=== PATIENT | female | born 1940 | race Caucasian/White ===

== ENCOUNTER 2016-11-24 01:51 | Inpatient (IN) | payer MEDICARE, OTHER ==
[2016-11-24] VITALS (18 sets, daily range): BP systolic 112–152; BP diastolic 56–68; PULSE 81–108; RESP 16–19; TEMP 97.5–98.6; O2SAT 97–99
[2016-11-24] MEDS ORDERED: RESP: ALBUTEROL 2.5 MG/IPRATROPIUM 0.5 MG NEB (PRN) NEB (03:00)
[2016-11-24 03:06] LABS: BLOOD GAS BASE EXCESS -2.1 mmol/L (-2-2); BLOOD GAS HCO3 22 mmol/L (22-26); BLOOD GAS O2 HGB SATURATION 91 % (90-100); BLOOD GAS PCO2 39 mmHg (38-42); BLOOD GAS PO2 75 mmHg (61-120); BLOOD GAS TOTAL HGB 10.9 G/DL (12.0-16.0); CRITICAL VALUE NO; TEMP CORR TO 98.6
[2016-11-24 03:07] LABS: DRAW SITE RT RADIAL; FIO2 60 %; NUMBER OF ARTERIAL PUNCTURES 1; STAT YES; ULNAR PULSE Y; VENT SETTINGS PRVC
--- NOTE | 2016-11-24 03:11 | HHI.HP ---
HPI Service Critical Care Medicine Primary Care Physician Unknown Admission Diagnosis Diagnosis: (1) Acute respiratory failure Diagnosis: Principal (2) SAH (subarachnoid hemorrhage) Diagnosis: Principal (3) IVH (intraventricular hemorrhage) Diagnosis: Principal (4) Uncontrolled hypertension Diagnosis: Principal (5) Acute encephalopathy Diagnosis: Principal (6) LLL pneumonia Diagnosis: Principal (7) Leukocytosis Diagnosis: Principal (8) Severe sepsis Diagnosis: Principal (9) Peritoneal dialysis catheter in place Diagnosis: Secondary Chief Complaint: Extensive subarachnoid hemorrhage Acute respiratory respiratory failure Travel History International Travel<30 Days: No Contact w/Intl Traveler <30 Da: No Traveled to Known Affected Are: No Sepsis Criteria SIRS Criteria (2 or more): Heart rate over 90, WBC > 13164, < 4000 or > 10% bands Sepsis Criteria (SIRS+source): Infect source susp/known Severe Sepsis (+one): Lactate >2 Criteria Outcome: Meets severe sepsis criteria History of Present Illness Patient is a 76-year-old female who was transferred from [facility] with extensive subarachnoid hemorrhage. Unfortunately I do not have any history and physical or discharge summary available neither CT reports. All history I have is from discussion with Dr. Tian. Apparently patient was found unconscious yesterday in a pool of bloody vomitus. She was intubated and admitted to the [facility] ICU. She underwent EGD, again report is not available to me, and was placed on Protonix infusion. After EGD patient underwent a CT of the head which showed extensive subarachnoid hemorrhage, and IVH. Dr. Tian was contacted who recommended a CT angiogram. CT angiogram did not show an aneurysm but showed probable mild obstructive hydrocephalus. Dr. Tian accepted transfer to [facility] for further care, and patient was admitted to critical care medicine. Only medical history available to me is that patient is on peritoneal dialysis, and has history of hypertension I evaluated the patient in the ICU. Patient is sedated with propofol is on Cardene infusion for blood pressure control. Also on Protonix gtt for GIB On sedation hold patient withdraws all 4 extremities. Pupils are slightly reactive. There was audible cuff leak. Tube exchange attempted by respiratory therapist was unsuccessful. So I extubated and endotracheally intubated the patient with new ET tube. Dr. Tian had been made aware of the patient's arrival and he plans to do an EVD Review of Systems ROS Limitations: Intubated, Unresponsive Past Family Social History Allergies: Coded Allergies: UNOBTAINABLE (Unverified , 11/24/16) Intubated Past Medical History New subarachnoid hemorrhage End-stage renal disease on peritoneal dialysis Hypertension Past Surgical History Unable to obtain at this time Reported Medications Unable to obtain at this time Active Ordered Medications Currently on propofol Protonix and Cardene infusions Family History Unable to obtain Social History Unable to obtain Physical Exam Vital Signs Vital Signs Date Time Temp Pulse Resp B/P Pulse Ox O2 Delivery O2 Flow Rate FiO2 11/24/16 02:53 98 60 Physical Exam GENERAL: Elderly female who is intubated sedated critically ill SKIN: Warm and dry. HEAD: Normocephalic. EYES: No scleral icterus. No injection or drainage. Pupils are 3 mm reactive slightly ENT: ETT with audible cuff leak NECK: Supple, trachea midline. No JVD or lymphadenopathy. CARDIOVASCULAR: Regular rate and rhythm without murmurs, gallops, or rubs. RESPIRATORY: Breath sounds equal bilaterally, but diminished with mild expiratory wheezing GASTROINTESTINAL: Abdomen soft, non-tender, nondistended. PD catheter in place MUSCULOSKELETAL: No cyanosis, or edema. Neuro: Intubated sedated with propofol. Withdraws upper and lower extremity to pain. NEENA 3mm Laboratory Laboratory Tests Test 11/24/16 03:01 Blood Gas Puncture Site RT RADIAL Blood Gas Patient Temperature 98.6 Blood Gas HCO3 22 Blood Gas Base Excess -2.1 Blood Gas Oxygen Saturation 91 Arterial Blood pH 7.38 Arterial Blood Partial 39 Pressure CO2 Arterial Blood Partial 75 Pressure O2 Arterial Blood Oxygen Content 14.0 Arterial Blood 0.0 Carboxyhemoglobin Arterial Blood Methemoglobin 1.0 Blood Gas Hemoglobin 10.9 Blood Gas Ventilator Setting PRVC Blood Gas Inspired Oxygen [address] head at OSH shows extensive subarachnoid hemorrhage, intraventricular hemorrhage and probable early hydrocephalus Septic Shock Reassessment Heart: Other (tachycardic) Lungs: Course Skin: Warm Peripheral Pulses: Bounding Right Radial Bounding Left Radial Assessment and Plan Assessment and Plan NEURO: Subarachnoid hemorrhage Intraventricular hemorrhage Probable mild hydrocephalus Acute encephalopathy -Keep sedated with propofol and as needed fentanyl, target RASS-3 -No sedation vacation -Plan for EVD by Dr. Tian, with f/u CT head -Cardene infusion to target systolic blood pressure 120 to 1:30 -Keep sodium more than 145 keep magnesium more than 2 -Monitor for vasospasm, start Nimotop 60 mg every 4hr -Plan for repeat CTA of the brain in 3-4 days RESP: Acute respiratory failure Left lower lobe pneumonia ET tube cuff damage -Extubated and re intubated with new ETT -ACV RR 16 TV 550 PEEP 8 titrate FiO2 to keep saturation more than 90% -DuoNeb every 6 hours and when necessary -Send sputum culture, empiric Zosyn started, single dose of vancomycin CV: Uncontrolled hypertension -Continue Cardene infusion to target systolic blood pressure less than 130 -Started on Nimotop 60 mg every 4 hours -Normal saline IV fluids at 50 ml per hour GI: -NPO, IV Protonix -Colace, senna for bowel regimen -Start tube feeds in 24 hours : End-stage renal disease on peritoneal dialysis -Monitor renal function closely. Rosales catheter. -Nephrology consulted for peritoneal dialysis management ID: Left lower lobe pneumonia Severe sepsis Leukocytosis -IV vancomycin x1, and Zosyn 3.375 GM IV q6. -Send blood culture urine culture and sputum culture HEME: -Monitor CBC, CMP, coags ENDO: -Electrolyte replacement as needed PROPH: Bilateral lower extremity SCDs. Chemical DVT prophylaxis is contraindicated. Continue Protonix infusion for GI bleed LINES: -Patient has left subclavian central line placed at the outside hospital. CC time 80 min excluding procedure time Code Status Full Discussed Condition With Dr. Tian Problem Qualifiers (1) Acute respiratory failure: Qualified Code: J96.01 - Acute respiratory failure with hypoxia (2) LLL pneumonia: Qualified Code: J18.1 - Pneumonia of left lower lobe due to infectious organism Antonia Toledo MD Nov 24, 2016 03:11
--- NOTE | 2016-11-24 03:19 | PD.PROCEDR ---
Procedure Note Procedure After the risks and benefits were discussed the following procedure was performed: INTUBATION: The patient was put in optimal position for the procedure. Rapid sequence intubation was initiated by me using continuous propofol and 50 milligrams of Rocuronium IV. DL with Mac 4 blade Grade 1 view. The patient was intubated with a 7.5 cuffed endotracheal tube. Tube placement was confirmed by visualization of the tube and balloon passing through the cords, capnometry and subsequent chest x-ray. Breath sounds were equal and well aerated bilaterally postintubation. No breath sounds over stomach. Patient tolerated procedure well. Antonia Toledo MD Nov 24, 2016 03:19
[2016-11-24 03:36] LABS: HEMATOCRIT 31.2 % (35.0-46.0); MEAN CELL VOLUME 93.1 FL (80.0-100.0); MEAN CORPUSCULAR HGB CONC 34.4 % (32.0-36.0); PLATELET COUNT 420 TH/MM3 (150-450); RED BLOOD COUNT 3.35 MIL/MM3 (4.00-5.30); RED CELL DISTRIBUTION WIDTH 14.1 % (11.6-17.2); REVIEW FLAG FINAL; WHITE BLOOD COUNT 22.6 TH/MM3 (4.0-11.0)
[2016-11-24] MEDS: SODIUM CHLOR 0.9% 1000 ML INJ 1,000 ML IV SCH ×2 (03:40→23:40)
[2016-11-24] MEDS ORDERED: MISCELLANEOUS NURSING INFORMATION XX SCH (03:45)
[2016-11-24] MEDS ORDERED: CHLORHEXIDINE GLUCONATE 2 % 1 PACK (2 CLOTHS) TOP PRN (03:45)
[2016-11-24] MEDS ORDERED: LORazepam 2 MG/ML VIAL IV PRN (03:45)
[2016-11-24] MEDS ORDERED: ACETAMINOPHEN 325 MG TAB PO PRN (03:45)
[2016-11-24] MEDS ORDERED: SODIUM CHLORIDE 0.9% FLUSH 5 ML FLUSH IV FLUSH PRN (03:45)
[2016-11-24] MEDS ORDERED: SODIUM CHLOR 0.9% 1000 ML INJ 1,000 ML IV ONE (04:00)
[2016-11-24] MEDS: CHLORHEXIDINE GLUCONATE 2 % 1 PACK (2 CLOTHS) TOP SCH (04:00)
[2016-11-24] MEDS ORDERED: VANCOMYCIN INJ 1,000 MG in SODIUM CHLOR 0.9% 250 ML INJ 250 ML IV ONE (04:00)
[2016-11-24 04:01] LABS: ALT (GPT) 16 U/L (10-53); ANION GAP 15 MEQ/L (5-15); AST (GOT) 17 U/L (15-37); BICARBONATE 25.6 MEQ/L (21.0-32.0); BLOOD UREA NITROGEN 58 MG/DL (7-18); CHLORIDE 99 MEQ/L (98-107); GLOMERULAR FILTRATION RATE 5 ML/MIN (>89); MAGNESIUM 2.2 MG/DL (1.5-2.5); SODIUM (NA) 140 MEQ/L (136-145)
[2016-11-24 04:03] LABS: ALKALINE PHOSPHATASE 74 U/L (45-117); TOTAL BILIRUBIN ADULT 0.5 MG/DL (0.2-1.0)
[2016-11-24] MEDS: niCARdipine INJ 25 MG in SODIUM CHLOR 0.9% 250 ML INJ 250 ML IV SCH (04:16)
[2016-11-24] MEDS: PIPERACIL-TAZO 3.375 GM PREMIX 50 ML IV SCH ×2 (04:17→09:55)
[2016-11-24] MEDS: niMODipine 30 MG CAP PO SCH ×4 (04:18→20:00)
[2016-11-24] MEDS: PANTOPRAZOLE INJ 80 MG in SODIUM CHLORIDE 0.9% INJ 100 ML IV SCH ×2 (04:18→16:15)
[2016-11-24 04:53] LABS: INTERNATIONAL NORMALIZED RATIO 1.1 RATIO; PROTHROMBIN TIME - PATIENT 11.9 SEC (9.8-11.6)
--- NOTE | 2016-11-24 04:54 | RADRPT ---
EXAM DATE/TIME: 11/24/2016 03:27 [place] COMPARISON: No previous studies available for comparison. INDICATIONS : E-T tube placement. MEDICAL HISTORY : None. SURGICAL HISTORY : None. ENCOUNTER: Initial ACUITY: 1 day PAIN SCORE: Non-responsive. LOCATION: Bilateral chest FINDINGS: Endotracheal tube tip is at the edin. Slight retraction would be recommended. A nasogastric tube de scends to the stomach. A left subclavian central line is present with tip overlying SVC. There is haz y infiltrate in the left lower lobe obscuring the left diaphragm. Mild interstitial prominence elsewh ere in the lungs. Cardiac size and mediastinal contours are grossly satisfactory for projection. CONCLUSION: Endotracheal tube tip is at the edin. Slight retraction recommended. Tre Harrington MD on November 24, 2016 at 4:51 Board Certified Radiologist. This report was verified electronically.
[2016-11-24] MEDS: PROPOFOL 1000 MG/100 ML INJ 100 ML IV SCH ×3 (05:13→16:07)
[2016-11-24] MEDS ORDERED: ROCURONIUM INJ 50 MG/5 ML VIAL PRN (06:45)
--- NOTE | 2016-11-24 08:11 | PD.CONS ---
History of Present Illness Service Neurosurgery Consult Requested By Benzol Still Operator-Dr. Toledo Reason for Consult Subarachnoid hemorrhage Primary Care Physician Unknown Diagnoses: History of Present Illness 76-year-old female transferred from [facility]. Patient reportedly found at home unresponsive with emesis. Patient intubated prior to arrival in the emergency room. Systolic blood pressure 190 initially in the emergency room. Taken to [facility] emergency room and taken urgently for EGD with clipping for GI bleed. Subsequently CT scan of the head revealed significant subarachnoid hemorrhage and the patient admitted to the intensive care unit. No seizure activity reported. Review of Systems Unable to obtain review of systems due to altered mental status. According to the patient's sister, the patient has had problems with increasing headaches and progressive fatigue over the past 3 or 4 weeks. Otherwise she is not aware of any specific complaints including no chest pain, shortness of breath, fevers, chills. Past Family Social History Allergies: Coded Allergies: UNOBTAINABLE (Unverified , 11/24/16) Intubated Past Medical History End-stage renal disease on peritoneal dialysis Hypertension Past Surgical History Renal biopsy EGD Reported Medications Omeprazole Family History Negative cardiac disease cancer, diabetes Social History According to sister no smoking. No alcohol use. Patient lives alone Physical Exam Vital Signs Vital Signs Date Time Temp Pulse Resp B/P Pulse Ox O2 Delivery O2 Flow Rate FiO2 11/24/16 06:00 89 11/24/16 04:00 108 11/24/16 04:00 97.9 108 17 151/67 98 11/24/16 03:00 Mechanical Ventilator 60 11/24/16 03:00 60 11/24/16 03:00 92 11/24/16 02:53 98 60 11/24/16 02:30 98 60 Physical Exam GENERAL: Moderately obese female, intubated, sedated SKIN: No rashes, ecchymoses or lesions. Cool and dry. HEAD: Atraumatic. Normocephalic. EYES: Sclerae are clear and nonicteric ENT: Oropharynx I will CT to endotracheal tube. No obvious oropharyngeal lesions. No facial edema or ecchymosis. NECK: Trachea midline. No lymphadenopathy. no meningeal signs. CARDIOVASCULAR: Regular rate and rhythm without murmurs, gallops, or rubs. RESPIRATORY: Coarse upper airway sounds. No wheezing. No definite rhonchi GASTROINTESTINAL: Abdomen soft, nondistended. No hepato-splenomegaly, or palpable masses. No guarding. MUSCULOSKELETAL: Extremities without clubbing, cyanosis, or edema. No joint tenderness, effusion, or edema noted. Posterior tibial pulse 2+ bilateral NEUROLOGICAL: With sedation decreased, the patient has no eye opening to voice, spontaneous, or deep pain Does not follow commands Pupils 3 mm minimally reactive Mild conjugate oculocephalic movements Moderate corneal responses No facial grimacing to pain Minimal shaking spontaneous upper extremities. No response to deep pain over the chest or upper extremities. Minimal retrolisthesis painful extremities Gadiel's response bilaterally No ankle clonus Laboratory Laboratory Tests Test 11/24/16 11/24/16 11/24/16 11/24/16 02:50 03:01 03:22 03:55 Nasal Screen MRSA (PCR) NEGATIVE Blood Gas Puncture Site RT RADIAL Blood Gas Patient Temperature 98.6 Blood Gas HCO3 22 Blood Gas Base Excess -2.1 Blood Gas Oxygen Saturation 91 Arterial Blood pH 7.38 Arterial Blood Partial 39 Pressure CO2 Arterial Blood Partial 75 Pressure O2 Arterial Blood Oxygen Content 14.0 Arterial Blood 0.0 Carboxyhemoglobin Arterial Blood Methemoglobin 1.0 Blood Gas Hemoglobin 10.9 Blood Gas Ventilator Setting PRVC Blood Gas Inspired Oxygen 60 White Blood Count 22.6 Red Blood Count 3.35 Hemoglobin 10.7 Hematocrit 31.2 Mean Corpuscular Volume 93.1 Mean Corpuscular Hemoglobin 32.0 Mean Corpuscular Hemoglobin 34.4 Concent Red Cell Distribution Width 14.1 Platelet Count 420 Mean Platelet Volume 6.5 Sodium Level 140 Potassium Level 4.0 Chloride Level 99 Carbon Dioxide Level 25.6 Anion Gap 15 Blood Urea Nitrogen 58 Creatinine 7.65 Estimat Glomerular Filtration 5 Rate Random Glucose 153 Lactic Acid Level 3.1 Calcium Level 8.2 Phosphorus Level 6.4 Magnesium Level 2.2 Total Bilirubin 0.5 Aspartate Amino Transf 17 (AST/SGOT) Alanine Aminotransferase 16 (ALT/SGPT) Alkaline Phosphatase 74 Total Protein 6.6 Albumin 2.7 Prothrombin Time 11.9 Prothromb Time International 1.1 Ratio Date/Time Procedure Status Source Growth 11/24/16 03:45 Aerobic Blood Culture Received Blood Peripheral Pending 11/24/16 03:45 Anaerobic Blood Culture Received Blood Peripheral Pending Result Diagram: 11/24/16 0322 11/24/16 0322 Imaging 11/24/[address] scan head [address] CT angiogram brain [facility] images are reviewed. The studies reveal significant diffuse subarachnoid hemorrhage, particularly of the cisterns. Mild hydrocephalus. Positive intraventricular hemorrhage. No midline shift. No definite aneurysm seen on CT angiogram Assessment and Plan Assessment and Plan Impression: 1 subarachnoid hemorrhage 2 hypertension 3. End-stage renal disease on peritoneal dialysis 4. Respiratory failure requiring intubation Recommendations: 1. Maintain systolic blood pressure 110-140 range 2. Ventriculostomy 3. Ulcer prophylaxis 4. Non chemical DVT prophylaxis 5. Cerebral angiogram 6. vasospasm prophylaxis - nimodipine 7. seizure prophylaxis - Keppra Discussed with patient's sister at length on the telephone. Findings, prognosis, treatment plan fully discussed and all questions answered. Advised placement of ventriculostomy catheter. Procedure, risks, possible complications, indications are fully discussed. She presented to stand and agrees to proceed with a ventriculostomy. Telephone consents obtained and witnessed Donato Tian MD Nov 24, 2016 08:11
--- NOTE | 2016-11-24 08:21 | PD.CONS ---
HPI History of Present Illness This is a 76 year old female who was transferred from [facility] with extensive subarachnoid hemorrhage. According to the records, she was found down with black emesis around her mouth. She was intubated and brought to the ER, where she started having red drainage from her OGT and was evaluated with EGD. Unfortunately, we do not have the actual endoscopy report available, although according to a OR report, she underwent EGD with control of bleeding, resolution clip application on 11/23/16. Afterwards, a CT scan report revealed significant subarachnoid hemorrhage and the patient transferred to the intensive care unit at this facility. She is currently sedated on the ventilator and unable to provide any history and therefore the history has been obtained from the EMR. Dr. Tian is at the bedside and preparing to place a ventriculostomy. SHe has an OGT which is currently clamped. I did flush this and aspirated dark green bilious material, but no coffee ground or red blood. She is on a Protonix Gtt. Her HH is 10.7/31.2. (Silvia Nino) PFSH Past Medical History New subarachnoid hemorrhage End-stage renal disease on peritoneal dialysis Hypertension GI Bleeding, requiring control of bleeding with clips Past Surgical History Unable to obtain (Silvia iNno) Coded Allergies: UNOBTAINABLE (Unverified , 11/24/16) Intubated Medications Allergies Coded Allergies Type Severity Reaction Last Updated Verified UNOBTAINABLE 11/24/16 No Family History Unable to obtain Social History Unable to obtain (Silvia Nino) Review of Systems ROS Unable to obtain (Silvia Nino) GI Exam Vitals I&O Vital Signs Date Time Temp Pulse Resp B/P Pulse Ox O2 Delivery O2 Flow Rate FiO2 11/24/16 06:00 89 11/24/16 04:00 108 11/24/16 04:00 97.9 108 17 151/67 98 11/24/16 03:00 Mechanical Ventilator 60 11/24/16 03:00 60 11/24/16 03:00 92 11/24/16 02:53 98 60 11/24/16 02:30 98 60 I/O 11/23/16 11/23/16 11/23/16 11/24/16 11/24/16 11/24/16 07:00 15:00 23:00 07:00 15:00 23:00 Intake Total 678 ml Output Total 400 ml Balance 278 ml Intake IV Total 587 ml Lipid 91 ml Output Urine Total 400 ml Stool Total 0 ml Imaging Last Impressions Chest X-Ray 11/24/16 0000 Signed Impressions: Service Date/Time: Thursday, November 24, 2016 03:27 - CONCLUSION: Endotracheal tube tip is at the edin. Slight retraction recommended. Tre Harrington MD Laboratory Test 11/24/16 11/24/16 11/24/16 11/24/16 02:50 03:01 03:22 03:55 Nasal Screen MRSA (PCR) NEGATIVE Blood Gas Puncture Site RT RADIAL Blood Gas Patient Temperature 98.6 Blood Gas HCO3 22 mmol/L Blood Gas Base Excess -2.1 mmol/L Blood Gas Oxygen Saturation 91 % Arterial Blood pH 7.38 Arterial Blood Partial 39 mmHg Pressure CO2 Arterial Blood Partial 75 mmHg Pressure O2 Arterial Blood Oxygen Content 14.0 Vol % Arterial Blood 0.0 % Carboxyhemoglobin Arterial Blood Methemoglobin 1.0 % Blood Gas Hemoglobin 10.9 G/DL Blood Gas Ventilator Setting PRVC Blood Gas Inspired Oxygen 60 % White Blood Count 22.6 TH/MM3 Red Blood Count 3.35 MIL/MM3 Hemoglobin 10.7 GM/DL Hematocrit 31.2 % Mean Corpuscular Volume 93.1 FL Mean Corpuscular Hemoglobin 32.0 PG Mean Corpuscular Hemoglobin 34.4 % Concent Red Cell Distribution Width 14.1 % Platelet Count 420 TH/MM3 Mean Platelet Volume 6.5 FL Sodium Level 140 MEQ/L Potassium Level 4.0 MEQ/L Chloride Level 99 MEQ/L Carbon Dioxide Level 25.6 MEQ/L Anion Gap 15 MEQ/L Blood Urea Nitrogen 58 MG/DL Creatinine 7.65 MG/DL Estimat Glomerular Filtration 5 ML/MIN Rate Random Glucose 153 MG/DL Lactic Acid Level 3.1 mmol/L Calcium Level 8.2 MG/DL Phosphorus Level 6.4 MG/DL Magnesium Level 2.2 MG/DL Total Bilirubin 0.5 MG/DL Aspartate Amino Transf 17 U/L (AST/SGOT) Alanine Aminotransferase 16 U/L (ALT/SGPT) Alkaline Phosphatase 74 U/L Total Protein 6.6 GM/DL Albumin 2.7 GM/DL Prothrombin Time 11.9 SEC Prothromb Time International 1.1 RATIO Ratio Date/Time Procedure Status Source Growth 11/24/16 03:45 Aerobic Blood Culture Received Blood Peripheral Pending 11/24/16 03:45 Anaerobic Blood Culture Received Blood Peripheral Pending Physical Examination HEENT: Normocephalic; atraumatic; no jaundice. CHEST: Resp even/unlabored, coarse breath sounds. OETT to vent CARDIAC: RRR ABDOMEN: Soft, nondistended, nontender; no hepatosplenomegaly; bowel sounds are present in all four quadrants. Aspirated dark green bilious material from OGT EXTREMITIES: Generalized edema. Varicose veins to BLE SKIN: Normal; no rash; no jaundice. AIRWORTHINESS SAFETY INSPECTOR: Sedated on vent. (Silvia Nino) Assessment and Plan Plan ASSESSMENT: - Upper GIB. Pt was found down with black emesis around mouth, intubated and brought to [facility], where she started having red blood from OGT. Unfortunately, we do not have the actual endoscopy report available, although according to a OR report, she underwent EGD with control of bleeding, resolution clip application on 11/23/16. She is NPO on Protonix Gtt. I aspirated dark green bilious material from OGT. - Anemia, acute blood loss. 10.7/31.2. - Extensive SAH. After EGD, patient was found to have extensive SAH on CT and subsequently transferred to this facility for further evaluation and treatment. Dr. Tian is following and preparing to place ventriculostomy at the bedside. - Leukocytosis, Lactic acid 3.1. WBC 22.6. - ARF. Creat 7.65. Per CCM PLAN: - NPO for now. - Cont. Protonix Gtt - Will get serial H/H's to see how her hgb is trending - If this remains stable, then okay to start Nepro at 30cc/hr - Obtain EGD procedure report from [facility] - Notify GI of active bleeding - CCM, NSx following - Supportive care - Further recommendations to follow based on results of above - Pt seen and examined by Dr. Cerda and myself and this note is written on his behalf (Silvia Nino) Physician Comments Patient Seen and examined Agree with above Continue with current supportive care Monitor labs Obtain endoscopy reports from the other hospital (Cecilio Cerda MD) Silvia Nino Nov 24, 2016 08:21 Cecilio Cerda MD Nov 24, 2016 17:24
[2016-11-24] MEDS: DOCUSATE SODIUM 100 MG/10 ML UDC PO SCH ×2 (09:00→21:00)
--- NOTE | 2016-11-24 09:51 | PD.OP ---
Operative Report Date of Surgery: Nov 24, 2016 Preoperative Diagnosis: (1) SAH (subarachnoid hemorrhage) Subarachnoid hemorrhage with intraventricular extension. Postoperative Diagnosis: (1) SAH (subarachnoid hemorrhage) .. Subarachnoid hemorrhage with intraventricular extension Procedure: Right frontal twist drill for ventriculostomy placement Surgeon: Donato Tian Public Finance Specialist(s): None Operation and Findings: The procedure was performed in the surgical intensive care unit. The procedure, risks, and possible complications were fully explained to the patient's sister prior to the procedure and consent obtained and witnessed. Appropriate timeout procedure was performed with all personnel present and in agreement The patient was placed in supine position with the head and neck in neutral position and the head of the bed elevated approximately 20. The right frontal region was shaved with clippers and sterilely prepped and draped. One percent Xylocaine without epinephrine was used for local infiltration over the small incision site which was made approximately 9-10 cm above the right supraorbital rim, approximately 3-1/2 to 4 cm lateral to the midline, in the mid pupillary line just anterior to the coronal suture. The hand drill was used to make a single twist drill opening in the cranium and the dura was perforated with the trocar. The Codman Bactiseal ventriculostomy catheter was advanced to a depth of 6-7 cm intracranial in a single pass with good return of spinal fluid. Opening pressure was 12 centimeter water The catheter was tunneled to the posterior frontal region with a trocar and secured to the skin with 3-0 nylon suture which was also used to close the small incision. A sterile bactericidal dressing was applied The catheter was connected to the drainage reservoir, and there was good drainage of fluid. The patient's neurologic exam remained stable following the procedure No specimen was sent There was no significant bleeding Donato Tian MD Nov 24, 2016 09:51
[2016-11-24] MEDS: SENNOSIDES SYRUP 8.8 MG/5 ML CUP PO SCH (09:55)
[2016-11-24] MEDS: SODIUM CHLORIDE 0.9% FLUSH 5 ML FLUSH IV FLUSH SCH ×2 (09:56→21:00)
[2016-11-24] MEDS: CHLORHEXIDINE 0.12% (ORAL KIT) 15 ML CUP MT SCH ×2 (09:56→20:00)
[2016-11-24] MEDS: RESP: ALBUTEROL 2.5 MG/IPRATROPIUM 0.5 MG NEB (SCH) NEB ×3 (10:11→20:34)
[2016-11-24] MEDS ORDERED: PIPERACIL-TAZO 2.25 GM PREMIX 50 ML IV SCH (11:00)
[2016-11-24] MEDS ORDERED: VERAPAMIL INJ 10 MG/4 ML VIAL ONE (12:04)
[2016-11-24] MEDS ORDERED: HEPARIN SODIUM - IV 10,000 UNITS/10 ML VIAL ONE (12:43)
--- NOTE | 2016-11-24 12:55 | PD.RAD ---
Post Procedure Progress Note Pre Procedure Diagnosis: (1) SAH (subarachnoid hemorrhage) Post Procedure Diagnosis: (1) SAH (subarachnoid hemorrhage) Procedure Date: Nov 24, 2016 Supervising Radiologist: Jonnie Schaeffer Proceduralist/Assist: Alie Cleary, RT(R)(), Juanjose Tomas RT(R) Anesthesia: Local Plan of Activity Patient to Unit: Critical Care Patient Condition: Poor See PACS Report for procedural detail/treatment Vascular-Arterial Procedure Procedure 1 Procedure Site: Cerebral (negative for aneurysm or spasm) Procedure(s): Angiogram Access Access Site(s): Right Femoral Artery Closure Site(s): Right manual pressure Jonnie Schaeffer MD Nov 24, 2016 12:55
[2016-11-24] MEDS ORDERED: IODIXANOL 320 MG/ML 50 ML VIAL (for RAD SPEC) I-ARTERIAL ONE (13:12)
[2016-11-24 14:15] LABS: HEMATOCRIT 27.7 % (35.0-46.0); REVIEW FLAG FINAL
--- NOTE | 2016-11-24 15:54 | PD.CONS ---
HPI Service Nephrology Consult Requested By Dr. Toledo Reason for Consult ESRD on peritoneal dialysis Primary Care Physician Unknown History of Present Illness Patient is a 76-year-old the female who [place], she was found in a pool of blood and the had GI bleeding underwent endoscopy and there was clipping of a bleeding vessel, she also underwent CT of the head and found to have significant with intraventricular bleed and was transferred to [facility], a ventriculostomy tube has been placed by Dr. Tian. She has a Tenckhoff catheter and place do not have details available. Review of Systems ROS Limitations: Clinical Condition Past Family Social History Allergies: Coded Allergies: UNOBTAINABLE (Unverified , 11/24/16) Intubated Past Medical History New subarachnoid hemorrhage End-stage renal disease on peritoneal dialysis Hypertension GI Bleeding, requiring control of bleeding with clips Past Surgical History Tenckhoff catheter Recent endoscopy Active Ordered Medications Current Medications Medications (Trade) Dose Ordered Sig/Wan Route Start Time Stop Time Status Last Admin Chlorhexidine Gluconate 15 ml 15 ml BID@08,20 MT 11/24/16 08:00 11/24/16 09:56 Propofol 100 ml @ 0 mls/hr TITRATE IV 11/24/16 03:00 11/24/16 09:55 Nicardipine HCl 25 mg/Sodium Chloride 260 ml @ 0 mls/hr TITRATE IV 11/24/16 03:00 11/24/16 04:16 (Protonix Inj/NS Inj) 100 ml @ 10 mls/hr Q10H IV 11/24/16 04:30 11/24/16 04:18 (Nimotop) 60 mg Q4HR PO 11/24/16 04:00 11/24/16 09:55 (Colace Liq) 100 mg Q12HR PO 11/24/16 09:00 Sennosides 8.8 mg 8.8 mg DAILY PO 11/24/16 09:00 11/24/16 09:55 (NS 1000 ml Inj) 1,000 ml @ 50 mls/hr Q20H IV 11/24/16 03:40 11/24/16 03:40 (NS Flush) 2 ml UNSCH PRN IV FLUSH 11/24/16 03:45 (NS Flush) 2 ml BID IV FLUSH 11/24/16 09:00 11/24/16 09:56 (Tylenol) 650 mg Q6H PRN PO 11/24/16 03:45 (fentaNYL INJ) 50 mcg Q1H PRN IV PUSH 11/24/16 03:45 11/24/16 09:55 (Ativan Inj) 2 mg Q4H PRN IV 11/24/16 03:45 Miscellaneous Information 1 Q361D XX 11/24/16 03:45 11/24/16 03:45 (Chlorhexidine 2% Cloth) 3 pack Taper DAILY@04 TOP 11/24/16 04:00 11/20/17 03:59 11/24/16 04:00 (Chlorhexidine 2% Cloth) 3 pack UNSCH PRN TOP 11/24/16 03:45 Artificial Tears 1 applic 1 applic Q12HR EACH EYE 11/24/16 21:00 Levetriacetam 500 mg/Sodium Chloride 105 ml @ 420 mls/hr Q12HR IV 11/24/16 21:00 12/01/16 20:59 (Zosyn 2.25 Gm Premix) 50 ml @ 100 mls/hr Q12H IV 11/24/16 22:00 Family History Not available Social History Incomplete data Physical Exam Vital Signs Vital Signs Date Time Temp Pulse Resp B/P Pulse Ox O2 Delivery O2 Flow Rate FiO2 11/24/16 15:33 98 55 11/24/16 13:48 97 55 11/24/16 12:00 60 11/24/16 10:13 98 55 11/24/16 10:00 90 11/24/16 08:00 97.5 81 17 112/56 97 11/24/16 08:00 81 11/24/16 08:00 60 11/24/16 07:00 Mechanical Ventilator 60 11/24/16 06:00 89 11/24/16 04:00 108 11/24/16 04:00 97.9 108 17 151/67 98 11/24/16 03:00 Mechanical Ventilator 60 11/24/16 03:00 60 11/24/16 03:00 92 11/24/16 02:53 98 60 11/24/16 02:30 98 60 Physical Exam GENERAL: Well-nourished, well-developed patient. SKIN: Warm and dry. HEAD: Normocephalic. EYES: No scleral icterus. No injection or drainage. NECK: Supple, trachea midline. No JVD or lymphadenopathy. CARDIOVASCULAR: Tachycardic RESPIRATORY: Breath sounds equal bilaterally. No accessory muscle use. GASTROINTESTINAL: Abdomen soft, non-tender, nondistended. Tenckhoff catheter in place EXTREMITIES: No cyanosis, or edema. NEUROLOGICAL: Intubated Laboratory Laboratory Tests Test 11/24/16 11/24/16 11/24/16 11/24/16 02:50 03:01 03:22 03:55 Nasal Screen MRSA (PCR) NEGATIVE Blood Gas Puncture Site RT RADIAL Blood Gas Patient Temperature 98.6 Blood Gas HCO3 22 Blood Gas Base Excess -2.1 Blood Gas Oxygen Saturation 91 Arterial Blood pH 7.38 Arterial Blood Partial 39 Pressure CO2 Arterial Blood Partial 75 Pressure O2 Arterial Blood Oxygen Content 14.0 Arterial Blood 0.0 Carboxyhemoglobin Arterial Blood Methemoglobin 1.0 Blood Gas Hemoglobin 10.9 Blood Gas Ventilator Setting PRVC Blood Gas Inspired Oxygen 60 White Blood Count 22.6 Red Blood Count 3.35 Hemoglobin 10.7 Hematocrit 31.2 Mean Corpuscular Volume 93.1 Mean Corpuscular Hemoglobin 32.0 Mean Corpuscular Hemoglobin 34.4 Concent Red Cell Distribution Width 14.1 Platelet Count 420 Mean Platelet Volume 6.5 Sodium Level 140 Potassium Level 4.0 Chloride Level 99 Carbon Dioxide Level 25.6 Anion Gap 15 Blood Urea Nitrogen 58 Creatinine 7.65 Estimat Glomerular Filtration 5 Rate Random Glucose 153 Lactic Acid Level 3.1 Calcium Level 8.2 Phosphorus Level 6.4 Magnesium Level 2.2 Total Bilirubin 0.5 Aspartate Amino Transf 17 (AST/SGOT) Alanine Aminotransferase 16 (ALT/SGPT) Alkaline Phosphatase 74 Total Protein 6.6 Albumin 2.7 Prothrombin Time 11.9 Prothromb Time International 1.1 Ratio Test 11/24/16 13:50 Hemoglobin 9.3 Hematocrit 27.7 Date/Time Procedure Status Source Growth 11/24/16 03:45 Aerobic Blood Culture Received Blood Peripheral Pending 11/24/16 03:45 Anaerobic Blood Culture Received Blood Peripheral Pending Result Diagram: 11/24/16 1350 11/24/16 0322 Imaging Last Impressions Chest X-Ray 11/24/16 0000 Signed Impressions: Service Date/Time: Thursday, November 24, 2016 03:27 - CONCLUSION: Endotracheal tube tip is at the edin. Slight retraction recommended. Tre Harrington MD Assessment and Plan Problem List: (1) ESRD (end stage renal disease) Plan: Patient will resume peritoneal dialysis tonight with the catheter in place Continue to monitor labs while she is here obtaining further information Check peritoneal dialysis fluid cell count as well and cultures (2) Peritoneal dialysis catheter in place Plan: Orders placed to restart peritoneal dialysis (3) SAH (subarachnoid hemorrhage) Plan: Surgical intervention as above (4) Acute respiratory failure Plan: On ventilator (5) Uncontrolled hypertension Plan: Cardene drip (6) GI bleeding Plan: Gastroenterology is following (7) Severe sepsis Plan: On Zosyn Problem Qualifiers (1) Acute respiratory failure: Qualified Code: J96.01 - Acute respiratory failure with hypoxia Effie Parrish MD Nov 24, 2016 15:54
[2016-11-24 18:15] LABS: BLOOD GAS BASE EXCESS -4.4 mmol/L (-2-2); BLOOD GAS CARBOXYHEMOGLOBIN 0.9 % (0-4); BLOOD GAS HCO3 20 mmol/L (22-26); BLOOD GAS METHEMOGLOBIN 1.7 % (0-2); BLOOD GAS O2 HGB SATURATION 89 % (90-100); BLOOD GAS OXYGEN CONTENT 15.2 Vol % (12.0-20.0); BLOOD GAS PCO2 38 mmHg (38-42); BLOOD GAS PO2 67 mmHg (61-120); BLOOD GAS TOTAL HGB 12.1 G/DL (12.0-16.0); CRITICAL VALUE YES; OXYGEN DEVICE VENTILATOR; TEMP CORR TO 98.6
[2016-11-24 18:16] LABS: DRAW SITE RT RADIAL; FIO2 45 %; NUMBER OF ARTERIAL PUNCTURES 1; STAT NO; ULNAR PULSE PRESENT
[2016-11-24 18:23] LABS: HEMATOCRIT 27.2 % (35.0-46.0); MEAN CELL VOLUME 93.9 FL (80.0-100.0); MEAN CORPUSCULAR HEMOGLOBIN 31.3 PG (27.0-34.0); MEAN CORPUSCULAR HGB CONC 33.3 % (32.0-36.0); PLATELET COUNT 364 TH/MM3 (150-450); RED BLOOD COUNT 2.89 MIL/MM3 (4.00-5.30); RED CELL DISTRIBUTION WIDTH 14.4 % (11.6-17.2); REVIEW FLAG FINAL; WHITE BLOOD COUNT 18.9 TH/MM3 (4.0-11.0)
[2016-11-24 18:42] LABS: PERITONEAL WBC 62 /MM3 (0-10)
[2016-11-24 19:15] LABS: PERITONEAL LYMPHS 42 %; PERITONEAL MESOTHELIAL 13 %; PERITONEAL MONOS 40 %; PERITONEAL POLYS(SEGS) 5 %
[2016-11-24] MEDS: levETIRAcetam INJ 500 MG in SODIUM CHLORIDE 0.9% INJ 100 ML IV SCH (21:00)
[2016-11-24] MEDS: ARTIFICIAL TEARS OPTH OINT 3.5 APPLIC/3.5 GM TUBO EACH EYE SCH (21:00)
[2016-11-24] MEDS: PIPERACIL-TAZO 2.25 GM PREMIX 50 ML IV SCH (22:00)
[2016-11-25] VITALS (19 sets, daily range): BP systolic 128–145; BP diastolic 58–66; PULSE 79–98; RESP 18–19; TEMP 97.5–98.5; O2SAT 97–100
[2016-11-25] MEDS: PANTOPRAZOLE INJ 80 MG in SODIUM CHLORIDE 0.9% INJ 100 ML IV SCH ×3 (00:30→19:46)
[2016-11-25 02:49] LABS: HEMATOCRIT 26.7 % (35.0-46.0); MEAN CELL VOLUME 93.2 FL (80.0-100.0); MEAN CORPUSCULAR HEMOGLOBIN 31.1 PG (27.0-34.0); MEAN CORPUSCULAR HGB CONC 33.3 % (32.0-36.0); PLATELET COUNT 354 TH/MM3 (150-450); RED BLOOD COUNT 2.87 MIL/MM3 (4.00-5.30); RED CELL DISTRIBUTION WIDTH 14.6 % (11.6-17.2); REVIEW FLAG FINAL; WHITE BLOOD COUNT 15.9 TH/MM3 (4.0-11.0)
[2016-11-25] MEDS: RESP: ALBUTEROL 2.5 MG/IPRATROPIUM 0.5 MG NEB (SCH) NEB ×4 (03:36→21:41)
[2016-11-25] MEDS: CHLORHEXIDINE GLUCONATE 2 % 1 PACK (2 CLOTHS) TOP SCH (04:00)
[2016-11-25] MEDS: niMODipine 30 MG CAP PO SCH ×7 (04:00→23:50)
--- NOTE | 2016-11-25 04:10 | RADRPT ---
EXAM DATE/TIME: 11/25/2016 03:49 [facility] COMPARISON: CHEST SINGLE AP, November 24, 2016, 3:27. INDICATIONS : Shortness of breath. MEDICAL HISTORY : None. SURGICAL HISTORY : None. ENCOUNTER: Subsequent ACUITY: 2 days PAIN SCORE: Non-responsive. LOCATION: Bilateral chest FINDINGS: A single view of the chest demonstrates persistent consolidation in the left base with developing air space disease in the right lower lung field. Heart size is normal. Left subclavian central venous cat heter is stable in position. A radiopaque monitor projects over the right mainstem bronchus. Inspecti on difficult to determine the exact position of the endotracheal tube but I do believe its above the edin. Nasogastric tube enters the stomach and extends off the inferior aspect of the film. CONCLUSION: 1. Persistent left basilar consolidation with developing right basilar airspace disease. 2. Radiopaque monitor over the right mainstem bronchus partially obscures the airway but I believe th e endotracheal tube is appropriately positioned above the edin. Life support tubes are otherwise st able. Alan Campos MD on November 25, 2016 at 4:01 Board Certified Radiologist. This report was verified electronically.
[2016-11-25 05:35] LABS: AUTOMATED NEUTROPHIL # 12.1 TH/MM3 (1.8-7.7); BASOPHIL # 0.1 TH/MM3 (0-0.2); BASOPHIL % 0.7 % (0.0-2.0); EOSINOPHIL # 0.2 TH/MM3 (0-0.4); EOSINOPHIL % 1.5 % (0.0-4.0); HEMATOCRIT 23.9 % (35.0-46.0); HEMO FLAGS DIFF FINAL; LYMPH % 4.7 % (9.0-44.0); LYMPHOCYTE # 0.6 TH/MM3 (1.0-4.8); MEAN CELL VOLUME 92.4 FL (80.0-100.0); MEAN CORPUSCULAR HEMOGLOBIN 31.6 PG (27.0-34.0); MEAN CORPUSCULAR HGB CONC 34.2 % (32.0-36.0); MONO % 4.9 % (0.0-8.0); NEUT % 88.2 % (16.0-70.0); PLATELET COUNT 308 TH/MM3 (150-450); RED BLOOD COUNT 2.59 MIL/MM3 (4.00-5.30); RED CELL DISTRIBUTION WIDTH 14.3 % (11.6-17.2); WHITE BLOOD COUNT 13.7 TH/MM3 (4.0-11.0)
[2016-11-25 05:48] LABS: APTT (PATIENT) 27.1 SEC (24.3-30.1)
[2016-11-25] MEDS: PROPOFOL 1000 MG/100 ML INJ 100 ML IV SCH ×5 (06:14→19:35)
[2016-11-25 06:15] LABS: ALKALINE PHOSPHATASE 51 U/L (45-117); ALT (GPT) 11 U/L (10-53); ANION GAP 15 MEQ/L (5-15); AST (GOT) 6 U/L (15-37); BICARBONATE 23.3 MEQ/L (21.0-32.0); BLOOD UREA NITROGEN 57 MG/DL (7-18); CHLORIDE 100 MEQ/L (98-107); GLOMERULAR FILTRATION RATE 5 ML/MIN (>89); MAGNESIUM 2.2 MG/DL (1.5-2.5); POTASSIUM 3.7 MEQ/L (3.5-5.1); SODIUM (NA) 138 MEQ/L (136-145); TOTAL BILIRUBIN ADULT 0.4 MG/DL (0.2-1.0)
[2016-11-25] MEDS: CHLORHEXIDINE 0.12% (ORAL KIT) 15 ML CUP MT SCH ×2 (08:00→19:46)
[2016-11-25] MEDS: DOCUSATE SODIUM 100 MG/10 ML UDC PO SCH ×2 (08:45→19:45)
[2016-11-25] MEDS: SENNOSIDES SYRUP 8.8 MG/5 ML CUP PO SCH (08:45)
[2016-11-25] MEDS: niCARdipine INJ 25 MG in SODIUM CHLOR 0.9% 250 ML INJ 250 ML IV SCH (08:45)
[2016-11-25] MEDS: ARTIFICIAL TEARS OPTH OINT 3.5 APPLIC/3.5 GM TUBO EACH EYE SCH ×2 (08:46→19:46)
[2016-11-25] MEDS: PIPERACIL-TAZO 2.25 GM PREMIX 50 ML IV SCH ×2 (08:46→21:28)
[2016-11-25] MEDS: SODIUM CHLORIDE 0.9% FLUSH 5 ML FLUSH IV FLUSH SCH ×2 (08:46→19:47)
[2016-11-25] MEDS: levETIRAcetam INJ 500 MG in SODIUM CHLORIDE 0.9% INJ 100 ML IV SCH ×2 (08:46→19:46)
[2016-11-25] MEDS ORDERED: SODIUM CHLORIDE 0.9% FLUSH 5 ML FLUSH IVF PRN (09:30)
[2016-11-25] MEDS ORDERED: HEPARIN SODIUM - IV 10,000 UNITS/10 ML VIAL XX PRN (09:30)
--- NOTE | 2016-11-25 09:36 | HHI.GIFU ---
Subjective Remarks Resting in bed. OGT to LIWS- small amount of dark brown/black liquid drainage. No omayra red bleeding. Objective Vitals I&O Vital Signs Date Time Temp Pulse Resp B/P Pulse Ox O2 Delivery O2 Flow Rate FiO2 11/25/16 08:49 98 40 11/25/16 08:49 100 45 11/25/16 06:00 80 11/25/16 04:20 100 45 11/25/16 04:00 45 11/25/16 04:00 92 11/25/16 04:00 97.5 98 18 140/66 98 11/25/16 03:36 100 45 11/25/16 02:00 80 11/25/16 01:19 98 45 11/25/16 00:00 97.5 98 18 140/66 98 11/25/16 00:00 98 11/25/16 00:00 45 11/24/16 22:00 86 11/24/16 20:34 97 45 11/24/16 20:00 98.6 94 19 152/68 98 11/24/16 20:00 45 11/24/16 20:00 94 11/24/16 19:00 Mechanical Ventilator 60 11/24/16 18:00 88 11/24/16 16:00 90 11/24/16 16:00 55 11/24/16 16:00 98.0 90 16 145/65 97 11/24/16 15:33 98 55 11/24/16 15:31 98 60 11/24/16 14:00 82 11/24/16 13:48 97 55 11/24/16 12:00 84 11/24/16 12:00 99 60 11/24/16 12:00 60 11/24/16 12:00 97.7 84 16 134/63 97 11/24/16 10:13 98 55 11/24/16 10:00 90 I/O 11/24/16 11/24/16 11/24/16 11/25/16 11/25/16 11/25/16 07:00 15:00 23:00 07:00 15:00 23:00 Intake Total 678 ml 775 ml 782 ml 635 ml Output Total 400 ml 215 ml 180 ml 168 ml 701 ml Balance 278 ml 560 ml 602 ml 467 ml -701 ml Intake IV Total 587 ml 775 ml 602 ml 430 ml Lipid 91 ml 180 ml 205 ml Output Urine Total 400 ml 75 ml 100 ml 100 ml Stool Total 0 ml 0 ml 0 ml Gastric Drainage Total 100 ml 0 ml 0 ml Drainage Total 40 ml 80 ml 68 ml Peritoneal Fluid 701 ml Laboratory Laboratory Tests Test 11/24/16 11/24/16 11/24/16 11/25/16 13:50 17:45 18:00 02:30 Hemoglobin 9.3 9.1 8.9 Hematocrit 27.7 27.2 26.7 Peritoneal Fluid WBC 62 Peritoneal Fluid RBC 30 Peritoneal Fluid Neutrophils 5 Peritoneal Fluid Lymphocytes 42 Peritoneal Fluid Monocytes 40 Peritoneal Fluid Mesothelial 13 Cells White Blood Count 18.9 15.9 Red Blood Count 2.89 2.87 Mean Corpuscular Volume 93.9 93.2 Mean Corpuscular Hemoglobin 31.3 31.1 Mean Corpuscular Hemoglobin 33.3 33.3 Concent Red Cell Distribution Width 14.4 14.6 Platelet Count 364 354 Mean Platelet Volume 6.6 6.4 Blood Gas Puncture Site RT RADIAL Blood Gas Patient Temperature 98.6 Blood Gas HCO3 20 Blood Gas Base Excess -4.4 Blood Gas Oxygen Saturation 89 Arterial Blood pH 7.35 Arterial Blood Partial 38 Pressure CO2 Arterial Blood Partial 67 Pressure O2 Arterial Blood Oxygen Content 15.2 Arterial Blood 0.9 Carboxyhemoglobin Arterial Blood Methemoglobin 1.7 Blood Gas Hemoglobin 12.1 Oxygen Delivery Device VENTILATOR Blood Gas Ventilator Setting Blood Gas Inspired Oxygen 45 Test 11/25/16 05:20 White Blood Count 13.7 Red Blood Count 2.59 Hemoglobin 8.2 Hematocrit 23.9 Mean Corpuscular Volume 92.4 Mean Corpuscular Hemoglobin 31.6 Mean Corpuscular Hemoglobin 34.2 Concent Red Cell Distribution Width 14.3 Platelet Count 308 Mean Platelet Volume 6.6 Neutrophils (%) (Auto) 88.2 Lymphocytes (%) (Auto) 4.7 Monocytes (%) (Auto) 4.9 Eosinophils (%) (Auto) 1.5 Basophils (%) (Auto) 0.7 Neutrophils # (Auto) 12.1 Lymphocytes # (Auto) 0.6 Monocytes # (Auto) 0.7 Eosinophils # (Auto) 0.2 Basophils # (Auto) 0.1 CBC Comment DIFF FINAL Differential Comment Activated Partial 27.1 Thromboplast Time Fibrinogen 532 Sodium Level 138 Potassium Level 3.7 Chloride Level 100 Carbon Dioxide Level 23.3 Anion Gap 15 Blood Urea Nitrogen 57 Creatinine 7.33 Estimat Glomerular Filtration 5 Rate Random Glucose 117 Lactic Acid Level 0.8 Calcium Level 7.8 Phosphorus Level 7.9 Magnesium Level 2.2 Total Bilirubin 0.4 Aspartate Amino Transf 6 (AST/SGOT) Alanine Aminotransferase 11 (ALT/SGPT) Alkaline Phosphatase 51 Troponin I 0.03 Total Protein 5.6 Albumin 2.1 Thyroid Stimulating Hormone 0.477 3rd Gen Date/Time Procedure Status Source Growth 11/24/16 17:45 Gram Stain - Final Resulted Fluid Peritoneal Fluid 11/24/16 17:45 Body Fluid Culture Resulted Fluid Peritoneal Fluid Pending 11/24/16 03:45 Aerobic Blood Culture Received Blood Peripheral Pending 11/24/16 03:45 Anaerobic Blood Culture Received Blood Peripheral Pending Imaging Last Impressions Chest X-Ray 11/25/16 0600 Signed Impressions: Service Date/Time: Friday, November 25, 2016 03:49 - CONCLUSION: 1. Persistent left basilar consolidation with developing right basilar airspace disease. 2. Radiopaque monitor over the right mainstem bronchus partially obscures the airway but I believe the endotracheal tube is appropriately positioned above the edin. Life support tubes are otherwise stable. Alan Campos MD Physical Exam HEENT: Normocephalic; atraumatic; no jaundice. CHEST: Resp even/unlabored, coarse breath sounds. OETT to vent CARDIAC: RRR ABDOMEN: Soft, nondistended, nontender; no hepatosplenomegaly; bowel sounds are present in all four quadrants. OGT with small amount of dark brown, black liquid drainage. SKIN: Normal; no rash; no jaundice. GREY WASHER: Sedated on vent. Assessment and Plan Plan ASSESSMENT: - Upper GIB. Pt was found down with black emesis around mouth, intubated and brought to [facility], where she started having red blood from OGT. Unfortunately, we do not have the actual endoscopy report available, although according to a OR report, she underwent EGD with control of bleeding, resolution clip application on 11/23/16. Afterwards, she was found to have a SAH and was tx to this facility. NPO. OGT with small amount of dark brown/black gastric drainge. HH slowly trending down. Protonix gtt. HH 8.2/23.9. - Anemia, acute blood loss. HH 8.2/23.9. - Extensive SAH. After EGD, patient was found to have extensive SAH on CT and subsequently transferred to this facility for further evaluation and treatment. Dr. Tian is following and preparing to place ventriculostomy at the bedside. - Leukocytosis, Lactic acid 0.8. WBC 13.7. Zosyn - ESRD, PD. Creat 7.33. Per renal PLAN: - NPO for now. - Cont. Protonix Gtt - HH q6h x 3 - Transfuse as necessary - Please obtain EGD procedure report from [facility] today- it is not in the records that was sent with transfer - Notify GI of active bleeding - CCM, NSx following - Supportive care - Further recommendations to follow based on results of above - Pt seen and examined by Dr. Ray and myself and this note is written on his behalf Silvia Nino Nov 25, 2016 09:36
--- NOTE | 2016-11-25 10:04 | RADRPT ---
EXAM DATE/TIME: 11/24/2016 11:39 [facility] COMPARISON: No previous studies available for comparison. INDICATIONS : Patient presents with subarachnoid hemorrhage in need of cerebral angiogram with possible interventio ns. MEDICAL HISTORY : Subarachnoid hemorrhage Repsiratory failure HTN Renal failure SURGICAL HISTORY : Unobtainable ENCOUNTER: Initial ACUITY: 1 day PAIN SCORE: Nonresponsive. LOCATION: N/A FLUORO TIME: 10.2 minutes IMAGE SERIES: 10 ACCESS SITE: Right Femoral artery CONTRAST: 67 cc Visipaque (iodixanol) TECH NOTE: Medically urgent.CELIA BALDERAS MR#:[id number] Exam Dt/Desc: November 24, 2016ANGIOGRAM , CEREBRAL WO ARCH PROCEDURE : 1. Ultrasound-guided puncture of the access site. 2. Conscious sedation with continuous EKG and Oximetry monitoring. 3. Angiography of the left common carotid artery 4. Angiography of the left internal carotid artery 5. Angiography of the right common carotid artery The risks, benefits and alternatives to the procedure were explained and verbal and written consent w as obtained. The site was prepped in sterile fashion. Full sterile technique was used, including ca p, mask, sterile gloves and gown and a large sterile sheet. Hand hygiene and 2% chlorhexidine and/or betadine/alcohol prep was utilized per protocol for cutaneous antisepsis. The skin and subcutaneous tissues were infiltrated with local anesthetic solution. With ultrasound and fluoroscopic guidance the selected artery was punctured and a vascular sheath was placed 6. Angiography of the right internal carotid artery 7. Angiography of the left vertebral artery 8. Angiography of the right vertebral artery The right vertebral artery was catheterized with a JB2 catheter an AP lateral and oblique runs were o btained. The catheter was next placed into the left vertebral artery were again AP lateral oblique ru ns were obtained. The catheter was advanced into the right common carotid artery and oblique run was obtained over the bifurcation demonstrating no carotid stenosis. AP and lateral runs of the head as w ell as rotated and digital subtraction angiography was performed. Finally the catheter was placed in the left common carotid artery were oblique view was obtained demonstrating no carotid stenosis. Agai n lateral and rotating digital subtraction angiography was performed. The examination demonstrates no evidence of aneurysm or vascular malformation. Cerebral circulation t ama is normal. The puncture site was closed with manual pressure and hemostasis was obtained. The patient tolerated the procedure well and there were no complications. Conscious sedation was performed with the prescribed dosages and duration as above in the presence of an independent trained radiology nurse to assist in the monitoring of the patient. EKG and oximetry remained stable throughout the procedure. CONCLUSION: 1. No evidence of aneurysm Jonnie Schaeffer MD on November 25, 2016 at 9:55 Board Certified Radiologist. This report was verified electronically.
[2016-11-25] MEDS ORDERED: EPOETIN ALFA 20,000 UNITS/ML VIAL SQ ONE (11:00)
--- NOTE | 2016-11-25 12:07 | HHI.NPPN ---
Subjective Renal Failure: Chronic, Acute, End Stage Renal Disease Interval History She is intubated. Opens eyes to stimuli. ICP is acceptable. (Noemí Lassiter) Review of Systems General General Remarks unable to evaluate (Noemí Lassiter) Objective Data Data 11/24/16 11/25/16 19:00 07:00 Intake Total 775 ml 1417 ml Output Total 215 ml 348 ml Balance 560 ml 1069 ml Intake IV Total 775 ml 1032 ml Lipid 385 ml Output Urine Total 75 ml 200 ml Stool Total 0 ml Gastric Drainage Total 100 ml 0 ml Drainage Total 40 ml 148 ml Vital Signs Date Time Temp Pulse Resp B/P Pulse Ox O2 Delivery O2 Flow Rate FiO2 11/25/16 11:33 97 40 11/25/16 08:49 98 40 11/25/16 08:49 100 45 11/25/16 06:00 80 11/25/16 04:20 100 45 11/25/16 04:00 45 11/25/16 04:00 92 11/25/16 04:00 97.5 98 18 140/66 98 11/25/16 03:36 100 45 11/25/16 02:00 80 11/25/16 01:19 98 45 11/25/16 00:00 97.5 98 18 140/66 98 11/25/16 00:00 98 11/25/16 00:00 45 11/24/16 22:00 86 11/24/16 20:34 97 45 11/24/16 20:00 98.6 94 19 152/68 98 11/24/16 20:00 45 11/24/16 20:00 94 11/24/16 19:00 Mechanical Ventilator 60 11/24/16 18:00 88 11/24/16 16:00 90 11/24/16 16:00 55 11/24/16 16:00 98.0 90 16 145/65 97 11/24/16 15:33 98 55 11/24/16 15:31 98 60 11/24/16 14:00 82 11/24/16 13:48 97 55 (Noemí Lassiter) -: 11/25/16 0520 11/25/16 0520 Microbiology 11/24/16 Gram Stain - Final, Resulted 11/24/16 Body Fluid Culture, Resulted Pending 11/25/16 Gram Stain, Received Pending 11/25/16 Sputum Culture, Received Pending Imaging Last 72 hours Impressions Chest X-Ray 11/25/16 0600 Signed Impressions: Service Date/Time: Friday, November 25, 2016 03:49 - CONCLUSION: 1. Persistent left basilar consolidation with developing right basilar airspace disease. 2. Radiopaque monitor over the right mainstem bronchus partially obscures the airway but I believe the endotracheal tube is appropriately positioned above the edin. Life support tubes are otherwise stable. Alan Campos MD Chest X-Ray 11/24/16 0000 Signed Impressions: Service Date/Time: Thursday, November 24, 2016 03:27 - CONCLUSION: Endotracheal tube tip is at the edin. Slight retraction recommended. Tre Harrington MD Cerebral Arteriogram 11/24/16 0000 Signed Impressions: Service Date/Time: Thursday, November 24, 2016 11:39 - CONCLUSION: 1. No evidence of aneurysm Jonnie Schaeffer MD Tubes & Lines: Tenckhoff Catheter Tubes & Lines Comment ventriculostomy (Noemí LassiterP) Physical Exam General Appearance: Well Developed, Well Nourished (Noemí Lassiter PIANO PROFESSOR) Throat Throat Exam: Oral Mucosa [place] & Moist (Noemí Lassiter BSocrates PIANO PROFESSOR) Pulmonary Resp Exam: Clear Bilaterally, Breath Sounds Equal (Noemí Lassiter BSocrates PIANO PROFESSOR) Cardiology CV Exam: Regular, Normal Sinus Rhythm (Noemí Lassiter BSocrates PIANO PROFESSOR) Gastrointestinal/Abdomen GI Exam: Soft, Non-Tender (Noemí Lassiter BSocrates PIANO PROFESSOR) Musculoskeletal MS Exam: Joints Intact, Normal Tone (Noemí Lassiter BSocrates PIANO PROFESSOR) Integumentary Skin Exam: Warm, Dry (Noemí Lassiter BSocrates PIANO PROFESSOR) Extremeties Extremities Exam: Pedal Pulses Palpable (Noemí Lassiter BSocrates PIANO PROFESSOR) Neurologic Neuro Exam: Unresponsive, Sedated (Noemí Lassiter) Assessment/Plan Assessment Summary: End Stage Renal Disease Problem List: (1) ESRD (end stage renal disease) Plan: NIghtly PD ongoing monitor electrolytes continue NS as she is NPO, reduce rate to 10 cc/hr to avoid fluid overload daily renal panel PD catheter functions well. (2) Peritoneal dialysis catheter in place Plan: PD nightly no current renal concerns (3) SAH (subarachnoid hemorrhage) Plan: s/p placement of ventriculostomy neuro surgery following tight BP control monitor ICP she is on Keppra (4) Acute respiratory failure Plan: On ventilator (5) Uncontrolled hypertension Plan: BP improved continues on Cardene drip (6) GI bleeding Plan: Gastroenterology is following Hb is stable protonix gtt continues (7) Severe sepsis Plan: On Zosyn (Noemí Lassiter) Plan patient was seen and examined. She is well known to me from [facility]. She was diagnosed with microscopic polyangiitis after renal biopsy in October of 2013. P-ANCA was positive. At presentation, her creatinine was more than 7, renal biopsy revealed severe tubular atrophy and interstitial fibrosis with no reversibility. She was started on PD at that time. Patient had been doing fairly well until this episode. Her BP control was adequate. She was very compliant. Patient had not been admitted to any hospital for 3 years. 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 Agree with obtaining ANCA titers. (Georges Shankar MD) Problem Qualifiers (1) Acute respiratory failure: Qualified Code: J96.01 - Acute respiratory failure with hypoxia Noemí Lassiter Nov 25, 2016 12:07 Georges Shankar MD Nov 25, 2016 16:07
[2016-11-25 12:26] LABS: HEMATOCRIT 24.4 % (35.0-46.0); REVIEW FLAG FINAL
[2016-11-25] MEDS: SODIUM CHLOR 0.9% 1000 ML INJ 1,000 ML IV SCH (14:31)
--- NOTE | 2016-11-25 19:43 | HHI.CCPN ---
Subjective Remarks/Hospital Course 11/24: Patient is a 76-year-old female who was transferred from [facility] with extensive subarachnoid hemorrhage. Unfortunately I do not have any history and physical or discharge summary available neither CT reports. All history I have is from discussion with Dr. Tian. Apparently patient was found unconscious yesterday in a pool of bloody vomitus. She was intubated and admitted to the [facility] ICU. She underwent EGD, again report is not available to me, and was placed on Protonix infusion. After EGD patient underwent a CT of the head which showed extensive subarachnoid hemorrhage, and IVH. Dr. Tian was contacted who recommended a CT angiogram. CT angiogram did not show an aneurysm but showed probable mild obstructive hydrocephalus. Dr. Tian accepted transfer to [facility] for further care, and patient was admitted to critical care medicine. Only medical history available to me is that patient is on peritoneal dialysis, and has history of hypertension Dr. Toledo evaluated the patient in the ICU. Patient is sedated with propofol is on Cardene infusion for blood pressure control. Also on Protonix gtt for GIB On sedation hold patient withdraws all 4 extremities. Pupils are slightly reactive. There was audible cuff leak. Tube exchange attempted by respiratory therapist was unsuccessful. So Dr. Toledo extubated and endotracheally intubated the patient with new ET tube. Dr. Tian from neurosurgery evaluated patient and performed a ventriculostomy. 11/25: Remains sedated, arousable, orally intubated on mechanical ventilation. Objective Vital Signs Date Time Temp Pulse Resp B/P Pulse Ox O2 Delivery O2 Flow Rate FiO2 11/25/16 18:00 82 11/25/16 16:54 99 40 11/25/16 16:00 98.4 18 129/60 11/25/16 08:00 Mechanical Ventilator Intake and Output 11/24/16 11/24/16 11/25/16 08:00 16:00 00:00 Intake Total 678 ml 775 ml 782 ml Output Total 400 ml 215 ml 180 ml Balance 278 ml 560 ml 602 ml Result Diagram: 11/25/16 1200 11/25/[address] head at OSH shows extensive subarachnoid hemorrhage, intraventricular hemorrhage and probable early hydrocephalus Objective Remarks GENERAL: Elderly female who is intubated sedated critically ill SKIN: Warm and dry. HEAD: Normocephalic. EYES: No scleral icterus. No injection or drainage. Pupils are 3 mm reactive slightly ENT: ETT with audible cuff leak NECK: Supple, trachea midline. No JVD or lymphadenopathy. CARDIOVASCULAR: Regular rate and rhythm without murmurs, gallops, or rubs. RESPIRATORY: Breath sounds equal bilaterally, but diminished with mild expiratory wheezing GASTROINTESTINAL: Abdomen soft, non-tender, nondistended. PD catheter in place MUSCULOSKELETAL: No cyanosis, or edema. Neuro: Intubated sedated with propofol. Withdraws upper and lower extremity to pain. NEENA 3mm A/P Assessment and Plan NEURO: Subarachnoid hemorrhage Intraventricular hemorrhage Probable mild hydrocephalus Acute encephalopathy -Keep sedated with propofol and as needed fentanyl, target RASS-3 -No sedation vacation -Status post ventriculostomy, neurosurgery following -Cardene infusion to target systolic blood pressure 120 to 130 -Keep sodium more than 145 keep magnesium more than 2 -Monitor for vasospasm, Nimotop 60 mg every 4hr -Plan for repeat CTA of the brain in 3-4 days RESP: Acute respiratory failure Left lower lobe pneumonia ET tube cuff damage -Extubated and re intubated with new ETT -ACV RR 16 TV 550 PEEP 8 titrate FiO2 to keep saturation more than 90% -DuoNeb every 6 hours and when necessary -Send sputum culture, empiric Zosyn, single dose of vancomycin CV: Uncontrolled hypertension -Continue Cardene infusion to target systolic blood pressure less than 130 -Started on Nimotop 60 mg every 4 hours -Normal saline IV fluids at 50 ml per hour GI: Upper GI bleed -Start tube feeds when okay with GI, IV Protonix -Colace, senna for bowel regimen : End-stage renal disease on peritoneal dialysis -Monitor renal function closely. Rosales catheter. -Nephrology consulted for peritoneal dialysis management ID: Left lower lobe pneumonia Severe sepsis Leukocytosis -IV vancomycin x1, and Zosyn 3.375 GM IV q6. -Send blood culture urine culture and sputum culture HEME: -Monitor CBC, CMP, coags Patient has a history of microscopic polyangiitis per Dr. Shankar which resulted in her renal failure requiring dialysis. Will check ANCA titers and vasculitis may possibly have contributed to subarachnoid hemorrhage. ENDO: -Electrolyte replacement as needed PROPH: Bilateral lower extremity SCDs. Chemical DVT prophylaxis is contraindicated. Continue Protonix infusion for GI bleed LINES: -Patient has left subclavian central line placed at the outside hospital. CC time 30 min excluding procedure time Flaco Vance MD Nov 25, 2016 19:43
[2016-11-25 22:59] LABS: HEMATOCRIT 25.2 % (35.0-46.0); REVIEW FLAG FINAL
--- NOTE | 2016-11-25 23:00 | HHI.NSPN ---
History Interval History 76-year-old female transferred from [facility] 11/24/16 after being found at home unresponsive with positive bloody emesis. CT scan prior to transfer revealed subarachnoid hemorrhage. Patient intubated prior to transfer. CTA prior to transfer negative for aneurysm 11/24/16 cerebral angiogram negative for aneurysm. 11/24/16 ventriculostomy placed 11/26/16: Remains intubated and sedated. Mild eye opening. Localizes intermittent upper extremities Exam Results Vital Signs Date Time Temp Pulse Resp B/P Pulse Ox O2 Delivery O2 Flow Rate FiO2 11/25/16 22:00 82 11/25/16 21:41 98 40 11/25/16 20:00 98.5 18 145/64 11/25/16 19:00 Mechanical Ventilator Intake and Output 11/24/16 11/24/16 11/25/16 08:00 16:00 00:00 Intake Total 678 ml 775 ml 782 ml Output Total 400 ml 215 ml 180 ml Balance 278 ml 560 ml 602 ml Physical Examination Intubated IV sedation Respirations: Coarse upper airway sounds Cardiac: Difficult to assess due to upper airway sounds. Regular rate Abdomen: Soft, diminished bowel sounds. Extremities: Mild distal lower extremity edema. Dorsalis pedis 2+ bilateral pupils 3mm min reactive disconjugate gaze Moderately disconjugate oculocephalic responses Moderate bilateral corneal response mild flex UE to deep pain Lab, Micro, Other Results Laboratory Tests Test 11/25/16 11/25/16 11/25/16 02:30 05:20 12:00 White Blood Count 15.9 TH/MM3 13.7 TH/MM3 Red Blood Count 2.87 MIL/MM3 2.59 MIL/MM3 Hemoglobin 8.9 GM/DL 8.2 GM/DL 8.2 GM/DL Hematocrit 26.7 % 23.9 % 24.4 % Mean Corpuscular Volume 93.2 FL 92.4 FL Mean Corpuscular Hemoglobin 31.1 PG 31.6 PG Mean Corpuscular Hemoglobin 33.3 % 34.2 % Concent Red Cell Distribution Width 14.6 % 14.3 % Platelet Count 354 TH/MM3 308 TH/MM3 Mean Platelet Volume 6.4 FL 6.6 FL Neutrophils (%) (Auto) 88.2 % Lymphocytes (%) (Auto) 4.7 % Monocytes (%) (Auto) 4.9 % Eosinophils (%) (Auto) 1.5 % Basophils (%) (Auto) 0.7 % Neutrophils # (Auto) 12.1 TH/MM3 Lymphocytes # (Auto) 0.6 TH/MM3 Monocytes # (Auto) 0.7 TH/MM3 Eosinophils # (Auto) 0.2 TH/MM3 Basophils # (Auto) 0.1 TH/MM3 CBC Comment DIFF FINAL Differential Comment Activated Partial 27.1 SEC Thromboplast Time Fibrinogen 532 mg/dL Sodium Level 138 MEQ/L Potassium Level 3.7 MEQ/L Chloride Level 100 MEQ/L Carbon Dioxide Level 23.3 MEQ/L Anion Gap 15 MEQ/L Blood Urea Nitrogen 57 MG/DL Creatinine 7.33 MG/DL Estimat Glomerular Filtration 5 ML/MIN Rate Random Glucose 117 MG/DL Lactic Acid Level 0.8 mmol/L Calcium Level 7.8 MG/DL Phosphorus Level 7.9 MG/DL Magnesium Level 2.2 MG/DL Ferritin 47 NG/ML Total Bilirubin 0.4 MG/DL Aspartate Amino Transf 6 U/L (AST/SGOT) Alanine Aminotransferase 11 U/L (ALT/SGPT) Alkaline Phosphatase 51 U/L Troponin I 0.03 NG/ML Total Protein 5.6 GM/DL Albumin 2.1 GM/DL Thyroid Stimulating Hormone 0.477 uIU/ML 3rd Gen Medical Decision Making Impression and Plan Impression: SAH Question vasculitis Chronic renal failure on peritoneal dialysis Hypertension Respiratory failure intubated under ventilatory support Plan Continue EVD May wean ventilator and 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 Continue as needed antihypertensive medications Nimodipine for vasospasm prophylaxis Ulcer prophylaxis Non- chemical DVT prophylaxis Procedure prophylaxis-Donato Wilson MD Nov 25, 2016 23:00
[2016-11-26] VITALS (17 sets, daily range): BP systolic 123–150; BP diastolic 59–69; PULSE 78–100; RESP 18–24; TEMP 98.1–99.1; O2SAT 95–99
[2016-11-26] MEDS: PROPOFOL 1000 MG/100 ML INJ 100 ML IV SCH ×6 (00:03→22:18)
[2016-11-26] MEDS: PANTOPRAZOLE INJ 80 MG in SODIUM CHLORIDE 0.9% INJ 100 ML IV SCH ×2 (03:04→15:51)
[2016-11-26] MEDS: SODIUM CHLOR 0.9% 1000 ML INJ 1,000 ML IV SCH ×2 (03:05→03:36)
[2016-11-26] MEDS: CHLORHEXIDINE GLUCONATE 2 % 1 PACK (2 CLOTHS) TOP SCH (03:37)
[2016-11-26] MEDS: niMODipine 30 MG CAP PO SCH ×6 (03:47→23:00)
[2016-11-26 05:25] LABS: AUTOMATED NEUTROPHIL # 9.6 TH/MM3 (1.8-7.7); BASOPHIL # 0.1 TH/MM3 (0-0.2); BASOPHIL % 0.5 % (0.0-2.0); EOSINOPHIL # 0.4 TH/MM3 (0-0.4); EOSINOPHIL % 3.1 % (0.0-4.0); HEMATOCRIT 24.9 % (35.0-46.0); HEMO FLAGS DIFF FINAL; LYMPH % 5.9 % (9.0-44.0); LYMPHOCYTE # 0.7 TH/MM3 (1.0-4.8); MEAN CELL VOLUME 92.9 FL (80.0-100.0); MEAN CORPUSCULAR HEMOGLOBIN 31.5 PG (27.0-34.0); MEAN CORPUSCULAR HGB CONC 33.9 % (32.0-36.0); MONO % 5.2 % (0.0-8.0); NEUT % 85.3 % (16.0-70.0); PLATELET COUNT 329 TH/MM3 (150-450); RED BLOOD COUNT 2.68 MIL/MM3 (4.00-5.30); RED CELL DISTRIBUTION WIDTH 14.3 % (11.6-17.2); WHITE BLOOD COUNT 11.2 TH/MM3 (4.0-11.0)
[2016-11-26 05:42] LABS: TRANSFERRIN IRON PROFILE 148 MG/DL (200-360)
[2016-11-26] MEDS ORDERED: PROPOFOL 200 MG/20 ML AMP IV ONE ×2 (07:38→17:27)
[2016-11-26] MEDS: CHLORHEXIDINE 0.12% (ORAL KIT) 15 ML CUP MT SCH ×2 (08:00→19:46)
[2016-11-26] MEDS: ARTIFICIAL TEARS OPTH OINT 3.5 APPLIC/3.5 GM TUBO EACH EYE SCH ×2 (08:27→19:47)
[2016-11-26 08:39] LABS: BLOOD GAS BASE EXCESS -4.5 mmol/L (-2-2); BLOOD GAS CARBOXYHEMOGLOBIN 0.7 % (0-4); BLOOD GAS HCO3 20 mmol/L (22-26); BLOOD GAS METHEMOGLOBIN 1.7 % (0-2); BLOOD GAS O2 HGB SATURATION 95 % (90-100); BLOOD GAS OXYGEN CONTENT 20.7 Vol % (12.0-20.0); BLOOD GAS PO2 115 mmHg (61-120); BLOOD GAS TOTAL HGB 15.4 G/DL (12.0-16.0); TEMP CORR TO 98.6
[2016-11-26 08:40] LABS: CRITICAL VALUE NO; OXYGEN DEVICE VENTILATOR
[2016-11-26 08:41] LABS: BLOOD GAS PCO2 33 mmHg (38-42); DRAW SITE RT RADIAL; FIO2 40 %; NUMBER OF ARTERIAL PUNCTURES 1; STAT NO; ULNAR PULSE PRESENT; VENT SETTINGS SEE COMMENTS
[2016-11-26] MEDS: SODIUM CHLORIDE 0.9% FLUSH 5 ML FLUSH IV FLUSH SCH ×2 (09:00→19:47)
[2016-11-26] MEDS: SENNOSIDES SYRUP 8.8 MG/5 ML CUP PO SCH (09:05)
[2016-11-26] MEDS: levETIRAcetam INJ 500 MG in SODIUM CHLORIDE 0.9% INJ 100 ML IV SCH ×2 (09:05→19:47)
[2016-11-26] MEDS: DOCUSATE SODIUM 100 MG/10 ML UDC PO SCH ×2 (09:05→19:47)
[2016-11-26] MEDS: niCARdipine INJ 25 MG in SODIUM CHLOR 0.9% 250 ML INJ 250 ML IV SCH ×3 (09:29→23:00)
[2016-11-26] MEDS: RESP: ALBUTEROL 2.5 MG/IPRATROPIUM 0.5 MG NEB (SCH) NEB ×3 (10:00→20:08)
[2016-11-26] MEDS: PIPERACIL-TAZO 2.25 GM PREMIX 50 ML IV SCH ×2 (10:12→21:30)
--- NOTE | 2016-11-26 11:18 | HHI.CCPN ---
Subjective Remarks/Hospital Course 11/24: Patient is a 76-year-old female who was transferred from [facility] with extensive subarachnoid hemorrhage. Unfortunately I do not have any history and physical or discharge summary available neither CT reports. All history I have is from discussion with Dr. Tian. Apparently patient was found unconscious yesterday in a pool of bloody vomitus. She was intubated and admitted to the [facility] ICU. She underwent EGD, again report is not available to me, and was placed on Protonix infusion. After EGD patient underwent a CT of the head which showed extensive subarachnoid hemorrhage, and IVH. Dr. Tian was contacted who recommended a CT angiogram. CT angiogram did not show an aneurysm but showed probable mild obstructive hydrocephalus. Dr. Tian accepted transfer to [facility] for further care, and patient was admitted to critical care medicine. Only medical history available to me is that patient is on peritoneal dialysis, and has history of hypertension Dr. Toledo evaluated the patient in the ICU. Patient is sedated with propofol is on Cardene infusion for blood pressure control. Also on Protonix gtt for GIB On sedation hold patient withdraws all 4 extremities. Pupils are slightly reactive. There was audible cuff leak. Tube exchange attempted by respiratory therapist was unsuccessful. So Dr. Toledo extubated and endotracheally intubated the patient with new ET tube. Dr. Tian from neurosurgery evaluated patient and performed a ventriculostomy. 11/25: Remains sedated, arousable, orally intubated on mechanical ventilation. 11/26: Remains sedated, orally intubated on mechanical ventilation. Withdraws all 4 extremities with painful stimuli. Ventriculostomy in place. Objective Vital Signs Date Time Temp Pulse Resp B/P Pulse Ox O2 Delivery O2 Flow Rate FiO2 11/26/16 10:02 98 40 11/26/16 08:00 98.1 92 23 150/69 11/25/16 19:00 Mechanical Ventilator Intake and Output 11/25/16 11/25/16 11/26/16 08:00 16:00 00:00 Intake Total 635 ml 749 ml 450 ml Output Total 869 ml 126 ml 140 ml Balance -234 ml 623 ml 310 ml Result Diagram: 11/26/16 0500 11/25/16 0520 Other Results Laboratory Tests Test 11/26/16 08:30 Blood Gas Puncture Site RT RADIAL Blood Gas Patient Temperature 98.6 Blood Gas HCO3 20 mmol/L (22-26) Blood Gas Base Excess -4.5 mmol/L (-2-2) Blood Gas Oxygen Saturation 95 % (90-100) Arterial Blood pH 7.39 (7.380-7.420) Arterial Blood Partial 33 mmHg (38-42) Pressure CO2 Arterial Blood Partial 115 mmHg Pressure O2 (61-120) Arterial Blood Oxygen Content 20.7 Vol % (12.0-20.0) Arterial Blood 0.7 % (0-4) Carboxyhemoglobin Arterial Blood Methemoglobin 1.7 % (0-2) Blood Gas Hemoglobin 15.4 G/DL (12.0-16.0) Oxygen Delivery Device VENTILATOR Blood Gas Ventilator Setting SEE COMMENTS Blood Gas Inspired Oxygen 40 % Imaging CT head at OSH shows extensive subarachnoid hemorrhage, intraventricular hemorrhage and probable early hydrocephalus Objective Remarks GENERAL: Elderly female who is intubated sedated critically ill SKIN: Warm and dry. HEAD: Normocephalic. EYES: No scleral icterus. No injection or drainage. Pupils are 3 mm reactive slightly ENT: ETT with audible cuff leak NECK: Supple, trachea midline. No JVD or lymphadenopathy. CARDIOVASCULAR: Regular rate and rhythm without murmurs, gallops, or rubs. RESPIRATORY: Breath sounds equal bilaterally, but diminished with mild expiratory wheezing GASTROINTESTINAL: Abdomen soft, non-tender, nondistended. PD catheter in place MUSCULOSKELETAL: No cyanosis, or edema. Neuro: Intubated sedated with propofol. Withdraws upper and lower extremity to pain. NEENA 3mm A/P Assessment and Plan NEURO: Subarachnoid hemorrhage Intraventricular hemorrhage Probable mild hydrocephalus Acute encephalopathy -Keep sedated with propofol and as needed fentanyl, target RASS-3 -No sedation vacation -Status post ventriculostomy, neurosurgery following -Cardene infusion to target systolic blood pressure 120 to 130 -Keep sodium more than 145 keep magnesium more than 2 -Monitor for vasospasm, Nimotop 60 mg every 4hr -Plan for repeat CTA of the brain in 3-4 days RESP: Acute respiratory failure Left lower lobe pneumonia ET tube cuff damage -Extubated and re intubated with new ETT -ACV RR 16 TV 550 PEEP 8 titrate FiO2 to keep saturation more than 90% -DuoNeb every 6 hours and when necessary -Send sputum culture, empiric Zosyn, single dose of vancomycin CV: Uncontrolled hypertension -Continue Cardene infusion to target systolic blood pressure less than 130 -Started on Nimotop 60 mg every 4 hours -Normal saline IV fluids at 50 ml per hour GI: Upper GI bleed -Start tube feeds when okay with GI, IV Protonix -Colace, senna for bowel regimen : End-stage renal disease on peritoneal dialysis -Monitor renal function closely. Rosales catheter. -Nephrology consulted for peritoneal dialysis management ID: Left lower lobe pneumonia Severe sepsis Leukocytosis -IV vancomycin x1, and Zosyn 3.375 GM IV q6. -Send blood culture urine culture and sputum culture HEME: -Monitor CBC, CMP, coags Patient has a history of microscopic polyangiitis per Dr. Shankar which resulted in her renal failure requiring dialysis. Will check ANCA titers as vasculitis may possibly have contributed to subarachnoid hemorrhage. ENDO: -Electrolyte replacement as needed PROPH: Bilateral lower extremity SCDs. Chemical DVT prophylaxis is contraindicated. Continue Protonix infusion for GI bleed LINES: -Patient has left subclavian central line placed at the outside hospital. CC time 30 min excluding procedure time Flaco Vance MD Nov 26, 2016 11:18
[2016-11-26] MEDS: IRON SUCROSE INJ 100 MG in SODIUM CHLORIDE 0.9% INJ 100 ML IV SCH (11:32)
--- NOTE | 2016-11-26 11:39 | HHI.NSPN ---
History Interval History 76-year-old female transferred from [facility] 11/24/16 after being found at home unresponsive with positive bloody emesis. CT scan prior to transfer revealed subarachnoid hemorrhage. Patient intubated prior to transfer. CTA prior to transfer negative for aneurysm 11/24/16 cerebral angiogram negative for aneurysm. 11/24/16 ventriculostomy placed 11/26/16: Remains intubated and sedated. Mild eye opening. Localizes intermittent upper extremities Exam Results Vital Signs Date Time Temp Pulse Resp B/P Pulse Ox O2 Delivery O2 Flow Rate FiO2 11/26/16 10:02 98 40 11/26/16 08:00 98.1 92 23 150/69 11/25/16 19:00 Mechanical Ventilator Intake and Output 11/25/16 11/25/16 11/26/16 08:00 16:00 00:00 Intake Total 635 ml 749 ml 450 ml Output Total 869 ml 126 ml 140 ml Balance -234 ml 623 ml 310 ml Physical Examination Intubated IV sedation Respirations: Coarse upper airway sounds Cardiac: Difficult to assess due to upper airway sounds. Regular rate Abdomen: Soft, diminished bowel sounds. Mild to moderate eye opening to voice and sternal rub. Not definitely following commands pupils 3mm min reactive disconjugate gaze Moderately disconjugate oculocephalic responses Moderate bilateral corneal response mild flex UE to deep pain Medical Decision Making Impression and Plan Impression: SAH Question vasculitis Chronic renal failure on peritoneal dialysis. History of microscopic polyangiitis per renal biopsy 2013. 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 Continue as needed antihypertensive medications Nimodipine for vasospasm prophylaxis Ulcer prophylaxis Non- chemical DVT prophylaxis Procedure prophylaxis-Donato Wilson MD Nov 26, 2016 11:39
--- NOTE | 2016-11-26 12:09 | HHI.NPPN ---
Subjective Renal Failure: Chronic, Acute, End Stage Renal Disease Interval History She is responding off sedation. PD going well. ICP is not high. (Noemí Lassiter) Review of Systems General General Remarks unable to evaluate (Noemí Lassiter) Objective Data Data 11/25/16 11/26/16 18:59 06:59 Intake Total 749 ml 855 ml Output Total 827 ml 265 ml Balance -78 ml 590 ml Intake IV Total 749 ml 855 ml Output Urine Total 50 ml Stool Total 0 ml Gastric Drainage Total 0 ml 100 ml Drainage Total 76 ml 165 ml Peritoneal Fluid 701 ml # Bowel Movements 2 Vital Signs Date Time Temp Pulse Resp B/P Pulse Ox O2 Delivery O2 Flow Rate FiO2 11/26/16 10:02 98 40 11/26/16 08:30 98 40 11/26/16 08:00 98.1 92 23 150/69 99 11/26/16 08:00 40 11/26/16 08:00 92 11/26/16 07:41 98 40 11/26/16 06:00 78 11/26/16 04:10 99 40 11/26/16 04:00 79 11/26/16 04:00 98.3 79 21 132/61 99 11/26/16 04:00 40 11/26/16 02:00 85 11/26/16 00:50 99 40 11/26/16 00:50 99 40 11/26/16 00:00 99 11/26/16 00:00 98.1 99 24 141/63 96 11/26/16 00:00 40 11/25/16 22:00 82 11/25/16 21:41 98 40 11/25/16 20:00 40 11/25/16 20:00 98.5 96 18 145/64 97 11/25/16 20:00 80 11/25/16 19:00 99 Mechanical Ventilator 11/25/16 18:00 82 11/25/16 16:54 99 40 11/25/16 16:00 98.4 83 18 129/60 98 11/25/16 16:00 40 11/25/16 16:00 84 11/25/16 14:00 81 (Noemí Lassiter) -: 11/26/16 0500 11/25/16 0520 Imaging Last 72 hours Impressions Chest X-Ray 11/25/16 0600 Signed Impressions: Service Date/Time: Friday, November 25, 2016 03:49 - CONCLUSION: 1. Persistent left basilar consolidation with developing right basilar airspace disease. 2. Radiopaque monitor over the right mainstem bronchus partially obscures the airway but I believe the endotracheal tube is appropriately positioned above the edin. Life support tubes are otherwise stable. Alan Campos MD Chest X-Ray 11/24/16 0000 Signed Impressions: Service Date/Time: Thursday, November 24, 2016 03:27 - CONCLUSION: Endotracheal tube tip is at the edin. Slight retraction recommended. Tre Harrington MD Cerebral Arteriogram 11/24/16 0000 Signed Impressions: Service Date/Time: Thursday, November 24, 2016 11:39 - CONCLUSION: 1. No evidence of aneurysm Jonnie Schaeffer MD Tubes & Lines: Tenckhoff Catheter Tubes & Lines Comment ventriculostomy (Noemí Lassiter) Physical Exam General Appearance: Well Developed, Well Nourished Appearance Remarks intubated/sedated (Noemí Lassiter) Throat Throat Exam: Oral Mucosa [place] & Moist (Noemí Lassiter) Pulmonary Resp Exam: Clear Bilaterally, Breath Sounds Equal (Noemí Lassiter) Cardiology CV Exam: Regular, Normal Sinus Rhythm (Noemí Lassiter) Gastrointestinal/Abdomen GI Exam: Soft, Non-Tender (Noemí Lassiter) Musculoskeletal MS Exam: Joints Intact, Normal Tone (Noemí Lassiter) Integumentary Skin Exam: Warm, Dry (Noemí Lassiter) Extremeties Extremities Exam: Pedal Pulses Palpable (Noemí Lassiter BSocrates MON) Neurologic Neuro Exam: Unresponsive, Sedated (Noemí Lassiter) Assessment/Plan Assessment Summary: End Stage Renal Disease Problem List: (1) ESRD (end stage renal disease) Plan: a biopsy proved microscopic polyangiitis, P-ANCA positive in 2013 now ESRD on PD continue present orders PD fluid not infected phos elevated but NPO, start binders when able avoid IVF ANCA titers in process (2) SAH (subarachnoid hemorrhage) Plan: Surgical intervention as below (3) Acute respiratory failure Plan: On ventilator (4) Uncontrolled hypertension Plan: BP stable on Cardene drip (5) GI bleeding Plan: Gastroenterology is following no further bleeding she is NPO (6) Severe sepsis Plan: On Zosyn (7) Anemia Plan: given epogen started venofer for iron deficiency (Noemí Lassiter) Plan patient was seen and examined. Agree with above assessment and plan. (Georges Shankar MD) Problem Qualifiers (1) Acute respiratory failure: Qualified Code: J96.01 - Acute respiratory failure with hypoxia Noemí Lassiter Nov 26, 2016 12:09 Georges Shankar MD Nov 26, 2016 16:39
[2016-11-26 12:40] LABS: BICARBONATE 20.9 MEQ/L (21.0-32.0); POTASSIUM 3.4 MEQ/L (3.5-5.1)
[2016-11-26] MEDS ORDERED: CALCIUM ACETATE 667 MG CAP NG SCH (13:00)
--- NOTE | 2016-11-26 17:05 | HHI.GIFU ---
Subjective Remarks still intubated, seems to be comfortable, no BM so not sure if there is active bleed. Objective Vitals I&O Vital Signs Date Time Temp Pulse Resp B/P Pulse Ox O2 Delivery O2 Flow Rate FiO2 11/26/16 16:00 91 11/26/16 16:00 98.9 91 18 123/59 95 11/26/16 15:54 95 40 11/26/16 15:19 99 40 11/26/16 12:00 80 11/26/16 12:00 98.3 80 18 129/60 98 11/26/16 10:02 98 40 11/26/16 08:30 98 40 11/26/16 08:00 98.1 92 23 150/69 99 11/26/16 08:00 40 11/26/16 08:00 92 11/26/16 07:41 98 40 11/26/16 06:00 78 11/26/16 04:10 99 40 11/26/16 04:00 79 11/26/16 04:00 98.3 79 21 132/61 99 11/26/16 04:00 40 11/26/16 02:00 85 11/26/16 00:50 99 40 11/26/16 00:50 99 40 11/26/16 00:00 99 11/26/16 00:00 98.1 99 24 141/63 96 11/26/16 00:00 40 11/25/16 22:00 82 11/25/16 21:41 98 40 11/25/16 20:00 40 11/25/16 20:00 98.5 96 18 145/64 97 11/25/16 20:00 80 11/25/16 19:00 99 Mechanical Ventilator 11/25/16 18:00 82 I/O 11/25/16 11/25/16 11/25/16 11/26/16 11/26/16 11/26/16 07:00 15:00 23:00 07:00 15:00 23:00 Intake Total 635 ml 749 ml 450 ml 405 ml 734 ml Output Total 168 ml 827 ml 140 ml 125 ml 569 ml Balance 467 ml -78 ml 310 ml 280 ml 165 ml Intake IV Total 430 ml 749 ml 450 ml 405 ml 734 ml Lipid 205 ml Output Urine Total 100 ml 50 ml Stool Total 0 ml 0 ml Gastric Drainage Total 0 ml 0 ml 50 ml 50 ml 0 ml Drainage Total 68 ml 76 ml 90 ml 75 ml 55 ml Peritoneal Fluid 701 ml 514 ml # Bowel Movements 1 1 0 Laboratory Laboratory Tests Test 11/25/16 11/26/16 11/26/16 22:47 05:00 08:30 Hemoglobin 8.6 8.4 Hematocrit 25.2 24.9 White Blood Count 11.2 Red Blood Count 2.68 Mean Corpuscular Volume 92.9 Mean Corpuscular Hemoglobin 31.5 Mean Corpuscular Hemoglobin 33.9 Concent Red Cell Distribution Width 14.3 Platelet Count 329 Mean Platelet Volume 6.9 Neutrophils (%) (Auto) 85.3 Lymphocytes (%) (Auto) 5.9 Monocytes (%) (Auto) 5.2 Eosinophils (%) (Auto) 3.1 Basophils (%) (Auto) 0.5 Neutrophils # (Auto) 9.6 Lymphocytes # (Auto) 0.7 Monocytes # (Auto) 0.6 Eosinophils # (Auto) 0.4 Basophils # (Auto) 0.1 CBC Comment DIFF FINAL Differential Comment Sodium Level 137 Potassium Level 3.4 Chloride Level 99 Carbon Dioxide Level 20.9 Anion Gap 17 Blood Urea Nitrogen 54 Creatinine 7.30 Estimat Glomerular Filtration 5 Rate Random Glucose 113 Calcium Level 7.5 Phosphorus Level 8.5 Iron Level 21 Total Iron Binding Capacity 207 Percent Iron Saturation 10.1 Albumin 2.1 Blood Gas Puncture Site RT RADIAL Blood Gas Patient Temperature 98.6 Blood Gas HCO3 20 Blood Gas Base Excess -4.5 Blood Gas Oxygen Saturation 95 Arterial Blood pH 7.39 Arterial Blood Partial 33 Pressure CO2 Arterial Blood Partial 115 Pressure O2 Arterial Blood Oxygen Content 20.7 Arterial Blood 0.7 Carboxyhemoglobin Arterial Blood Methemoglobin 1.7 Blood Gas Hemoglobin 15.4 Oxygen Delivery Device VENTILATOR Blood Gas Ventilator Setting SEE COMMENTS Blood Gas Inspired Oxygen 40 Date/Time Procedure Status Source Growth 11/25/16 09:00 Gram Stain - Final Resulted Sputum Endotracheal 11/25/16 09:00 Sputum Culture - Preliminary Resulted Gram Negative Obed 11/24/16 03:45 Aerobic Blood Culture - Preliminary Resulted Blood Peripheral NO GROWTH IN 2 DAYS 11/24/16 03:45 Anaerobic Blood Culture - Preliminary Resulted Blood Peripheral NO GROWTH IN 2 DAYS Physical Exam HEENT: Normocephalic; atraumatic; no jaundice. CHEST: Resp even/unlabored, coarse breath sounds. OETT to vent CARDIAC: RRR ABDOMEN: Soft, nondistended, nontender; no hepatosplenomegaly; bowel sounds are present in all four quadrants. SKIN: Normal; no rash; no jaundice. 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 Assessment and Plan Plan ASSESSMENT: - Upper GIB. Pt was found down with black emesis around mouth, intubated and brought to [facility], where she started having red blood from OGT. Unfortunately, we do not have the actual endoscopy report available, although according to a OR report, she underwent EGD with control of bleeding, resolution clip application on 11/23/16. Afterwards, she was found to have a SAH and was tx to this facility. NPO. OGT with small amount of dark brown/black gastric drainge. HH slowly trending down. Protonix gtt. HH 8.2/23.9. - Anemia, acute blood loss. HH 8.2/23.9. - Extensive SAH. After EGD, patient was found to have extensive SAH on CT and subsequently transferred to this facility for further evaluation and treatment. Dr. Tian is following and preparing to place ventriculostomy at the bedside. - Leukocytosis, Lactic acid 0.8. WBC 13.7. Zosyn - ESRD, PD. Creat 7.33. Per renal -04-07 about same hgb is slightly lower but stable, plan EGD today to evaluate if there is source of bleed, still no old records from [facility]. PLAN: - NPO for now. - Cont. Protonix Gtt - HH q6h x 3 - Transfuse as necessary - Please obtain EGD consent from family r - Notify GI of active bleeding - CCM, NSx following - Supportive care - Further recommendations to follow based on results of above Rosa Elena Ray MD Nov 26, 2016 17:05
[2016-11-27] VITALS (17 sets, daily range): BP systolic 106–139; BP diastolic 54–64; PULSE 84–104; RESP 21–25; TEMP 98.9–99.5; O2SAT 93–100
[2016-11-27] MEDS: PANTOPRAZOLE INJ 80 MG in SODIUM CHLORIDE 0.9% INJ 100 ML IV SCH ×2 (00:15→05:43)
[2016-11-27] MEDS: RESP: ALBUTEROL 2.5 MG/IPRATROPIUM 0.5 MG NEB (SCH) NEB ×4 (01:31→19:53)
[2016-11-27] MEDS: PROPOFOL 1000 MG/100 ML INJ 100 ML IV SCH ×4 (01:42→23:27)
[2016-11-27] MEDS: CHLORHEXIDINE GLUCONATE 2 % 1 PACK (2 CLOTHS) TOP SCH (03:07)
[2016-11-27] MEDS: SODIUM CHLOR 0.9% 1000 ML INJ 1,000 ML IV SCH (03:21)
[2016-11-27] MEDS: niMODipine 30 MG CAP PO SCH ×6 (03:22→23:46)
[2016-11-27] MEDS: CHLORHEXIDINE 0.12% (ORAL KIT) 15 ML CUP MT SCH ×3 (08:00→21:39)
[2016-11-27] MEDS: SODIUM CHLORIDE 0.9% FLUSH 5 ML FLUSH IV FLUSH SCH ×2 (08:14→21:33)
[2016-11-27] MEDS: SENNOSIDES SYRUP 8.8 MG/5 ML CUP PO SCH (08:14)
[2016-11-27] MEDS: levETIRAcetam INJ 500 MG in SODIUM CHLORIDE 0.9% INJ 100 ML IV SCH ×2 (08:14→21:32)
[2016-11-27] MEDS: DOCUSATE SODIUM 100 MG/10 ML UDC PO SCH ×2 (08:14→21:00)
--- NOTE | 2016-11-27 08:39 | HHI.NSPN ---
History Chief Complaint: intubated and sedated Interval History 76-year-old female transferred from [facility] 11/24/16 after being found at home unresponsive with positive bloody emesis. CT scan prior to transfer revealed subarachnoid hemorrhage. Patient intubated prior to transfer. CTA prior to transfer negative for aneurysm 11/24/16 cerebral angiogram negative for aneurysm. 11/24/16 ventriculostomy placed 11/26/16: Remains intubated and sedated. Mild eye opening. Localizes intermittent upper extremities 11/27/16: Weaning sedation and ventilator. Moderate eye opening to voice. She intermittently follows commands Exam Results Vital Signs Date Time Temp Pulse Resp B/P Pulse Ox O2 Delivery O2 Flow Rate FiO2 11/27/16 06:00 95 11/27/16 04:21 94 40 11/27/16 04:00 99.3 25 127/61 11/25/16 19:00 Mechanical Ventilator Intake and Output 11/26/16 11/26/16 11/27/16 08:00 16:00 00:00 Intake Total 405 ml 734 ml 526 ml Output Total 125 ml 569 ml 50 ml Balance 280 ml 165 ml 476 ml Physical Examination Intubated IV propofol off for exam Respirations: Coarse upper airway sounds Cardiac: Difficult to assess due to upper airway sounds. Regular rate Abdomen: Soft, diminished bowel sounds. moderate eye opening to voice and sternal rub. Not definitely following commands at present, however nursing staff indicates that patient will intermittently grasp her hand to command pupils 3mm min reactive disconjugate gaze Moderately disconjugate oculocephalic responses Moderate bilateral corneal response mild flex upper and lower extremity to deep pain Medical Decision Making Impression and Plan Impression: SAH Question cerebral vasculitis Chronic renal failure on peritoneal dialysis. History of microscopic polyangiitis per renal biopsy 2013. Follow ANCA titers pending Hypertension Respiratory failure intubated under ventilatory support Plan Continue EVD. 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 Continue as needed antihypertensive medications Nimodipine for vasospasm prophylaxis Ulcer prophylaxis Non- chemical DVT prophylaxis Procedure prophylaxis-Donato Wilson MD Nov 27, 2016 08:39
[2016-11-27] MEDS: ARTIFICIAL TEARS OPTH OINT 3.5 APPLIC/3.5 GM TUBO EACH EYE SCH ×2 (09:00→21:39)
[2016-11-27] MEDS: niCARdipine INJ 25 MG in SODIUM CHLOR 0.9% 250 ML INJ 250 ML IV SCH ×5 (09:10→15:34)
[2016-11-27] MEDS: IRON SUCROSE INJ 100 MG in SODIUM CHLORIDE 0.9% INJ 100 ML IV SCH (09:13)
[2016-11-27] MEDS: PIPERACIL-TAZO 2.25 GM PREMIX 50 ML IV SCH ×2 (09:13→23:27)
--- NOTE | 2016-11-27 10:11 | MR ---
cc: GURVINDER RAY M.D. DATE: 11/26/2016 DATE OF : [address] Toledo TYPE OF PROCEDURE Upper gastrointestinal endoscopy. ENDOSCOPIST Dr. Ray MEDICATION Propofol administered by Anesthesia. INSTRUMENT Pentax upper scope. INDICATION A 76-year-old lady who has anemia, questionable coffee-ground emesis and black stool. The patient had an upper endoscopy done at [facility]. We tried to get the result of it but we could not obtain it so we are doing endoscopy to rule out GI bleed. PROCEDURE After informing the patient about the procedure and complications, the consent was signed by her sister. The patient was placed on her back. Adequate sedation was achieved by propofol. The scope was placed in the mouth and advanced under video guidance to the second portion of the duodenum. The scope was drawn back to the stomach. Retroflexion was performed. Then the scope drawn back without immediate complication. FINDINGS 1. Esophagus: Normal. Mild esophagitis in the distal esophagus. 2. Stomach: Gastritis with erythema most likely NG tube trauma mostly in the body of the stomach where the NG tube holes correlate. 3. Duodenum: Normal. 4. No biopsy was taken. RECOMMENDATIONS 1. Continue PPI. 2. May use NG tube for feeding. 3. Avoid NG tube suction. 4. Follow-up H&H. 5. If continues to have anemia she will need colonoscopy and possible outpatient capsule endoscopy. MD SHANE Zhou/TOBY /5:23 PM /9:58 AM
[2016-11-27 11:18] LABS: BICARBONATE 18.4 MEQ/L (21.0-32.0); POTASSIUM 3.4 MEQ/L (3.5-5.1)
--- NOTE | 2016-11-27 11:20 | HHI.GIFU ---
Subjective Remarks Resting in bed sedated on the vent, no distress. No active gi bleeding. OGT clamped. Objective Vitals I&O Vital Signs Date Time Temp Pulse Resp B/P Pulse Ox O2 Delivery O2 Flow Rate FiO2 11/27/16 09:38 95 40 11/27/16 09:20 98 40 11/27/16 08:00 93 11/27/16 08:00 99.0 93 21 139/63 97 11/27/16 08:00 40 11/27/16 06:00 95 11/27/16 04:21 94 40 11/27/16 04:00 40 11/27/16 04:00 99 11/27/16 04:00 99.3 99 25 127/61 94 11/27/16 02:00 98 11/27/16 01:31 94 40 11/27/16 00:00 99.0 101 21 136/63 94 11/27/16 00:00 101 11/27/16 00:00 40 11/26/16 22:00 98 11/26/16 20:08 97 40 11/26/16 20:00 100 11/26/16 20:00 40 11/26/16 20:00 99.1 100 21 133/60 95 11/26/16 16:00 91 11/26/16 16:00 98.9 91 18 123/59 95 11/26/16 15:54 95 40 11/26/16 15:19 99 40 11/26/16 12:00 80 11/26/16 12:00 98.3 80 18 129/60 98 I/O 11/26/16 11/26/16 11/26/16 11/27/16 11/27/16 11/27/16 07:00 15:00 23:00 07:00 15:00 23:00 Intake Total 405 ml 734 ml 526 ml 1220 ml Output Total 125 ml 569 ml 50 ml 65 ml 527 ml Balance 280 ml 165 ml 476 ml 1155 ml -527 ml Intake IV Total 405 ml 734 ml 526 ml 1220 ml Gastric Drainage Total 50 ml 0 ml 0 ml 0 ml Drainage Total 75 ml 55 ml 50 ml 65 ml Peritoneal Fluid 514 ml 527 ml # Bowel Movements 1 0 2 1 Laboratory Date/Time Procedure Status Source Growth 11/25/16 09:00 Gram Stain - Final Complete Sputum Endotracheal 11/25/16 09:00 Sputum Culture - Final Complete Klebsiella Pneumoniae 11/24/16 03:45 Aerobic Blood Culture - Preliminary Resulted Blood Peripheral NO GROWTH IN 3 DAYS 11/24/16 03:45 Anaerobic Blood Culture - Preliminary Resulted Blood Peripheral NO GROWTH IN 3 DAYS Imaging Last Impressions Chest X-Ray 11/25/16 0600 Signed Impressions: Service Date/Time: Friday, November 25, 2016 03:49 - CONCLUSION: 1. Persistent left basilar consolidation with developing right basilar airspace disease. 2. Radiopaque monitor over the right mainstem bronchus partially obscures the airway but I believe the endotracheal tube is appropriately positioned above the edin. Life support tubes are otherwise stable. Alan Campos MD Cerebral Arteriogram 11/24/16 0000 Signed Impressions: Service Date/Time: Thursday, November 24, 2016 11:39 - CONCLUSION: 1. No evidence of aneurysm Jonnie Schaeffer MD Physical Exam HEENT: Normocephalic; atraumatic; no jaundice. CHEST: Resp even/unlabored, coarse breath sounds. OETT to vent CARDIAC: RRR ABDOMEN: Soft, nondistended, nontender; no hepatosplenomegaly; bowel sounds are present in all four quadrants. OGT clamped SKIN: Normal; no rash; no jaundice. 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 Assessment and Plan Plan ASSESSMENT: - Upper GIB. Pt was found down with black emesis around mouth, intubated and brought to [facility], where she started having red blood from OGT. Unfortunately, we do not have the actual endoscopy report available, although according to a OR report, she underwent EGD with control of bleeding, resolution clip application on 11/23/16. Afterwards, she was found to have a SAH and was tx to this facility. We still have not received official EGD report from [facility]. S/P EGD (11/26/16) for bleeding/anemia----> normal esophagus, mild esophagitis in the distal esophagus, gastritis with erythema most likely NGT trauma mostly in the body of the stomach where the NGT tube holes correlate, normal duodenum, no biopsy was taken. NPO. OGTclamped. Protonix gtt. HH 8.7/25.5. - Anemia, acute blood loss. HH 8.7/25.5. - Extensive SAH. After EGD, patient was found to have extensive SAH on CT and subsequently transferred to this facility for further evaluation and treatment. Dr. Tian is following and preparing to place ventriculostomy at the bedside. - Acute respiratory failure. Vent per CCM - Leukocytosis, per ccm - ESRD, PD. Creat 7.25. PD per renal PLAN: - Nepro at 30cc/hr - D/C Protonix Gtt - Protonix 40mg IV BID - Iron supplements - Monitor HH - Transfuse as necessary - Notify GI of active bleeding - CCM, NSx following - Supportive care - Further recommendations to follow based on results of above - Pt seen and examined by Dr. Ray and myself and this note is written on his behalf Silvia Nino Nov 27, 2016 11:20
[2016-11-27] MEDS: PANTOPRAZOLE SODIUM 40 MG VIAL IV PUSH SCH ×2 (11:45→23:27)
--- NOTE | 2016-11-27 11:56 | HHI.NPPN ---
Subjective Renal Failure: Chronic, Acute, End Stage Renal Disease Interval History Off sedation but not responding. Tube feeding to be started. (Noemí Lassiter) Review of Systems General General Remarks unable to evaluate (Noemí Lassiter) Objective Data Data 11/26/16 11/27/16 19:00 07:00 Intake Total 734 ml 1746 ml Output Total 569 ml 115 ml Balance 165 ml 1631 ml Intake IV Total 734 ml 1746 ml Gastric Drainage Total 0 ml 0 ml Drainage Total 55 ml 115 ml Peritoneal Fluid 514 ml # Bowel Movements 0 3 Vital Signs Date Time Temp Pulse Resp B/P Pulse Ox O2 Delivery O2 Flow Rate FiO2 11/27/16 09:38 95 40 11/27/16 09:20 98 40 11/27/16 08:00 93 11/27/16 08:00 99.0 93 21 139/63 97 11/27/16 08:00 40 11/27/16 06:00 95 11/27/16 04:21 94 40 11/27/16 04:00 40 11/27/16 04:00 99 11/27/16 04:00 99.3 99 25 127/61 94 11/27/16 02:00 98 11/27/16 01:31 94 40 11/27/16 00:00 99.0 101 21 136/63 94 11/27/16 00:00 101 11/27/16 00:00 40 11/26/16 22:00 98 11/26/16 20:08 97 40 11/26/16 20:00 100 11/26/16 20:00 40 11/26/16 20:00 99.1 100 21 133/60 95 11/26/16 16:00 91 11/26/16 16:00 98.9 91 18 123/59 95 11/26/16 15:54 95 40 11/26/16 15:19 99 40 11/26/16 12:00 80 11/26/16 12:00 98.3 80 18 129/60 98 (Noemí Lassiter) -: 11/26/16 0500 11/27/16 1019 Tubes & Lines: Tenckhoff Catheter Tubes & Lines Comment ventriculostomy Drip Comment protonix, propofol, cardene (Noemí Lassiter) Physical Exam General Appearance: Well Developed, Well Nourished Appearance Remarks intubated/sedated (Noemí LassiterP) Throat Throat Exam: Oral Mucosa [place] & Moist (Noemí LassiterP) Pulmonary Resp Exam: Clear Bilaterally, Breath Sounds Equal (Noemí Lassiter RECEIVING LEAD) Cardiology CV Exam: Regular, Normal Sinus Rhythm (Noemí LassiterP) Gastrointestinal/Abdomen GI Exam: Soft, Non-Tender (Noemí LassiterP) Musculoskeletal MS Exam: Joints Intact, Normal Tone (Noemí Lassiter RECEIVING LEAD) Integumentary Skin Exam: Warm, Dry (Noemí Lassiter) Extremeties Extremities Exam: Pedal Pulses Palpable (Noemí LassiterP) Neurologic Neuro Exam: Unresponsive, Sedated (Noemí Lassiter RECEIVING LEAD) Assessment/Plan Assessment Summary: End Stage Renal Disease Problem List: (1) ESRD (end stage renal disease) Plan: a biopsy proved microscopic polyangiitis, P-ANCA positive in 2013 now ESRD on PD continue present orders replace potassium PD fluid not infected phos elevated, begin Phoslo, monitor effect avoid IVF ANCA titers in process (2) SAH (subarachnoid hemorrhage) Plan: Surgical intervention as below (3) Acute respiratory failure Plan: vent settings: A/C 16/450/500/5 (4) Uncontrolled hypertension Plan: BP stable on Cardene drip (5) GI bleeding Plan: Gastroenterology is following no further bleeding on protonix, tube feeding started EGD: gastritis (6) Severe sepsis Plan: On Zosyn (7) Anemia Plan: given epogen started venofer for iron deficiency (Noemí Lassiter) Plan patient was seen and examined. Less responsive today. Continue PD. On the ventilator. (Georges Shankar MD) Problem Qualifiers (1) Acute respiratory failure: Qualified Code: J96.01 - Acute respiratory failure with hypoxia Noemí LassiterP Nov 27, 2016 11:56 Georges Shankar MD Nov 28, 2016 10:09
[2016-11-27] MEDS ORDERED: POTASSIUM CHLORIDE 25 MEQ EFFERVESCENT TAB PO ONE (12:00)
[2016-11-27] MEDS: CALCIUM ACETATE 667 MG CAP PO SCH ×2 (12:22→17:22)
[2016-11-27] MEDS ORDERED: NITROGLYCERIN 2% OINT 1 GM PACKET TOPICAL PRN (17:00)
[2016-11-27] MEDS ORDERED: LABETALOL HCL 100 MG/20 ML VIAL IV PUSH PRN (17:00)
[2016-11-27] MEDS ORDERED: MIDAZOLAM 100 MG/ML INJ 100 ML IV SCH (17:00)
--- NOTE | 2016-11-27 17:10 | HHI.CCPN ---
Subjective Remarks/Hospital Course 11/24: Patient is a 76-year-old female who was transferred from [facility] with extensive subarachnoid hemorrhage. Unfortunately I do not have any history and physical or discharge summary available neither CT reports. All history I have is from discussion with Dr. Tian. Apparently patient was found unconscious yesterday in a pool of bloody vomitus. She was intubated and admitted to the [facility] ICU. She underwent EGD, again report is not available to me, and was placed on Protonix infusion. After EGD patient underwent a CT of the head which showed extensive subarachnoid hemorrhage, and IVH. Dr. Tian was contacted who recommended a CT angiogram. CT angiogram did not show an aneurysm but showed probable mild obstructive hydrocephalus. Dr. Tian accepted transfer to [facility] for further care, and patient was admitted to critical care medicine. Only medical history available to me is that patient is on peritoneal dialysis, and has history of hypertension Dr. Toledo evaluated the patient in the ICU. Patient is sedated with propofol is on Cardene infusion for blood pressure control. Also on Protonix gtt for GIB On sedation hold patient withdraws all 4 extremities. Pupils are slightly reactive. There was audible cuff leak. Tube exchange attempted by respiratory therapist was unsuccessful. So Dr. Toledo extubated and endotracheally intubated the patient with new ET tube. Dr. Tian from neurosurgery evaluated patient and performed a ventriculostomy. 11/25: Remains sedated, arousable, orally intubated on mechanical ventilation. 11/26: Remains sedated, orally intubated on mechanical ventilation. Withdraws all 4 extremities with painful stimuli. Ventriculostomy in place. Subjective 11/27: Tmax 99.5. Tube feeds started take currently 10. Today, tachypneic on the ventilator will try sedation. Was arousable and open eyes but does not follow commands. Currently moving upper extremities spontaneously. Objective Vital Signs Date Time Temp Pulse Resp B/P Pulse Ox O2 Delivery O2 Flow Rate FiO2 11/27/16 15:59 100 40 11/27/16 12:00 104 11/27/16 12:00 99.5 24 138/64 11/25/16 19:00 Mechanical Ventilator Intake and Output 11/26/16 11/26/16 11/27/16 08:00 16:00 00:00 Intake Total 405 ml 734 ml 526 ml Output Total 125 ml 569 ml 50 ml Balance 280 ml 165 ml 476 ml Result Diagram: 11/26/16 0500 11/27/16 1019 Other Results Microbiology Date/Time Procedure Status Source Growth 11/25/16 09:00 Gram Stain - Final Complete Sputum Endotracheal 11/25/16 09:00 Sputum Culture - Final Complete Klebsiella Pneumoniae 11/24/16 03:45 Aerobic Blood Culture - Preliminary Resulted Blood Peripheral NO GROWTH IN 3 DAYS 11/24/16 03:45 Anaerobic Blood Culture - Preliminary Resulted Blood Peripheral NO GROWTH IN 3 DAYS Imaging Last Impressions Chest X-Ray 11/25/16 0600 Signed Impressions: Service Date/Time: Friday, November 25, 2016 03:49 - CONCLUSION: 1. Persistent left basilar consolidation with developing right basilar airspace disease. 2. Radiopaque monitor over the right mainstem bronchus partially obscures the airway but I believe the endotracheal tube is appropriately positioned above the edin. Life support tubes are otherwise stable. Alan Campos MD Cerebral Arteriogram 11/24/16 0000 Signed Impressions: Service Date/Time: Thursday, November 24, 2016 11:39 - CONCLUSION: 1. No evidence of aneurysm Jonnie Schaeffer MD Objective Remarks GENERAL: 76-year-old Elderly female who is intubated sedated critically ill SKIN: Warm and dry. HEAD: Status post EVD EYES: No scleral icterus. No injection or drainage. Pupils are 3 mm reactive slightly ENT: ETT with audible cuff leak NECK: Supple, trachea midline. No JVD or lymphadenopathy. CARDIOVASCULAR: Regular rate and rhythm without murmurs, gallops, or rubs. RESPIRATORY: Breath sounds equal bilaterally, but diminished with mild expiratory wheezing GASTROINTESTINAL: Abdomen soft, non-tender, nondistended. PD catheter in place MUSCULOSKELETAL: No cyanosis significant peripheral Neuro: Intubated sedated with propofol. Withdraws upper and lower extremity to pain. NEENA 3mm A/P Assessment and Plan NEURO: Subarachnoid hemorrhage Intraventricular hemorrhage Probable mild hydrocephalus Acute encephalopathy -Keep sedated with propofol at 50 mcg/kg/m and as needed fentanyl, target RASS-2 Sedation vacation okayed with neurosurgery -Status post ventriculostomy, neurosurgery following -Cardene infusion to target systolic blood pressure 120 to 130 -Keep sodium more than 145 -Monitor for vasospasm, Nimotop 60 mg every 4hr 21 days -Plan for repeat CTA of the brain in 3-4 days RESP: Acute respiratory failure Left lower lobe pneumonia ET tube cuff damage -Extubated and re intubated with new ETT -ACV RR 16 TV 550 PEEP 5 titrate FiO2 to keep saturation more than 92% -DuoNeb every 6 hours and when necessary -Send sputum culture 11/25 with Klebsiella pneumonia/pansensitive, empiric Zosyn, CV: Uncontrolled hypertension -Continue Cardene infusion to target systolic blood pressure less than 130 -Started on Nimotop 60 mg every 4 hours -Normal saline IV fluids at 50 ml per hour GI: Upper GI bleed -Start tube feeds with Nepro goal 30 cc an hour IV Protonix -Colace, senna for bowel regimen EGD -11/26 revealed some gastritis from NG tube suction otherwise negative : End-stage renal disease on peritoneal dialysis -Monitor renal function closely. [place] catheter. -Nephrology consulted for peritoneal dialysis management ID: Left lower lobe pneumonia Severe sepsis Leukocytosis Zosyn 3.375 GM IV q6. Pertinent cultures Blood cultures 2 - 11/24 - no growth Peritoneal fluid - 11/24 - no growth Sputum - 11/25 - Klebsiella HEME: Normocytic anemia Leukocytosis -Monitor CBC, CMP, coags Patient has a history of microscopic polyangiitis per Dr. Shankar which resulted in her renal failure requiring dialysis. Will check ANCA titers as vasculitis may possibly have contributed to subarachnoid hemorrhage. ENDO: Hypokalemia -Electrolyte replacement as needed Received 25 mEq potassium 1 today PROPH: Bilateral lower extremity SCDs. Chemical DVT prophylaxis is contraindicated. Continue Protonix infusion for GI bleed LINES: -Patient has left subclavian central line placed at the outside hospital. Critical Care: The total critical care time was 35 minutes. Time to perform other separately billable procedures was not included in the critical care time. Raymundo Restrepo MD Nov 27, 2016 17:10
[2016-11-27] MEDS: fentaNYL DRIP 250 ML IV SCH (17:22)
[2016-11-27 17:50] LABS: MYELOPEROXIDASE 274.6 AI (<1.0); PROTEINASE-3 LESS THAN 1.0 AI (<1.0)
[2016-11-27] MEDS: CARVEDILOL 12.5 MG TAB PO SCH (21:34)
[2016-11-28] VITALS (17 sets, daily range): BP systolic 104–153; BP diastolic 53–69; PULSE 66–88; RESP 14–20; TEMP 98.5–99.2; O2SAT 94–100
[2016-11-28] MEDS: RESP: ALBUTEROL 2.5 MG/IPRATROPIUM 0.5 MG NEB (SCH) NEB ×4 (00:53→20:29)
[2016-11-28] MEDS: SODIUM CHLOR 0.9% 1000 ML INJ 1,000 ML IV SCH (03:40)
[2016-11-28] MEDS: CHLORHEXIDINE GLUCONATE 2 % 1 PACK (2 CLOTHS) TOP SCH (04:00)
[2016-11-28] MEDS: niMODipine 30 MG CAP PO SCH ×5 (04:53→20:43)
[2016-11-28] MEDS: PROPOFOL 1000 MG/100 ML INJ 100 ML IV SCH (04:53)
[2016-11-28 05:34] LABS: AUTOMATED NEUTROPHIL # 9.5 TH/MM3 (1.8-7.7); BASOPHIL % 0.4 % (0.0-2.0); EOSINOPHIL # 0.2 TH/MM3 (0-0.4); EOSINOPHIL % 1.8 % (0.0-4.0); HEMATOCRIT 22.6 % (35.0-46.0); HEMO FLAGS DIFF FINAL; LYMPH % 7.2 % (9.0-44.0); LYMPHOCYTE # 0.8 TH/MM3 (1.0-4.8); MEAN CELL VOLUME 93.6 FL (80.0-100.0); MEAN CORPUSCULAR HEMOGLOBIN 31.6 PG (27.0-34.0); MEAN CORPUSCULAR HGB CONC 33.7 % (32.0-36.0); MONO % 6.5 % (0.0-8.0); NEUT % 84.1 % (16.0-70.0); PLATELET COUNT 317 TH/MM3 (150-450); RED BLOOD COUNT 2.41 MIL/MM3 (4.00-5.30); RED CELL DISTRIBUTION WIDTH 14.7 % (11.6-17.2); WHITE BLOOD COUNT 11.3 TH/MM3 (4.0-11.0)
[2016-11-28 05:53] LABS: ANION GAP 20 MEQ/L (5-15); BICARBONATE 18.8 MEQ/L (21.0-32.0); BLOOD UREA NITROGEN 49 MG/DL (7-18); CHLORIDE 100 MEQ/L (98-107); POTASSIUM 3.4 MEQ/L (3.5-5.1); SODIUM (NA) 139 MEQ/L (136-145)
[2016-11-28] MEDS: CHLORHEXIDINE 0.12% (ORAL KIT) 15 ML CUP MT SCH ×3 (08:00→20:46)
[2016-11-28] MEDS: levETIRAcetam INJ 500 MG in SODIUM CHLORIDE 0.9% INJ 100 ML IV SCH ×2 (08:04→20:41)
[2016-11-28] MEDS: DOCUSATE SODIUM 100 MG/10 ML UDC PO SCH ×2 (08:04→20:44)
[2016-11-28] MEDS: CALCIUM ACETATE 667 MG CAP PO SCH ×3 (08:04→18:13)
[2016-11-28] MEDS: SENNOSIDES SYRUP 8.8 MG/5 ML CUP PO SCH (08:04)
[2016-11-28] MEDS: ARTIFICIAL TEARS OPTH OINT 3.5 APPLIC/3.5 GM TUBO EACH EYE SCH ×2 (08:04→20:46)
[2016-11-28] MEDS: IRON SUCROSE INJ 100 MG in SODIUM CHLORIDE 0.9% INJ 100 ML IV SCH ×2 (09:00→09:19)
[2016-11-28] MEDS: CARVEDILOL 12.5 MG TAB PO SCH ×2 (09:00→20:43)
[2016-11-28] MEDS: PIPERACIL-TAZO 2.25 GM PREMIX 50 ML IV SCH ×2 (09:19→23:19)
[2016-11-28] MEDS ORDERED: EPOETIN ALFA 20,000 UNITS/ML VIAL SQ ONE (10:30)
--- NOTE | 2016-11-28 11:05 | HHI.CCPN ---
Subjective Remarks/Hospital Course 11/24: Patient is a 76-year-old female who was transferred from [facility] with extensive subarachnoid hemorrhage. Unfortunately I do not have any history and physical or discharge summary available neither CT reports. All history I have is from discussion with Dr. Tian. Apparently patient was found unconscious yesterday in a pool of bloody vomitus. She was intubated and admitted to the [facility] ICU. She underwent EGD, again report is not available to me, and was placed on Protonix infusion. After EGD patient underwent a CT of the head which showed extensive subarachnoid hemorrhage, and IVH. Dr. Tian was contacted who recommended a CT angiogram. CT angiogram did not show an aneurysm but showed probable mild obstructive hydrocephalus. Dr. Tian accepted transfer to [facility] for further care, and patient was admitted to critical care medicine. Only medical history available to me is that patient is on peritoneal dialysis, and has history of hypertension Dr. Toledo evaluated the patient in the ICU. Patient is sedated with propofol is on Cardene infusion for blood pressure control. Also on Protonix gtt for GIB On sedation hold patient withdraws all 4 extremities. Pupils are slightly reactive. There was audible cuff leak. Tube exchange attempted by respiratory therapist was unsuccessful. So Dr. Toledo extubated and endotracheally intubated the patient with new ET tube. Dr. Tian from neurosurgery evaluated patient and performed a ventriculostomy. 11/25: Remains sedated, arousable, orally intubated on mechanical ventilation. 11/26: Remains sedated, orally intubated on mechanical ventilation. Withdraws all 4 extremities with painful stimuli. Ventriculostomy in place. 11/27: Tmax 99.5. Tube feeds started take currently 10. Today, tachypneic on the ventilator will try sedation. Was arousable and open eyes but does not follow commands. Currently moving upper extremities spontaneously. Subjective 11/28: Currently on sedation vacation. Arousable and did wiggle bilateral feet to command. Tube feeds currently low dose. Objective Vital Signs Date Time Temp Pulse Resp B/P Pulse Ox O2 Delivery O2 Flow Rate FiO2 11/28/16 09:41 96 40 11/28/16 08:00 98.5 77 14 120/57 11/25/16 19:00 Mechanical Ventilator Intake and Output 11/27/16 11/27/16 11/28/16 08:00 16:00 00:00 Intake Total 1220 ml 1376 ml 943 ml Output Total 592 ml 52 ml Balance 628 ml 1324 ml 943 ml Result Diagram: 11/28/16 0513 11/28/16 0513 Other Results Microbiology Date/Time Procedure Status Source Growth 11/25/16 09:00 Gram Stain - Final Complete Sputum Endotracheal 11/25/16 09:00 Sputum Culture - Final Complete Klebsiella Pneumoniae 11/24/16 03:45 Aerobic Blood Culture - Preliminary Resulted Blood Peripheral NO GROWTH IN 4 DAYS 11/24/16 03:45 Anaerobic Blood Culture - Preliminary Resulted Blood Peripheral NO GROWTH IN 4 DAYS Imaging Last Impressions Chest X-Ray 11/25/16 0600 Signed Impressions: Service Date/Time: Friday, November 25, 2016 03:49 - CONCLUSION: 1. Persistent left basilar consolidation with developing right basilar airspace disease. 2. Radiopaque monitor over the right mainstem bronchus partially obscures the airway but I believe the endotracheal tube is appropriately positioned above the edin. Life support tubes are otherwise stable. Alan Campos MD Cerebral Arteriogram 11/24/16 0000 Signed Impressions: Service Date/Time: Thursday, November 24, 2016 11:39 - CONCLUSION: 1. No evidence of aneurysm Jonnie Schaeffer MD Objective Remarks GENERAL: 76-year-old Elderly female who is intubated sedated critically ill SKIN: Warm and dry. HEAD: Status post EVD EYES: No scleral icterus. No injection or drainage. Pupils are 3 mm reactive slightly ENT: ETT with audible cuff leak NECK: Supple, trachea midline. No JVD or lymphadenopathy. CARDIOVASCULAR: Regular rate and rhythm without murmurs, gallops, or rubs. RESPIRATORY: Breath sounds equal bilaterally, but diminished with mild expiratory wheezing GASTROINTESTINAL: Abdomen soft, non-tender, nondistended. PD catheter in place MUSCULOSKELETAL: No cyanosis significant peripheral Neuro: Intubated sedated with propofol. Withdraws upper and lower extremity to pain. NEENA 3mm A/P Assessment and Plan NEURO: Subarachnoid hemorrhage Intraventricular hemorrhage Probable mild hydrocephalus Acute encephalopathy -Keep sedated with propofol at 35 mcg/kg/m and as needed fentanyl, target RASS-2 Sedation vacation okayed with neurosurgery -Status post ventriculostomy, neurosurgery following -Cardene infusion to target systolic blood pressure 120 to 130 -Keep sodium more than 145 -Monitor for vasospasm, Nimotop 60 mg every 4hr 21 days -Plan for repeat CTA of the brain in 2-3 days MRI brain/EEG today RESP: Acute respiratory failure Left lower lobe pneumonia ET tube cuff damage -Extubated and re intubated with new ETT -ACV RR 16 TV 550 PEEP 5 titrate FiO2 to keep saturation more than 92% -DuoNeb every 6 hours and when necessary -Send sputum culture 11/25 with Klebsiella pneumonia/pansensitive, empiric Zosyn, CV: Uncontrolled hypertension -Continue Cardene infusion to target systolic blood pressure less than 130 -Started on Nimotop 60 mg every 4 hours -Normal saline IV fluids at 50 ml per hour GI: Upper GI bleed -Start tube feeds with Nepro goal 30 cc an hour IV Protonix -Colace, senna for bowel regimen EGD -11/26 revealed some gastritis from NG tube suction otherwise negative : End-stage renal disease on peritoneal dialysis -Monitor renal function closely. Rosales catheter. -Nephrology consulted for peritoneal dialysis management ID: Left lower lobe pneumonia Severe sepsis Leukocytosis Zosyn 3.375 GM IV q6. Pertinent cultures Blood cultures 2 - 11/24 - no growth Peritoneal fluid - 11/24 - no growth Sputum - 11/25 - Klebsiella HEME: Normocytic anemia Leukocytosis -Monitor CBC, CMP, coags Patient has a history of microscopic polyangiitis per Dr. Shankar which resulted in her renal failure requiring dialysis. Will check ANCA titers as vasculitis may possibly have contributed to subarachnoid hemorrhage. ENDO: Hypokalemia -Electrolyte replacement as needed Received 25 mEq potassium 1 today PROPH: Bilateral lower extremity SCDs. Chemical DVT prophylaxis is contraindicated. Continue Protonix infusion for GI bleed LINES: -Patient has left subclavian central line placed at the outside hospital. Critical Care: The total critical care time was 35 minutes. Time to perform other separately billable procedures was not included in the critical care time. Raymundo Restrepo MD Nov 28, 2016 11:05
--- NOTE | 2016-11-28 11:47 | HHI.NPPN ---
Subjective Renal Failure: Chronic, Acute, End Stage Renal Disease Interval History Awakens and follows commands. Some edema has developed. More anemic today. ( Noemí Lassiter) Review of Systems General General Remarks unable to evaluate (Noemí Lassiter) Objective Data Data 11/27/16 11/28/16 19:00 07:00 Intake Total 1376 ml 1511 ml Output Total 579 ml 950 ml Balance 797 ml 561 ml Intake IV Total 1376 ml 1157 ml Tube Feeding 234 ml Other 120 ml Output Urine Total 0 ml Gastric Drainage Total 0 ml Drainage Total 52 ml 54 ml Peritoneal Fluid 527 ml 896 ml # Bowel Movements 1 2 Vital Signs Date Time Temp Pulse Resp B/P Pulse Ox O2 Delivery O2 Flow Rate FiO2 11/28/16 09:41 96 40 11/28/16 08:46 95 40 11/28/16 08:00 40 11/28/16 08:00 98.5 77 14 120/57 94 11/28/16 08:00 77 11/28/16 06:00 88 11/28/16 04:11 96 40 11/28/16 04:00 98.9 77 15 105/53 99 11/28/16 04:00 79 11/28/16 04:00 40 11/28/16 02:00 79 11/28/16 00:53 97 40 11/28/16 00:00 98.7 66 17 104/55 97 11/28/16 00:00 66 11/28/16 00:00 40 11/27/16 22:00 84 11/27/16 20:00 98.9 84 24 108/54 97 11/27/16 20:00 84 11/27/16 20:00 40 11/27/16 19:53 96 40 11/27/16 16:00 103 11/27/16 16:00 99.0 103 24 106/56 93 11/27/16 15:59 100 40 11/27/16 15:42 93 40 11/27/16 12:48 95 40 11/27/16 12:00 104 11/27/16 12:00 99.5 104 24 138/64 93 (Noemí Lassiter) -: 11/28/16 0513 11/28/16 0513 Tubes & Lines: Tenckhoff Catheter Tubes & Lines Comment ventriculostomy Drip Comment fentanyl (Noemí Lassiter) Physical Exam General Appearance: Well Developed, Well Nourished Appearance Remarks intubated/sedated (Noemí Lassiter) Throat Throat Exam: Oral Mucosa [place] & Moist (Noemí Lassiter) Pulmonary Resp Exam: Clear Bilaterally, Breath Sounds Equal (Noemí Lassiter) Cardiology CV Exam: Regular, Normal Sinus Rhythm (Noemí Lassiter) Gastrointestinal/Abdomen GI Exam: Soft, Non-Tender (Noemí Lassiter) Musculoskeletal MS Exam: Joints Intact, Normal Tone (Noemí Lassiter) Integumentary Skin Exam: Warm, Dry (Noemí Lassiter) Extremeties Extremities Exam: Pedal Pulses Palpable (Noemí Lassiter) Neurologic Neuro Exam: Moving All Extremities, Unresponsive, Sedated (Noemí Lassiter) Assessment/Plan Assessment Summary: Anemia of CKD, End Stage Renal Disease Problem List: (1) ESRD (end stage renal disease) Plan: a biopsy proved microscopic polyangiitis, P-ANCA positive in 2013 now ESRD on PD she does appear fluid overloaded, use 2.5% dextrose PD solution tonight K is normal phos elevated, increased Phoslo, monitor effect avoid IVF ANCA titers positive, see below (2) SAH (subarachnoid hemorrhage) Plan: Surgical intervention s/p crani with ICP monitoring BP stable unknown etiology but she is ANCA positive so may have vasculitis playing a role aneurysm has been ruled out Hematology/onc Dr. Felice Parrish to be consulted, started solumedrol BID, likely will be placed on Rituxan (3) Acute respiratory failure Plan: vent settings: A/C 16/450/500/5 (4) Uncontrolled hypertension Plan: BP stable off Cardene drip (5) GI bleeding Plan: Gastroenterology is following no further bleeding on protonix, tube feeding started EGD: gastritis (6) Severe sepsis Plan: On Zosyn sputum with Klebsiella monitor clinically PD fluid not infected (7) Anemia Plan: repeat epogen also on venofer for iron deficiency follow hemoglobin (Noemí Lassiter PEDIATRICIAN) Plan patient was seen and examined. Discussed with Dr. Restrepo. Anti MPO is positive, but it is still unclear if she has active vasculitis. Start steroid empirically. Discussed with speech and hearing director about Rituxan. (Georges Shankar MD) Problem Qualifiers (1) Acute respiratory failure: Qualified Code: J96.01 - Acute respiratory failure with hypoxia Noemí Lassiter Nov 28, 2016 11:47 Georges Shankar MD Nov 29, 2016 15:14
[2016-11-28] MEDS ORDERED: POTASSIUM CHLORIDE 25 MEQ EFFERVESCENT TAB PO ONE (12:00)
[2016-11-28] MEDS ORDERED: DOCU100C PO (12:12)
[2016-11-28] MEDS ORDERED: ACET1CAP18 PO (12:12)
[2016-11-28] MEDS ORDERED: PROB1CHW7 PO (12:12)
[2016-11-28] MEDS ORDERED: FOSR1000 CHEW (12:12)
[2016-11-28] MEDS ORDERED: LEVO100T5 PO (12:12)
[2016-11-28] MEDS ORDERED: ONDA1TAB16 (12:12)
[2016-11-28] MEDS: PANTOPRAZOLE SODIUM 40 MG VIAL IV PUSH SCH ×2 (13:46→23:20)
[2016-11-28] MEDS: SODIUM CHLORIDE 0.9% FLUSH 5 ML FLUSH IV FLUSH SCH ×2 (13:47→20:43)
--- NOTE | 2016-11-28 13:48 | RADRPT ---
EXAM DATE/TIME: 11/28/2016 12:53 [place] COMPARISON: No previous studies available for comparison. INDICATIONS : Patient is not waking up. Patient was found down at home. MEDICAL HISTORY : Renal failure, chronic. SURGICAL HISTORY : Hysterectomy. ventriculostomy drain ENCOUNTER: Subsequent ACUITY: 4-6 days PAIN SCORE: Nonresponsive. LOCATION: cranial TECHNIQUE: Multiplanar, multisequence MRI of the brain was performed without contrast. FINDINGS: CEREBRUM: There is mild cerebral atrophy. Ventricles are normal in size. There is a right frontal shunt in plac e with tip likely in the right lateral ventricle. Blood products are present along the shunt tract. T here is abnormal signal intensity layering within the occipital horns bilaterally and along the sulci primarily on the right in the parietal and temporal regions. Suspected mild signal changes also pres ent along the left temporal region sulci. No evidence of midline shift, mass lesion, or acute infarc tion. No extraaxial fluid collections are seen. The pituitary gland and suprasellar cistern are nor mal in configuration. WHITE MATTER: There is mild periventricular white matter signal change. POSTERIOR FOSSA: The cerebellum and brainstem demonstrate no acute finding. The 4th ventricle is midline. The cerebel lopontine angle is unremarkable. The cerebellar tonsils are normal in position. DIFFUSION IMAGING: No focal areas of restricted diffusion are seen. No evidence of acute infarction. EXTRACRANIAL: There is an air-fluid level in the right maxillary sinus and mucoperiosteal thickening in the left ma xillary sinus. CONCLUSION: 1. There are blood products layering within the occipital horns bilaterally and along the sulci in th e right temporoparietal region. Possible mild subarachnoid blood products also layer along the left t emporal region sulci. 2. Ventricles are prominent but not enlarged. Right frontal ventricular shunt is present. 3. There are no findings to indicate recent ischemia. Tre De Luna MD on November 28, 2016 at 13:40 Board Certified Radiologist. This report was verified electronically.
[2016-11-28] MEDS: methylPREDNISolone SOD SUCC 125 MG/2 ML VIAL IV PUSH SCH ×2 (13:53→20:43)
--- NOTE | 2016-11-28 18:49 | HHI.NSPN ---
History Chief Complaint: intubated and sedated Interval History 76-year-old female transferred from [facility] 11/24/16 after being found at home unresponsive with positive bloody emesis. CT scan prior to transfer revealed subarachnoid hemorrhage. Patient intubated prior to transfer. CTA prior to transfer negative for aneurysm 11/24/16 cerebral angiogram negative for aneurysm. 11/24/16 ventriculostomy placed 11/26/16: Remains intubated and sedated. Mild eye opening. Localizes intermittent upper extremities 11/27/16: Weaning sedation and ventilator. Moderate eye opening to voice. She intermittently follows commands 11/28/16: Intubated. IV Sedation decreased. Opens eyes to voice, moves extremities to command Exam Results Vital Signs Date Time Temp Pulse Resp B/P Pulse Ox O2 Delivery O2 Flow Rate FiO2 11/28/16 16:23 96 40 11/28/16 16:00 78 11/28/16 16:00 98.6 20 129/61 11/25/16 19:00 Mechanical Ventilator Intake and Output 11/27/16 11/27/16 11/28/16 08:00 16:00 00:00 Intake Total 1220 ml 1376 ml 943 ml Output Total 592 ml 52 ml Balance 628 ml 1324 ml 943 ml Physical Examination Intubated IV propofol off for exam Respirations: Nonlabored respirations Cardiac: Difficult to assess due to upper airway sounds. Regular rate Abdomen: Soft, diminished bowel sounds. Neurologic: moderate eye opening to voice Minimal grasp to sternal rub. Moves feet moderate to command pupils 3mm min reactive disconjugate gaze Moderately disconjugate oculocephalic responses Moderate bilateral corneal response External ventricular drain with moderate output blood-tinged CSF Lab, Micro, Other Results 11/28/16 MRI brain images reviewed by the undersigned. Agree with findings as noted below: Brain MRI 11/28/16 0000 Signed Impressions: Service Date/Time: November 12:53 - CONCLUSION: 1. There are blood products layering within the occipital horns bilaterally and along the sulci in the right temporoparietal region. Possible mild subarachnoid blood products also layer along the left temporal region sulci. 2. Ventricles are prominent but not enlarged. Right frontal ventricular shunt is present. 3. There are no findings to indicate recent ischemia. Tre De Luna MD Laboratory Tests Test 11/28/16 05:13 White Blood Count 11.3 TH/MM3 Red Blood Count 2.41 MIL/MM3 Hemoglobin 7.6 GM/DL Hematocrit 22.6 % Mean Corpuscular Volume 93.6 FL Mean Corpuscular Hemoglobin 31.6 PG Mean Corpuscular Hemoglobin 33.7 % Concent Red Cell Distribution Width 14.7 % Platelet Count 317 TH/MM3 Mean Platelet Volume 6.4 FL Neutrophils (%) (Auto) 84.1 % Lymphocytes (%) (Auto) 7.2 % Monocytes (%) (Auto) 6.5 % Eosinophils (%) (Auto) 1.8 % Basophils (%) (Auto) 0.4 % Neutrophils # (Auto) 9.5 TH/MM3 Lymphocytes # (Auto) 0.8 TH/MM3 Monocytes # (Auto) 0.7 TH/MM3 Eosinophils # (Auto) 0.2 TH/MM3 Basophils # (Auto) 0.0 TH/MM3 CBC Comment DIFF FINAL Differential Comment Sodium Level 139 MEQ/L Potassium Level 3.4 MEQ/L Chloride Level 100 MEQ/L Carbon Dioxide Level 18.8 MEQ/L Anion Gap 20 MEQ/L Blood Urea Nitrogen 49 MG/DL Creatinine 7.12 MG/DL Random Glucose 96 MG/DL Calcium Level 7.7 MG/DL Phosphorus Level 8.9 MG/DL C-Reactive Protein 7.45 MG/DL Albumin 1.9 GM/DL p - ANCA 274.6 Medical Decision Making Impression and Plan Impression: SAH 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 History of microscopic polyangiitis per renal biopsy 2013. Hypertension Respiratory failure intubated under ventilatory support Plan Continue to challenge EVD. 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 Continue as needed antihypertensive medications Nimodipine for vasospasm prophylaxis Ulcer prophylaxis Non- chemical DVT prophylaxis Procedure prophylaxis-Donato Wilson MD Nov 28, 2016 18:49
--- NOTE | 2016-11-28 22:05 | MG ---
cc: MERLIN GUSMAN MD Lab No: Date: 11/28/16 Age: 85 Sex: F Race: REFERRING PHYSICIAN Dr. Restrepo. An EEG was obtained on this 85-year-old patient with history of subarachnoid hemorrhage, decreased responsiveness,. The patient is intubated and withdrew to tactile stimulation. MEDICATIONS 1. Keppra 2. Nicardipine 3. Propofol. The EEG shows prominent theta with delta rhythms bilaterally. There is intermixed artifact. There is a lack of alpha activity. There is some probable beta rhythms intermixed with the artifactual muscle activity. Photic stimulation was unremarkable. Tactile stimulation shows some increase in the artifact and questionable background reaction. INTERPRETATION Abnormal EEG because of severe bi-hemisphere slowing suggestive of the moderate to severe diffuse disturbance of cerebral function. No epileptiform features present. MD ISABEL Reed/ /5:24 PM /9:56 PM
[2016-11-29] VITALS (19 sets, daily range): BP systolic 148–154; BP diastolic 66–68; PULSE 67–90; RESP 12–20; TEMP 97.4–98.9; O2SAT 94–98
[2016-11-29] MEDS: niMODipine 30 MG CAP PO SCH ×6 (00:05→20:53)
[2016-11-29] MEDS: RESP: ALBUTEROL 2.5 MG/IPRATROPIUM 0.5 MG NEB (SCH) NEB ×4 (03:35→21:40)
[2016-11-29] MEDS: SODIUM CHLOR 0.9% 1000 ML INJ 1,000 ML IV SCH (03:40)
[2016-11-29] MEDS: CHLORHEXIDINE GLUCONATE 2 % 1 PACK (2 CLOTHS) TOP SCH (04:00)
[2016-11-29 04:52] LABS: AUTOMATED NEUTROPHIL # 11.7 TH/MM3 (1.8-7.7); BASOPHIL % 0.1 % (0.0-2.0); HEMATOCRIT 26.6 % (35.0-46.0); LYMPH % 4.5 % (9.0-44.0); LYMPHOCYTE # 0.6 TH/MM3 (1.0-4.8); MEAN CELL VOLUME 93.6 FL (80.0-100.0); MEAN CORPUSCULAR HEMOGLOBIN 31.3 PG (27.0-34.0); MEAN CORPUSCULAR HGB CONC 33.4 % (32.0-36.0); MONO % 1.1 % (0.0-8.0); NEUT % 94.3 % (16.0-70.0); PLATELET COUNT 386 TH/MM3 (150-450); RED BLOOD COUNT 2.84 MIL/MM3 (4.00-5.30); RED CELL DISTRIBUTION WIDTH 14.7 % (11.6-17.2); WHITE BLOOD COUNT 12.4 TH/MM3 (4.0-11.0)
[2016-11-29 04:57] LABS: HEMO FLAGS AUTO DIFF
[2016-11-29 05:36] LABS: BICARBONATE 19.9 MEQ/L (21.0-32.0); POTASSIUM 3.8 MEQ/L (3.5-5.1)
--- NOTE | 2016-11-29 07:41 | MB ---
cc: ADRIÁN SHANKAR ZAFAR MD DATE OF CONSULTATION: 11/28/2016 DATE OF : 1940 HEMATOLOGY/ONCOLOGY CONSULTATION NOTE CONSULTING PHYSICIAN Dr. 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 The hematology service has been consulted to render an opinion regarding the utility of using immunosuppression with rituximab with corticosteroids for management of the vasculitis-related intracranial bleed. CHIEF COMPLAINT The patient is nonverbal. She is intubated and sedated. The entirety of the history was obtained from the patient's physicians, electronic medical record and the patient's nursing staff. HISTORY OF PRESENT ILLNESS Ms. Kelly is a 76-year-old female who has been on renal replacement therapy for the past 4 years. She was initially on hemodialysis and then was transitioned to peritoneal dialysis. 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 The patient per her shop mechanic had displayed no signs of active vasculitis. He had been seeing her on a monthly basis. Ms. Kelly was brought to the hospital by family who found her to be unconscious, I believe on 11/24/2016. Imaging studies revealed a large subarachnoid hemorrhage. She was also noted to have hematemesis. She was initially evaluated at [facility] where she underwent EGD and banding of GI bleeding from what I believe were ulcers. She subsequently underwent imaging studies of the head and was noted to have a layered subarachnoid hemorrhage. She gradually lost consciousness and was intubated. Upon transfer to [facility] a ventriculostomy tube was placed and the patient has been on ventilation ever since. While in the hospital she did undergo testing for antimyeloperoxidase which is a marker for vasculitis. This was noted to be elevated at 247 AI; reference range less than 1. The patient has been initiated on pulse dose corticosteroids with methylprednisolone 250 mg IV q.12h. The oncology/hematology service has been consulted to evaluate the patient for Rituxan infusion. 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 2. Chronic renal replacement therapy. 3. Hypertension. 4. GI bleeding. PAST SURGICAL HISTORY 1. Ventriculostomy. 2. EGD with banding and cauterization of ulcers. FAMILY HISTORY Could not obtain. ALLERGIES None known. MEDICATIONS Current inpatient medications: 1. Calcium acetate, PhosLo, 1334 p.o. t.i.d. 2. Methylprednisolone 250 mg IV q.12h. 3. Coreg 12.5 mg p.o. q.12h. 4. Midazolam infusion. 5. Fentanyl infusion. 6. Labetalol 10 mg IV q.4h. as needed for hypertension. 7. Nitroglycerin, two-inch patches as needed for hypertension. 8. Hydralazine 10 mg IV, every hour as needed for hypertension. 9. Pantoprazole 40 mg IV q.12h. 10.Zosyn 2.25 grams IV every 12 hours. 11.Keppra 500 mg IV q.12h. 12.Colace 100 mg p.o. q.12h. 13.Senna 8.8 mg IV p.o. daily. 14.Nimodipine 60 mg p.o. q.4h. 15.Fentanyl 50 mcg IV as needed for pain. 16.Propofol per protocol. 17.Nicardipine infusion titration for hypertension per protocol. REVIEW OF SYSTEMS Unobtainable. She is on a ventilator. PHYSICAL EXAMINATION VITAL SIGNS: Temperature 98.6 degrees Fahrenheit, heart rate 78 beats per minute, respiratory rate 20, blood pressure 129/61, O2 sats 96% on FIO2 of 40%. GENERAL APPEARANCE: Ms. Kelly is an elderly female intubated and sedated. She does have a ventriculostomy tube inserted on her head. She does seem to open her eyes to verbal stimulus. She has very minor spontaneous movements of her upper extremities. HEENT: There is a ventriculostomy tube. Pupils equally round and reactive to light and accommodation. ET tube and OG tube in place. NECK: No palpable cervical lymphadenopathy. RESPIRATORY: Decreased bibasilar breath sounds. She is breathing above the ventilator set rate. CARDIOVASCULAR: Regular rate and rhythm, S1, S2. No obvious murmurs, rubs or gallops. ABDOMEN: Protuberant, soft, no obvious tenderness. Positive bowel sounds. No inguinal lymphadenopathy. EXTREMITIES: Bilateral pretibial edema. No calf tenderness. WRAPPING CHECKER: Difficult to obtain. She has no spontaneous movements of her own. LABORATORY FINDINGS Blood work dated 11/28/2016: WBC count 11.3, hemoglobin 7.6 gm/dl, hematocrit 22.6%, platelet count 317, absolute neutrophil count 9.5. Chemistries: Sodium 139, potassium 3.4, chloride 100, bicarbonate 18.8, BUN 49, creatinine 7.12, calcium 7.7, phosphorus 8.9. CRP elevated at 745. Immunology: Antimyeloperoxidase 274.6 AI. IMAGING STUDIES MRI of the brain dated 11/28/2016: There are blood products layering within the occipital horns bilaterally and along the sulci in the right temporoparietal region. Possible mild subarachnoid blood products are also layering in the left temporal region sulci. Ventricles are prominent but not enlarged. Right frontal ventricular shunt is present. There are no findings to indicate recent ischemia. Cerebral arteriogram dated 11/25/2016: No evidence of an aneurysm. No active bleeding noted. ASSESSMENT Ms. Kelly is a 76-year-old female who has been on renal replacement therapy with hemodialysis and now peritoneal dialysis for the past four years. She has a history of p-ANCA associated vasculitis which is thought to be the cause of the renal insufficiency in the first place. She was taken to [facility] after she was found unconscious. She was found to have both a GI bleed and a subarachnoid hemorrhage. The subarachnoid hemorrhage appears to be not associated with an intracerebral aneurysm. Therefore, she has been assessed to have a non-aneurysmal subarachnoid hemorrhage (NASAH). The hematology service has been consulted because an important cause of non-aneurysmal subarachnoid hemorrhages is vasculitis-associated intracranial bleeding. Additionally, an another important differential diagnosis is cerebral amyloid angiopathy (CAA). Both these conditions are treated appropriately with immunosuppression. In this acute setting the patient is initiated on pulse dose corticosteroids. The hematology service has been consulted to coordinate the use of cytotoxic systemic therapy / immunosuppressive chemotherapy for management of the vasculitis. DISCUSSION There are various treatment options available for management of ANCA associated vasculitis. These include corticosteroids along with cyclophosphamide versus corticosteroids with rituximab. I would like to add that typically the management of vasculitis is coordinated by a nissan sales consultant and not by a side laster tack. However, because my scope of practice includes extensive usage of both cyclophosphamide and rituximab for malignant hematologic disorders primarily as well as some solid tumor disorders and malignancy such as breast cancer, I have been asked to see this patient. Additionally, there are no rheumatologists available for inpatient service at this hospital. After much consideration and evaluation of this patient and review of her previous history, I think it would be reasonable to treat her with high-dose corticosteroids. Additionally, she would be candidate for immunosuppressive agents with either cyclophosphamide or rituximab. A clinical trial which was published in the [place] Journal of Medicine authored by Dr. Tre Cagle and colleagues from 2010 indicates superiority of rituximab over cyclophosphamide for ANCA associated vasculitis management. Recommendations: ANCA associated vasculitis related subarachnoid hemorrhage versus cerebral amyloid angiopathy: Continue corticosteroids. I will attempt to treat this patient with Rituxan. Whether this is needed acutely in the hospital setting while she is on the ventilator is debatable. For the time being I would recommend continuation of high-dose corticosteroids. I will monitor her closely. Should she continue to clinically improve as she is right now we may be able to delay systemic therapy with Rituxan until after she has clinically improved to the extent where she may be discharged home. MD ROCIO Leyva/TOBY /6:08 PM /7:02 AM YAYA
[2016-11-29 07:42] LABS: SCAN/DIFF AUTO DIFF CONFIRMED
[2016-11-29] MEDS: CALCIUM ACETATE 667 MG CAP PO SCH ×3 (07:57→16:23)
[2016-11-29] MEDS: levETIRAcetam INJ 500 MG in SODIUM CHLORIDE 0.9% INJ 100 ML IV SCH ×2 (07:58→20:58)
[2016-11-29] MEDS: CHLORHEXIDINE 0.12% (ORAL KIT) 15 ML CUP MT SCH ×2 (07:58→20:00)
[2016-11-29] MEDS: CARVEDILOL 12.5 MG TAB PO SCH ×2 (07:58→20:53)
[2016-11-29] MEDS: ARTIFICIAL TEARS OPTH OINT 3.5 APPLIC/3.5 GM TUBO EACH EYE SCH ×2 (07:58→20:59)
[2016-11-29] MEDS: methylPREDNISolone SOD SUCC 125 MG/2 ML VIAL IV PUSH SCH ×2 (07:58→20:53)
[2016-11-29] MEDS: SENNOSIDES SYRUP 8.8 MG/5 ML CUP PO SCH (07:59)
[2016-11-29] MEDS: SODIUM CHLORIDE 0.9% FLUSH 5 ML FLUSH IV FLUSH SCH ×2 (07:59→20:53)
[2016-11-29] MEDS: fentaNYL DRIP 250 ML IV SCH (07:59)
[2016-11-29] MEDS: DOCUSATE SODIUM 100 MG/10 ML UDC PO SCH ×2 (07:59→21:00)
--- NOTE | 2016-11-29 08:40 | HHI.NSPN ---
History Chief Complaint: intubated and sedated Interval History 76-year-old female transferred from [facility] 11/24/16 after being found at home unresponsive with positive bloody emesis. CT scan prior to transfer revealed subarachnoid hemorrhage. Patient intubated prior to transfer. CTA prior to transfer negative for aneurysm 11/24/16 cerebral angiogram negative for aneurysm. 11/24/16 ventriculostomy placed 11/26/16: Remains intubated and sedated. Mild eye opening. Localizes intermittent upper extremities 11/27/16: Weaning sedation and ventilator. Moderate eye opening to voice. She intermittently follows commands 11/28/16: Intubated. IV Sedation decreased. Opens eyes to voice, moves extremities to command Exam Results Vital Signs Date Time Temp Pulse Resp B/P Pulse Ox O2 Delivery O2 Flow Rate FiO2 11/29/16 06:00 90 11/29/16 05:07 97 40 11/29/16 04:00 98.5 17 148/66 11/25/16 19:00 Mechanical Ventilator Intake and Output 11/28/16 11/28/16 11/29/16 08:00 16:00 00:00 Intake Total 568 ml 497 ml Output Total 950.0 ml 120.0 ml 25 ml Balance -382.0 ml -120.0 ml 472 ml Physical Examination Intubated Respirations: Nonlabored respirations Cardiac regular rate Abdomen: Soft, diminished bowel sounds. Neurologic: moderate eye opening to voice Grasps right greater than left hand week to command Moves feet moderate to command pupils 3mm min reactive Mildly disconjugate gaze disconjugate oculocephalic responses Moderate bilateral corneal response External ventricular drain with moderate output blood-tinged CSF Lab, Micro, Other Results Laboratory Tests Test 11/29/16 04:30 White Blood Count 12.4 TH/MM3 Red Blood Count 2.84 MIL/MM3 Hemoglobin 8.9 GM/DL Hematocrit 26.6 % Mean Corpuscular Volume 93.6 FL Mean Corpuscular Hemoglobin 31.3 PG Mean Corpuscular Hemoglobin 33.4 % Concent Red Cell Distribution Width 14.7 % Platelet Count 386 TH/MM3 Mean Platelet Volume 6.4 FL Neutrophils (%) (Auto) 94.3 % Lymphocytes (%) (Auto) 4.5 % Monocytes (%) (Auto) 1.1 % Eosinophils (%) (Auto) 0.0 % Basophils (%) (Auto) 0.1 % Neutrophils # (Auto) 11.7 TH/MM3 Lymphocytes # (Auto) 0.6 TH/MM3 Monocytes # (Auto) 0.1 TH/MM3 Eosinophils # (Auto) 0.0 TH/MM3 Basophils # (Auto) 0.0 TH/MM3 CBC Comment AUTO DIFF Differential Comment AUTO DIFF CONFIRMED Sodium Level 138 MEQ/L Potassium Level 3.8 MEQ/L Chloride Level 99 MEQ/L Carbon Dioxide Level 19.9 MEQ/L Anion Gap 19 MEQ/L Blood Urea Nitrogen 56 MG/DL Creatinine 7.47 MG/DL Estimat Glomerular Filtration 5 ML/MIN Rate Random Glucose 158 MG/DL Calcium Level 8.7 MG/DL Phosphorus Level 9.7 MG/DL Albumin 1.9 GM/DL Medical Decision Making Impression and Plan Impression: SAH 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 History of microscopic polyangiitis per renal biopsy 2013. Hypertension Respiratory failure intubated under ventilatory support Plan Continue to challenge EVD. Plan to close ventriculostomy to reservoir at midnight, with follow-up CT scan of the head 11/30/16 May continue wean ventilator and sedation as tolerated from quantitative research analyst standpoint. Continue as needed antihypertensive medications Nimodipine for vasospasm prophylaxis Ulcer prophylaxis Non- chemical DVT prophylaxis Seizure prophylaxis-Donato Wilson MD Nov 29, 2016 08:40
[2016-11-29] MEDS: PIPERACIL-TAZO 2.25 GM PREMIX 50 ML IV SCH ×2 (10:02→22:10)
[2016-11-29] MEDS: PANTOPRAZOLE SODIUM 40 MG VIAL IV PUSH SCH (11:10)
[2016-11-29] MEDS ORDERED: CALCIUM ACETATE 667 MG CAP PO SCH (13:00)
[2016-11-29] MEDS ORDERED: CALCIUM ACETATE 667 MG CAP PO ONE (13:30)
--- NOTE | 2016-11-29 14:15 | HHI.NPPN ---
Subjective Renal Failure: Chronic, Acute, End Stage Renal Disease Interval History Awakens and intermittently moves extremities. She is on CPAP trial. (Noemí Lassiter) Review of Systems General General Remarks unable to evaluate (Noemí Lassiter) Objective Data Data 11/28/16 11/29/16 19:00 07:00 Intake Total 989 ml Output Total 120.0 ml 25 ml Balance -120.0 ml 964 ml Intake IV Total 387 ml Tube Feeding 482 ml Other 120 ml Output Urine Total 0 ml Tube Feeding Residual Discard 120.0 ml Drainage Total 25 ml # Bowel Movements 1 Vital Signs Date Time Temp Pulse Resp B/P Pulse Ox O2 Delivery O2 Flow Rate FiO2 11/29/16 13:13 97 40 11/29/16 12:00 75 11/29/16 12:00 40 11/29/16 12:00 98.9 75 12 154/68 96 11/29/16 10:00 81 11/29/16 08:59 40 11/29/16 08:55 94 40 11/29/16 08:55 96 40 11/29/16 08:00 40 11/29/16 08:00 82 11/29/16 08:00 98.6 82 20 148/67 96 11/29/16 06:00 90 11/29/16 05:07 97 40 11/29/16 04:08 40 11/29/16 04:00 88 11/29/16 04:00 98.5 88 17 148/66 96 11/29/16 02:00 81 11/29/16 01:26 97 40 11/29/16 01:22 97 40 11/29/16 00:00 40 11/29/16 00:00 82 11/29/16 00:00 97.4 82 17 148/66 96 11/28/16 22:00 76 11/28/16 20:29 97 40 11/28/16 20:00 98.8 78 18 153/69 97 11/28/16 20:00 40 11/28/16 20:00 78 11/28/16 16:23 96 40 11/28/16 16:00 78 11/28/16 16:00 98.6 78 20 129/61 95 (Noemí Lassiter) -: 11/29/16 0430 11/29/16 0430 Tubes & Lines: Tenckhoff Catheter Tubes & Lines Comment ventriculostomy Drip Comment fentanyl (Noemí Lassiter) Physical Exam General Appearance: Well Developed, Well Nourished Appearance Remarks intubated/sedated (Noemí Lassiter) Throat Throat Exam: Oral Mucosa [place] & Moist (Noemí Lassiter) Pulmonary Resp Exam: Clear Bilaterally, Breath Sounds Equal (Noemí Lassiter) Cardiology CV Exam: Regular, Normal Sinus Rhythm (Noemí Lassiter) Gastrointestinal/Abdomen GI Exam: Soft, Non-Tender (Noemí Lassiter) Musculoskeletal MS Exam: Joints Intact, Normal Tone (Noemí Lassiter) Integumentary Skin Exam: Warm, Dry (Noemí Lassiter) Extremeties Extremities Exam: Pedal Pulses Palpable (Noemí Lassiter) Neurologic Neuro Exam: Moving All Extremities, Unresponsive, Sedated Neuro Remarks scalp leilani (Noemí Lassiter) Assessment/Plan Assessment Summary: Anemia of CKD, End Stage Renal Disease Problem List: (1) ESRD (end stage renal disease) Plan: a biopsy proved microscopic polyangiitis, P-ANCA positive in 2013 now ESRD on PD she does appear fluid overloaded, use 2.5% dextrose PD solution tonight K is normal phos elevated, increased Phoslo, monitor effect avoid IVF ANCA titers positive, see below (2) SAH (subarachnoid hemorrhage) Plan: aneurysm has been ruled out Surgical intervention s/p crani with ICP monitoring Dr. Felice Parrish with heme/onc following to rule out etiology related to vasculitis, she is ANCA positive on solumedrol, but may benefit from Rituxan once stable BP stable to have ventriculostomy closed tonight , neurosurgery following (3) Acute respiratory failure Plan: on CPAP trial (4) Uncontrolled hypertension Plan: BP stable off Cardene drip (5) GI bleeding Plan: Gastroenterology is following no further bleeding on protonix, tube feeding started EGD: gastritis (6) Severe sepsis Plan: On Zosyn sputum with Klebsiella monitor clinically PD fluid not infected (7) Anemia Plan: Hb improved slightly given 2 doses of epogen also on venofer for iron deficiency follow hemoglobin (Noemí Lassiter) Plan patient was seen and examined. Discussed at length with Dr. Parrish. Empiric steroids started. It is unclear to me if she has active vasculitis. Presence of ANCA may not indicate active vasculitis. Etiology of subarachnoid hemorrhage is not known. (Georges Shankar MD) Problem Qualifiers (1) Acute respiratory failure: Qualified Code: J96.01 - Acute respiratory failure with hypoxia Noemí Lassiter Nov 29, 2016 14:15 Georges Shankar MD Nov 29, 2016 15:31
[2016-11-29] MEDS ORDERED: ONDANSETRON HCL 4 MG/2 ML VIAL IV PUSH PRN (17:00)
--- NOTE | 2016-11-29 18:39 | PD.ONC.PN ---
Subjective Subjective Remarks No significant change in clinical status overnight the past 24 hrs. She is on the solumedrol pulse dose. Per the nursing staff, she is arousable when the sedation is decreased. At present she is non responsive. Objective Data Date Time Temp Pulse Resp B/P Pulse Ox O2 Delivery O2 Flow Rate FiO2 11/29/16 18:00 67 11/29/16 16:45 96 40 11/29/16 16:00 98.1 88 16 148/67 97 11/29/16 16:00 88 11/29/16 16:00 40 11/29/16 14:00 68 11/29/16 13:13 97 40 11/29/16 12:00 75 11/29/16 12:00 40 11/29/16 12:00 98.9 75 12 154/68 96 11/29/16 10:00 81 11/29/16 08:59 40 11/29/16 08:55 94 40 11/29/16 08:55 96 40 11/29/16 08:00 40 11/29/16 08:00 82 11/29/16 08:00 98.6 82 20 148/67 96 11/29/16 06:00 90 11/29/16 05:07 97 40 11/29/16 04:08 40 11/29/16 04:00 88 11/29/16 04:00 98.5 88 17 148/66 96 11/29/16 02:00 81 11/29/16 01:26 97 40 11/29/16 01:22 97 40 11/29/16 00:00 40 11/29/16 00:00 82 11/29/16 00:00 97.4 82 17 148/66 96 11/28/16 22:00 76 11/28/16 20:29 97 40 11/28/16 20:00 98.8 78 18 153/69 97 11/28/16 20:00 40 11/28/16 20:00 78 11/29/16 11/29/16 11/29/16 07:00 15:00 23:00 Intake Total 492 ml 472 ml Output Total 0 ml 1205 ml Balance 492 ml -733 ml Result Diagram: 11/29/16 0430 11/29/16 0430 Laboratory Results Laboratory Tests Test 11/29/16 04:30 White Blood Count 12.4 TH/MM3 Red Blood Count 2.84 MIL/MM3 Hemoglobin 8.9 GM/DL Hematocrit 26.6 % Mean Corpuscular Volume 93.6 FL Mean Corpuscular Hemoglobin 31.3 PG Mean Corpuscular Hemoglobin 33.4 % Concent Red Cell Distribution Width 14.7 % Platelet Count 386 TH/MM3 Mean Platelet Volume 6.4 FL Neutrophils (%) (Auto) 94.3 % Lymphocytes (%) (Auto) 4.5 % Monocytes (%) (Auto) 1.1 % Eosinophils (%) (Auto) 0.0 % Basophils (%) (Auto) 0.1 % Neutrophils # (Auto) 11.7 TH/MM3 Lymphocytes # (Auto) 0.6 TH/MM3 Monocytes # (Auto) 0.1 TH/MM3 Eosinophils # (Auto) 0.0 TH/MM3 Basophils # (Auto) 0.0 TH/MM3 CBC Comment AUTO DIFF Differential Comment AUTO DIFF CONFIRMED Sodium Level 138 MEQ/L Potassium Level 3.8 MEQ/L Chloride Level 99 MEQ/L Carbon Dioxide Level 19.9 MEQ/L Anion Gap 19 MEQ/L Blood Urea Nitrogen 56 MG/DL Creatinine 7.47 MG/DL Estimat Glomerular Filtration 5 ML/MIN Rate Random Glucose 158 MG/DL Calcium Level 8.7 MG/DL Phosphorus Level 9.7 MG/DL Albumin 1.9 GM/DL Administered Medications Medications (Trade) Dose Ordered Sig/Wan Route PRN Reason Start Time Stop Time Status Last Admin Dose Admin Propofol 100 ml @ 0 mls/hr TITRATE IV 11/24/16 03:00 11/28/16 04:53 Nicardipine HCl/ Sodium Chloride (Cardene Inj/NS 250 ml Inj) 260 ml @ 0 mls/hr TITRATE IV 11/24/16 03:00 11/27/16 15:34 Nimodipine (Nimotop) 60 mg Q4HR PO 11/24/16 04:00 11/29/16 16:22 Docusate Sodium (Colace Liq) 100 mg Q12HR PO 11/24/16 09:00 11/26/16 19:47 Sennosides 8.8 mg 8.8 mg DAILY PO 11/24/16 09:00 11/26/16 09:05 Sodium Chloride (NS 1000 ml Inj) 1,000 ml @ 10 mls/hr Q24H IV 11/24/16 03:40 11/27/16 03:21 IV Flush (NS Flush) 2 ml BID IV FLUSH 11/24/16 09:00 11/29/16 07:59 Fentanyl Citrate (fentaNYL INJ) 50 mcg Q1H PRN IV PUSH Pain scale 6-10 &/or sedation 11/24/16 03:45 11/24/16 09:55 Miscellaneous Information 1 Q361D XX 11/24/16 03:45 11/24/16 03:45 Chlorhexidine Gluconate (Chlorhexidine 2% Cloth) Taper DAILY@04 TOP 11/24/16 04:00 11/20/17 03:59 11/28/16 04:00 Artificial Tears 1 applic 1 applic Q12HR EACH EYE 11/24/16 21:00 11/29/16 07:58 Levetriacetam 500 mg/Sodium Chloride 105 ml @ 420 mls/hr Q12HR IV 11/24/16 21:00 12/01/16 20:59 11/29/16 07:58 Piperacillin Sod/ Tazobactam Sod (Zosyn 2.25 Gm Premix) 50 ml @ 100 mls/hr Q12H IV 11/24/16 22:00 11/29/16 10:02 Pantoprazole Sodium (Protonix Inj) 40 mg Q12H IV PUSH 11/27/16 12:00 11/29/16 11:10 Chlorhexidine Gluconate 15 ml 15 ml BID@08,20 MT 11/27/16 20:00 11/29/16 07:58 Fentanyl Citrate (fentaNYL DRIP) 250 ml @ 0 mls/hr TITRATE IV 11/27/16 17:00 11/29/16 07:59 Carvedilol (Coreg) 12.5 mg Q12HR PO 11/27/16 21:00 11/29/16 07:58 Methylprednisolone Sodium Succinate (SoluMEDROL INJ) 250 mg Q12HR IV PUSH 11/28/16 12:00 12/01/16 01:00 11/29/16 07:58 Calcium Acetate (Phoslo) 2,001 mg TID PO 11/29/16 18:00 11/29/16 16:23 Objective Remarks GENERAL APPEARANCE: Ms. Kelly is an elderly female intubated and sedated. She does have a ventriculostomy tube inserted on her head. She does seem to open her eyes to verbal stimulus. She has very minor spontaneous movements of her upper extremities. HEENT: There is a ventriculostomy tube. Pupils equally round and reactive to light and accommodation. ET tube and OG tube in place. NECK: No palpable cervical lymphadenopathy. RESPIRATORY: Decreased bibasilar breath sounds. She is breathing above the ventilator set rate. CARDIOVASCULAR: Regular rate and rhythm, S1, S2. No obvious murmurs, rubs or gallops. ABDOMEN: Protuberant, soft, no obvious tenderness. Positive bowel sounds. No inguinal lymphadenopathy. EXTREMITIES: Bilateral pretibial edema. No calf tenderness. AUTOMOTIVE TIRE TESTING SUPERVISOR: Difficult to obtain. She has no spontaneous movements of her own. Assessment/Plan Assessment Ms. Kelly is a 76-year-old female who has been on renal replacement therapy with hemodialysis and now peritoneal dialysis for the past four years. She has a history of p-ANCA associated vasculitis which is thought to be the cause of the renal insufficiency in the first place. She was taken to [facility] after she was found unconscious. She was found to have both a GI bleed and a subarachnoid hemorrhage. The subarachnoid hemorrhage appears to be not associated with an intracerebral aneurysm. Therefore, she has been assessed to have a non-aneurysmal subarachnoid hemorrhage (NASAH). The hematology service has been consulted because an important cause of non-aneurysmal subarachnoid hemorrhages is vasculitis-associated intracranial bleeding. Additionally, an another important differential diagnosis is cerebral amyloid angiopathy (CAA). Both these conditions are treated appropriately with immunosuppression. In this acute setting the patient is initiated on pulse dose corticosteroids. The hematology service has been consulted to coordinate the use of cytotoxic systemic therapy / immunosuppressive for management of the vasculitis. Plan 1. Clinically she has no evidence of a neurologic change. MRI dated 11/28 indicates stable findings. Await indication of neurologic recovery. Hold off on Rituxan / cytoxan for now. Continue Solumedrol pulse dosing. Alex Parrish MD Nov 29, 2016 18:39
--- NOTE | 2016-11-29 20:45 | HHI.CCPN ---
Subjective Remarks/Hospital Course 11/24: Patient is a 76-year-old female who was transferred from [facility] with extensive subarachnoid hemorrhage. Unfortunately I do not have any history and physical or discharge summary available neither CT reports. All history I have is from discussion with Dr. Tian. Apparently patient was found unconscious yesterday in a pool of bloody vomitus. She was intubated and admitted to the [facility] ICU. She underwent EGD, again report is not available to me, and was placed on Protonix infusion. After EGD patient underwent a CT of the head which showed extensive subarachnoid hemorrhage, and IVH. Dr. Tian was contacted who recommended a CT angiogram. CT angiogram did not show an aneurysm but showed probable mild obstructive hydrocephalus. Dr. Tian accepted transfer to [facility] for further care, and patient was admitted to critical care medicine. Only medical history available to me is that patient is on peritoneal dialysis, and has history of hypertension Dr. Toledo evaluated the patient in the ICU. Patient is sedated with propofol is on Cardene infusion for blood pressure control. Also on Protonix gtt for GIB On sedation hold patient withdraws all 4 extremities. Pupils are slightly reactive. There was audible cuff leak. Tube exchange attempted by respiratory therapist was unsuccessful. So Dr. Toledo extubated and endotracheally intubated the patient with new ET tube. Dr. Tian from neurosurgery evaluated patient and performed a ventriculostomy. 11/25: Remains sedated, arousable, orally intubated on mechanical ventilation. 11/26: Remains sedated, orally intubated on mechanical ventilation. Withdraws all 4 extremities with painful stimuli. Ventriculostomy in place. 11/27: Tmax 99.5. Tube feeds started take currently 10. Today, tachypneic on the ventilator will try sedation. Was arousable and open eyes but does not follow commands. Currently moving upper extremities spontaneously. 11/28: Currently on sedation vacation. Arousable and did wiggle bilateral feet to command. Tube feeds currently low dose. Subjective 11/29: Afebrile. Off Cardene drip. Arousable and does wiggle feet and toes command. Tolerating tube feeding. Positive BM. Objective Vital Signs Date Time Temp Pulse Resp B/P Pulse Ox O2 Delivery O2 Flow Rate FiO2 11/29/16 18:00 67 11/29/16 16:45 96 40 11/29/16 16:00 98.1 16 148/67 11/25/16 19:00 Mechanical Ventilator Intake and Output 11/28/16 11/28/16 11/29/16 08:00 16:00 00:00 Intake Total 568 ml 497 ml Output Total 950.0 ml 120.0 ml 25 ml Balance -382.0 ml -120.0 ml 472 ml Result Diagram: 11/29/16 0430 11/29/16 0430 Other Results Microbiology Date/Time Procedure Status Source Growth 11/25/16 09:00 Gram Stain - Final Complete Sputum Endotracheal 11/25/16 09:00 Sputum Culture - Final Complete Klebsiella Pneumoniae Imaging Last Impressions Brain MRI 11/28/16 0000 Signed Impressions: Service Date/Time: November 12:53 - CONCLUSION: 1. There are blood products layering within the occipital horns bilaterally and along the sulci in the right temporoparietal region. Possible mild subarachnoid blood products also layer along the left temporal region sulci. 2. Ventricles are prominent but not enlarged. Right frontal ventricular shunt is present. 3. There are no findings to indicate recent ischemia. Tre De Luna MD Chest X-Ray 11/25/16 0600 Signed Impressions: Service Date/Time: Friday, November 25, 2016 03:49 - CONCLUSION: 1. Persistent left basilar consolidation with developing right basilar airspace disease. 2. Radiopaque monitor over the right mainstem bronchus partially obscures the airway but I believe the endotracheal tube is appropriately positioned above the edin. Life support tubes are otherwise stable. Alan Campos MD Cerebral Arteriogram 11/24/16 0000 Signed Impressions: Service Date/Time: Thursday, November 24, 2016 11:39 - CONCLUSION: 1. No evidence of aneurysm Jonnie Schaeffer MD Objective Remarks GENERAL: 76-year-old Elderly female who is intubated sedated critically ill SKIN: Warm and dry. HEAD: Status post EVD EYES: No scleral icterus. No injection or drainage. Pupils are 3 mm reactive slightly ENT: ETT with audible cuff leak NECK: Supple, trachea midline. No JVD or lymphadenopathy. CARDIOVASCULAR: Regular rate and rhythm without murmurs, gallops, or rubs. RESPIRATORY: Breath sounds equal bilaterally, but diminished with mild expiratory wheezing GASTROINTESTINAL: Abdomen soft, non-tender, nondistended. PD catheter in place MUSCULOSKELETAL: No cyanosis significant peripheral Neuro: Intubated sedated with propofol. Withdraws upper and lower extremity to pain. NEENA 3mm A/P Assessment and Plan NEURO: Subarachnoid hemorrhage Intraventricular hemorrhage Probable mild hydrocephalus Acute encephalopathy -Currently off all sedation. Sedation vacation okayed with neurosurgery -Status post ventriculostomy, neurosurgery following -Cardene infusion to target systolic blood pressure 120 to 130 -Keep sodium more than 145 -Monitor for vasospasm, Nimotop 60 mg every 4hr 21 days - Keppra 5 mg twice a day for seizure prophylaxis MRI brain stable Clamp EVD today with CT head in a.m. 11/30 RESP: Acute respiratory failure Left lower lobe pneumonia ET tube cuff damage -Extubated and re intubated with new ETT -ACV RR 16 TV 550 PEEP 5 titrate FiO2 to keep saturation more than 92% -DuoNeb every 6 hours and when necessary -Send sputum culture 11/25 with Klebsiella pneumonia/pansensitive, empiric Zosyn, CV: Uncontrolled hypertension -Currently in Coreg 12.5 twice a day. Cardene drip discontinued -Started on Nimotop 60 mg every 4 hours -Normal saline IV fluids at 50 ml per hour GI: Upper GI bleed -Start tube feeds with Nepro goal 30 cc an hour IV Protonix -Colace, senna for bowel regimen EGD -11/26 revealed some gastritis from NG tube suction otherwise negative : End-stage renal disease on peritoneal dialysis -Monitor renal function closely. Rosales catheter. -Nephrology consulted for peritoneal dialysis management ID: Left lower lobe pneumonia Severe sepsis Leukocytosis Zosyn 2.25 every 12 Pertinent cultures Blood cultures 2 - 11/24 - no growth Peritoneal fluid - 11/24 - no growth Sputum - 11/25 - Klebsiella HEME: Normocytic anemia Leukocytosis -Monitor CBC, CMP, coags Patient has a history of microscopic polyangiitis per Dr. Shankar which resulted in her renal failure requiring dialysis. Will check ANCA titers as vasculitis may possibly have contributed to subarachnoid hemorrhage. ENDO: Hypokalemia -Electrolyte replacement as needed Received 25 mEq potassium 1 today RHEUM P-ANCA + Pulse prednisone therapy [address] Parrish. PROPH: Bilateral lower extremity SCDs. Chemical DVT prophylaxis is contraindicated. Continue Protonix infusion for GI bleed LINES: -Patient has left subclavian central line placed at the outside hospital. Critical Care: The total critical care time was 35 minutes. Time to perform other separately billable procedures was not included in the critical care time. Raymundo Restrepo MD Nov 29, 2016 20:45
[2016-11-30] VITALS (19 sets, daily range): BP systolic 116–146; BP diastolic 58–65; PULSE 68–87; RESP 14–18; TEMP 98–99.1; O2SAT 94–100
[2016-11-30] MEDS: PANTOPRAZOLE SODIUM 40 MG VIAL IV PUSH SCH ×3 (00:56→23:32)
[2016-11-30] MEDS: SODIUM CHLOR 0.9% 1000 ML INJ 1,000 ML IV SCH ×2 (00:57→23:32)
[2016-11-30] MEDS: niMODipine 30 MG CAP PO SCH ×7 (00:57→23:32)
[2016-11-30] MEDS: CHLORHEXIDINE GLUCONATE 2 % 1 PACK (2 CLOTHS) TOP SCH (04:00)
[2016-11-30] MEDS: RESP: ALBUTEROL 2.5 MG/IPRATROPIUM 0.5 MG NEB (SCH) NEB ×4 (04:04→20:48)
[2016-11-30 04:38] LABS: AUTOMATED NEUTROPHIL # 14.8 TH/MM3 (1.8-7.7); BASOPHIL % 0.3 % (0.0-2.0); HEMATOCRIT 30.2 % (35.0-46.0); LYMPH % 4.2 % (9.0-44.0); LYMPHOCYTE # 0.7 TH/MM3 (1.0-4.8); MEAN CELL VOLUME 93.1 FL (80.0-100.0); MEAN CORPUSCULAR HGB CONC 33.3 % (32.0-36.0); MONO % 2.1 % (0.0-8.0); NEUT % 93.4 % (16.0-70.0); PLATELET COUNT 560 TH/MM3 (150-450); RED BLOOD COUNT 3.25 MIL/MM3 (4.00-5.30); RED CELL DISTRIBUTION WIDTH 14.6 % (11.6-17.2); WHITE BLOOD COUNT 15.9 TH/MM3 (4.0-11.0)
[2016-11-30 04:41] LABS: HEMO FLAGS AUTO DIFF
--- NOTE | 2016-11-30 05:02 | RADRPT ---
EXAM DATE/TIME: 11/30/2016 04:34 [facility] COMPARISON: MRI BRAIN W/O CONTRAST, November 28, 2016, 12:53. INDICATIONS : Follow up subarachnoid hemorrhage. RADIATION DOSE: 66.44 CTDIvol (mGy) MEDICAL HISTORY : Non-responsive. SURGICAL HISTORY : Non-responsive. ENCOUNTER: Initial ACUITY: 1 day PAIN SCALE: Non-responsive LOCATION: cranial TECHNIQUE: Multiple contiguous axial images were obtained of the head. Using automated exposure control and adj ustment of the mA and/or kV according to patient size, radiation dose was kept as low as reasonably a chievable to obtain optimal diagnostic quality images. FINDINGS: CEREBRUM: Right ventriculostomy catheter extends from the right frontal region posterior with the tip present m edial to the trigone of the right lateral ventricle. The ventricles are symmetrically dilated and th e 4th and 3rd ventricle are also dilated. Prominent subarachnoid hemorrhage is present in the delfin n region on the right side and there is also some subarachnoid hemorrhage extending to the high conve xity frontal and parietal region and down into the temporal lobe in the middle cranial fossa. Mild i ncreased opacity seen in the left sylvian region suggests contralateral left-sided subarachnoid hemor rhage. There is prominent layering blood in the lateral ventricle occipital horns. No blood seen in the 3rd or 4th ventricle. No evidence of midline shift. The POSTERIOR FOSSA: The cerebellum and brainstem are intact. The 4th ventricle is midline. The cerebellopontine angle i s unremarkable. EXTRACRANIAL: The visualized portion of the orbits is intact. SKULL: The calvaria is intact. No evidence of skull fracture. CONCLUSION: 1. Bilateral subarachnoid hemorrhage, greater on the right than on the left and intraventricular bloo d, similar to recent MRI. No evidence of midline shift or intra-axial blood. 2. The right frontal ventriculostomy catheter tip is located medial to the trigone of the right later al ventricle. Lennox Garcia MD on November 30, 2016 at 4:55 Board Certified Radiologist. This report was verified electronically.
[2016-11-30 05:19] LABS: ALT (GPT) 32 U/L (10-53); ANION GAP 20 MEQ/L (5-15); AST (GOT) 33 U/L (15-37); BICARBONATE 20.4 MEQ/L (21.0-32.0); BLOOD UREA NITROGEN 65 MG/DL (7-18); CHLORIDE 99 MEQ/L (98-107); GLOMERULAR FILTRATION RATE 5 ML/MIN (>89); MAGNESIUM 2.5 MG/DL (1.5-2.5); POTASSIUM 3.6 MEQ/L (3.5-5.1); SODIUM (NA) 139 MEQ/L (136-145)
[2016-11-30 05:21] LABS: ALKALINE PHOSPHATASE 64 U/L (45-117); TOTAL BILIRUBIN ADULT 0.4 MG/DL (0.2-1.0)
--- NOTE | 2016-11-30 06:00 | RADRPT ---
EXAM DATE/TIME: 11/30/2016 04:55 [facility] COMPARISON: CHEST SINGLE AP, November 25, 2016, 3:49. INDICATIONS : Shortness of breath. MEDICAL HISTORY : Hypertension. Renal failure, chronic. SURGICAL HISTORY : None. ENCOUNTER: Initial ACUITY: 1 week PAIN SCORE: Non-responsive. LOCATION: Bilateral chest FINDINGS: ET tube tip 2 cm above the edin. Gastric tube traverses the [id number]. Left subclavian cathet er tip projects over the proximal superior vena cava. Slight improvement in the left lower lobe cons olidation and partial resolution of the opacities in the right lower lung. The heart is normal size. CONCLUSION: Improving bilateral lower lung infiltrates with some residual consolidation at the left base. Lennox Garcia MD on November 30, 2016 at 5:58 Board Certified Radiologist. This report was verified electronically.
[2016-11-30] MEDS: levETIRAcetam INJ 500 MG in SODIUM CHLORIDE 0.9% INJ 100 ML IV SCH ×2 (07:23→20:16)
[2016-11-30] MEDS: methylPREDNISolone SOD SUCC 125 MG/2 ML VIAL IV PUSH SCH ×2 (07:23→20:16)
[2016-11-30] MEDS: DOCUSATE SODIUM 100 MG/10 ML UDC PO SCH ×2 (07:24→20:17)
[2016-11-30] MEDS: CARVEDILOL 12.5 MG TAB PO SCH ×2 (07:24→20:16)
[2016-11-30] MEDS: CALCIUM ACETATE 667 MG CAP PO SCH ×3 (07:24→16:37)
[2016-11-30] MEDS: CHLORHEXIDINE 0.12% (ORAL KIT) 15 ML CUP MT SCH ×2 (07:25→20:15)
[2016-11-30 09:00] LABS: BANDS 4 % (0-6); CORRECTED NUCLEATED RBC 2 /100 WBC (0-0); METAMYELOCYTES 1 % (0-1); NEUTROPHIL # MANUAL DIFF 14.8 TH/MM3 (1.8-7.7); POLYS (SEG NEUTROPHILS) 88 % (16-70); WBC DIFF SAMPLE 100
[2016-11-30] MEDS: SENNOSIDES SYRUP 8.8 MG/5 ML CUP PO SCH (09:00)
[2016-11-30] MEDS: ARTIFICIAL TEARS OPTH OINT 3.5 APPLIC/3.5 GM TUBO EACH EYE SCH ×2 (09:00→20:17)
[2016-11-30] MEDS: SODIUM CHLORIDE 0.9% FLUSH 5 ML FLUSH IV FLUSH SCH ×2 (09:00→20:16)
[2016-11-30 09:01] LABS: PLATELET ESTIMATE SMEAR HIGH (NORMAL); PLATELET MORPHOLOGY NORMAL (NORMAL); SCAN/DIFF FINAL DIFF MANUAL
--- NOTE | 2016-11-30 10:21 | HHI.NPPN ---
Subjective Renal Failure: Chronic, Acute, End Stage Renal Disease Additional Remarks Patient intubated, no signs of distress Review of Systems General General Remarks unable to evaluate Objective Data Data 11/29/16 11/30/16 19:00 07:00 Intake Total 472 ml 899 ml Output Total 1205 ml 238.0 ml Balance -733 ml 661.0 ml Intake IV Total 255 ml 726 ml Tube Feeding 157 ml 173 ml Other 60 ml Output Urine Total 0 ml 0 ml Tube Feeding Residual Discard 180.0 ml Drainage Total 35 ml 58 ml Peritoneal Fluid 1170 ml # Bowel Movements 2 2 Vital Signs Date Time Temp Pulse Resp B/P Pulse Ox O2 Delivery O2 Flow Rate FiO2 11/30/16 08:00 85 11/30/16 08:00 40 11/30/16 08:00 98.4 85 18 134/62 95 11/30/16 06:00 74 11/30/16 04:20 100 11/30/16 04:05 95 40 11/30/16 04:05 95 40 11/30/16 04:00 87 11/30/16 04:00 99.1 87 14 146/65 94 11/30/16 04:00 40 11/30/16 02:00 84 11/30/16 00:41 94 40 11/30/16 00:00 98.2 84 14 126/58 94 11/30/16 00:00 40 11/30/16 00:00 84 11/29/16 22:00 71 11/29/16 21:41 98 40 11/29/16 20:00 98.1 71 17 148/67 98 11/29/16 20:00 40 11/29/16 20:00 71 11/29/16 18:00 67 11/29/16 16:45 96 40 11/29/16 16:00 98.1 88 16 148/67 97 11/29/16 16:00 88 11/29/16 16:00 40 11/29/16 14:00 68 11/29/16 13:13 97 40 11/29/16 12:00 75 11/29/16 12:00 40 11/29/16 12:00 98.9 75 12 154/68 96 -: 11/30/16 0415 11/30/16 0415 Tubes & Lines: Tenckhoff Catheter Tubes & Lines Comment ventriculostomy Drip Comment fentanyl Physical Exam General Appearance: Well Developed, Well Nourished Throat Throat Exam: Oral Mucosa [place] & Moist Pulmonary Resp Exam: Clear Bilaterally, Breath Sounds Equal Cardiology CV Exam: Regular, Normal Sinus Rhythm Gastrointestinal/Abdomen GI Exam: Soft, Non-Tender Musculoskeletal MS Exam: Joints Intact, Normal Tone Integumentary Skin Exam: Warm, Dry Extremeties Extremities Exam: Pedal Pulses Palpable Neurologic Neuro Exam: Moving All Extremities, Unresponsive, Sedated Assessment/Plan Assessment Summary: Anemia of CKD, End Stage Renal Disease Problem List: (1) ESRD (end stage renal disease) Plan: a biopsy proved microscopic polyangiitis, P-ANCA positive in 2013 now ESRD on PD On 2.5% dextrose PD solution now - 1.1 L UF overnight with PD. Continue for now. K is normal Phoslo was increased - continue to monitor levels avoid IVF ANCA titers positive, unclear if active vasculitis. Continue steroids per Dr. Parrish (Heme-Onc) (2) SAH (subarachnoid hemorrhage) Plan: aneurysm has been ruled out Surgical intervention s/p crani with ICP monitoring Dr. Felice Parrish with heme/onc following to rule out etiology related to vasculitis, she is ANCA positive on solumedrol, BP stable (3) Acute respiratory failure Plan: on CPAP trial (4) Uncontrolled hypertension Plan: BP stable off Cardene drip (5) GI bleeding Plan: Gastroenterology is following no further bleeding on protonix, tube feeding started EGD: gastritis (6) Severe sepsis Plan: On Zosyn sputum with Klebsiella monitor clinically PD fluid not infected (7) Anemia Plan: Hb improved slightly given 2 doses of epogen also on venofer for iron deficiency follow hemoglobin Problem Qualifiers (1) Acute respiratory failure: Qualified Code: J96.01 - Acute respiratory failure with hypoxia (2) Anemia: Prince Sorenson MD Nov 30, 2016 10:21
[2016-11-30] MEDS: PIPERACIL-TAZO 2.25 GM PREMIX 50 ML IV SCH ×2 (10:41→23:51)
--- NOTE | 2016-11-30 18:44 | HHI.CCPN ---
Subjective Remarks/Hospital Course 11/24: Patient is a 76-year-old female who was transferred from [facility] with extensive subarachnoid hemorrhage. Unfortunately I do not have any history and physical or discharge summary available neither CT reports. All history I have is from discussion with Dr. Tian. Apparently patient was found unconscious yesterday in a pool of bloody vomitus. She was intubated and admitted to the [facility] ICU. She underwent EGD, again report is not available to me, and was placed on Protonix infusion. After EGD patient underwent a CT of the head which showed extensive subarachnoid hemorrhage, and IVH. Dr. Tian was contacted who recommended a CT angiogram. CT angiogram did not show an aneurysm but showed probable mild obstructive hydrocephalus. Dr. Tian accepted transfer to [facility] for further care, and patient was admitted to critical care medicine. Only medical history available to me is that patient is on peritoneal dialysis, and has history of hypertension Dr. Toledo evaluated the patient in the ICU. Patient is sedated with propofol is on Cardene infusion for blood pressure control. Also on Protonix gtt for GIB On sedation hold patient withdraws all 4 extremities. Pupils are slightly reactive. There was audible cuff leak. Tube exchange attempted by respiratory therapist was unsuccessful. So Dr. Toledo extubated and endotracheally intubated the patient with new ET tube. Dr. Tian from neurosurgery evaluated patient and performed a ventriculostomy. 11/25: Remains sedated, arousable, orally intubated on mechanical ventilation. 11/26: Remains sedated, orally intubated on mechanical ventilation. Withdraws all 4 extremities with painful stimuli. Ventriculostomy in place. 11/27: Tmax 99.5. Tube feeds started take currently 10. Today, tachypneic on the ventilator will try sedation. Was arousable and open eyes but does not follow commands. Currently moving upper extremities spontaneously. 11/28: Currently on sedation vacation. Arousable and did wiggle bilateral feet to command. Tube feeds currently low dose. 11/29: Afebrile. Off Cardene drip. Arousable and does wiggle feet and toes command. Tolerating tube feeding. Positive BM. Subjective 11/30: Afebrile. Intermittently follows commands but not consistently. Will squeeze hands and wiggle toes. Tolerating tube feeding at 30 cc an hour. Positive BM. Objective Vital Signs Date Time Temp Pulse Resp B/P Pulse Ox O2 Delivery O2 Flow Rate FiO2 11/30/16 18:00 70 11/30/16 17:25 40 11/30/16 16:46 100 11/30/16 16:00 98.0 14 129/58 Intake and Output 11/29/16 11/29/16 11/30/16 08:00 16:00 00:00 Intake Total 492 ml 472 ml 221 ml Output Total 0 ml 1205 ml 238.0 ml Balance 492 ml -733 ml -17.0 ml Result Diagram: 11/30/16 0415 11/30/16 0415 Imaging Last Impressions Head CT 11/30/16599 Signed Impressions: Service Date/Time: Wednesday, November 30, 2016 04:34 - CONCLUSION: 1. Bilateral subarachnoid hemorrhage, greater on the right than on the left and intraventricular blood, similar to recent MRI. No evidence of midline shift or intra-axial blood. 2. The right frontal ventriculostomy catheter tip is located medial to the trigone of the right lateral ventricle. Lennox Garcia MD Chest X-Ray 11/30/16 0600 Signed Impressions: Service Date/Time: Wednesday, November 30, 2016 04:55 - CONCLUSION: Improving bilateral lower lung infiltrates with some residual consolidation at the left base. Lennox Garcia MD Brain MRI 11/28/16 0000 Signed Impressions: Service Date/Time: November 12:53 - CONCLUSION: 1. There are blood products layering within the occipital horns bilaterally and along the sulci in the right temporoparietal region. Possible mild subarachnoid blood products also layer along the left temporal region sulci. 2. Ventricles are prominent but not enlarged. Right frontal ventricular shunt is present. 3. There are no findings to indicate recent ischemia. Tre De Luna MD Cerebral Arteriogram 11/24/16 0000 Signed Impressions: Service Date/Time: Thursday, November 24, 2016 11:39 - CONCLUSION: 1. No evidence of aneurysm Jonnie Schaeffer MD Objective Remarks GENERAL: 76-year-old Elderly female critically ill currently orotracheally intubated SKIN: Warm and dry. No rash HEAD: Status post right-sided EVD EYES: No scleral icterus. No injection or drainage. Pupils are 3 mm reactive slightly ENT: Oral tracheal intubated. NECK: Supple, trachea midline. No JVD or lymphadenopathy. CARDIOVASCULAR: Regular rate and rhythm S1, S2. No S4. Without murmurs, gallops, or rubs. RESPIRATORY: Breath sounds equal bilaterally, but diminished with mild expiratory wheezing GASTROINTESTINAL: Abdomen soft, non-tender, nondistended. PD catheter in place MUSCULOSKELETAL: No cyanosis significant peripheral Neuro: Intubated sedated with propofol. Withdraws upper and lower extremity to pain. NEENA 3mm Urinary Catheter: Yes Assessment to: Continue Rosales insert reason: Prolonged Immobilization A/P Assessment and Plan NEURO: Subarachnoid hemorrhage Intraventricular hemorrhage Probable mild hydrocephalus Acute encephalopathy -Currently off all sedation. Sedation vacation okayed with neurosurgery -Status post ventriculostomy, neurosurgery following -Cardene infusion to target systolic blood pressure 120 to 130 -Keep sodium more than 145 -Monitor for vasospasm, Nimotop 60 mg every 4hr 21 days - Keppra 5 mg twice a day for seizure prophylaxis MRI brain stable Clamp EVD 11/[address] head in a.m. 11/30 revealed stable right greater than left subarachnoid hemorrhage. Was -93 cc RESP: Acute respiratory failure Left lower lobe pneumonia ET tube cuff damage -Extubated and re intubated with new ETT -ACV RR 16 TV 550 PEEP 5 titrate FiO2 to keep saturation more than 92% -DuoNeb every 6 hours and when necessary -Send sputum culture 11/25 with Klebsiella pneumonia/pansensitive, empiric Zosyn, CV: Uncontrolled hypertension -Currently in Coreg 12.5 twice a day. Cardene drip discontinued -Started on Nimotop 60 mg every 4 hours 21 days -Normal saline IV fluids at 50 ml per hour will be discontinued as tube feeds at goal GI: Upper GI bleed -Start tube feeds with Nepro goal 30 cc an hour IV Protonix -Colace, senna for bowel regimen EGD -11/26 revealed some gastritis from NG tube suction otherwise negative : End-stage renal disease on peritoneal dialysis -Monitor renal function closely. Rosales catheter. -Nephrology consulted for peritoneal dialysis management ID: Left lower lobe pneumonia Severe sepsis Leukocytosis Zosyn 2.25 every 12 Pertinent cultures Blood cultures 2 - 11/24 - no growth Peritoneal fluid - 11/24 - no growth Sputum - 11/25 - Klebsiella HEME: Normocytic anemia Leukocytosis Thrombocytosis -Monitor CBC, CMP, coags Patient has a history of microscopic polyangiitis per Dr. Shankar which resulted in her renal failure requiring dialysis. Will check ANCA titers as vasculitis may possibly have contributed to subarachnoid hemorrhage. ENDO: Hypokalemia - resolving Hyperphosphatemia -Electrolyte replacement as needed Continue PhosLo 2001 mg by mouth 3 times a day RHEUM P-ANCA + Pulse prednisone therapy [address] Parrish. PROPH: Bilateral lower extremity SCDs. Pharmacological DVT prophylaxis is contraindicated. Continue Protonix infusion for GI bleed LINES: -Patient has left subclavian central line placed at the outside hospital on 11/24 Critical Care: The total care time was 35 minutes. Time to perform other separately billable procedures was not included in the critical care time. Raymundo Restrepo MD Nov 30, 2016 18:44
--- NOTE | 2016-11-30 22:08 | HHI.NSPN ---
History Chief Complaint: intubated and sedated Interval History 76-year-old female transferred from [facility] 11/24/16 after being found at home unresponsive with positive bloody emesis. CT scan prior to transfer revealed subarachnoid hemorrhage. Patient intubated prior to transfer. CTA prior to transfer negative for aneurysm 11/24/16 cerebral angiogram negative for aneurysm. 11/24/16 ventriculostomy placed 11/26/16: Remains intubated and sedated. Mild eye opening. Localizes intermittent upper extremities 11/27/16: Weaning sedation and ventilator. Moderate eye opening to voice. She intermittently follows commands 11/28/16: Intubated. IV Sedation decreased. Opens eyes to voice, moves extremities to command 11/30/16: Remains intubated. Off IV sedation. A little less responsive today. 11/30/16 CT scan head with moderate hydrocephalus with ventriculostomy clamped. Ventriculostomy reopened at 5 cm water pressure Exam Results Vital Signs Date Time Temp Pulse Resp B/P Pulse Ox O2 Delivery O2 Flow Rate FiO2 11/30/16 20:48 96 40 11/30/16 18:00 70 11/30/16 16:00 98.0 14 129/58 Intake and Output 11/29/16 11/29/16 11/30/16 08:00 16:00 00:00 Intake Total 492 ml 472 ml 221 ml Output Total 0 ml 1205 ml 238.0 ml Balance 492 ml -733 ml -17.0 ml Physical Examination Intubated Respirations: Nonlabored respirations Cardiac regular rate Abdomen: Soft, diminished bowel sounds. Neurologic: Mild eye opening to sternal rub Not definitely following commands pupils 3mm min reactive Mildly disconjugate gaze disconjugate oculocephalic responses Moderate bilateral corneal response Grimaces to deep pain and moderately flexes upper extremities to sternal rub Lab, Micro, Other Results 11/30/16 CT scan head images reviewed. Ventricles are moderately dilated Head CT 11/30/16 0600 Signed Impressions: Service Date/Time: Wednesday, November 30, 2016 04:34 - CONCLUSION: 1. Bilateral subarachnoid hemorrhage, greater on the right than on the left and intraventricular blood, similar to recent MRI. No evidence of midline shift or intra-axial blood. 2. The right frontal ventriculostomy catheter tip is located medial to the trigone of the right lateral ventricle. Lennox Garcia MD Chest X-Ray 11/30/16 0600 Signed Impressions: Service Date/Time: Wednesday, November 30, 2016 04:55 - CONCLUSION: Improving bilateral lower lung infiltrates with some residual consolidation at the left base. Lennox Garcia MD Laboratory Tests Test 11/30/16 04:15 White Blood Count 15.9 TH/MM3 Red Blood Count 3.25 MIL/MM3 Hemoglobin 10.1 GM/DL Hematocrit 30.2 % Mean Corpuscular Volume 93.1 FL Mean Corpuscular Hemoglobin 31.0 PG Mean Corpuscular Hemoglobin 33.3 % Concent Red Cell Distribution Width 14.6 % Platelet Count 560 TH/MM3 Mean Platelet Volume 6.4 FL Neutrophils (%) (Auto) 93.4 % Lymphocytes (%) (Auto) 4.2 % Monocytes (%) (Auto) 2.1 % Eosinophils (%) (Auto) 0.0 % Basophils (%) (Auto) 0.3 % Neutrophils # (Auto) 14.8 TH/MM3 Lymphocytes # (Auto) 0.7 TH/MM3 Monocytes # (Auto) 0.3 TH/MM3 Eosinophils # (Auto) 0.0 TH/MM3 Basophils # (Auto) 0.0 TH/MM3 CBC Comment AUTO DIFF Differential Total Cells 100 Counted Neutrophils % (Manual) 88 % Band Neutrophils % 4 % Lymphocytes % 7 % Neutrophils # (Manual) 14.8 TH/MM3 Metamyelocytes 1 % Nucleated Red Blood Cells 2 /100 WBC Differential Comment FINAL DIFF MANUAL Platelet Estimate HIGH Platelet Morphology Comment NORMAL Polychromasia 2.0 % Sodium Level 139 MEQ/L Potassium Level 3.6 MEQ/L Chloride Level 99 MEQ/L Carbon Dioxide Level 20.4 MEQ/L Anion Gap 20 MEQ/L Blood Urea Nitrogen 65 MG/DL Creatinine 7.80 MG/DL Estimat Glomerular Filtration 5 ML/MIN Rate Random Glucose 134 MG/DL Calcium Level 9.4 MG/DL Phosphorus Level 9.8 MG/DL Magnesium Level 2.5 MG/DL Total Bilirubin 0.4 MG/DL Aspartate Amino Transf 33 U/L (AST/SGOT) Alanine Aminotransferase 32 U/L (ALT/SGPT) Alkaline Phosphatase 64 U/L Total Protein 6.4 GM/DL Albumin 2.2 GM/DL Medical Decision Making Impression and Plan Impression: SAH 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 History of microscopic polyangiitis per renal biopsy 2013. Hypertension Respiratory failure intubated under ventilatory support Plan Patient is somewhat less responsive today. We will reopen ventriculostomy at 5 cm water, and observe neurologic function for improvement. She is off sedation. 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 Continue as needed antihypertensive medications Nimodipine for vasospasm prophylaxis Ulcer prophylaxis Non- chemical DVT prophylaxis Seizure prophylaxis-Donato Wilson MD Nov 30, 2016 22:08
[2016-11-30] MEDS ORDERED: HYDROmorphone HCL PF 1 MG/ML VIAL IV PUSH PRN (22:15)
[2016-12-01] VITALS (15 sets, daily range): BP systolic 121–160; BP diastolic 58–69; PULSE 70–85; RESP 14–27; TEMP 98–99.4; O2SAT 93–100
[2016-12-01] MEDS: CHLORHEXIDINE GLUCONATE 2 % 1 PACK (2 CLOTHS) TOP SCH (04:00)
[2016-12-01] MEDS: RESP: ALBUTEROL 2.5 MG/IPRATROPIUM 0.5 MG NEB (SCH) NEB ×4 (04:22→21:23)
[2016-12-01] MEDS: niMODipine 30 MG CAP PO SCH ×5 (04:36→20:33)
[2016-12-01 04:45] LABS: AUTOMATED NEUTROPHIL # 19.5 TH/MM3 (1.8-7.7); BASOPHIL % 0.1 % (0.0-2.0); EOSINOPHIL % 0.1 % (0.0-4.0); HEMATOCRIT 30.6 % (35.0-46.0); LYMPH % 4.9 % (9.0-44.0); MEAN CELL VOLUME 93.4 FL (80.0-100.0); MEAN CORPUSCULAR HEMOGLOBIN 30.9 PG (27.0-34.0); MEAN CORPUSCULAR HGB CONC 33.1 % (32.0-36.0); NEUT % 91.9 % (16.0-70.0); PLATELET COUNT 570 TH/MM3 (150-450); RED BLOOD COUNT 3.27 MIL/MM3 (4.00-5.30); RED CELL DISTRIBUTION WIDTH 14.8 % (11.6-17.2); WHITE BLOOD COUNT 21.2 TH/MM3 (4.0-11.0)
[2016-12-01 04:48] LABS: HEMO FLAGS AUTO DIFF
[2016-12-01 05:08] LABS: ALKALINE PHOSPHATASE 65 U/L (45-117); ALT (GPT) 46 U/L (10-53); ANION GAP 20 MEQ/L (5-15); AST (GOT) 33 U/L (15-37); BLOOD UREA NITROGEN 78 MG/DL (7-18); CHLORIDE 99 MEQ/L (98-107); GLOMERULAR FILTRATION RATE 5 ML/MIN (>89); MAGNESIUM 2.4 MG/DL (1.5-2.5); POTASSIUM 3.1 MEQ/L (3.5-5.1); SODIUM (NA) 140 MEQ/L (136-145); TOTAL BILIRUBIN ADULT 0.3 MG/DL (0.2-1.0)
[2016-12-01 05:44] LABS: BANDS 1 % (0-6); CORRECTED NUCLEATED RBC 3 /100 WBC (0-0); MYELOCYTES 1 % (0-0); POLYS (SEG NEUTROPHILS) 83 % (16-70); WBC DIFF SAMPLE 100
[2016-12-01 05:45] LABS: OVALOCYTES 1+ (NORMAL); PLATELET ESTIMATE SMEAR HIGH (NORMAL); PLATELET MORPHOLOGY NORMAL (NORMAL); SCAN/DIFF FINAL DIFF MANUAL
--- NOTE | 2016-12-01 05:56 | RADRPT ---
EXAM DATE/TIME: 12/01/2016 04:46 [facility] COMPARISON: CHEST SINGLE AP, November 30, 2016, 4:55. INDICATIONS : Shortness of breath. MEDICAL HISTORY : Hypertension. Renal failure, chronic. SURGICAL HISTORY : None. ENCOUNTER: Subsequent ACUITY: 1 week PAIN SCORE: Non-responsive. LOCATION: Bilateral chest FINDINGS: Endotracheal tube tip is now at the level of the edin. There is increasing consolidation in the le ft lower lung with loss of delineation of the entire left hemidiaphragm. Patchy infiltrates in the r ight infrahilar region are also more prominent than on the prior exam. A medical tech projects ove r the suprahilar region on the right side and obscures the location of the left subclavian catheter t ip. Gastric tube traverses the [id number]. CONCLUSION: Endotracheal tube tip at the level of the edin and needs to be withdrawn at least 2 cm. Increasing consolidation left lower lung and new right infrahilar infiltrate. Lennox Garcia MD on December 01, 2016 at 5:53 Board Certified Radiologist. This report was verified electronically.
[2016-12-01] MEDS: CHLORHEXIDINE 0.12% (ORAL KIT) 15 ML CUP MT SCH ×2 (08:33→20:34)
[2016-12-01] MEDS: PIPERACIL-TAZO 2.25 GM PREMIX 50 ML IV SCH ×2 (09:03→20:33)
[2016-12-01] MEDS: DOCUSATE SODIUM 100 MG/10 ML UDC PO SCH ×2 (09:03→20:33)
[2016-12-01] MEDS: ARTIFICIAL TEARS OPTH OINT 3.5 APPLIC/3.5 GM TUBO EACH EYE SCH ×2 (09:03→20:35)
[2016-12-01] MEDS: SODIUM CHLORIDE 0.9% FLUSH 5 ML FLUSH IV FLUSH SCH ×2 (09:04→20:33)
[2016-12-01] MEDS: levETIRAcetam INJ 500 MG in SODIUM CHLORIDE 0.9% INJ 100 ML IV SCH (09:04)
[2016-12-01] MEDS: CARVEDILOL 12.5 MG TAB PO SCH ×2 (09:04→20:33)
[2016-12-01] MEDS: CALCIUM ACETATE 667 MG CAP PO SCH ×3 (09:04→17:32)
[2016-12-01] MEDS: SENNOSIDES SYRUP 8.8 MG/5 ML CUP PO SCH (09:04)
[2016-12-01] MEDS: predniSONE 20 MG TAB PO SCH (09:04)
[2016-12-01] MEDS ORDERED: Vancomycin Consult Pharmacy 1 EA OTHER SCH (09:45)
[2016-12-01] MEDS ORDERED: VANCOMYCIN INJ 1,000 MG in SODIUM CHLOR 0.9% 250 ML INJ 250 ML IV ONE (09:45)
[2016-12-01] MEDS: hydrALAZINE HCL 20 MG/ML VIAL IV PUSH PRN (11:00)
[2016-12-01] MEDS: PANTOPRAZOLE SODIUM 40 MG VIAL IV PUSH SCH (11:43)
[2016-12-01] MEDS ORDERED: VANCOMYCIN 1,500 MG/NS 500 ML IV ONE ×2 (12:00)
--- NOTE | 2016-12-01 14:16 | HHI.CCPN ---
Subjective Remarks/Hospital Course 11/24: Patient is a 76-year-old female who was transferred from [facility] with extensive subarachnoid hemorrhage. Unfortunately I do not have any history and physical or discharge summary available neither CT reports. All history I have is from discussion with Dr. Tian. Apparently patient was found unconscious yesterday in a pool of bloody vomitus. She was intubated and admitted to the [facility] ICU. She underwent EGD, again report is not available to me, and was placed on Protonix infusion. After EGD patient underwent a CT of the head which showed extensive subarachnoid hemorrhage, and IVH. Dr. Tian was contacted who recommended a CT angiogram. CT angiogram did not show an aneurysm but showed probable mild obstructive hydrocephalus. Dr. Tian accepted transfer to [facility] for further care, and patient was admitted to critical care medicine. Only medical history available to me is that patient is on peritoneal dialysis, and has history of hypertension Dr. Toledo evaluated the patient in the ICU. Patient is sedated with propofol is on Cardene infusion for blood pressure control. Also on Protonix gtt for GIB On sedation hold patient withdraws all 4 extremities. Pupils are slightly reactive. There was audible cuff leak. Tube exchange attempted by respiratory therapist was unsuccessful. So Dr. Toledo extubated and endotracheally intubated the patient with new ET tube. Dr. Tian from neurosurgery evaluated patient and performed a ventriculostomy. 11/25: Remains sedated, arousable, orally intubated on mechanical ventilation. 11/26: Remains sedated, orally intubated on mechanical ventilation. Withdraws all 4 extremities with painful stimuli. Ventriculostomy in place. 11/27: Tmax 99.5. Tube feeds started take currently 10. Today, tachypneic on the ventilator will try sedation. Was arousable and open eyes but does not follow commands. Currently moving upper extremities spontaneously. 11/28: Currently on sedation vacation. Arousable and did wiggle bilateral feet to command. Tube feeds currently low dose. 11/29: Afebrile. Off Cardene drip. Arousable and does wiggle feet and toes command. Tolerating tube feeding. Positive BM. Subjective 11/30: Afebrile. Intermittently follows commands but not consistently. Will squeeze hands and wiggle toes. Tolerating tube feeding at 30 cc an hour. Positive BM. 12/01 still too lethargic to attempt SBT Objective Vital Signs Date Time Temp Pulse Resp B/P Pulse Ox O2 Delivery O2 Flow Rate FiO2 12/01/16 12:00 98.6 79 17 136/61 96 12/01/16 12:00 40 Intake and Output 11/30/16 11/30/16 12/01/16 08:00 16:00 00:00 Intake Total 678 ml 431 ml 424 ml Output Total 0 ml 0 ml Balance 678 ml 431 ml 424 ml Result Diagram: 12/01/16 0322 12/01/16 0322 Imaging Last Impressions Head CT 11/30/16599 Signed Impressions: Service Date/Time: Wednesday, November 30, 2016 04:34 - CONCLUSION: 1. Bilateral subarachnoid hemorrhage, greater on the right than on the left and intraventricular blood, similar to recent MRI. No evidence of midline shift or intra-axial blood. 2. The right frontal ventriculostomy catheter tip is located medial to the trigone of the right lateral ventricle. Lennox Garcia MD Chest X-Ray 11/30/16 0600 Signed Impressions: Service Date/Time: Wednesday, November 30, 2016 04:55 - CONCLUSION: Improving bilateral lower lung infiltrates with some residual consolidation at the left base. Lennox Garcia MD Brain MRI 11/28/16 0000 Signed Impressions: Service Date/Time: November 12:53 - CONCLUSION: 1. There are blood products layering within the occipital horns bilaterally and along the sulci in the right temporoparietal region. Possible mild subarachnoid blood products also layer along the left temporal region sulci. 2. Ventricles are prominent but not enlarged. Right frontal ventricular shunt is present. 3. There are no findings to indicate recent ischemia. Tre De Luna MD Cerebral Arteriogram 11/24/16 0000 Signed Impressions: Service Date/Time: Thursday, November 24, 2016 11:39 - CONCLUSION: 1. No evidence of aneurysm Jonnie Schaeffer MD Objective Remarks GENERAL: 76-year-old Elderly female critically ill currently orotracheally intubated SKIN: Warm and dry. No rash HEAD: Status post right-sided EVD EYES: No scleral icterus. No injection or drainage. Pupils are 3 mm reactive slightly ENT: Oral tracheal intubated. NECK: Supple, trachea midline. No JVD or lymphadenopathy. CARDIOVASCULAR: Regular rate and rhythm S1, S2. No S4. Without murmurs, gallops, or rubs. RESPIRATORY: Breath sounds equal bilaterally, but diminished with mild expiratory wheezing GASTROINTESTINAL: Abdomen soft, non-tender, nondistended. PD catheter in place MUSCULOSKELETAL: No cyanosis significant peripheral Neuro: Intubated sedated with propofol. Withdraws upper and lower extremity to pain. NEENA 3mm A/P Assessment and Plan NEURO: Subarachnoid hemorrhage Intraventricular extension Hydrocephalus Acute encephalopathy Cerebral vasculitis - Currently off all sedation. - Status post ventriculostomy, neurosurgery following -Cardene infusion to target systolic blood pressure 120 to 130 -Keep sodium more than 145 -Monitor for vasospasm, Nimotop 60 mg every 4hr 21 days - At protocol 40 at bedtime - Keppra 5 mg twice a day for seizure prophylaxis - TCD's daily RESP: Acute respiratory failure Left lower lobe pneumonia -Extubated and re intubated with new ETT -ACV RR 16 TV 550 PEEP 5 titrate FiO2 to keep saturation more than 92% -DuoNeb every 6 hours and when necessary -Send sputum culture 11/25 with Klebsiella pneumonia/pansensitive, empiric Zosyn, -Patient is too lethargic to protect her airways today will continue mechanical ventilation and Hutson SBT trials CV: Uncontrolled hypertension -Currently in Coreg 12.5 twice a day. Cardene drip discontinued -Continue on Nimotop 60 mg every 4 hours 21 days -Normal saline IV fluids at 50 ml per hour will be discontinued as tube feeds at goal GI: Upper GI bleed -Start tube feeds with Nepro goal 30 cc an hour IV Protonix -Colace, senna for bowel regimen EGD -11/26 revealed some gastritis from NG tube suction otherwise negative : End-stage renal disease on peritoneal dialysis -Monitor renal function closely. Rosales catheter. -Nephrology consulted for peritoneal dialysis management ID: Left lower lobe pneumonia Severe sepsis Leukocytosis Zosyn 2.25 every 12 Pertinent cultures Blood cultures 2 - 11/24 - no growth Peritoneal fluid - 11/24 - no growth Sputum - 11/25 - Klebsiella HEME: Normocytic anemia Leukocytosis Thrombocytosis -Monitor CBC, CMP, coags Patient has a history of microscopic polyangiitis per Dr. Shankar which resulted in her renal failure requiring dialysis. Will check ANCA titers as vasculitis may possibly have contributed to subarachnoid hemorrhage. ENDO: Hypokalemia - resolving Hyperphosphatemia -Electrolyte replacement as needed Continue PhosLo 2001 mg by mouth 3 times a day RHEUM P-ANCA + Pulse prednisone therapy [address] Parrish. PROPH: Bilateral lower extremity SCDs. Pharmacological DVT prophylaxis is contraindicated. Continue Protonix infusion for GI bleed LINES: -Patient has left subclavian central line placed at the outside hospital on 11/24 Critical Care: The total care time was 35 minutes. Time to perform other separately billable procedures was not included in the critical care time. Rogelio Harding MD Dec 01, 2016 14:16
--- NOTE | 2016-12-01 15:18 | HHI.NPPN ---
Subjective Renal Failure: Chronic, Acute, End Stage Renal Disease Additional Remarks Patient intubated, no signs of distress Review of Systems General General Remarks unable to evaluate Objective Data Data 11/30/16 12/01/16 19:00 07:00 Intake Total 431 ml 807 ml Output Total 80 ml Balance 431 ml 727 ml Intake IV Total 193 ml 213 ml Tube Feeding 238 ml 354 ml Other 240 ml Output Urine Total 0 ml Drainage Total 80 ml # Bowel Movements 4 Vital Signs Date Time Temp Pulse Resp B/P Pulse Ox O2 Delivery O2 Flow Rate FiO2 12/01/16 14:00 70 12/01/16 12:00 98.6 79 17 136/61 96 12/01/16 12:00 40 12/01/16 12:00 72 12/01/16 10:00 79 12/01/16 08:56 40 12/01/16 08:42 96 40 12/01/16 08:42 40 12/01/16 08:00 40 12/01/16 08:00 98.4 70 27 121/58 96 12/01/16 08:00 70 12/01/16 06:00 76 12/01/16 04:22 95 40 12/01/16 04:00 74 12/01/16 04:00 99.2 74 18 160/69 95 12/01/16 04:00 40 12/01/16 02:00 78 12/01/16 00:00 40 12/01/16 00:00 99.1 71 18 129/63 93 12/01/16 00:00 95 40 12/01/16 00:00 71 11/30/16 22:00 86 11/30/16 20:48 96 40 11/30/16 20:48 96 40 11/30/16 20:00 86 11/30/16 20:00 40 11/30/16 20:00 98.9 83 18 116/59 94 11/30/16 18:00 70 11/30/16 17:25 40 11/30/16 16:46 100 40 11/30/16 16:00 70 11/30/16 16:00 98.0 80 14 129/58 99 11/30/16 16:00 40 -: 12/01/16 0322 12/01/16 0322 Microbiology 12/01/16 Gram Stain, Received Pending 12/01/16 Sputum Culture, Received Pending 12/01/16 Aerobic Blood Culture, Received Pending 12/01/16 Anaerobic Blood Culture, Received Pending 12/01/16 Aerobic Blood Culture, Received Pending 12/01/16 Anaerobic Blood Culture, Received Pending Tubes & Lines: Tenckhoff Catheter Tubes & Lines Comment ventriculostomy Drip Comment fentanyl Physical Exam General Appearance: Well Developed, Well Nourished Throat Throat Exam: Oral Mucosa [place] & Moist Pulmonary Resp Exam: Clear Bilaterally, Breath Sounds Equal Cardiology CV Exam: Regular, Normal Sinus Rhythm Gastrointestinal/Abdomen GI Exam: Soft, Non-Tender Musculoskeletal MS Exam: Joints Intact, Normal Tone Integumentary Skin Exam: Warm, Dry Extremeties Extremities Exam: Pedal Pulses Palpable Neurologic Neuro Exam: Moving All Extremities, Unresponsive, Sedated Assessment/Plan Assessment Summary: Anemia of CKD, End Stage Renal Disease Problem List: (1) ESRD (end stage renal disease) Plan: a biopsy proved microscopic polyangiitis, P-ANCA positive in 2013 now ESRD on PD On 2.5% dextrose PD solution now - 880cc UF overnight with PD. Continue for now. K 3.1 - will given 20meq IV x 1, follow labs. Phoslo was increased - continue to monitor levels Off IVFs now, on tube feeds ANCA titers positive, unclear if active vasculitis. Continue steroids per Dr. Parrish (Heme-Onc) (2) SAH (subarachnoid hemorrhage) Plan: aneurysm has been ruled out Surgical intervention s/p crani with ICP monitoring Dr. Felice Parrish with heme/onc following to rule out etiology related to vasculitis, she is ANCA positive on solumedrol, BP stable (3) Acute respiratory failure Plan: on CPAP trial (4) Uncontrolled hypertension Plan: BP stable off Cardene drip (5) GI bleeding Plan: Gastroenterology is following no further bleeding on protonix, tube feeding started EGD: gastritis (6) Severe sepsis Plan: On Zosyn sputum with Klebsiella monitor clinically PD fluid not infected Vanco 1.5 grams x 1 given today (worsening infiltrate on CXR). Follow vanco levels (7) Anemia Plan: Hb improved slightly given 2 doses of epogen also on venofer for iron deficiency follow hemoglobin Problem Qualifiers (1) Acute respiratory failure: Qualified Code: J96.01 - Acute respiratory failure with hypoxia (2) Anemia: Prince Sorenson MD Dec 01, 2016 15:18
[2016-12-01] MEDS: POTASSIUM CHLOR 20 MEQ PREMIX 100 ML IV SCH ×2 (16:01→18:00)
[2016-12-01] MEDS ORDERED: POTASSIUM CHLOR 40 MEQ PREMIX 100 ML IV ONE (18:00)
[2016-12-01] MEDS ORDERED: POTASSIUM CHLORIDE 20 MEQ PWD PACKET OG ONE (18:00)
--- NOTE | 2016-12-01 19:52 | HHI.NSPN ---
History Chief Complaint: intubated and sedated Interval History 76-year-old female transferred from [facility] 11/24/16 after being found at home unresponsive with positive bloody emesis. CT scan prior to transfer revealed subarachnoid hemorrhage. Patient intubated prior to transfer. CTA prior to transfer negative for aneurysm 11/24/16 cerebral angiogram negative for aneurysm. 11/24/16 ventriculostomy placed 11/26/16: Remains intubated and sedated. Mild eye opening. Localizes intermittent upper extremities 11/27/16: Weaning sedation and ventilator. Moderate eye opening to voice. She intermittently follows commands 11/28/16: Intubated. IV Sedation decreased. Opens eyes to voice, moves extremities to command 11/30/16: Remains intubated. Off IV sedation. A little less responsive today. 11/30/16 CT scan head with moderate hydrocephalus with ventriculostomy clamped. Ventriculostomy reopened at 5 cm water pressure 12/01/16: Patient on CPAP. Continued off IV sedation. More responsive with EVD at 5 cm water pressure, following commands with upper and lower extremities with moderate eye opening Exam Results Vital Signs Date Time Temp Pulse Resp B/P Pulse Ox O2 Delivery O2 Flow Rate FiO2 12/01/16 18:00 79 12/01/16 18:00 98 40 12/01/16 16:00 98.0 14 135/65 Intake and Output 11/30/16 11/30/16 12/01/16 08:00 16:00 00:00 Intake Total 678 ml 431 ml 424 ml Output Total 0 ml 0 ml Balance 678 ml 431 ml 424 ml Physical Examination Intubated. On CPAP Respirations: Nonlabored respirations Cardiac regular rate Abdomen: Soft, diminished bowel sounds. Neurologic: Moderate eye opening to voice and sternal rub Grasps right hand moderate and moves bilateral lower extremities to command. pupils 3mm min reactive Mildly disconjugate gaze Lab, Micro, Other Results Laboratory Tests Test 12/01/16 03:22 White Blood Count 21.2 TH/MM3 Red Blood Count 3.27 MIL/MM3 Hemoglobin 10.1 GM/DL Hematocrit 30.6 % Mean Corpuscular Volume 93.4 FL Mean Corpuscular Hemoglobin 30.9 PG Mean Corpuscular Hemoglobin 33.1 % Concent Red Cell Distribution Width 14.8 % Platelet Count 570 TH/MM3 Mean Platelet Volume 6.8 FL Neutrophils (%) (Auto) 91.9 % Lymphocytes (%) (Auto) 4.9 % Monocytes (%) (Auto) 3.0 % Eosinophils (%) (Auto) 0.1 % Basophils (%) (Auto) 0.1 % Neutrophils # (Auto) 19.5 TH/MM3 Lymphocytes # (Auto) 1.0 TH/MM3 Monocytes # (Auto) 0.6 TH/MM3 Eosinophils # (Auto) 0.0 TH/MM3 Basophils # (Auto) 0.0 TH/MM3 CBC Comment AUTO DIFF Differential Total Cells 100 Counted Neutrophils % (Manual) 83 % Band Neutrophils % 1 % Lymphocytes % 7 % Monocytes % 8 % Neutrophils # (Manual) 18.0 TH/MM3 Myelocytes 1 % Nucleated Red Blood Cells 3 /100 WBC Differential Comment FINAL DIFF MANUAL Platelet Estimate HIGH Platelet Morphology Comment NORMAL Ovalocytes 1+ Sodium Level 140 MEQ/L Potassium Level 3.1 MEQ/L Chloride Level 99 MEQ/L Carbon Dioxide Level 21.0 MEQ/L Anion Gap 20 MEQ/L Blood Urea Nitrogen 78 MG/DL Creatinine 8.08 MG/DL Estimat Glomerular Filtration 5 ML/MIN Rate Random Glucose 143 MG/DL Calcium Level 9.3 MG/DL Phosphorus Level 8.5 MG/DL Magnesium Level 2.4 MG/DL Total Bilirubin 0.3 MG/DL Aspartate Amino Transf 33 U/L (AST/SGOT) Alanine Aminotransferase 46 U/L (ALT/SGPT) Alkaline Phosphatase 65 U/L Total Protein 6.2 GM/DL Albumin 2.2 GM/DL Medical Decision Making Impression and Plan Impression: SAH 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 History of microscopic polyangiitis per renal biopsy 2013. Hypertension Respiratory failure- intubated, now on CPAP Plan More responsive again today with EVD decreased to 5 cm water pressure. Moderate eye-opening and moving upper and lower extremities to command. EVD increased to 10 cm water pressure She remains off sedation. 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 Continue as needed antihypertensive medications Nimodipine for vasospasm prophylaxis Ulcer prophylaxis Non- chemical DVT prophylaxis Seizure prophylaxis discontinued after 7 days Donato Tian MD Dec 01, 2016 19:52
[2016-12-01] MEDS: SODIUM CHLOR 0.9% 1000 ML INJ 1,000 ML IV SCH (20:35)
[2016-12-02] VITALS (17 sets, daily range): BP systolic 124–174; BP diastolic 57–74; PULSE 69–96; RESP 10–20; TEMP 98.2–99.5; O2SAT 40–97
[2016-12-02] MEDS: PANTOPRAZOLE SODIUM 40 MG VIAL IV PUSH SCH ×2 (00:33→12:24)
[2016-12-02] MEDS: niMODipine 30 MG CAP PO SCH ×6 (00:33→20:14)
[2016-12-02] MEDS: SODIUM CHLOR 0.9% 1000 ML INJ 1,000 ML IV SCH (03:40)
[2016-12-02] MEDS: RESP: ALBUTEROL 2.5 MG/IPRATROPIUM 0.5 MG NEB (SCH) NEB ×4 (03:59→21:10)
[2016-12-02] MEDS: CHLORHEXIDINE GLUCONATE 2 % 1 PACK (2 CLOTHS) TOP SCH (04:00)
[2016-12-02 04:13] LABS: AUTOMATED NEUTROPHIL # 16.5 TH/MM3 (1.8-7.7); BASOPHIL % 0.1 % (0.0-2.0); EOSINOPHIL % 0.2 % (0.0-4.0); HEMATOCRIT 32.6 % (35.0-46.0); LYMPH % 8.2 % (9.0-44.0); LYMPHOCYTE # 1.6 TH/MM3 (1.0-4.8); MEAN CELL VOLUME 93.2 FL (80.0-100.0); MEAN CORPUSCULAR HGB CONC 33.3 % (32.0-36.0); MONO % 8.9 % (0.0-8.0); NEUT % 82.6 % (16.0-70.0); PLATELET COUNT 603 TH/MM3 (150-450); RED BLOOD COUNT 3.49 MIL/MM3 (4.00-5.30); RED CELL DISTRIBUTION WIDTH 14.6 % (11.6-17.2)
[2016-12-02 04:20] LABS: HEMO FLAGS AUTO DIFF
[2016-12-02 04:38] LABS: ANION GAP 20 MEQ/L (5-15); AST (GOT) 20 U/L (15-37); BICARBONATE 19.6 MEQ/L (21.0-32.0); BLOOD UREA NITROGEN 84 MG/DL (7-18); CHLORIDE 100 MEQ/L (98-107); GLOMERULAR FILTRATION RATE 5 ML/MIN (>89); MAGNESIUM 2.3 MG/DL (1.5-2.5); POTASSIUM 3.1 MEQ/L (3.5-5.1); SODIUM (NA) 140 MEQ/L (136-145)
[2016-12-02 04:44] LABS: ALKALINE PHOSPHATASE 68 U/L (45-117); ALT (GPT) 38 U/L (10-53); TOTAL BILIRUBIN ADULT 0.3 MG/DL (0.2-1.0)
[2016-12-02 06:04] LABS: PLATELET ESTIMATE SMEAR HIGH (NORMAL); PLATELET MORPHOLOGY NORMAL (NORMAL); SCAN/DIFF AUTO DIFF CONFIRMED
--- NOTE | 2016-12-02 06:11 | RADRPT ---
EXAM DATE/TIME: 12/02/2016 05:13 [facility] COMPARISON: CHEST SINGLE AP, December 01, 2016, 4:46. INDICATIONS : Respiratory Failure. MEDICAL HISTORY : Hypertension. Renal failure. SURGICAL HISTORY : None. ENCOUNTER: Subsequent ACUITY: 1 week PAIN SCORE: Non-responsive. LOCATION: Bilateral chest FINDINGS: Single AP view of the chest. Endotracheal tube, nasogastric tube, and left subclavian central venous catheter remain in place. Persistent bilateral lower lung zone parenchymal opacity indicating atelect asis versus mild consolidation. No evidence of pleural effusion or pneumothorax. CONCLUSION: No significant interval change. Persistent bilateral lower lung zone atelectasis versus m ild consolidation. Wili Canales MD on December 02, 2016 at 6:07 Board Certified Radiologist. This report was verified electronically.
[2016-12-02 06:28] LABS: BLOOD GAS CARBOXYHEMOGLOBIN 0.8 % (0-4); BLOOD GAS HCO3 17 mmol/L (22-26); BLOOD GAS METHEMOGLOBIN 1.4 % (0-2); BLOOD GAS O2 HGB SATURATION 95 % (90-100); BLOOD GAS OXYGEN CONTENT 14.1 Vol % (12.0-20.0); BLOOD GAS PCO2 30 mmHg (38-42); BLOOD GAS PO2 104 mmHg (61-120); BLOOD GAS TOTAL HGB 10.5 G/DL (12.0-16.0); TEMP CORR TO 98.6
[2016-12-02 06:29] LABS: CRITICAL VALUE NO; OXYGEN DEVICE VENTILATOR
[2016-12-02 06:30] LABS: DRAW SITE RT RADIAL; FIO2 40 %; NUMBER OF ARTERIAL PUNCTURES 1; STAT NO; ULNAR PULSE PRESENT; VENT SETTINGS CPAP 5/PSV 10
[2016-12-02] MEDS: CHLORHEXIDINE 0.12% (ORAL KIT) 15 ML CUP MT SCH ×2 (08:00→20:14)
[2016-12-02] MEDS: ARTIFICIAL TEARS OPTH OINT 3.5 APPLIC/3.5 GM TUBO EACH EYE SCH ×2 (08:58→20:14)
[2016-12-02] MEDS: CARVEDILOL 12.5 MG TAB PO SCH ×2 (08:59→20:14)
[2016-12-02] MEDS: SODIUM CHLORIDE 0.9% FLUSH 5 ML FLUSH IV FLUSH SCH ×2 (08:59→20:14)
[2016-12-02] MEDS: DOCUSATE SODIUM 100 MG/10 ML UDC PO SCH ×2 (08:59→20:14)
[2016-12-02] MEDS: hydrALAZINE HCL 20 MG/ML VIAL IV PUSH PRN ×2 (09:00→17:36)
[2016-12-02] MEDS: SENNOSIDES SYRUP 8.8 MG/5 ML CUP PO SCH (09:00)
[2016-12-02] MEDS: predniSONE 20 MG TAB PO SCH (09:00)
[2016-12-02] MEDS: CALCIUM ACETATE 667 MG CAP PO SCH ×3 (09:00→17:36)
--- NOTE | 2016-12-02 09:25 | RADRPT ---
EXAM DATE/TIME: 12/01/2016 16:02 [facility] COMPARISON: ANGIOGRAM, CEREBRAL WO ARCH, November 24, 2016, 11:39. INDICATIONS : Subarachnoid hemorrhage. MEDICAL HISTORY : End stage renal disease. Anemia. Gastritis. Subarachnoid hemorrhage. Pneumonia. SURGICAL HISTORY : Ventriculostomy. ENCOUNTER: Initial ACUITY: 1 day PAIN SCORE: Nonresponsive. LOCATION: Bilateral cranial RIGHT: LEFT: Current Exam: Dec 01, 2016 [place] Ratio: 1.6 0.7 [place] Ratio: 2.3 0.4 Previous Exam: [place] Ratio: [place] Ratio: FINDINGS: Examination performed at bedside. Real-time ultrasound with the assistance of color and spectral Dop pler was utilized to evaluate the intracerebral circulation. Time-averaged maximal velocities are ca lculated in cm/s. Velocities are within normal limits. CONCLUSION: No evidence of significant vasospasm. Dallas Sánchez MD on December 02, 2016 at 9:20 Board Certified Radiologist. This report was verified electronically.
[2016-12-02] MEDS: PIPERACIL-TAZO 2.25 GM PREMIX 50 ML IV SCH ×2 (09:28→20:15)
[2016-12-02] MEDS ORDERED: POTASSIUM CHLORIDE 20 MEQ PWD PACKET PO ONE (10:00)
--- NOTE | 2016-12-02 10:17 | HHI.CCPN ---
Subjective Remarks/Hospital Course 11/24: Patient is a 76-year-old female who was transferred from [facility] with extensive subarachnoid hemorrhage. Unfortunately I do not have any history and physical or discharge summary available neither CT reports. All history I have is from discussion with Dr. Tian. Apparently patient was found unconscious yesterday in a pool of bloody vomitus. She was intubated and admitted to the [facility] ICU. She underwent EGD, again report is not available to me, and was placed on Protonix infusion. After EGD patient underwent a CT of the head which showed extensive subarachnoid hemorrhage, and IVH. Dr. Tian was contacted who recommended a CT angiogram. CT angiogram did not show an aneurysm but showed probable mild obstructive hydrocephalus. Dr. Tian accepted transfer to [facility] for further care, and patient was admitted to critical care medicine. Only medical history available to me is that patient is on peritoneal dialysis, and has history of hypertension Dr. Toledo evaluated the patient in the ICU. Patient is sedated with propofol is on Cardene infusion for blood pressure control. Also on Protonix gtt for GIB On sedation hold patient withdraws all 4 extremities. Pupils are slightly reactive. There was audible cuff leak. Tube exchange attempted by respiratory therapist was unsuccessful. So Dr. Toledo extubated and endotracheally intubated the patient with new ET tube. Dr. Tian from neurosurgery evaluated patient and performed a ventriculostomy. 11/25: Remains sedated, arousable, orally intubated on mechanical ventilation. 11/26: Remains sedated, orally intubated on mechanical ventilation. Withdraws all 4 extremities with painful stimuli. Ventriculostomy in place. 11/27: Tmax 99.5. Tube feeds started take currently 10. Today, tachypneic on the ventilator will try sedation. Was arousable and open eyes but does not follow commands. Currently moving upper extremities spontaneously. 11/28: Currently on sedation vacation. Arousable and did wiggle bilateral feet to command. Tube feeds currently low dose. 11/29: Afebrile. Off Cardene drip. Arousable and does wiggle feet and toes command. Tolerating tube feeding. Positive BM. Subjective 11/30: Afebrile. Intermittently follows commands but not consistently. Will squeeze hands and wiggle toes. Tolerating tube feeding at 30 cc an hour. Positive BM. 12/01 still too lethargic to attempt SBT 12/02: Intermittently opens eyes, not really following commands consistently. Occasionally uses consult with the left hand. No fever. I doubt she'll be able to come over ventilator today Objective Vital Signs Date Time Temp Pulse Resp B/P Pulse Ox O2 Delivery O2 Flow Rate FiO2 12/02/16 08:25 97 40 12/02/16 08:00 98.7 82 10 133/57 Intake and Output 12/01/16 12/01/16 12/02/16 08:00 16:00 00:00 Intake Total 383 ml 1115 ml 651 ml Output Total 80 ml 961 ml 59 ml Balance 303 ml 154 ml 592 ml Result Diagram: 12/02/16 0338 12/02/16 0338 Other Results Laboratory Tests Test 12/02/16 06:15 Blood Gas Puncture Site RT RADIAL Blood Gas Patient Temperature 98.6 Blood Gas HCO3 17 mmol/L (22-26) Blood Gas Base Excess -7.0 mmol/L (-2-2) Blood Gas Oxygen Saturation 95 % (90-100) Arterial Blood pH 7.37 (7.380-7.420) Arterial Blood Partial 30 mmHg (38-42) Pressure CO2 Arterial Blood Partial 104 mmHg Pressure O2 (61-120) Arterial Blood Oxygen Content 14.1 Vol % (12.0-20.0) Arterial Blood 0.8 % (0-4) Carboxyhemoglobin Arterial Blood Methemoglobin 1.4 % (0-2) Blood Gas Hemoglobin 10.5 G/DL (12.0-16.0) Oxygen Delivery Device VENTILATOR Blood Gas Ventilator Setting CPAP 5/PSV 10 Blood Gas Inspired Oxygen 40 % Imaging Last Impressions Head CT 11/30/16599 Signed Impressions: Service Date/Time: Wednesday, November 30, 2016 04:34 - CONCLUSION: 1. Bilateral subarachnoid hemorrhage, greater on the right than on the left and intraventricular blood, similar to recent MRI. No evidence of midline shift or intra-axial blood. 2. The right frontal ventriculostomy catheter tip is located medial to the trigone of the right lateral ventricle. Lennox Garcia MD Chest X-Ray 11/30/16599 Signed Impressions: Service Date/Time: Wednesday, November 30, 2016 04:55 - CONCLUSION: Improving bilateral lower lung infiltrates with some residual consolidation at the left base. Lennox Garcia MD Brain MRI 11/28/16 0000 Signed Impressions: Service Date/Time: November 12:53 - CONCLUSION: 1. There are blood products layering within the occipital horns bilaterally and along the sulci in the right temporoparietal region. Possible mild subarachnoid blood products also layer along the left temporal region sulci. 2. Ventricles are prominent but not enlarged. Right frontal ventricular shunt is present. 3. There are no findings to indicate recent ischemia. Tre De Luna MD Cerebral Arteriogram 11/24/16 0000 Signed Impressions: Service Date/Time: Thursday, November 24, 2016 11:39 - CONCLUSION: 1. No evidence of aneurysm Jonnie Schaeffer MD Objective Remarks GENERAL: 76-year-old Elderly female critically ill currently orotracheally intubated SKIN: Warm and dry. No rash HEAD: Status post right-sided EVD EYES: No scleral icterus. No injection or drainage. Pupils are 3 mm slightly reactive ENT: Orotracheally intubated. NECK: Supple, trachea midline. No JVD or lymphadenopathy. CARDIOVASCULAR: Regular rate and rhythm S1, S2. No S4. Without murmurs, gallops, or rubs. RESPIRATORY: Breath sounds equal bilaterally, but diminished GASTROINTESTINAL: Abdomen soft, non-tender, nondistended. PD catheter in place MUSCULOSKELETAL: No cyanosis significant peripheral Neuro: Intubated sedated with propofol. Withdraws upper and lower extremity to pain. NEENA 3mm. intermittently opens eyes. Intermittently weakly follows commands with left upper extremity A/P Assessment and Plan NEURO: Subarachnoid hemorrhage Intraventricular extension Hydrocephalus Acute encephalopathy Cerebral vasculitis -Currently off all sedation. I will DC all PRN sedating meds (Ativan, Dilaudid and Fentanyl) -Status post ventriculostomy, neurosurgery following, now at 10 -Cardene infusion to target systolic blood pressure 120 to 130, now off -Keep sodium more than 145 -Monitor for vasospasm, Nimotop 60 mg every 4hr 21 days -Keppra 500 mg twice a day for seizure prophylaxis -TCD's daily RESP: Acute respiratory failure Left lower lobe pneumonia -Extubated and re intubated with new ETT, on day of admission -ACV RR 16 TV 550 PEEP 5 titrate FiO2 to keep saturation more than 90% -DuoNeb every 6 hours and when necessary -Sputum culture 11/25 with Klebsiella pneumonia/pansensitive, empiric Zosyn, -Patient is too lethargic to protect her airways will continue SBT/CPAP CV: Uncontrolled hypertension -Currently in Coreg 12.5 twice a day. Cardene drip discontinued, use as needed -Continue on Nimotop 60 mg every 4 hours 21 days -Normal saline IV fluids at 50 ml per hour will be discontinued as tube feeds at goal GI: Upper GI bleed -Tube feeds with Nepro goal 30 cc an hour -IV Protonix -Colace, senna for bowel regimen -EGD -11/26 revealed some gastritis from NG tube suction otherwise negative : End-stage renal disease on peritoneal dialysis -Monitor renal function closely. Rosales catheter. -Nephrology consulted for peritoneal dialysis management ID: Left lower lobe pneumonia Severe sepsis Leukocytosis Zosyn 2.25 every 12 Pertinent cultures Blood cultures 2 - 11/24 - no growth Peritoneal fluid - 11/24 - no growth Sputum - 11/25 - Klebsiella sputum and blood 12/01 pending HEME: Normocytic anemia Leukocytosis Thrombocytosis -Monitor CBC, CMP, coags -Patient has a history of microscopic polyangiitis per Dr. Shankar which resulted in her renal failure requiring dialysis. -Antimyeloperoxidase Ab positive ENDO: Hypokalemia Hyperphosphatemia -Electrolyte replacement as needed Continue PhosLo by mouth 3 times a day RHEUM P-ANCA + Pulse prednisone therapy [address] Parrish. PROPH: Bilateral lower extremity SCDs. Pharmacological DVT prophylaxis is contraindicated, until cleared by Dr. Tian. Continue Protonix LINES: -Patient has left subclavian central line placed at the outside hospital on 11/24- Will DC today after establishing PIV Critical Care: The total care time was 35 minutes. Time to perform other separately billable procedures was not included in the critical care time. Antonia Toledo MD Dec 02, 2016 10:17
--- NOTE | 2016-12-02 10:43 | HHI.NPPN ---
Subjective Renal Failure: Chronic, Acute, End Stage Renal Disease Interval History She is unresponsive on vent. Tolerating CPAP trial. Some edema has formed. ( Noemí Lassiter) Review of Systems General General Remarks unable to evaluate (Noemí Lassiter) Objective Data Data 12/01/16 12/02/16 18:59 06:59 Intake Total 1115 ml 1019 ml Output Total 961 ml 74 ml Balance 154 ml 945 ml Intake IV Total 780 ml 386 ml Tube Feeding 235 ml 393 ml Other 100 ml 240 ml Output Urine Total 0 ml 0 ml Drainage Total 75 ml 74 ml Peritoneal Fluid 886 ml # Bowel Movements 1 2 Vital Signs Date Time Temp Pulse Resp B/P Pulse Ox O2 Delivery O2 Flow Rate FiO2 12/02/16 10:00 77 12/02/16 08:25 97 40 12/02/16 08:00 98.7 82 10 133/57 97 12/02/16 08:00 40 12/02/16 08:00 69 12/02/16 06:00 75 12/02/16 04:00 87 12/02/16 04:00 98.9 87 17 160/68 97 12/02/16 04:00 40 12/02/16 03:59 96 40 12/02/16 02:00 90 12/02/16 00:00 75 12/02/16 00:00 40 12/02/16 00:00 99.5 86 20 142/65 96 12/01/16 22:00 85 12/01/16 21:24 96 40 12/01/16 20:00 75 12/01/16 20:00 40 12/01/16 20:00 99.4 75 17 147/65 98 12/01/16 18:00 79 12/01/16 18:00 98 40 12/01/16 16:00 70 12/01/16 16:00 98.0 85 14 135/65 100 12/01/16 16:00 40 12/01/16 14:00 70 12/01/16 12:00 98.6 79 17 136/61 96 12/01/16 12:00 40 12/01/16 12:00 72 (Noemí Lassiter) -: 12/02/16 0338 12/02/16 0338 Microbiology 12/01/16 Aerobic Blood Culture, Received Pending 12/01/16 Anaerobic Blood Culture, Received Pending 12/01/16 Aerobic Blood Culture, Received Pending 12/01/16 Anaerobic Blood Culture, Received Pending Tubes & Lines: Tenckhoff Catheter Tubes & Lines Comment ventriculostomy Drip Comment off sedation (Noemí Lassiter) Physical Exam General Appearance: Well Developed, Well Nourished Appearance Remarks intubated/sedated (Noemí Lassiter) Throat Throat Exam: Oral Mucosa [place] & Moist (Noemí Lassiter) Pulmonary Resp Exam: Clear Bilaterally, Breath Sounds Equal (Noemí Lassiter) Cardiology CV Exam: Regular, Normal Sinus Rhythm (Noemí Lassiter) Gastrointestinal/Abdomen GI Exam: Soft, Non-Tender (Noemí Lassiter) Musculoskeletal MS Exam: Joints Intact, Normal Tone (Noemí Lassiter) Integumentary Skin Exam: Warm, Dry (Noemí Lassiter) Extremeties Extremities Exam: Pedal Pulses Palpable, Moderate Edema (Noemí Lassiter) Neurologic Neuro Exam: Unresponsive, Comatose Neuro Remarks scalp leilani (Noemí Lassiter) Assessment/Plan Assessment Summary: Anemia of CKD, End Stage Renal Disease Problem List: (1) ESRD (end stage renal disease) Plan: a biopsy proved microscopic polyangiitis, P-ANCA positive in 2013 now ESRD on PD On 2.5% dextrose PD solution now - good UF K 3.1 - replaced orally, follow up BMP Phoslo was increased , intermittent phos level Off IVFs now ANCA titers positive, unclear if active vasculitis. 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 Felice Parrish with heme/onc following to rule out etiology related to vasculitis, she is ANCA positive on steroids BP stable she does have a living will, sister states she would not want aggressive measures may need palliative consult (3) Acute respiratory failure Plan: on CPAP trial extubate when able (4) Uncontrolled hypertension Plan: BP stable off Cardene drip (5) GI bleeding Plan: Gastroenterology is following no further bleeding on protonix, tube feeding started EGD: gastritis (6) Severe sepsis Plan: On Zosyn Vanco given over the weekend (worsening infiltrate on CXR). Follow vanco levels sputum with Klebsiella monitor clinically PD fluid not infected (7) Anemia Plan: Hb improved given epogen also given venofer for iron deficiency follow hemoglobin (Noemí Lassiter) Plan patient was seen and examined. Continue PD. Tolerating CPAP, but apparently not ready yet for extubation. Prognosis is guarded. (Georges Shankar MD) Problem Qualifiers (1) Acute respiratory failure: Qualified Code: J96.01 - Acute respiratory failure with hypoxia (2) Anemia: Noemí Lassiter Dec 02, 2016 10:43 Georges Shankar MD Dec 02, 2016 21:01
--- NOTE | 2016-12-02 10:59 | RADRPT ---
EXAM DATE/TIME: 12/02/2016 08:13 [facility] COMPARISON: US TRANSCRANIAL DOPPLER COMPLETE, December 01, 2016, 16:02. INDICATIONS : Subarachnoid hemorrhage. MEDICAL HISTORY : End stage renal disease. Anemia. Gastritis. Subarachnoid hemorrhage. Pneumonia. SURGICAL HISTORY : Ventriculostomy. ENCOUNTER: Subsequent ACUITY: 1 day PAIN SCORE: Nonresponsive. LOCATION: Bilateral cranial RIGHT: LEFT: Current Exam: Dec 02, 2016 [place] Ratio: 1.3 0.5 [place] Ratio: 1.6 0.3 Previous Exam: Dec 01, 2016 [place] Ratio: 1.6 0.7 [place] Ratio: 2.3 0.4 FINDINGS: Examination performed at bedside. Real-time ultrasound with the assistance of color and spectral Dop pler was utilized to evaluate the intracerebral circulation. Time-averaged maximal velocities are ca lculated in cm/s. No significant change is noted compared to the prior day. CONCLUSION: No evidence of significant vasospasm. Dallas Sánchez MD on December 02, 2016 at 10:28 Board Certified Radiologist. This report was verified electronically.
[2016-12-03] VITALS (17 sets, daily range): BP systolic 131–163; BP diastolic 59–72; PULSE 60–103; RESP 16–24; TEMP 97.6–99.2; O2SAT 94–99
[2016-12-03] MEDS: PANTOPRAZOLE SODIUM 40 MG VIAL IV PUSH SCH ×2 (00:22→11:25)
[2016-12-03] MEDS: niMODipine 30 MG CAP PO SCH ×6 (00:22→21:11)
[2016-12-03] MEDS: hydrALAZINE HCL 20 MG/ML VIAL IV PUSH PRN ×2 (01:37→08:27)
[2016-12-03] MEDS: RESP: ALBUTEROL 2.5 MG/IPRATROPIUM 0.5 MG NEB (SCH) NEB ×4 (03:35→19:43)
[2016-12-03] MEDS: CHLORHEXIDINE GLUCONATE 2 % 1 PACK (2 CLOTHS) TOP SCH (04:00)
[2016-12-03] MEDS: SODIUM CHLOR 0.9% 1000 ML INJ 1,000 ML IV SCH (04:19)
[2016-12-03 04:47] LABS: BICARBONATE 16.9 MEQ/L (21.0-32.0); POTASSIUM 3.3 MEQ/L (3.5-5.1)
[2016-12-03] MEDS: CHLORHEXIDINE 0.12% (ORAL KIT) 15 ML CUP MT SCH ×2 (08:00→21:10)
[2016-12-03] MEDS: CARVEDILOL 12.5 MG TAB PO SCH ×2 (08:27→21:11)
[2016-12-03] MEDS: CALCIUM ACETATE 667 MG CAP PO SCH ×3 (08:27→17:05)
[2016-12-03] MEDS: ARTIFICIAL TEARS OPTH OINT 3.5 APPLIC/3.5 GM TUBO EACH EYE SCH ×2 (08:28→21:11)
[2016-12-03] MEDS: SENNOSIDES SYRUP 8.8 MG/5 ML CUP PO SCH (08:28)
[2016-12-03] MEDS: DOCUSATE SODIUM 100 MG/10 ML UDC PO SCH ×2 (08:28→21:00)
[2016-12-03] MEDS: predniSONE 20 MG TAB PO SCH (08:31)
[2016-12-03] MEDS: SODIUM CHLORIDE 0.9% FLUSH 5 ML FLUSH IV FLUSH SCH ×2 (09:00→21:11)
[2016-12-03] MEDS: PIPERACIL-TAZO 2.25 GM PREMIX 50 ML IV SCH (09:09)
[2016-12-03] MEDS ORDERED: POTASSIUM CHLORIDE 20 MEQ PWD PACKET PO SCH (11:00)
--- NOTE | 2016-12-03 11:19 | RADRPT ---
EXAM DATE/TIME: 12/03/2016 08:10 [facility] COMPARISON: US TRANSCRANIAL DOPPLER COMPLETE, December 01, 2016, 16:02. US TRANSCRANIAL DOPPLER COMPLETE, December 02, 2016, 8:13. INDICATIONS : Subarachnoid hemorrhage. MEDICAL HISTORY : End stage renal disease. Anemia. Gastritis. Subarachnoid hemorrhage. Pneumonia. SURGICAL HISTORY : Ventriculostomy. ENCOUNTER: Initial ACUITY: 1 day PAIN SCORE: Nonresponsive. LOCATION: Bilateral cranial RIGHT: LEFT: Current Exam: Dec 03, 2016 [place] Ratio: 1.7 0.8 [place] Ratio: 1.6 0.8 Previous Exam: Dec 02, 2016 [place] Ratio: 1.6 0.7 [place] Ratio: 2.3 0.4 FINDINGS: Examination performed at bedside. Real-time ultrasound with the assistance of color and spectral Dop pler was utilized to evaluate the intracerebral circulation. Time-averaged maximal velocities are ca lculated in cm/s. No significant change is identified from the prior exam. CONCLUSION: No evidence of spasm. rTe Melton MD on December 03, 2016 at 11:13 Board Certified Radiologist. This report was verified electronically.
[2016-12-03] MEDS ORDERED: POTASSIUM CHLOR 20 MEQ PREMIX 100 ML IV ONE (11:45)
--- NOTE | 2016-12-03 12:33 | HHI.NPPN ---
Subjective Renal Failure: Chronic, Acute, End Stage Renal Disease Interval History She was extubated successfully. Opens eyes, more responsive. (Noemí Lassiter) Review of Systems General General Remarks unable to evaluate (Noemí Lassiter) Objective Data Data 12/02/16 12/03/16 19:00 07:00 Intake Total 449 ml 869 ml Output Total 947 ml 97 ml Balance -498 ml 772 ml Intake IV Total 131 ml 252 ml Tube Feeding 198 ml 377 ml Other 120 ml 240 ml Output Urine Total 0 ml 0 ml Drainage Total 28 ml 97 ml Peritoneal Fluid 919 ml # Bowel Movements 2 2 Vital Signs Date Time Temp Pulse Resp B/P Pulse Ox O2 Delivery O2 Flow Rate FiO2 12/03/16 12:16 95 40 12/03/16 12:00 98.0 79 16 131/59 94 12/03/16 12:00 80 12/03/16 10:45 96 Nasal Cannula 4.00 12/03/16 10:45 96 Nasal Cannula 4 12/03/16 10:00 87 12/03/16 09:10 97 40 12/03/16 08:00 98.2 100 21 153/67 98 12/03/16 08:00 40 12/03/16 08:00 91 12/03/16 06:00 85 12/03/16 04:00 98 12/03/16 04:00 40 12/03/16 04:00 98.9 98 21 151/67 96 12/03/16 03:36 95 40 12/03/16 02:00 60 12/03/16 00:00 86 12/03/16 00:00 99.2 86 16 155/69 96 12/03/16 00:00 40 12/02/16 22:00 93 12/02/16 21:03 96 40 12/02/16 20:00 40 12/02/16 20:00 99.1 96 19 174/74 96 12/02/16 20:00 96 12/02/16 18:00 96 12/02/16 16:16 94 40 12/02/16 16:00 40 12/02/16 16:00 94 12/02/16 16:00 98.5 94 19 149/67 96 12/02/16 14:00 78 (Noemí Lassiter) -: 12/02/16 0338 12/03/16 0349 Imaging Last 72 hours Impressions Transcranial Doppler Study Complete 12/02/16 1415 Signed Impressions: Service Date/Time: Friday, December 02, 2016 08:13 - CONCLUSION: No evidence of significant vasospasm. Dallas Sánchez MD Chest X-Ray 12/02/16 0600 Signed Impressions: Service Date/Time: Friday, December 02, 2016 05:13 - CONCLUSION: No significant interval change. Persistent bilateral lower lung zone atelectasis versus mild consolidation. Wili Canales MD Transcranial Doppler Study Complete 12/01/16 1415 Signed Impressions: Service Date/Time: Thursday, December 01, 2016 16:02 - CONCLUSION: No evidence of significant vasospasm. Dallas Sánchez MD Chest X-Ray 12/01/16 0600 Signed Impressions: Service Date/Time: Thursday, December 01, 2016 04:46 - CONCLUSION: Endotracheal tube tip at the level of the edin and needs to be withdrawn at least 2 cm. Increasing consolidation left lower lung and new right infrahilar infiltrate. Lennox Garcia MD Tubes & Lines: Tenckhoff Catheter Tubes & Lines Comment ventriculostomy (Noemí Lassiter) Physical Exam General Appearance: Well Developed, Well Nourished, Sleeping (Noemí Lassiter) Throat Throat Exam: Oral Mucosa [place] & Moist (Noemí Lassiter) Pulmonary Resp Exam: Clear Bilaterally, Breath Sounds Equal (Noemí Lassiter) Cardiology CV Exam: Regular, Normal Sinus Rhythm (Noemí Lassiter) Gastrointestinal/Abdomen GI Exam: Soft, Non-Tender (Noemí Lassiter) Musculoskeletal MS Exam: Joints Intact, Normal Tone (Noemí Lassiter) Integumentary Skin Exam: Warm, Dry (Noemí Lassiter) Extremeties Extremities Exam: Pedal Pulses Palpable, Moderate Edema (Noemí Lassiter) Neurologic Neuro Exam: Unresponsive, Comatose Neuro Remarks scalp leilani (Noemí Lassiter) Assessment/Plan Assessment Summary: Anemia of CKD, End Stage Renal Disease Problem List: (1) ESRD (end stage renal disease) Plan: a biopsy proved microscopic polyangiitis, P-ANCA positive in 2013 now ESRD on PD On 2.5% dextrose PD solution now - good UF K low, IV replacement ordered daily Phoslo was increased , intermittent phos level Off IVFs now ANCA titers positive, unclear if active vasculitis. Continue steroids, on prednisone 60 mg daily (2) SAH (subarachnoid hemorrhage) Plan: aneurysm has been ruled out Surgical intervention s/p crani with ICP monitoring ventriculostomy clamped, has worsening mental status, it has been reopened may need RV SERVICE TECHNICIAN shunt Dr. Felice Parrish with heme/onc following to rule out etiology related to vasculitis, she is ANCA positive on steroids BP stable she does have a living will, sister states she would not want aggressive measures may need palliative consult (3) Acute respiratory failure Plan: successfully extubated, on nasal cannula will need swallow evaluation (4) Uncontrolled hypertension Plan: BP stable (5) GI bleeding Plan: Gastroenterology is following no further bleeding on protonix, tube feeding started EGD: gastritis (6) Severe sepsis Plan: On Zosyn sputum with Klebsiella monitor clinically PD fluid not infected (7) Anemia Plan: Hb improved given epogen also given venofer for iron deficiency follow hemoglobin (Noemí Lassiter) Plan patient was seen and examined. She has been extubated. Lethargic, opened eyes on command, may follow some commands. We will continue PD. Replace potassium. Monitor neurological status. Notes were reviewed. (Georges Shankar MD) Problem Qualifiers (1) Acute respiratory failure: Qualified Code: J96.01 - Acute respiratory failure with hypoxia (2) Anemia: Noemí Lassiter Dec 03, 2016 12:33 Georges Shankar MD Dec 03, 2016 20:59
--- NOTE | 2016-12-03 13:04 | HHI.CCPN ---
Subjective Remarks/Hospital Course 11/24: Patient is a 76-year-old female who was transferred from [facility] with extensive subarachnoid hemorrhage. Unfortunately I do not have any history and physical or discharge summary available neither CT reports. All history I have is from discussion with Dr. Tian. Apparently patient was found unconscious yesterday in a pool of bloody vomitus. She was intubated and admitted to the [facility] ICU. She underwent EGD, again report is not available to me, and was placed on Protonix infusion. After EGD patient underwent a CT of the head which showed extensive subarachnoid hemorrhage, and IVH. Dr. Tian was contacted who recommended a CT angiogram. CT angiogram did not show an aneurysm but showed probable mild obstructive hydrocephalus. Dr. Tian accepted transfer to [facility] for further care, and patient was admitted to critical care medicine. Only medical history available to me is that patient is on peritoneal dialysis, and has history of hypertension Dr. Toledo evaluated the patient in the ICU. Patient is sedated with propofol is on Cardene infusion for blood pressure control. Also on Protonix gtt for GIB On sedation hold patient withdraws all 4 extremities. Pupils are slightly reactive. There was audible cuff leak. Tube exchange attempted by respiratory therapist was unsuccessful. So Dr. Toledo extubated and endotracheally intubated the patient with new ET tube. Dr. Tian from neurosurgery evaluated patient and performed a ventriculostomy. 11/25: Remains sedated, arousable, orally intubated on mechanical ventilation. 11/26: Remains sedated, orally intubated on mechanical ventilation. Withdraws all 4 extremities with painful stimuli. Ventriculostomy in place. 11/27: Tmax 99.5. Tube feeds started take currently 10. Today, tachypneic on the ventilator will try sedation. Was arousable and open eyes but does not follow commands. Currently moving upper extremities spontaneously. 11/28: Currently on sedation vacation. Arousable and did wiggle bilateral feet to command. Tube feeds currently low dose. 11/29: Afebrile. Off Cardene drip. Arousable and does wiggle feet and toes command. Tolerating tube feeding. Positive BM. Subjective 11/30: Afebrile. Intermittently follows commands but not consistently. Will squeeze hands and wiggle toes. Tolerating tube feeding at 30 cc an hour. Positive BM. 12/01 still too lethargic to attempt SBT 12/02: Intermittently opens eyes, not really following commands consistently. Occasionally uses consult with the left hand. No fever. I doubt she'll be able to come over ventilator today. 12/03: Sputum 11/29 growing Klebsiella, convert to ceftriaxone. Objective Vital Signs Date Time Temp Pulse Resp B/P Pulse Ox O2 Delivery O2 Flow Rate FiO2 12/03/16 12:16 95 40 12/03/16 12:00 98.0 79 16 131/59 12/03/16 10:45 Nasal Cannula 4.00 Intake and Output 12/02/16 12/02/16 12/03/16 08:00 16:00 00:00 Intake Total 368 ml 449 ml 497 ml Output Total 15 ml 947 ml 27 ml Balance 353 ml -498 ml 470 ml Result Diagram: 12/02/16 0338 12/03/16 0349 Other Results Microbiology Date/Time Procedure Status Source Growth 12/01/16 10:33 Gram Stain - Final Complete Sputum Endotracheal 12/01/16 10:33 Sputum Culture - Final Complete Klebsiella Pneumoniae Imaging Last Impressions Head CT 11/30/16 0600 Signed Impressions: Service Date/Time: Wednesday, November 30, 2016 04:34 - CONCLUSION: 1. Bilateral subarachnoid hemorrhage, greater on the right than on the left and intraventricular blood, similar to recent MRI. No evidence of midline shift or intra-axial blood. 2. The right frontal ventriculostomy catheter tip is located medial to the trigone of the right lateral ventricle. Lennox Garcia MD Chest X-Ray 11/30/16 0600 Signed Impressions: Service Date/Time: Wednesday, November 30, 2016 04:55 - CONCLUSION: Improving bilateral lower lung infiltrates with some residual consolidation at the left base. Lennox Garcia MD Brain MRI 11/28/16 0000 Signed Impressions: Service Date/Time: November 12:53 - CONCLUSION: 1. There are blood products layering within the occipital horns bilaterally and along the sulci in the right temporoparietal region. Possible mild subarachnoid blood products also layer along the left temporal region sulci. 2. Ventricles are prominent but not enlarged. Right frontal ventricular shunt is present. 3. There are no findings to indicate recent ischemia. Tre De Luna MD Cerebral Arteriogram 11/24/16 0000 Signed Impressions: Service Date/Time: Thursday, November 24, 2016 11:39 - CONCLUSION: 1. No evidence of aneurysm Jonnie Schaeffer MD Objective Remarks GENERAL: 76-year-old Elderly female critically ill SKIN: Warm and dry. No rash HEAD: Status post right-sided EVD EYES: No scleral icterus. No injection or drainage. Pupils are 3 mm sluggishly reactive ENT: Orotracheally intubated. NECK: Supple, trachea midline. No JVD or lymphadenopathy. CARDIOVASCULAR: Regular rate and rhythm S1, S2. No S4. Without murmurs, rubs RESPIRATORY: Breath sounds equal bilaterally, but diminished. No wheezing. GASTROINTESTINAL: Abdomen soft, non-tender, nondistended. PD catheter in place MUSCULOSKELETAL: No cyanosis. Well perfused. Neuro: Intubated sedated with propofol. Withdraws upper and lower extremity to pain. NEENA 3mm. intermittently opens eyes. Intermittently weakly follows commands with left upper extremity A/P Assessment and Plan NEURO: Subarachnoid hemorrhage Intraventricular extension Hydrocephalus Acute encephalopathy Cerebral vasculitis -Currently off all sedation. I will DC all PRN sedating meds (Ativan, Dilaudid and Fentanyl) -Status post ventriculostomy, neurosurgery following, now at 10 -Cardene infusion to target systolic blood pressure 120 to 130, now off -Keep sodium more than 145 -Monitor for vasospasm, Nimotop 60 mg every 4hr 21 days -Keppra 500 mg twice a day for seizure prophylaxis -TCD's daily RESP: Acute respiratory failure Left lower lobe pneumonia -Extubated and re intubated with new ETT, on day of admission -ACV RR 16 TV 550 PEEP 5 titrate FiO2 to keep saturation more than 90% -DuoNeb every 6 hours and when necessary -Sputum culture 11/25 with Klebsiella pneumonia/pansensitive, empiric Zosyn, -Patient is too lethargic to protect her airways will continue SBT/CPAP CV: Uncontrolled hypertension -Currently in Coreg 12.5 twice a day. Cardene drip discontinued, use as needed -Continue on Nimotop 60 mg every 4 hours 21 days -Normal saline IV fluids at 50 ml per hour will be discontinued as tube feeds at goal GI: Upper GI bleed -Tube feeds with Nepro goal 30 cc an hour -IV Protonix -Colace, senna for bowel regimen -EGD -11/26 revealed some gastritis from NG tube suction otherwise negative : End-stage renal disease on peritoneal dialysis -Monitor renal function closely. Rosales catheter. -Nephrology consulted for peritoneal dialysis management ID: Left lower lobe pneumonia Severe sepsis Leukocytosis Zosyn 2.25 every 12 Pertinent cultures Blood cultures 2 - 11/24 - no growth Peritoneal fluid - 11/24 - no growth Sputum - 11/25 - Klebsiella sputum and blood 12/01 pending HEME: Normocytic anemia Leukocytosis Thrombocytosis -Monitor CBC, CMP, coags -Patient has a history of microscopic polyangiitis per Dr. Shankar which resulted in her renal failure requiring dialysis. -Antimyeloperoxidase Ab positive ENDO: Hypokalemia Hyperphosphatemia -Electrolyte replacement as needed Continue PhosLo by mouth 3 times a day RHEUM P-ANCA + Pulse prednisone therapy [address] Parrish. PROPH: Bilateral lower extremity SCDs. Pharmacological DVT prophylaxis is contraindicated, until cleared by Dr. Tian. Continue Protonix LINES: -PIV Overall impression: Critically ill after SAH and unable to wean ventilator. Bronchitis with Klebsiella persists. Critical care 36 mins Adrian Clement MD Dec 03, 2016 13:04
[2016-12-03] MEDS: cefTRIAXone INJ 1,000 MG in SODIUM CHLORIDE 0.9% INJ 100 ML IV SCH (14:00)
--- NOTE | 2016-12-03 19:47 | HHI.NSPN ---
History Chief Complaint: intubated and sedated Interval History 76-year-old female transferred from [facility] 11/24/16 after being found at home unresponsive with positive bloody emesis. CT scan prior to transfer revealed subarachnoid hemorrhage. Patient intubated prior to transfer. CTA prior to transfer negative for aneurysm 11/24/16 cerebral angiogram negative for aneurysm. 11/24/16 ventriculostomy placed 11/26/16: Remains intubated and sedated. Mild eye opening. Localizes intermittent upper extremities 11/27/16: Weaning sedation and ventilator. Moderate eye opening to voice. She intermittently follows commands 11/28/16: Intubated. IV Sedation decreased. Opens eyes to voice, moves extremities to command 11/30/16: Remains intubated. Off IV sedation. A little less responsive today. 11/30/16 CT scan head with moderate hydrocephalus with ventriculostomy clamped. Ventriculostomy reopened at 5 cm water pressure 12/01/16: Patient on CPAP. Continued off IV sedation. More responsive with EVD at 5 cm water pressure, following commands with upper and lower extremities with moderate eye opening 12/03/16: Extubated. Somewhat more responsive today follows commands with all extremities. ICP 6 Exam Results Vital Signs Date Time Temp Pulse Resp B/P Pulse Ox O2 Delivery O2 Flow Rate FiO2 12/03/16 18:00 83 12/03/16 16:00 97.6 20 153/65 96 12/03/16 12:16 40 12/03/16 10:45 Nasal Cannula 4.00 Intake and Output 12/02/16 12/02/16 12/03/16 08:00 16:00 00:00 Intake Total 368 ml 449 ml 497 ml Output Total 15 ml 947 ml 27 ml Balance 353 ml -498 ml 470 ml Physical Examination Extubated Respirations: Nonlabored respirations Cardiac regular rate Abdomen: Soft, diminished bowel sounds. Neurologic: Moderate eye opening to voice Moves all extremities moderate to command Moderate conjugate extraocular movements Pupils 3 mm reactive No ankle clonus Lab, Micro, Other Results Laboratory Tests Test 12/03/16 03:49 Sodium Level 140 MEQ/L Potassium Level 3.3 MEQ/L Chloride Level 101 MEQ/L Carbon Dioxide Level 16.9 MEQ/L Anion Gap 22 MEQ/L Blood Urea Nitrogen 93 MG/DL Creatinine 8.39 MG/DL Estimat Glomerular Filtration 5 ML/MIN Rate Random Glucose 121 MG/DL Calcium Level 9.7 MG/DL Phosphorus Level 5.6 MG/DL Albumin 2.3 GM/DL Medical Decision Making Impression and Plan Impression: SAH 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 History of microscopic polyangiitis per renal biopsy 2013. Hypertension Plan More responsive today. Moderate eye-opening to voice. Moves all extremities to command Ventriculostomy discontinued. Continue to observe neurologic exam for any further decline, with follow-up CT scan depending on clinical course She remains off sedation. Continue as needed antihypertensive medications Nimodipine for vasospasm prophylaxis Ulcer prophylaxis Non- chemical DVT prophylaxis Seizure prophylaxis discontinued after 7 days Donato Tian MD Dec 03, 2016 19:47
[2016-12-04] VITALS (13 sets, daily range): BP systolic 129–160; BP diastolic 61–74; PULSE 52–103; RESP 18–24; TEMP 97.6–98.5; O2SAT 95–98
[2016-12-04] MEDS: niMODipine 30 MG CAP PO SCH ×7 (01:12→23:34)
[2016-12-04] MEDS: PANTOPRAZOLE SODIUM 40 MG VIAL IV PUSH SCH ×3 (01:13→23:34)
[2016-12-04] MEDS: RESP: ALBUTEROL 2.5 MG/IPRATROPIUM 0.5 MG NEB (SCH) NEB ×3 (03:16→16:28)
[2016-12-04] MEDS: CHLORHEXIDINE GLUCONATE 2 % 1 PACK (2 CLOTHS) TOP SCH (04:00)
[2016-12-04 04:07] LABS: AUTOMATED NEUTROPHIL # 15.8 TH/MM3 (1.8-7.7); BASOPHIL # 0.1 TH/MM3 (0-0.2); BASOPHIL % 0.3 % (0.0-2.0); EOSINOPHIL % 0.3 % (0.0-4.0); HEMATOCRIT 30.8 % (35.0-46.0); LYMPH % 6.8 % (9.0-44.0); LYMPHOCYTE # 1.2 TH/MM3 (1.0-4.8); MEAN CELL VOLUME 94.5 FL (80.0-100.0); MEAN CORPUSCULAR HEMOGLOBIN 31.6 PG (27.0-34.0); MEAN CORPUSCULAR HGB CONC 33.5 % (32.0-36.0); MONO % 5.1 % (0.0-8.0); NEUT % 87.5 % (16.0-70.0); PLATELET COUNT 530 TH/MM3 (150-450); RED BLOOD COUNT 3.26 MIL/MM3 (4.00-5.30); RED CELL DISTRIBUTION WIDTH 15.5 % (11.6-17.2); WHITE BLOOD COUNT 18.1 TH/MM3 (4.0-11.0)
[2016-12-04 04:09] LABS: HEMO FLAGS AUTO DIFF
[2016-12-04 06:38] LABS: BASOPHILS 1 % (0-2); CORRECTED NUCLEATED RBC 1 /100 WBC (0-0); EOSINOPHILS 1 % (0-4); METAMYELOCYTES 1 % (0-1); NEUTROPHIL # MANUAL DIFF 15.7 TH/MM3 (1.8-7.7); POLYS (SEG NEUTROPHILS) 86 % (16-70); WBC DIFF SAMPLE 100
[2016-12-04 06:40] LABS: PLATELET ESTIMATE SMEAR HIGH (NORMAL); PLATELET MORPHOLOGY NORMAL (NORMAL); SCAN/DIFF FINAL DIFF MANUAL
[2016-12-04] MEDS: CALCIUM ACETATE 667 MG CAP PO SCH ×3 (07:59→18:11)
[2016-12-04] MEDS: CARVEDILOL 12.5 MG TAB PO SCH ×2 (07:59→20:31)
[2016-12-04] MEDS: CHLORHEXIDINE 0.12% (ORAL KIT) 15 ML CUP MT SCH ×2 (08:00→20:00)
[2016-12-04] MEDS: ARTIFICIAL TEARS OPTH OINT 3.5 APPLIC/3.5 GM TUBO EACH EYE SCH ×2 (08:00→20:36)
[2016-12-04] MEDS: SODIUM CHLOR 0.9% 1000 ML INJ 1,000 ML IV SCH (08:00)
[2016-12-04] MEDS: predniSONE 20 MG TAB PO SCH (08:00)
[2016-12-04] MEDS: SODIUM CHLORIDE 0.9% FLUSH 5 ML FLUSH IV FLUSH SCH ×2 (08:00→20:32)
[2016-12-04] MEDS: SENNOSIDES SYRUP 8.8 MG/5 ML CUP PO SCH (08:01)
[2016-12-04] MEDS: DOCUSATE SODIUM 100 MG/10 ML UDC PO SCH ×2 (09:00→20:31)
--- NOTE | 2016-12-04 10:34 | RADRPT ---
EXAM DATE/TIME: 12/04/2016 08:09 [place] COMPARISON: US TRANSCRANIAL DOPPLER COMPLETE, December 03, 2016, 8:10 INDICATIONS : Subarachnoid hemorrhage. MEDICAL HISTORY : End stage renal disease. Anemia. Gastritis. Subarachnoid hemorrhage. Pneumonia. SURGICAL HISTORY : Ventriculostomy. ENCOUNTER: Sequela ACUITY: 3 days PAIN SCORE: Nonresponsive. LOCATION: Bilateral cranial RIGHT: LEFT: Current Exam: Dec 04, 2016 [place] Ratio: 1.3 0.7 [place] Ratio: 1.0 0.6 Previous Exam: Dec 03, 2016 [place] Ratio: 1.7 0.8 [place] Ratio: 1.6 0.8 FINDINGS: Examination performed at bedside. Real-time ultrasound with the assistance of color and spectral Dop pler was utilized to evaluate the intracerebral circulation. Time-averaged maximal velocities are ca lculated in cm/s. No significant change from prior day. CONCLUSION: No evidence for significant vasospasm. Abdiel Casas MD FACR on December 04, 2016 at 10:29 Board Certified Radiologist. This report was verified electronically.
[2016-12-04 11:55] LABS: BICARBONATE 19.5 MEQ/L (21.0-32.0); POTASSIUM 3.7 MEQ/L (3.5-5.1)
--- NOTE | 2016-12-04 12:47 | HHI.CCPN ---
Subjective Remarks/Hospital Course 11/24: Patient is a 76-year-old female who was transferred from [facility] with extensive subarachnoid hemorrhage. Unfortunately I do not have any history and physical or discharge summary available neither CT reports. All history I have is from discussion with Dr. Tian. Apparently patient was found unconscious yesterday in a pool of bloody vomitus. She was intubated and admitted to the [facility] ICU. She underwent EGD, again report is not available to me, and was placed on Protonix infusion. After EGD patient underwent a CT of the head which showed extensive subarachnoid hemorrhage, and IVH. Dr. Tian was contacted who recommended a CT angiogram. CT angiogram did not show an aneurysm but showed probable mild obstructive hydrocephalus. Dr. Tian accepted transfer to [facility] for further care, and patient was admitted to critical care medicine. Only medical history available to me is that patient is on peritoneal dialysis, and has history of hypertension Dr. Toledo evaluated the patient in the ICU. Patient is sedated with propofol is on Cardene infusion for blood pressure control. Also on Protonix gtt for GIB On sedation hold patient withdraws all 4 extremities. Pupils are slightly reactive. There was audible cuff leak. Tube exchange attempted by respiratory therapist was unsuccessful. So Dr. Toledo extubated and endotracheally intubated the patient with new ET tube. Dr. Tian from neurosurgery evaluated patient and performed a ventriculostomy. 11/25: Remains sedated, arousable, orally intubated on mechanical ventilation. 11/26: Remains sedated, orally intubated on mechanical ventilation. Withdraws all 4 extremities with painful stimuli. Ventriculostomy in place. 11/27: Tmax 99.5. Tube feeds started take currently 10. Today, tachypneic on the ventilator will try sedation. Was arousable and open eyes but does not follow commands. Currently moving upper extremities spontaneously. 11/28: Currently on sedation vacation. Arousable and did wiggle bilateral feet to command. Tube feeds currently low dose. 11/29: Afebrile. Off Cardene drip. Arousable and does wiggle feet and toes command. Tolerating tube feeding. Positive BM. Subjective 11/30: Afebrile. Intermittently follows commands but not consistently. Will squeeze hands and wiggle toes. Tolerating tube feeding at 30 cc an hour. Positive BM. 12/01 still too lethargic to attempt SBT 12/02: Intermittently opens eyes, not really following commands consistently. Occasionally uses consult with the left hand. No fever. I doubt she'll be able to come over ventilator today. 12/03: Sputum 11/29 growing Klebsiella, convert to ceftriaxone. 12/04: Extubated 12/03. Protecting airway. More lethargic today, but wakes up, not following commands. no vasospasm on TCD Objective Vital Signs Date Time Temp Pulse Resp B/P Pulse Ox O2 Delivery O2 Flow Rate FiO2 12/04/16 12:00 97.6 88 24 134/74 97 12/04/16 08:20 Nasal Cannula 4.00 12/03/16 12:16 40 Intake and Output 12/03/16 12/03/16 12/04/16 08:00 16:00 00:00 Intake Total 372 ml 487 ml 202 ml Output Total 70 ml 763 ml 0 ml Balance 302 ml -276 ml 202 ml Result Diagram: 12/04/16 0348 12/04/16 1105 Imaging Last Impressions Head CT 11/30/16 06 Signed Impressions: Service Date/Time: Wednesday, November 30, 2016 04:34 - CONCLUSION: 1. Bilateral subarachnoid hemorrhage, greater on the right than on the left and intraventricular blood, similar to recent MRI. No evidence of midline shift or intra-axial blood. 2. The right frontal ventriculostomy catheter tip is located medial to the trigone of the right lateral ventricle. Lennox Garcia MD Chest X-Ray 11/30/16 0600 Signed Impressions: Service Date/Time: Wednesday, November 30, 2016 04:55 - CONCLUSION: Improving bilateral lower lung infiltrates with some residual consolidation at the left base. Lennox Garcia MD Brain MRI 11/28/16 0000 Signed Impressions: Service Date/Time: November 12:53 - CONCLUSION: 1. There are blood products layering within the occipital horns bilaterally and along the sulci in the right temporoparietal region. Possible mild subarachnoid blood products also layer along the left temporal region sulci. 2. Ventricles are prominent but not enlarged. Right frontal ventricular shunt is present. 3. There are no findings to indicate recent ischemia. Tre De Luna MD Cerebral Arteriogram 11/24/16 0000 Signed Impressions: Service Date/Time: Thursday, November 24, 2016 11:39 - CONCLUSION: 1. No evidence of aneurysm Jonnie Schaeffer MD Objective Remarks GENERAL: 76-year-old Elderly female critically ill SKIN: Warm and dry. No rash HEAD: Status post right-sided EVD-removed EYES: No scleral icterus. No injection or drainage. Pupils are 3 mm sluggishly reactive ENT: On NC NECK: Supple, trachea midline. No JVD or lymphadenopathy. CARDIOVASCULAR: Regular rate and rhythm S1, S2. No S4. Without murmurs, rubs RESPIRATORY: Breath sounds equal bilaterally, but diminished. No wheezing. GASTROINTESTINAL: Abdomen soft, non-tender, nondistended. PD catheter in place MUSCULOSKELETAL: No cyanosis. Well perfused. Neuro: Patient is somnolent and lethargic opens eyes to sternal rub. Moves extremities not following commands A/P Assessment and Plan NEURO: Subarachnoid hemorrhage Intraventricular extension Hydrocephalus Acute encephalopathy Cerebral vasculitis -Currently off all sedation. -EVD removed 12/03. TCD 12/04 no vasospasm -Cardene infusion to target systolic blood pressure 120 to 130, now off -Keep sodium more than 145 -Monitor for vasospasm, Nimotop 60 mg every 4hr 21 days -Keppra 500 mg twice a day for seizure prophylaxis RESP: Acute respiratory failure Left lower lobe pneumonia -Extubated and re intubated with new ETT, on day of admission. Extubated 12/03. protecting airway -DuoNeb every 6 hours and when necessary -Sputum culture 11/25 with Klebsiella pneumonia/pansensitive, on Rocephin CV: Uncontrolled hypertension -Currently in Coreg 12.5 twice a day. Cardene drip discontinued, use as needed -Continue on Nimotop 60 mg every 4 hours 21 days GI: Upper GI bleed -Diet per speech, if mental status permits -IV Protonix -Colace, senna for bowel regimen -EGD -11/26 revealed some gastritis from NG tube suction otherwise negative : End-stage renal disease on peritoneal dialysis -Monitor renal function closely. Rosales catheter. -Nephrology consulted for peritoneal dialysis management ID: Left lower lobe pneumonia Severe sepsis Leukocytosis Continue Rocephin Pertinent cultures Blood cultures 2 - 11/24 - no growth Peritoneal fluid - 11/24 - no growth Sputum - 11/25 - Klebsiella sputum and blood 12/01 pending HEME: Normocytic anemia Leukocytosis Thrombocytosis -Monitor CBC, CMP, coags -Patient has a history of microscopic polyangiitis per Dr. Shankar which resulted in her renal failure requiring dialysis. -Antimyeloperoxidase Ab positive ENDO: Hypokalemia Hyperphosphatemia -Electrolyte replacement as needed Continue PhosLo by mouth 3 times a day RHEUM P-ANCA + Pulse prednisone therapy [address] Parrish. PROPH: Bilateral lower extremity SCDs. Pharmacological DVT prophylaxis is contraindicated, until cleared by Dr. Tian. Continue Protonix LINES: -PIV Overall impression: Critically ill after SAH, now extubated but encephalopathic. Bronchitis with Klebsiella persists. Critical care 32 mins Antonia Toledo MD Dec 04, 2016 12:46 Bronchitis with Klebsiella persists. Critical care 36 mins Antonia Toledo MD Dec 04, 2016 12:46
[2016-12-04] MEDS: cefTRIAXone INJ 1,000 MG in SODIUM CHLORIDE 0.9% INJ 100 ML IV SCH (13:30)
--- NOTE | 2016-12-04 14:57 | HHI.NPPN ---
Subjective General Problems: Edema Renal Failure: Chronic, Acute, End Stage Renal Disease Interval History She was extubated, EVD was removed. Now awake, intermittently responds verbally. She did pass her dysphagia screening. Edematous. (Noemí Lassiter) Review of Systems General General Remarks unable to evaluate (Noemí Lassiter) Objective Data Data 12/03/16 12/04/16 19:00 07:00 Intake Total 487 ml 295 ml Output Total 763 ml 0 ml Balance -276 ml 295 ml Intake Oral 30 ml IV Total 322 ml 265 ml Tube Feeding 105 ml Other 60 ml Output Urine Total 0 ml 0 ml Drainage Total 43 ml Peritoneal Fluid 720 ml # Bowel Movements 1 1 Vital Signs Date Time Temp Pulse Resp B/P Pulse Ox O2 Delivery O2 Flow Rate FiO2 12/04/16 14:00 92 12/04/16 12:00 97.6 88 24 134/74 97 12/04/16 12:00 94 12/04/16 10:00 93 12/04/16 08:20 98 Nasal Cannula 4.00 12/04/16 08:00 98.0 96 21 137/63 95 12/04/16 08:00 96 12/04/16 06:00 89 12/04/16 04:00 82 12/04/16 04:00 98.1 52 18 136/62 95 12/04/16 02:00 94 12/04/16 00:00 94 12/04/16 00:00 98.5 86 18 129/61 97 12/03/16 22:00 97 12/03/16 20:00 103 12/03/16 20:00 98.4 102 24 163/72 99 12/03/16 19:43 96 Nasal Cannula 4.00 12/03/16 18:00 83 12/03/16 16:00 97.6 80 20 153/65 96 12/03/16 16:00 80 (Noemí Lassiter) -: 12/04/16 0348 12/04/16 1105 Imaging Last Impressions Transcranial Doppler Study Complete 12/04/16 1415 Signed Impressions: Service Date/Time: Sunday, December 04, 2016 08:09 - CONCLUSION: No evidence for significant vasospasm. Abdiel Casas MD FACR Chest X-Ray 12/02/16 0600 Signed Impressions: Service Date/Time: Friday, December 02, 2016 05:13 - CONCLUSION: No significant interval change. Persistent bilateral lower lung zone atelectasis versus mild consolidation. Wili Canales MD Head CT 11/30/16 0600 Signed Impressions: Service Date/Time: Wednesday, November 30, 2016 04:34 - CONCLUSION: 1. Bilateral subarachnoid hemorrhage, greater on the right than on the left and intraventricular blood, similar to recent MRI. No evidence of midline shift or intra-axial blood. 2. The right frontal ventriculostomy catheter tip is located medial to the trigone of the right lateral ventricle. Lennox Garcia MD Brain MRI 11/28/16 0000 Signed Impressions: Service Date/Time: November 12:53 - CONCLUSION: 1. There are blood products layering within the occipital horns bilaterally and along the sulci in the right temporoparietal region. Possible mild subarachnoid blood products also layer along the left temporal region sulci. 2. Ventricles are prominent but not enlarged. Right frontal ventricular shunt is present. 3. There are no findings to indicate recent ischemia. Tre De Luna MD Cerebral Arteriogram 11/24/16 0000 Signed Impressions: Service Date/Time: Thursday, November 24, 2016 11:39 - CONCLUSION: 1. No evidence of aneurysm Jonnie Schaeffer MD Tubes & Lines: Tenckhoff Catheter (Noemí Lassiter BSocrates MON) Physical Exam General Appearance: Well Developed, Well Nourished (Noemí Lassiter B. DEPLOYMENT SPECIALIST) Throat Throat Exam: Oral Mucosa [place] & Moist (MaikolNoemí B. DEPLOYMENT SPECIALIST) Pulmonary Resp Exam: Clear Bilaterally, Breath Sounds Equal (MaikolNoemí B. DEPLOYMENT SPECIALIST) Cardiology CV Exam: Regular, Normal Sinus Rhythm (MaikolNoemí B. DEPLOYMENT SPECIALIST) Gastrointestinal/Abdomen GI Exam: Soft, Non-Tender (MaikolNoeím B. DEPLOYMENT SPECIALIST) Musculoskeletal MS Exam: Joints Intact, Normal Tone (Eric Lassiteron B. DEPLOYMENT SPECIALIST) Integumentary Skin Exam: Warm, Dry (MaikolNoemí B. DEPLOYMENT SPECIALIST) Extremeties Extremities Exam: Pedal Pulses Palpable, Moderate Edema (MaikolNoemí B. DEPLOYMENT SPECIALIST) Neurologic Neuro Exam: Awake, Moving All Extremities, Obtunded (Noemí Lassiter) Assessment/Plan Assessment Summary: Anemia of CKD, End Stage Renal Disease Problem List: (1) ESRD (end stage renal disease) Plan: a biopsy proved microscopic polyangiitis, P-ANCA positive in 2013 now ESRD on PD Has developed edema, use 4.5% and 2.5% dextrose PD tonight and reevaluate tomorrow K corrected on Phoslo, obtain intermittent phos level begin oral bicarbonate avoid IVF ANCA titers positive, unclear if active vasculitis. Continue steroids, on prednisone, reduce to 40 mg daily (2) SAH (subarachnoid hemorrhage) Plan: aneurysm has been ruled out Surgical intervention s/p crani with ICP monitoring; EVD has been removed; transcranial doppler shows no vasospasmt Dr. Felice Parrish with heme/onc following, unlikely that this is related to vasculitis , she is ANCA positive on steroids BP stable she will need intensive rehab (3) Acute respiratory failure Plan: successfully extubated, on nasal cannula on thickened liquids, pureed diet (4) Uncontrolled hypertension Plan: BP stable (5) GI bleeding Plan: Gastroenterology has evaluated no further bleeding on protonix BID EGD: gastritis (6) Severe sepsis Plan: On rocephin sputum with Klebsiella monitor clinically, she is afebrile PD fluid not infected (7) Anemia Plan: Hb improved given epogen and venofer follow hemoglobin (Noemí Lassiter) Problem List: (1) ESRD (end stage renal disease) Plan: a biopsy proved microscopic polyangiitis, P-ANCA positive in 2013 now ESRD on PD Has developed edema, use 4.25% and 2.5% dextrose PD tonight and reevaluate tomorrow K corrected on Phoslo, obtain intermittent phos level begin oral bicarbonate avoid IVF ANCA titers positive, unclear if active vasculitis. Continue steroids, on prednisone, reduce to 40 mg daily (2) SAH (subarachnoid hemorrhage) Plan: aneurysm has been ruled out Surgical intervention s/p crani with ICP monitoring; EVD has been removed; transcranial doppler shows no vasospasmt Dr. Felice Parrish with heme/onc following, unlikely that this is related to vasculitis , she is ANCA positive on steroids BP stable she will need intensive rehab (3) Acute respiratory failure Plan: successfully extubated, on nasal cannula on thickened liquids, pureed diet (4) Uncontrolled hypertension Plan: BP stable (5) GI bleeding Plan: Gastroenterology has evaluated no further bleeding on protonix BID EGD: gastritis (6) Severe sepsis Plan: On rocephin sputum with Klebsiella monitor clinically, she is afebrile PD fluid not infected (7) Anemia Plan: Hb improved given epogen and venofer follow hemoglobin Plan patient was seen and examined. Answers with a few simple words. Does not follow all commands. (Georges Shankar MD) Problem Qualifiers (1) Acute respiratory failure: Qualified Code: J96.01 - Acute respiratory failure with hypoxia (2) Anemia: oNemí Lassiter Dec 04, 2016 14:57 Georges Shankar MD Dec 04, 2016 20:10
[2016-12-04] MEDS: SODIUM BICARBONATE 325 MG TAB PO SCH ×2 (16:15→20:31)
--- NOTE | 2016-12-04 16:42 | PD.CONS ---
Consult Service Palliative Care . Consult Requested By Dr. Toledo . Primary Care Physician Unknown . Reason for Consultation a. To assist with evaluation and management of symptoms including: Pain, dyspnea b. To assist medical decision maker(s) with: better understanding of current medical conditions; weighing benefits/burdens of medical treatment options; making medical treatment decisions. . HPI History of Present Illness Patient is a 76-year-old female who was transferred from [facility] on 11/25/16 For medical management of an extensive subarachnoid hemorrhage. Per report, the patient was found unconscious the day before surrounded by bloody vomitus. Upon arrival to [facility] ED THE PATIENT'S SYSTOLIC BLOOD PRESSURE WAS IN THE 190s. Taken for EGD secondary to GI bleed. A CT of the head was significant for extensive subarachnoid hemorrhage and intraventricular hemorrhage The patient subsequently had a CT angiogram which did not show an aneurysm but showed probable mild obstructive hydrocephalus. Upon arrival to [facility] [place] the patient was sedated with Diprivan, on a Cardene infusion for blood pressure control and Protonix drip for GIP. Neurosurgery and gastroenterology were consulted. Review of Systems ROS Limitations: Clinical Condition (patient is unresponsive), Intubated Past Family Social History Coded Allergies: No Known Allergies (Unverified , 11/28/16) Past Medical History New subarachnoid hemorrhage End-stage renal disease on peritoneal dialysis Hypertension GI Bleeding, requiring control of bleeding with clips . Past Surgical History Renal biopsy EGD . Current Medications Medications (Trade) Dose Ordered Sig/Wan Route Start Time Stop Time Status Last Admin (Nimotop) 60 mg Q4HR PO 11/24/16 04:00 12/04/16 11:43 (Colace Liq) 100 mg Q12HR PO 11/24/16 09:00 12/01/16 09:03 Sennosides 8.8 mg 8.8 mg DAILY PO 11/24/16 09:00 12/01/16 09:04 (NS 1000 ml Inj) 1,000 ml @ 10 mls/hr Q24H IV 11/24/16 03:40 12/04/16 08:00 (NS Flush) 2 ml UNSCH PRN IV FLUSH 11/24/16 03:45 (NS Flush) 2 ml BID IV FLUSH 11/24/16 09:00 12/04/16 08:00 (Tylenol) 650 mg Q6H PRN PO 11/24/16 03:45 Miscellaneous Information 1 Q361D XX 11/24/16 03:45 11/24/16 03:45 (Chlorhexidine 2% Cloth) Taper DAILY@04 TOP 11/24/16 04:00 11/20/17 03:59 12/04/16 04:00 (Chlorhexidine 2% Cloth) 3 pack UNSCH PRN TOP 11/24/16 03:45 (Lacrilube Opht Oint) 1 applic Q12HR EACH EYE 11/24/16 21:00 12/04/16 08:00 (NS Flush) 10 ml UNSCH PRN IVF 11/25/16 09:30 (Protonix Inj) 40 mg Q12H IV PUSH 11/27/16 12:00 12/04/16 11:43 (Peridex 0.12% Liq) 15 ml BID@08,20 MT 11/27/16 20:00 12/04/16 08:00 (Coreg) 12.5 mg Q12HR PO 11/27/16 21:00 12/04/16 07:59 (Trandate Inj) 10 mg Q1HR PRN IV PUSH 11/27/16 17:00 (Nitroglycerin 2% Oint) 2 inch Q6HR PRN TOPICAL 11/27/16 17:00 (Apresoline Inj) 10 mg Q1HR PRN IV PUSH 11/27/16 17:00 12/03/16 08:27 (Phoslo) 2,001 mg TID PO 11/29/16 18:00 12/04/16 13:30 Ondansetron HCl 4 mg 4 mg Q4HR PRN IV PUSH 11/29/16 17:00 12/04/16 10:49 (Rocephin Inj/NS Inj) 100 ml @ 200 mls/hr Q24H IV 12/03/16 14:00 12/04/16 13:30 (Deltasone) 40 mg DAILY PO 12/05/16 09:00 (Sodium Bicarbonate) 325 mg Q12HR PO 12/04/16 15:00 Family History Negative cardiac disease cancer, diabetes . Substance Use Tobacco: Alcohol: Prescription med abuse: Illicits: Physical Exam Vital Signs Date Time Temp Pulse Resp B/P Pulse Ox O2 Delivery O2 Flow Rate FiO2 12/04/16 14:00 92 12/04/16 12:00 97.6 88 24 134/74 97 12/04/16 12:00 94 12/04/16 10:00 93 12/04/16 08:20 98 Nasal Cannula 4.00 12/04/16 08:00 98.0 96 21 137/63 95 12/04/16 08:00 96 12/04/16 06:00 89 12/04/16 04:00 82 12/04/16 04:00 98.1 52 18 136/62 95 12/04/16 02:00 94 12/04/16 00:00 94 12/04/16 00:00 98.5 86 18 129/61 97 12/03/16 22:00 97 12/03/16 20:00 103 12/03/16 20:00 98.4 102 24 163/72 99 12/03/16 19:43 96 Nasal Cannula 4.00 12/03/16 18:00 83 12/03/16 12/04/16 19:00 07:00 Intake Total 487 ml 295 ml Output Total 763 ml 0 ml Balance -276 ml 295 ml Intake Oral 30 ml IV Total 322 ml 265 ml Tube Feeding 105 ml Other 60 ml Output Urine Total 0 ml 0 ml Drainage Total 43 ml Peritoneal Fluid 720 ml # Bowel Movements 1 1 Exam CONSTITUTIONAL/GENERAL: This is an adequately nourished patient, in no apparent distress. TUBES/LINES/DRAINS: SKIN: No jaundice, rashes, or lesions. Ecchymoses on upper extremities. No wounds seen anteriorly. Skin temperature appropriate. Not diaphoretic. HEAD: Atraumatic. Normocephalic. EYES: Pupils equal and round and reactive. Extraocular motions intact. No scleral icterus. No injection or drainage. Fundi not examined. ENT: Hearing grossly normal. Nose without bleeding or purulent drainage. Throat without visible erythema, exudates, masses, or lesions. NECK: Trachea midline. Supple, nontender. No palpable thyroid enlargement or nodularity. CARDIOVASCULAR: Regular rate and rhythm without murmurs, gallops, or rubs. No JVD. Peripheral pulses symmetric. RESPIRATORY/CHEST: Symmetric, unlabored respirations. Clear to auscultation. Breath sounds equal bilaterally. No wheezes, rales, or rhonchi. GASTROINTESTINAL: Abdomen soft, non-tender, nondistended. No hepato-splenomegaly , or palpable masses. No guarding. Bowel sounds present. GENITOURINARY: Without palpable bladder distension. Rosales catheter in place. MUSCULOSKELETAL: Extremities without clubbing, cyanosis, or edema. No joint tenderness or effusion noted. No calf tenderness. No mottling or clubbing. LYMPHATICS: No palpable cervical or supraclavicular adenopathy. NEUROLOGICAL: Awake and alert. Motor and sensory grossly within normal limits. Follows commands. Cognitively sharp. Moves all extremities. PSYCHIATRIC: No obvious anxiety/depression. no apparent hallucinations or other psychotic thought process. Diagnostic Tests Laboratory Laboratory Tests Test 12/02/16 12/02/16 12/03/16 12/04/16 03:38 06:15 03:49 03:48 White Blood Count 20.0 TH/MM3 18.1 TH/MM3 (4.0-11.0) (4.0-11.0) Red Blood Count 3.49 MIL/MM3 3.26 MIL/MM3 (4.00-5.30) (4.00-5.30) Hemoglobin 10.8 GM/DL 10.3 GM/DL (11.6-15.3) (11.6-15.3) Hematocrit 32.6 % 30.8 % (35.0-46.0) (35.0-46.0) Mean Corpuscular Volume 93.2 FL 94.5 FL (80.0-100.0) (80.0-100.0) Mean Corpuscular Hemoglobin 31.0 PG 31.6 PG (27.0-34.0) (27.0-34.0) Mean Corpuscular Hemoglobin 33.3 % 33.5 % Concent (32.0-36.0) (32.0-36.0) Red Cell Distribution Width 14.6 % 15.5 % (11.6-17.2) (11.6-17.2) Platelet Count 603 TH/MM3 530 TH/MM3 (150-450) (150-450) Mean Platelet Volume 6.4 FL 6.6 FL (7.0-11.0) (7.0-11.0) Neutrophils (%) (Auto) 82.6 % 87.5 % (16.0-70.0) (16.0-70.0) Lymphocytes (%) (Auto) 8.2 % 6.8 % (9.0-44.0) (9.0-44.0) Monocytes (%) (Auto) 8.9 % (0.0-8.0) 5.1 % (0.0-8.0) Eosinophils (%) (Auto) 0.2 % (0.0-4.0) 0.3 % (0.0-4.0) Basophils (%) (Auto) 0.1 % (0.0-2.0) 0.3 % (0.0-2.0) Neutrophils # (Auto) 16.5 TH/MM3 15.8 TH/MM3 (1.8-7.7) (1.8-7.7) Lymphocytes # (Auto) 1.6 TH/MM3 1.2 TH/MM3 (1.0-4.8) (1.0-4.8) Monocytes # (Auto) 1.8 TH/MM3 0.9 TH/MM3 (0-0.9) (0-0.9) Eosinophils # (Auto) 0.0 TH/MM3 0.0 TH/MM3 (0-0.4) (0-0.4) Basophils # (Auto) 0.0 TH/MM3 0.1 TH/MM3 (0-0.2) (0-0.2) CBC Comment AUTO DIFF AUTO DIFF Differential Comment AUTO DIFF FINAL DIFF CONFIRMED MANUAL Platelet Estimate HIGH (NORMAL) HIGH (NORMAL) Platelet Morphology Comment NORMAL NORMAL (NORMAL) (NORMAL) Sodium Level 140 MEQ/L 140 MEQ/L (136-145) (136-145) Potassium Level 3.1 MEQ/L 3.3 MEQ/L (3.5-5.1) (3.5-5.1) Chloride Level 100 MEQ/L 101 MEQ/L (98-107) (98-107) Carbon Dioxide Level 19.6 MEQ/L 16.9 MEQ/L (21.0-32.0) (21.0-32.0) Anion Gap 20 MEQ/L (5-15) 22 MEQ/L (5-15) Blood Urea Nitrogen 84 MG/DL (7-18) 93 MG/DL (7-18) Creatinine 8.20 MG/DL 8.39 MG/DL (0.50-1.00) (0.50-1.00) Estimat Glomerular Filtration 5 ML/MIN (>89) 5 ML/MIN (>89) Rate Random Glucose 113 MG/DL 121 MG/DL (74-106) (74-106) Calcium Level 9.6 MG/DL 9.7 MG/DL (8.5-10.1) (8.5-10.1) Phosphorus Level 6.2 MG/DL 5.6 MG/DL (2.5-4.9) (2.5-4.9) Magnesium Level 2.3 MG/DL (1.5-2.5) Total Bilirubin 0.3 MG/DL (0.2-1.0) Aspartate Amino Transf 20 U/L (15-37) (AST/SGOT) Alanine Aminotransferase 38 U/L (10-53) (ALT/SGPT) Alkaline Phosphatase 68 U/L (45-117) Total Protein 6.1 GM/DL (6.4-8.2) Albumin 2.1 GM/DL 2.3 GM/DL (3.4-5.0) (3.4-5.0) Blood Gas Puncture Site RT RADIAL Blood Gas Patient Temperature 98.6 Blood Gas HCO3 17 mmol/L (22-26) Blood Gas Base Excess -7.0 mmol/L (-2-2) Blood Gas Oxygen Saturation 95 % (90-100) Arterial Blood pH 7.37 (7.380-7.420) Arterial Blood Partial 30 mmHg (38-42) Pressure CO2 Arterial Blood Partial 104 mmHg Pressure O2 (61-120) Arterial Blood Oxygen Content 14.1 Vol % (12.0-20.0) Arterial Blood 0.8 % (0-4) Carboxyhemoglobin Arterial Blood Methemoglobin 1.4 % (0-2) Blood Gas Hemoglobin 10.5 G/DL (12.0-16.0) Oxygen Delivery Device VENTILATOR Blood Gas Ventilator Setting CPAP 5/PSV 10 Blood Gas Inspired Oxygen 40 % Differential Total Cells 100 Counted Neutrophils % (Manual) 86 % (16-70) Lymphocytes % 9 % (9-44) Monocytes % 2 % (0-8) Eosinophils % 1 % (0-4) Basophils % 1 % (0-2) Neutrophils # (Manual) 15.7 TH/MM3 (1.8-7.7) Metamyelocytes 1 % (0-1) Nucleated Red Blood Cells 1 /100 WBC (0-0) Polychromasia 2.0 % (0.0-1.9) Test 12/04/16 11:05 Sodium Level 142 MEQ/L (136-145) Potassium Level 3.7 MEQ/L (3.5-5.1) Chloride Level 102 MEQ/L (98-107) Carbon Dioxide Level 19.5 MEQ/L (21.0-32.0) Anion Gap 21 MEQ/L (5-15) Blood Urea Nitrogen 106 MG/DL (7-18) Creatinine 9.62 MG/DL (0.50-1.00) Estimat Glomerular Filtration 4 ML/MIN (>89) Rate Random Glucose 132 MG/DL (74-106) Calcium Level 10.2 MG/DL (8.5-10.1) Phosphorus Level 7.2 MG/DL (2.5-4.9) Albumin 2.1 GM/DL (3.4-5.0) Result Diagram: 12/04/16 0348 12/04/16 1105 Imaging 11/24/16: Reintubation 11/24/16: Ventriculostomy placement 11/26/16: Upper gastrointestinal endoscopy Patient/Family Conference Issues Discussed: * Palliative care role, purpose, approach * Additional medical, psychosocial, and spiritual history * Patients general health, functional status, and cognitive changes in the months leading up to the current hospitalization * Patient/family understanding of the current medical problems * Patient/family understanding of prognosis * Patients goals of care as best understood from advance directives and/or conversations and/or values * Current medical treatment options and benefits/burdens of those options * Likely scenarios comparing ongoing aggressive care with a transition to comfort measures only * Questions answered to the best of my ability * Palliative care contact information provided Assessment and Plan Pertinent Non-Medical Issues Psychosocial: Spiritual: Evangelical diana Legal: Ethical issues impacting care: . Important Contacts Teresa Sandhu, sister: [phone] . Thank you for the opportunity to participate in the care of Ms. Kelly. Rebecca Caraballo Dec 04, 2016 16:42
--- NOTE | 2016-12-04 19:20 | HHI.NSPN ---
History Chief Complaint: intubated and sedated Interval History 76-year-old female transferred from [facility] 11/24/16 after being found at home unresponsive with positive bloody emesis. CT scan prior to transfer revealed subarachnoid hemorrhage. Patient intubated prior to transfer. CTA prior to transfer negative for aneurysm 11/24/16 cerebral angiogram negative for aneurysm. 11/24/16 ventriculostomy placed 11/26/16: Remains intubated and sedated. Mild eye opening. Localizes intermittent upper extremities 11/27/16: Weaning sedation and ventilator. Moderate eye opening to voice. She intermittently follows commands 11/28/16: Intubated. IV Sedation decreased. Opens eyes to voice, moves extremities to command 11/30/16: Remains intubated. Off IV sedation. A little less responsive today. 11/30/16 CT scan head with moderate hydrocephalus with ventriculostomy clamped. Ventriculostomy reopened at 5 cm water pressure 12/01/16: Patient on CPAP. Continued off IV sedation. More responsive with EVD at 5 cm water pressure, following commands with upper and lower extremities with moderate eye opening 12/03/16: Extubated. Somewhat more responsive today follows commands with all extremities. ICP 6 Exam Results Vital Signs Date Time Temp Pulse Resp B/P Pulse Ox O2 Delivery O2 Flow Rate FiO2 12/04/16 18:00 103 12/04/16 16:00 97.8 21 136/61 98 12/04/16 08:20 Nasal Cannula 4.00 12/03/16 12:16 40 Intake and Output 12/03/16 12/03/16 12/04/16 08:00 16:00 00:00 Intake Total 372 ml 487 ml 202 ml Output Total 70 ml 763 ml 0 ml Balance 302 ml -276 ml 202 ml Physical Examination Scalp incision dry and intact Respirations: Nonlabored respirations Cardiac regular rate Abdomen: Soft, diminished bowel sounds. Neurologic: Awake, spontaneous eye opening. 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 History of microscopic polyangiitis per renal biopsy 2013. Hypertension Plan Continues to be More responsive today. No sign of increased lethargy following removal of ventriculostomy on 12/03/16 Continue to observe neurologic exam for any further decline, with follow-up CT scan depending on clinical course Continue as needed antihypertensive medications Nimodipine for vasospasm prophylaxis Ulcer prophylaxis Non- chemical DVT prophylaxis She is stable for transfer to floor from neurosurgery standpoint. Donato Tian MD Dec 04, 2016 19:20
[2016-12-05] VITALS (18 sets, daily range): BP systolic 144–167; BP diastolic 63–76; PULSE 90–122; RESP 19–26; TEMP 98–99.2; O2SAT 90–98
[2016-12-05] MEDS: SODIUM CHLOR 0.9% 1000 ML INJ 1,000 ML IV SCH (03:40)
[2016-12-05] MEDS: CHLORHEXIDINE GLUCONATE 2 % 1 PACK (2 CLOTHS) TOP SCH (04:00)
[2016-12-05 04:34] LABS: AUTOMATED NEUTROPHIL # 16.1 TH/MM3 (1.8-7.7); BASOPHIL % 0.2 % (0.0-2.0); EOSINOPHIL % 0.1 % (0.0-4.0); LYMPH % 4.6 % (9.0-44.0); LYMPHOCYTE # 0.8 TH/MM3 (1.0-4.8); MEAN CELL VOLUME 94.1 FL (80.0-100.0); MEAN CORPUSCULAR HEMOGLOBIN 31.9 PG (27.0-34.0); MEAN CORPUSCULAR HGB CONC 33.9 % (32.0-36.0); NEUT % 89.1 % (16.0-70.0); PLATELET COUNT 515 TH/MM3 (150-450); RED CELL DISTRIBUTION WIDTH 15.4 % (11.6-17.2); WHITE BLOOD COUNT 18.1 TH/MM3 (4.0-11.0)
[2016-12-05 04:42] LABS: HEMO FLAGS AUTO DIFF
[2016-12-05 05:00] LABS: ANION GAP 21 MEQ/L (5-15); AST (GOT) 21 U/L (15-37); BICARBONATE 20.2 MEQ/L (21.0-32.0); BLOOD UREA NITROGEN 102 MG/DL (7-18); CHLORIDE 104 MEQ/L (98-107); GLOMERULAR FILTRATION RATE 4 ML/MIN (>89); MAGNESIUM 2.6 MG/DL (1.5-2.5); POTASSIUM 3.9 MEQ/L (3.5-5.1); SODIUM (NA) 145 MEQ/L (136-145)
[2016-12-05 05:02] LABS: ALKALINE PHOSPHATASE 63 U/L (45-117); ALT (GPT) 30 U/L (10-53); TOTAL BILIRUBIN ADULT 0.4 MG/DL (0.2-1.0)
[2016-12-05] MEDS: niMODipine 30 MG CAP PO SCH ×5 (05:05→23:58)
--- NOTE | 2016-12-05 06:27 | RADRPT ---
EXAM DATE/TIME: 12/05/2016 05:13 [facility] COMPARISON: CHEST SINGLE AP, December 02, 2016, 5:13. INDICATIONS : Respiratory failure. MEDICAL HISTORY : None. SURGICAL HISTORY : None. ENCOUNTER: Subsequent ACUITY: 3 days PAIN SCORE: Non-responsive. LOCATION: Bilateral chest FINDINGS: Single AP view of the chest. Endotracheal tube, nasogastric tube, and left subclavian central venous catheter no longer seen. Lung volumes are low. Mild patchy lower lung zone atelectasis. CONCLUSION: Endotracheal tube and nasogastric tube no longer seen. Lung volumes are low. Minimal patchy atelectas is at lung bases. Wili Canales MD on December 05, 2016 at 6:24 Board Certified Radiologist. This report was verified electronically.
[2016-12-05 07:40] LABS: BANDS 1 % (0-6); CORRECTED NUCLEATED RBC 1 /100 WBC (0-0); PLATELET ESTIMATE SMEAR HIGH (NORMAL); PLATELET MORPHOLOGY CLUMPED (NORMAL); POLYS (SEG NEUTROPHILS) 93 % (16-70); SCAN/DIFF FINAL DIFF MANUAL; WBC DIFF SAMPLE 100
[2016-12-05] MEDS: CALCIUM ACETATE 667 MG CAP PO SCH ×3 (08:33→17:35)
[2016-12-05] MEDS: predniSONE 20 MG TAB PO SCH (08:33)
[2016-12-05] MEDS: SODIUM BICARBONATE 325 MG TAB PO SCH ×2 (08:34→21:00)
[2016-12-05] MEDS: DOCUSATE SODIUM 100 MG/10 ML UDC PO SCH ×2 (08:34→21:00)
[2016-12-05] MEDS: CARVEDILOL 12.5 MG TAB PO SCH ×2 (08:34→21:00)
[2016-12-05] MEDS: SODIUM CHLORIDE 0.9% FLUSH 5 ML FLUSH IV FLUSH SCH ×2 (08:34→21:00)
[2016-12-05] MEDS: SENNOSIDES SYRUP 8.8 MG/5 ML CUP PO SCH (08:34)
[2016-12-05] MEDS: CHLORHEXIDINE 0.12% (ORAL KIT) 15 ML CUP MT SCH ×2 (08:34→20:00)
[2016-12-05] MEDS: ARTIFICIAL TEARS OPTH OINT 3.5 APPLIC/3.5 GM TUBO EACH EYE SCH ×2 (08:36→21:00)
--- NOTE | 2016-12-05 08:38 | HHI.NPPN ---
Subjective General Problems: Edema Renal Failure: Chronic, Acute, End Stage Renal Disease Interval History she is lethargic, does not follow verbal cues. According to the RN, no spontaneous movement. Apparently able to swallow food. Review of Systems General General Remarks unable to evaluate Objective Data Data 12/04/16 12/05/16 19:00 07:00 Intake Total 142 ml 1642 ml Output Total 1112 ml 0 ml Balance -970 ml 1642 ml Intake Oral 1440 ml IV Total 142 ml 202 ml Output Urine Total 0 ml 0 ml Peritoneal Fluid 1112 ml # Bowel Movements 0 1 Vital Signs Date Time Temp Pulse Resp B/P Pulse Ox O2 Delivery O2 Flow Rate FiO2 12/05/16 06:00 97 12/05/16 04:00 95 12/05/16 04:00 98.3 98 20 167/74 96 12/05/16 02:00 102 12/05/16 00:00 96 12/05/16 00:00 98.2 102 24 144/70 96 12/04/16 22:00 66 12/04/16 20:00 101 12/04/16 20:00 98.0 90 19 160/74 98 12/04/16 18:00 103 12/04/16 16:00 97.8 77 21 136/61 98 12/04/16 16:00 77 12/04/16 14:00 92 12/04/16 12:00 97.6 88 24 134/74 97 12/04/16 12:00 94 12/04/16 10:00 93 -: 12/05/16 0421 12/05/16 0421 Tubes & Lines: Tenckhoff Catheter Physical Exam General Appearance: Well Developed, Well Nourished Throat Throat Exam: Oral Mucosa [place] & Moist Pulmonary Resp Exam: Clear Bilaterally, Breath Sounds Equal Cardiology CV Exam: Regular, Normal Sinus Rhythm Gastrointestinal/Abdomen GI Exam: Soft, Non-Tender Musculoskeletal MS Exam: Joints Intact, Normal Tone Integumentary Skin Exam: Warm, Dry Extremeties Extremities Exam: Pedal Pulses Palpable, Dependent Edema Neurologic Neuro Exam: Awake, Moving All Extremities, Obtunded Assessment/Plan Assessment Summary: Anemia of CKD, End Stage Renal Disease Problem List: (1) ESRD (end stage renal disease) Plan: a biopsy proved microscopic polyangiitis, P-ANCA positive in 2013 now ESRD on PD We used 4.25 % and 2.5 % dextrose PD solution yesterday, able to obtain UF of about 1800 ml. To use 2.5 % dextrose today. It is unclear if she has cerebral vasculitis. On Steroid taper. (2) SAH (subarachnoid hemorrhage) Plan: Aneurysm has been ruled out Surgical intervention s/p craniotomy with ICP monitoring; EVD has been removed; transcranial doppler shows no vasospasm BP stable she will need intensive rehab (3) Acute respiratory failure Plan: successfully extubated, on nasal cannula on thickened liquids, pureed diet (4) Uncontrolled hypertension Plan: BP stable (5) GI bleeding Plan: Gastroenterology has evaluated no further bleeding on protonix BID EGD: gastritis (6) Severe sepsis Plan: On rocephin sputum with Klebsiella monitor clinically, she is afebrile PD fluid not infected (7) Anemia Plan: Hb improved given epogen and venofer follow hemoglobin Problem Qualifiers (1) Acute respiratory failure: Qualified Code: J96.01 - Acute respiratory failure with hypoxia (2) Anemia: Georges Shankar MD Dec 05, 2016 08:38
--- NOTE | 2016-12-05 09:34 | RADRPT ---
EXAM DATE/TIME: 12/05/2016 07:54 [place] COMPARISON: US TRANSCRANIAL DOPPLER COMPLETE, December 04, 2016, 8:09. INDICATIONS : Subarachnoid hemorrhage. MEDICAL HISTORY : End stage renal disease. Anemia. Gastritis. Subarachnoid hemorrhage. Pneumonia. SURGICAL HISTORY : Ventriculostomy. ENCOUNTER: Sequela ACUITY: 1 day PAIN SCORE: Nonresponsive. LOCATION: Bilateral cranial Current Exam: Dec 05, 2016 [place] Ratio: Right: 1.8 Left: 0.7 [place] Ratio: Right: 1.7 Left: 0.6 Previous Exam: Dec 04, 2016 [place] Ratio: Right: 1.3 Left: 0.7 [place] Ratio: Right: 1.0 Left: 0.6 FINDINGS: Examination performed at bedside. Real-time ultrasound with the assistance of color and spectral Dop pler was utilized to evaluate the intracerebral circulation. Time-averaged maximal velocities are ca lculated in cm/s. Mildly elevated right MCA velocity compared to prior exams however ratios remain within normal limits . CONCLUSION: Slight increase in right MCA velocity but no evidence of significant vasospasm. Dallas Sánchez MD on December 05, 2016 at 9:30 Board Certified Radiologist. This report was verified electronically.
--- NOTE | 2016-12-05 11:08 | PD.CONS ---
Consult Service Palliative Care Consult Requested By Dr. Toledo . Primary Care Physician Unknown . Reason for Consultation a. To assist with evaluation and management of symptoms including: Pain, dyspnea, encephalopathy b. To assist medical decision maker(s) with: better understanding of current medical conditions; weighing benefits/burdens of medical treatment options; making medical treatment decisions. . (Rebecca Caraballo) HPI History of Present Illness Patient is a 76-year-old female who was transferred from [facility] on 11/25/16 For medical management of an extensive subarachnoid hemorrhage. The patient's sister noted the patient had tearing and chest worsening headaches and progressive fatigue over the previous 3-4 weeks. Per report, the patient was found unconscious the day before surrounded by bloody vomitus. Upon arrival to [facility] ED the patient's systolic blood pressure was in the 190s. Taken for EGD with emerald michelle bleeding S/P clip application.. A CT of the head was significant for extensive subarachnoid hemorrhage and intraventricular hemorrhage Upon arrival to [facility], the patient was sedated with Diprivan, on a Cardene infusion for blood pressure control and Protonix drip for GIP. There was an audible cuff leak and the patient was extubated and then reintubated by Dr. Toledo. Neurosurgery and gastroenterology were consulted. Dr Tian evaluated the patient who was taken to the OP for ventriculostomy catheter placement. The patient was started on Nimodipine for vasospasm prophylaxis and Keppra for seizure prophylaxis. Cerebral angiogram showed no evidence of aneurysm. Dr. Parrish, nephrology, was also consulted as the patient has ESRD and is on peritoneal dialysis. Patient has a history of microscopic polyangiitis per renal biopsy in 2013. BUN 58, creatinine 7.65 and GFR 5 on arrival to [facility]. Recommendations were made to resume peritoneal dialysis with the catheter in place. On 11/25/16, the patient remains sedated, but arousable, orally intubated on mechanical ventilator. WBC of 13.7 trending downward, previously 22.6 on admission. Lactic acid on admission was 3.1. Follow-up chest x-ray showing persistent left basilar consolidation with developing right basilar airspace disease. Blood and peritoneal fluid cultures remain negative to date. Sputum culture with + Klebsiella pneumoniae growth. Patient received IV Vancomycin 1 , remains on Zosyn 3.375 g IV every 6 hours. Patient underwent an EGD on 11/26/16 with which showed some gastritis from ET tube suction, otherwise negative. Recommendations were made for an outpatient colonoscopy if patient continues to have anemia. Will initiate tube feedings. An EEG on 11/28/16 was abnormal with severe bihemispheric slowing suggestive of moderate to severe fuse disturbance of cerebral function. No epileptiform features were present. 11/30/16 CT scan head with moderate hydrocephalus with ventriculostomy clamped. Ventriculostomy was reopened with 5 cm water pressure. 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 Recommendations were made to continue the patient on high-dose corticosteroids and monitor her closely-possibly delay systemic therapy with Rituxan until the patient has clinically improved to the point where she can be discharged home. Follow-up chest x-ray on 11/30/16 shows improving bilateral lower lung infiltrates with some residual consolidation at the left base. Follow-up sputum culture on 12/01/16 continues to grow Klebsiella, antibiotics changed to ceftriaxone. Blood cultures remain negative to date. Patient was extubated on 12/03/16 but remains encephalopathic. No vasospasms noted on transcranial Doppler studies. Palliative Care was consulted to assist with symptom management and to discuss with the family the benefits and burdens of her current illnesses and the options regarding future care. . Function/Cognitive Trajectory Spoke to Patient's sister, Teresa, via telephone. Discussed patient's hospital course and overall clinical condition. Palliative care will meet with family tomorrow 12/06/16 at 11 AM to discuss transitioning to comfort focus care. . (Rebecca Caraballo) Review of Systems ROS Limitations: Clinical Condition, Intubated, Unresponsive (Rebecca Caraballo) Past Family Social History Coded Allergies: No Known Allergies (Unverified , 11/28/16) Past Medical History New subarachnoid hemorrhage End-stage renal disease on peritoneal dialysis Hypertension GI Bleeding, requiring control of bleeding with clips . Past Surgical History Renal biopsy EGD . Reported Medications Zofran 4 mg by mouth 3 times a day when necessary for nausea Acetaminophen 325 mg by mouth every 6 hours when necessary for pain scale 1-10. Probiotic 1 tablet by mouth as directed Docusate sodium 100 mg capsule, 1 capsule by mouth twice a day. Fosrenol 1000 mg chewable tablet 3 times a day. Levothyroxine 100 g by mouth daily. . Current Medications Medications (Trade) Dose Ordered Sig/Wan Route Start Time Stop Time Status Last Admin (Nimotop) 60 mg Q4HR PO 11/24/16 04:00 12/05/16 08:33 (Colace Liq) 100 mg Q12HR PO 11/24/16 09:00 12/04/16 20:31 Sennosides 8.8 mg 8.8 mg DAILY PO 11/24/16 09:00 12/01/16 09:04 (NS 1000 ml Inj) 1,000 ml @ 10 mls/hr Q24H IV 11/24/16 03:40 12/04/16 08:00 (NS Flush) 2 ml UNSCH PRN IV FLUSH 11/24/16 03:45 (NS Flush) 2 ml BID IV FLUSH 11/24/16 09:00 12/05/16 08:34 (Tylenol) 650 mg Q6H PRN PO 11/24/16 03:45 Miscellaneous Information 1 Q361D XX 11/24/16 03:45 11/24/16 03:45 (Chlorhexidine 2% Cloth) Taper DAILY@04 TOP 11/24/16 04:00 11/20/17 03:59 12/05/16 04:00 (Chlorhexidine 2% Cloth) 3 pack UNSCH PRN TOP 11/24/16 03:45 (Lacrilube Opht Oint) 1 applic Q12HR EACH EYE 11/24/16 21:00 12/05/16 08:36 (NS Flush) 10 ml UNSCH PRN IVF 11/25/16 09:30 (Protonix Inj) 40 mg Q12H IV PUSH 11/27/16 12:00 12/04/16 23:34 (Peridex 0.12% Liq) 15 ml BID@08,20 MT 11/27/16 20:00 12/05/16 08:34 (Coreg) 12.5 mg Q12HR PO 11/27/16 21:00 12/05/16 08:34 (Trandate Inj) 10 mg Q1HR PRN IV PUSH 11/27/16 17:00 (Nitroglycerin 2% Oint) 2 inch Q6HR PRN TOPICAL 11/27/16 17:00 (Apresoline Inj) 10 mg Q1HR PRN IV PUSH 11/27/16 17:00 12/03/16 08:27 (Phoslo) 2,001 mg TID PO 11/29/16 18:00 12/05/16 08:33 Ondansetron HCl 4 mg 4 mg Q4HR PRN IV PUSH 11/29/16 17:00 12/04/16 10:49 (Rocephin Inj/NS Inj) 100 ml @ 200 mls/hr Q24H IV 12/03/16 14:00 12/04/16 13:30 (Deltasone) 40 mg DAILY PO 12/05/16 09:00 12/05/16 08:33 (Sodium Bicarbonate) 325 mg Q12HR PO 12/04/16 15:00 12/05/16 08:34 . Family History Negative cardiac disease cancer, diabetes . Substance Use Tobacco: None known Alcohol: None known Prescription med abuse: None known Illicits: None known Psychosocial History Patient was born and raised in [place], [place]. She had 3 brothers and 3 sisters. The patient's 3 brothers and one sister are . She has one sister that she has not seen and 25 years and another sister (Teresa Sandhu) who she has designated as her health care surrogate. 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 . Spiritual/Cultural Factors Holiness diana . (Rebecca Caraballo) Living Will: Copy in medical record Health Care Surrogate: Copy in medical record Date completed: 10/12/10 . Health Care Surrogate(s): Patient's sister, Teresa Sandhu, is the designated as health care surrogate. . Documented care wishes: Patient has a living will that was completed on 10/12/10. A copy was placed in the patient's paper chart and faxed to HIM to be scanned in to the patient's EMR. . Today's verbally stated goals: Patient's is currently not capacitated to participate in clarification of medical treatment goals. It is unclear if the patient will regain capacity in the future. . Family/friends goals: Family meeting with palliative care tomorrow 12/06/16 at 11 AM to discuss medical treatment goals. Family will likely transition to comfort focused care in the near future. . Ethical and Legal Issues No known ethical legal issues impacting care at this time. . (Rebecca Caraballo) Physical Exam Vital Signs Date Time Temp Pulse Resp B/P Pulse Ox O2 Delivery O2 Flow Rate FiO2 12/05/16 06:00 97 12/05/16 04:00 95 12/05/16 04:00 98.3 98 20 167/74 96 12/05/16 02:00 102 12/05/16 00:00 96 12/05/16 00:00 98.2 102 24 144/70 96 12/04/16 22:00 66 12/04/16 20:00 101 12/04/16 20:00 98.0 90 19 160/74 98 12/04/16 18:00 103 12/04/16 16:00 97.8 77 21 136/61 98 12/04/16 16:00 77 12/04/16 14:00 92 12/04/16 12:00 97.6 88 24 134/74 97 12/04/16 12:00 94 . 12/04/16 12/05/16 19:00 07:00 Intake Total 142 ml 1642 ml Output Total 1112 ml 0 ml Balance -970 ml 1642 ml Intake Oral 1440 ml IV Total 142 ml 202 ml Output Urine Total 0 ml 0 ml Peritoneal Fluid 1112 ml # Bowel Movements 0 1 . Exam CONSTITUTIONAL/GENERAL: This is an adequately nourished, elderly female patient , in moderate respiratory distress. TUBES/LINES/DRAINS: PIV x 2, Partial NRB SKIN: No jaundice, rashes, or lesions. Ecchymoses on upper extremities. No wounds seen anteriorly. Skin temperature appropriate. Not diaphoretic. HEAD: Status post right-sided EVD-removed EYES: Pupils 3mm and round and sluggish. No scleral icterus. No injection or drainage. . ENT: Nose without bleeding or purulent drainage. NECK: Trachea midline. CARDIOVASCULAR: Regular rate and rhythm without murmurs, gallops, or rubs. No JVD. RESPIRATORY/CHEST: Breath sounds diminished bilaterally. Coarse breath sounds. On partial NRB. GASTROINTESTINAL: Abdomen soft, non-tender, nondistended. Peritoneal dialysis cath in place. GENITOURINARY: Without palpable bladder distension. Rosales catheter in place. MUSCULOSKELETAL: Extremities without clubbing, cyanosis, or edema. No joint tenderness or effusion noted. No calf tenderness. No mottling or clubbing. LYMPHATICS: No palpable cervical or supraclavicular adenopathy. NEUROLOGICAL: Lethargic, difficult to arouse. Does not following commands. PSYCHIATRIC: Unable to assess 2/2 clinical condition. . (Rebecca Caraballo) Diagnostic Tests Laboratory Laboratory Tests Test 12/03/16 12/04/16 12/04/16 12/05/16 03:49 03:48 11:05 04:21 Sodium Level 140 MEQ/L 142 MEQ/L 145 MEQ/L (136-145) (136-145) (136-145) Potassium Level 3.3 MEQ/L 3.7 MEQ/L 3.9 MEQ/L (3.5-5.1) (3.5-5.1) (3.5-5.1) Chloride Level 101 MEQ/L 102 MEQ/L 104 MEQ/L (98-107) (98-107) (98-107) Carbon Dioxide Level 16.9 MEQ/L 19.5 MEQ/L 20.2 MEQ/L (21.0-32.0) (21.0-32.0) (21.0-32.0) Anion Gap 22 MEQ/L (5-15) 21 MEQ/L (5-15) 21 MEQ/L (5-15) Blood Urea Nitrogen 93 MG/DL (7-18) 106 MG/DL 102 MG/DL (7-18) (7-18) Creatinine 8.39 MG/DL 9.62 MG/DL 9.39 MG/DL (0.50-1.00) (0.50-1.00) (0.50-1.00) Estimat Glomerular Filtration 5 ML/MIN (>89) 4 ML/MIN (>89) 4 ML/MIN (>89) Rate Random Glucose 121 MG/DL 132 MG/DL 130 MG/DL (74-106) (74-106) (74-106) Calcium Level 9.7 MG/DL 10.2 MG/DL 11.2 MG/DL (8.5-10.1) (8.5-10.1) (8.5-10.1) Phosphorus Level 5.6 MG/DL 7.2 MG/DL 6.5 MG/DL (2.5-4.9) (2.5-4.9) (2.5-4.9) Albumin 2.3 GM/DL 2.1 GM/DL 2.4 GM/DL (3.4-5.0) (3.4-5.0) (3.4-5.0) White Blood Count 18.1 TH/MM3 18.1 TH/MM3 (4.0-11.0) (4.0-11.0) Red Blood Count 3.26 MIL/MM3 3.40 MIL/MM3 (4.00-5.30) (4.00-5.30) Hemoglobin 10.3 GM/DL 10.8 GM/DL (11.6-15.3) (11.6-15.3) Hematocrit 30.8 % 32.0 % (35.0-46.0) (35.0-46.0) Mean Corpuscular Volume 94.5 FL 94.1 FL (80.0-100.0) (80.0-100.0) Mean Corpuscular Hemoglobin 31.6 PG 31.9 PG (27.0-34.0) (27.0-34.0) Mean Corpuscular Hemoglobin 33.5 % 33.9 % Concent (32.0-36.0) (32.0-36.0) Red Cell Distribution Width 15.5 % 15.4 % (11.6-17.2) (11.6-17.2) Platelet Count 530 TH/MM3 515 TH/MM3 (150-450) (150-450) Mean Platelet Volume 6.6 FL 6.7 FL (7.0-11.0) (7.0-11.0) Neutrophils (%) (Auto) 87.5 % 89.1 % (16.0-70.0) (16.0-70.0) Lymphocytes (%) (Auto) 6.8 % 4.6 % (9.0-44.0) (9.0-44.0) Monocytes (%) (Auto) 5.1 % (0.0-8.0) 6.0 % (0.0-8.0) Eosinophils (%) (Auto) 0.3 % (0.0-4.0) 0.1 % (0.0-4.0) Basophils (%) (Auto) 0.3 % (0.0-2.0) 0.2 % (0.0-2.0) Neutrophils # (Auto) 15.8 TH/MM3 16.1 TH/MM3 (1.8-7.7) (1.8-7.7) Lymphocytes # (Auto) 1.2 TH/MM3 0.8 TH/MM3 (1.0-4.8) (1.0-4.8) Monocytes # (Auto) 0.9 TH/MM3 1.1 TH/MM3 (0-0.9) (0-0.9) Eosinophils # (Auto) 0.0 TH/MM3 0.0 TH/MM3 (0-0.4) (0-0.4) Basophils # (Auto) 0.1 TH/MM3 0.0 TH/MM3 (0-0.2) (0-0.2) CBC Comment AUTO DIFF AUTO DIFF Differential Total Cells 100 100 Counted Neutrophils % (Manual) 86 % (16-70) 93 % (16-70) Lymphocytes % 9 % (9-44) 2 % (9-44) Monocytes % 2 % (0-8) 4 % (0-8) Eosinophils % 1 % (0-4) Basophils % 1 % (0-2) Neutrophils # (Manual) 15.7 TH/MM3 17.0 TH/MM3 (1.8-7.7) (1.8-7.7) Metamyelocytes 1 % (0-1) Nucleated Red Blood Cells 1 /100 WBC 1 /100 WBC (0-0) (0-0) Differential Comment FINAL DIFF FINAL DIFF MANUAL MANUAL Platelet Estimate HIGH (NORMAL) HIGH (NORMAL) Platelet Morphology Comment NORMAL CLUMPED (NORMAL) (NORMAL) Polychromasia 2.0 % (0.0-1.9) Band Neutrophils % 1 % (0-6) Red Cell Morphology Comment NORMAL (NORMAL) Magnesium Level 2.6 MG/DL (1.5-2.5) Total Bilirubin 0.4 MG/DL (0.2-1.0) Aspartate Amino Transf 21 U/L (15-37) (AST/SGOT) Alanine Aminotransferase 30 U/L (10-53) (ALT/SGPT) Alkaline Phosphatase 63 U/L (45-117) Total Protein 6.3 GM/DL (6.4-8.2) . (Rebecca Caraballo) Result Diagram: 12/05/16 0421 12/05/16 0421 Imaging Last 72 hours Impressions Transcranial Doppler Study Complete 12/05/16 1415 Signed Impressions: Service Date/Time: November 07:54 - CONCLUSION: Slight increase in right MCA velocity but no evidence of significant vasospasm. Dallas Sánchez MD Chest X-Ray 12/05/16 0600 Signed Impressions: Service Date/Time: November 05:13 - CONCLUSION: Endotracheal tube and nasogastric tube no longer seen. Lung volumes are low. Minimal patchy atelectasis at lung bases. Wili Canales MD Chest X-Ray 12/05/16 0000 Signed Impressions: Service Date/Time: November 11:22 - CONCLUSION: 1. Under-aerated. 2. Compensated cardiomegaly. Abdiel Casas MD FACR Transcranial Doppler Study Complete 12/04/161414 Signed Impressions: Service Date/Time: Sunday, December 04, 2016 08:09 - CONCLUSION: No evidence for significant vasospasm. Abdiel Casas MD FACR Transcranial Doppler Study Complete 12/03/161414 Signed Impressions: Service Date/Time: Saturday, December 03, 2016 08:10 - CONCLUSION: No evidence of spasm. Tre Melton MD . Procedures ===== Left subclavian central line placement SECTION MAINTAINER 11/24/16: Ventriculostomy placement 11/26/16: EGD 12/03/16: Ventriculostomy removed 12/03/16: Extubation (Rebecca Caraballo) Patient/Family Conference Present at Family Conference: Spoke patient's sister via telephone. Tentative family meeting scheduled for tomorrow 12/06/16 at 11 AM. . Family Conference Location: Bedside, Telephone Issues Discussed: * Palliative care role, purpose, approach * Additional medical, psychosocial, and spiritual history * Patients general health, functional status, and cognitive changes in the months leading up to the current hospitalization * Patient/family understanding of the current medical problems * Patient/family understanding of prognosis * Patients goals of care as best understood from advance directives and/or conversations and/or values * Current medical treatment options and benefits/burdens of those options * Likely scenarios comparing ongoing aggressive care with a transition to comfort measures only * Questions answered to the best of my ability * Palliative care contact information provided . (Rebecca Caraballo) Assessment and Plan Disease Oriented Problem List: (1) Acute respiratory failure (2) SAH (subarachnoid hemorrhage) (3) Peritoneal dialysis catheter in place (4) Acute encephalopathy (5) LLL pneumonia (6) IVH (intraventricular hemorrhage) (7) Leukocytosis (8) Severe sepsis (9) GI bleeding (10) ESRD (end stage renal disease) (11) Anemia Symptom Scale: (1) Pain 0-10 Scale: Unable to quantify (2) Encephalopathy 0-10 Scale: Unable to quantify (3) Dyspnea 0-10 Scale: Unable to quantify Pertinent Non-Medical Issues Psychosocial:Patient was born and raised in [place], [place]. She had 3 brothers and 3 sisters. The patient's 3 brothers and one sister are . She has one sister that she has not seen and 25 years and another sister (Teresa Sandhu ) who she has designated as her health care surrogate. 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 Spiritual: Holiness diana Legal: Patient's sister, Teresa Sandhu, is the designated health care surrogate. Ethical issues impacting care: No known ethical issues impacting care at this time. . Important Contacts Teresa Sandhu, sister: [phone] . Code Status: No Code Plan * NO CODEDNR * Decision-making: Patient is currently not capacitated to participate and clarification of medical treatment goals. Patient's sister, Teresa Sandhu, is the designated health care surrogate. * Written advanced directives: Patient completed a health care surrogate form and living will on 10/12/10. Copies were placed in the patient's paper chart and faxed to HIM to be scanned into the patient's EMR. * Goals: Pending family meeting tomorrow 12/06/16 at 11 AM. Family will likely transition to comfort focused care, hospice. * Palliative care contact information was provided to the patient's sister. * Discussed with Dr. Toledo and patient's nurse. * Palliative care will continue to follow this patient throughout her hospitalization to establish trust, assist with symptom management and clarification of medical treatment goals. . (Rebecca Caraballo) Thank you for the opportunity to participate in the care of Ms. Kelly. (Rebecca Caraballo) Collaborating MD Comments Chart reviewed. Cased discussed with palliative care OFFICE MACHINES SALES REPRESENTATIVE. Above OFFICE MACHINES SALES REPRESENTATIVE note reviewed and I concur. . (Delonte Nunn MD) Rebecca Caraballo Dec 05, 2016 11:08 Delonte Nunn MD February 17, 2017 13:23
--- NOTE | 2016-12-05 11:31 | HHI.CCPN ---
Subjective Remarks/Hospital Course 11/24: Patient is a 76-year-old female who was transferred from [facility] with extensive subarachnoid hemorrhage. Unfortunately I do not have any history and physical or discharge summary available neither CT reports. All history I have is from discussion with Dr. Tian. Apparently patient was found unconscious yesterday in a pool of bloody vomitus. She was intubated and admitted to the [facility] ICU. She underwent EGD, again report is not available to me, and was placed on Protonix infusion. After EGD patient underwent a CT of the head which showed extensive subarachnoid hemorrhage, and IVH. Dr. Tian was contacted who recommended a CT angiogram. CT angiogram did not show an aneurysm but showed probable mild obstructive hydrocephalus. Dr. Tian accepted transfer to [facility] for further care, and patient was admitted to critical care medicine. Only medical history available to me is that patient is on peritoneal dialysis, and has history of hypertension Dr. Toledo evaluated the patient in the ICU. Patient is sedated with propofol is on Cardene infusion for blood pressure control. Also on Protonix gtt for GIB On sedation hold patient withdraws all 4 extremities. Pupils are slightly reactive. There was audible cuff leak. Tube exchange attempted by respiratory therapist was unsuccessful. So Dr. Toledo extubated and endotracheally intubated the patient with new ET tube. Dr. Tian from neurosurgery evaluated patient and performed a ventriculostomy. 11/25: Remains sedated, arousable, orally intubated on mechanical ventilation. 11/26: Remains sedated, orally intubated on mechanical ventilation. Withdraws all 4 extremities with painful stimuli. Ventriculostomy in place. 11/27: Tmax 99.5. Tube feeds started take currently 10. Today, tachypneic on the ventilator will try sedation. Was arousable and open eyes but does not follow commands. Currently moving upper extremities spontaneously. 11/28: Currently on sedation vacation. Arousable and did wiggle bilateral feet to command. Tube feeds currently low dose. 11/29: Afebrile. Off Cardene drip. Arousable and does wiggle feet and toes command. Tolerating tube feeding. Positive BM. Subjective 11/30: Afebrile. Intermittently follows commands but not consistently. Will squeeze hands and wiggle toes. Tolerating tube feeding at 30 cc an hour. Positive BM. 12/01 still too lethargic to attempt SBT 12/02: Intermittently opens eyes, not really following commands consistently. Occasionally uses consult with the left hand. No fever. I doubt she'll be able to come over ventilator today. 12/03: Sputum 11/29 growing Klebsiella, convert to ceftriaxone. 12/04: Extubated 12/03. Protecting airway. More lethargic today, but wakes up, not following commands. no vasospasm on TCD 12/05: More lethargic and hypoxic today. Possible aspiration. Palliative care consulted. Prognosis appears very poor Objective Vital Signs Date Time Temp Pulse Resp B/P Pulse Ox O2 Delivery O2 Flow Rate FiO2 12/05/16 11:07 94 Partial Rebreather 15.00 12/05/16 08:00 94 12/05/16 08:00 99.1 20 154/70 12/03/16 12:16 40 Intake and Output 12/04/16 12/04/16 12/05/16 08:00 16:00 00:00 Intake Total 93 ml 142 ml 1324 ml Output Total 0 ml 1112 ml 0 ml Balance 93 ml -970 ml 1324 ml Result Diagram: 12/05/16 0421 12/05/16 0421 Imaging Last Impressions Head CT 11/30/16 06 Signed Impressions: Service Date/Time: Wednesday, November 30, 2016 04:34 - CONCLUSION: 1. Bilateral subarachnoid hemorrhage, greater on the right than on the left and intraventricular blood, similar to recent MRI. No evidence of midline shift or intra-axial blood. 2. The right frontal ventriculostomy catheter tip is located medial to the trigone of the right lateral ventricle. Lennox Garcia MD Chest X-Ray 11/30/16 0600 Signed Impressions: Service Date/Time: Wednesday, November 30, 2016 04:55 - CONCLUSION: Improving bilateral lower lung infiltrates with some residual consolidation at the left base. Lennox Garcia MD Brain MRI 11/28/16 0000 Signed Impressions: Service Date/Time: November 12:53 - CONCLUSION: 1. There are blood products layering within the occipital horns bilaterally and along the sulci in the right temporoparietal region. Possible mild subarachnoid blood products also layer along the left temporal region sulci. 2. Ventricles are prominent but not enlarged. Right frontal ventricular shunt is present. 3. There are no findings to indicate recent ischemia. Tre De Luna MD Cerebral Arteriogram 11/24/16 0000 Signed Impressions: Service Date/Time: Thursday, November 24, 2016 11:39 - CONCLUSION: 1. No evidence of aneurysm Jonnie Schaeffer MD Objective Remarks GENERAL: 76-year-old Elderly female critically ill SKIN: Warm and dry. No rash HEAD: Status post right-sided EVD-removed EYES: No scleral icterus. No injection or drainage. Pupils are 3 mm sluggishly reactive ENT: On p NRB NECK: Supple, trachea midline. No JVD or lymphadenopathy. CARDIOVASCULAR: Regular rate and rhythm S1, S2. No S4. Without murmurs, rubs RESPIRATORY: Breath sounds equal bilaterally, but diminished. Bilateral coarse breath sounds GASTROINTESTINAL: Abdomen soft, non-tender, nondistended. PD catheter in place MUSCULOSKELETAL: No cyanosis. Well perfused. Neuro: Patient is somnolent and lethargic hardly opens eyes today to sternal rub. Very slight withdrawal to painful stimuli. Not following commands A/P Assessment and Plan NEURO: Subarachnoid hemorrhage Intraventricular extension Hydrocephalus Acute encephalopathy Cerebral vasculitis -EVD removed 12/03. TCD 12/04, 12/05 no vasospasm -Keep sodium more than 145 -Monitor for vasospasm, Nimotop 60 mg every 4hr 21 days -Keppra 500 mg twice a day for seizure prophylaxis RESP: Acute respiratory failure Left lower lobe pneumonia Hypoxia -Extubated and re intubated with new ETT, on day of admission. Extubated 12/03. -Worsening oxygenation, possible aspiration. patient is a DNI. recommend hospice -DuoNeb every 6 hours and when necessary -Sputum culture 11/25 with Klebsiella pneumonia/pansensitive, on Rocephin -Repeat CXR today CV: Uncontrolled hypertension -Currently in Coreg 12.5 twice a day. Cardene drip discontinued, use as needed -Continue on Nimotop 60 mg every 4 hours 21 days GI: Upper GI bleed -Keep NPO due to AMS -IV Protonix -Colace, senna for bowel regimen -EGD -11/26 revealed some gastritis from NG tube suction otherwise negative : End-stage renal disease on peritoneal dialysis -Monitor renal function closely. Rosales catheter. -Nephrology Dr. Hoskote following for peritoneal dialysis management ID: Left lower lobe pneumonia Severe sepsis Leukocytosis Continue Rocephin Pertinent cultures Blood cultures 2 - 11/24 - no growth Peritoneal fluid - 11/24 - no growth Sputum - 11/25 - Klebsiella sputum and blood 12/01 pending HEME: Normocytic anemia Leukocytosis Thrombocytosis -Monitor CBC, CMP, coags -Patient has a history of microscopic polyangiitis per Dr. Shankar which resulted in her renal failure requiring dialysis. -Antimyeloperoxidase Ab positive ENDO: Hypokalemia Hyperphosphatemia -Electrolyte replacement as needed -Continue PhosLo by mouth 3 times a day RHEUM P-ANCA + Pulse prednisone therapy [address] Parrish. PROPH: Bilateral lower extremity SCDs. Pharmacological DVT prophylaxis is contraindicated, until cleared by Dr. Tian. Continue Protonix LINES: -PIV Overall impression: Critically ill after SAH, now extubated but encephalopathic. Bronchitis with Klebsiella persists. Patient not protecting airway, mental status deteriorating. Patient is a DNR. I recommended hospice due to clinical deterioration. Will discuss with N/S Level 2 Antonia Toledo MD Dec 05, 2016 11:31
[2016-12-05] MEDS: PANTOPRAZOLE SODIUM 40 MG VIAL IV PUSH SCH ×2 (12:18→23:57)
--- NOTE | 2016-12-05 12:20 | RADRPT ---
EXAM DATE/TIME: 12/05/2016 11:22 [facility] COMPARISON: CHEST SINGLE AP, December 05, 2016, 5:13. INDICATIONS : Difficulty breathing. MEDICAL HISTORY : End stage renal disease. Anemia. Gastritis. Subarachnoid hemorrhage. SURGICAL HISTORY : Ventriculostomy. ENCOUNTER: Subsequent ACUITY: 4 - 6 days PAIN SCORE: Non-responsive. LOCATION: Bilateral chest FINDINGS: The lungs are under-aerated but clear. The heart is minimally enlarged. The pulmonary vascularity i s normal. The portions of the bony skeleton visualized are unremarkable. CONCLUSION: 1. Under-aerated. 2. Compensated cardiomegaly. Abdiel Casas MD FACR on December 05, 2016 at 12:11 Board Certified Radiologist. This report was verified electronically.
[2016-12-05] MEDS: cefTRIAXone INJ 1,000 MG in SODIUM CHLORIDE 0.9% INJ 100 ML IV SCH (13:19)
[2016-12-05] MEDS: hydrALAZINE HCL 20 MG/ML VIAL IV PUSH PRN (15:39)
--- NOTE | 2016-12-05 19:41 | HHI.NSPN ---
History Chief Complaint: intubated and sedated Interval History 76-year-old female transferred from [facility] 11/24/16 after being found at home unresponsive with positive bloody emesis. CT scan prior to transfer revealed subarachnoid hemorrhage. Patient intubated prior to transfer. CTA prior to transfer negative for aneurysm 11/24/16 cerebral angiogram negative for aneurysm. 11/24/16 ventriculostomy placed 11/26/16: Remains intubated and sedated. Mild eye opening. Localizes intermittent upper extremities 11/27/16: Weaning sedation and ventilator. Moderate eye opening to voice. She intermittently follows commands 11/28/16: Intubated. IV Sedation decreased. Opens eyes to voice, moves extremities to command 11/30/16: Remains intubated. Off IV sedation. A little less responsive today. 11/30/16 CT scan head with moderate hydrocephalus with ventriculostomy clamped. Ventriculostomy reopened at 5 cm water pressure 12/01/16: Patient on CPAP. Continued off IV sedation. More responsive with EVD at 5 cm water pressure, following commands with upper and lower extremities with moderate eye opening 12/03/16: Extubated. Somewhat more responsive today follows commands with all extremities. ICP 6 12/05/16: More lethargic. Nonrebreather. Not following commands Exam Results Vital Signs Date Time Temp Pulse Resp B/P Pulse Ox O2 Delivery O2 Flow Rate FiO2 12/05/16 18:00 102 12/05/16 17:14 92 Partial Rebreather 15.00 12/05/16 17:07 50 12/05/16 16:00 99.2 23 145/63 Intake and Output 12/04/16 12/04/16 12/05/16 08:00 16:00 00:00 Intake Total 93 ml 142 ml 1324 ml Output Total 0 ml 1112 ml 0 ml Balance 93 ml -970 ml 1324 ml Physical Examination Scalp incision dry and intact Respirations: Somewhat shallow. Nonrebreather Cardiac regular rate Abdomen: Soft, diminished bowel sounds. Neurologic: Moderate lethargy. Opens eyes moderate to voice Not following commands Withdraws UE's to deep pain Moderate conjugate extraocular movements Pupils 3 mm reactive Lab, Micro, Other Results Laboratory Tests Test 12/05/16 04:21 White Blood Count 18.1 TH/MM3 Red Blood Count 3.40 MIL/MM3 Hemoglobin 10.8 GM/DL Hematocrit 32.0 % Mean Corpuscular Volume 94.1 FL Mean Corpuscular Hemoglobin 31.9 PG Mean Corpuscular Hemoglobin 33.9 % Concent Red Cell Distribution Width 15.4 % Platelet Count 515 TH/MM3 Mean Platelet Volume 6.7 FL Neutrophils (%) (Auto) 89.1 % Lymphocytes (%) (Auto) 4.6 % Monocytes (%) (Auto) 6.0 % Eosinophils (%) (Auto) 0.1 % Basophils (%) (Auto) 0.2 % Neutrophils # (Auto) 16.1 TH/MM3 Lymphocytes # (Auto) 0.8 TH/MM3 Monocytes # (Auto) 1.1 TH/MM3 Eosinophils # (Auto) 0.0 TH/MM3 Basophils # (Auto) 0.0 TH/MM3 CBC Comment AUTO DIFF Differential Total Cells 100 Counted Neutrophils % (Manual) 93 % Band Neutrophils % 1 % Lymphocytes % 2 % Monocytes % 4 % Neutrophils # (Manual) 17.0 TH/MM3 Nucleated Red Blood Cells 1 /100 WBC Differential Comment FINAL DIFF MANUAL Platelet Estimate HIGH Platelet Morphology Comment CLUMPED Red Cell Morphology Comment NORMAL Sodium Level 145 MEQ/L Potassium Level 3.9 MEQ/L Chloride Level 104 MEQ/L Carbon Dioxide Level 20.2 MEQ/L Anion Gap 21 MEQ/L Blood Urea Nitrogen 102 MG/DL Creatinine 9.39 MG/DL Estimat Glomerular Filtration 4 ML/MIN Rate Random Glucose 130 MG/DL Calcium Level 11.2 MG/DL Phosphorus Level 6.5 MG/DL Magnesium Level 2.6 MG/DL Total Bilirubin 0.4 MG/DL Aspartate Amino Transf 21 U/L (AST/SGOT) Alanine Aminotransferase 30 U/L (ALT/SGPT) Alkaline Phosphatase 63 U/L Total Protein 6.3 GM/DL Albumin 2.4 GM/DL Medical Decision Making Impression and Plan Impression: SAH 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 History of microscopic polyangiitis per renal biopsy 2013. Hypertension Plan Neurologic exam worse today CT head today discussed with nursing staff Continue as needed antihypertensive medications Nimodipine for vasospasm prophylaxis Ulcer prophylaxis Non- chemical DVT prophylaxis Donato Tian MD Dec 05, 2016 19:41
[2016-12-05 23:33] LABS: BLOOD GAS BASE EXCESS -4.9 mmol/L (-2-2); BLOOD GAS HCO3 19 mmol/L (22-26); BLOOD GAS METHEMOGLOBIN 1.3 % (0-2); BLOOD GAS O2 HGB SATURATION 89 % (90-100); BLOOD GAS OXYGEN CONTENT 14.6 Vol % (12.0-20.0); BLOOD GAS PCO2 34 mmHg (38-42); BLOOD GAS PO2 67 mmHg (61-120); BLOOD GAS TOTAL HGB 11.7 G/DL (12.0-16.0); TEMP CORR TO 98.6
[2016-12-05 23:35] LABS: CRITICAL VALUE YES; DRAW SITE LT RADIAL; FIO2 100 %; LITER FLOW 15 L/M; NUMBER OF ARTERIAL PUNCTURES 1; STAT YES; ULNAR PULSE PRESENT
[2016-12-06] VITALS (15 sets, daily range): BP systolic 116–164; BP diastolic 60–75; PULSE 56–104; RESP 18–27; TEMP 98.1–98.6; O2SAT 92–99
[2016-12-06] MEDS: SODIUM CHLOR 0.9% 1000 ML INJ 1,000 ML IV SCH (03:40)
[2016-12-06] MEDS: CHLORHEXIDINE GLUCONATE 2 % 1 PACK (2 CLOTHS) TOP SCH (04:00)
[2016-12-06] MEDS: niMODipine 30 MG CAP PO SCH ×6 (04:11→23:37)
--- NOTE | 2016-12-06 06:11 | RADRPT ---
EXAM DATE/TIME: 12/06/2016 05:21 [facility] COMPARISON: CT BRAIN W/O CONTRAST, November 30, 2016, 4:34. INDICATIONS : Altered mental status RADIATION DOSE: 33.72 CTDIvol (mGy) MEDICAL HISTORY : Hypertension. SURGICAL HISTORY : Ventriculostomy. ENCOUNTER: Initial ACUITY: 1 day PAIN SCALE: Non-responsive LOCATION: Bilateral cranial TECHNIQUE: Multiple contiguous axial images were obtained of the head. Using automated exposure control and adj ustment of the mA and/or kV according to patient size, radiation dose was kept as low as reasonably a chievable to obtain optimal diagnostic quality images. FINDINGS: Compare November 30. Previous ventriculostomy tube has been removed. Subarachnoid hemorrhage and intrave ntricular hemorrhages are resolving. Ventricular size remains enlarged but relatively stable since [facility] 11. No new intracranial hemorrhage. CONCLUSION: 1. Removal of ventriculostomy tube. Hydrocephalus remains but similar in appearance to November 30. Impr oving subarachnoid and intraventricular hemorrhage. John Meadows MD on December 06, 2016 at 6:08 Board Certified Radiologist. This report was verified electronically.
[2016-12-06] MEDS: SENNOSIDES SYRUP 8.8 MG/5 ML CUP PO SCH (08:48)
[2016-12-06] MEDS: SODIUM BICARBONATE 325 MG TAB PO SCH (08:49)
[2016-12-06] MEDS: predniSONE 20 MG TAB PO SCH (08:49)
[2016-12-06] MEDS: SODIUM CHLORIDE 0.9% FLUSH 5 ML FLUSH IV FLUSH SCH ×2 (08:49→21:00)
[2016-12-06] MEDS: CARVEDILOL 12.5 MG TAB PO SCH (08:49)
[2016-12-06] MEDS: CALCIUM ACETATE 667 MG CAP PO SCH ×3 (08:49→17:46)
[2016-12-06] MEDS: CHLORHEXIDINE 0.12% (ORAL KIT) 15 ML CUP MT SCH ×2 (08:49→20:00)
[2016-12-06] MEDS: DOCUSATE SODIUM 100 MG/10 ML UDC PO SCH (08:49)
[2016-12-06] MEDS: ARTIFICIAL TEARS OPTH OINT 3.5 APPLIC/3.5 GM TUBO EACH EYE SCH ×2 (08:51→21:00)
--- NOTE | 2016-12-06 09:27 | RADRPT ---
EXAM DATE/TIME: 12/06/2016 08:11 [facility] COMPARISON: US TRANSCRANIAL DOPPLER COMPLETE, December 05, 2016, 7:54. INDICATIONS : Subarachnoid hemorrhage. MEDICAL HISTORY : End stage renal disease. Anemia. Gastritis. Subarachnoid hemorrhage. Pneumonia. SURGICAL HISTORY : Ventriculostomy. ENCOUNTER: [place] ACUITY: 1 day PAIN SCORE: Nonresponsive. LOCATION: Bilateral cranial Current Exam: Dec 06, 2016 [place] Ratio: Right: 1.3 Left: 1.0 [place] Ratio: Right: 0.9 Left: 0.6 Previous Exam: Dec 05, 2016 [place] Ratio: Right: 1.8 Left: 0.7 [place] Ratio: Right: 1.7 Left: 0.6 FINDINGS: Examination performed at bedside. Real-time ultrasound with the assistance of color and spectral Dop pler was utilized to evaluate the intracerebral circulation. Time-averaged maximal velocities are ca lculated in cm/s. No significant change in velocities or ratios are noted. CONCLUSION: Stable evaluation without evidence of vasospasm. Dallas Sánchez MD on December 06, 2016 at 9:23 Board Certified Radiologist. This report was verified electronically.
[2016-12-06] MEDS ORDERED: HYOSCYAMINE SOLN 0.125 MG/ML 15 ML BTL PO PRN (12:15)
--- NOTE | 2016-12-06 12:56 | HHI.NPPN ---
Subjective General Problems: Edema Renal Failure: Chronic, Acute, End Stage Renal Disease Interval History She is less responsive today. I am told by nursing that the family is going to transfer her to hospice. (Noemí Lassiter) Review of Systems General General Remarks unable to evaluate (Noemí Lassiter) Objective Data Data 12/05/16 12/06/16 19:00 07:00 Intake Total 280 ml 170 ml Output Total 2226 ml 2 ml Balance -1946 ml 168 ml Intake Oral 50 ml IV Total 230 ml 170 ml Output Urine Total 350 ml 2 ml Peritoneal Fluid 1876 ml # Bowel Movements 0 1 Vital Signs Date Time Temp Pulse Resp B/P Pulse Ox O2 Delivery O2 Flow Rate FiO2 12/06/16 12:47 95 Partial Rebreather 12.00 12/06/16 10:00 95 12/06/16 08:00 97 Nasal Cannula 3.00 12/06/16 08:00 98 12/06/16 08:00 98.1 98 22 150/68 96 12/06/16 07:59 92 Partial Rebreather 7.00 100 12/06/16 06:00 86 12/06/16 04:00 98 12/06/16 04:00 98.6 98 22 141/61 99 12/06/16 02:00 96 12/06/16 00:00 98.1 104 24 116/60 98 12/06/16 00:00 104 12/05/16 22:00 98 12/05/16 20:11 98 Partial Rebreather 12/05/16 20:00 108 12/05/16 20:00 98.5 108 26 157/76 97 12/05/16 18:00 102 12/05/16 17:14 92 Partial Rebreather 15.00 12/05/16 17:07 92 Venturi Mask 6.00 50 12/05/16 16:00 106 12/05/16 16:00 99.2 106 23 145/63 97 12/05/16 14:00 105 (Noemí Lassiter) -: 12/05/16 0421 12/05/16 0421 Imaging Last Impressions Transcranial Doppler Study Complete 12/06/16 1415 Signed Impressions: Service Date/Time: Tuesday, December 06, 2016 08:11 - CONCLUSION: Stable evaluation without evidence of vasospasm. Dallas F. Gonzalo, MD Chest X-Ray 12/05/16 0600 Signed Impressions: Service Date/Time: November 05:13 - CONCLUSION: Endotracheal tube and nasogastric tube no longer seen. Lung volumes are low. Minimal patchy atelectasis at lung bases. Wili Canales MD Head CT 12/05/16 0000 Signed Impressions: Service Date/Time: Tuesday, December 06, 2016 05:21 - CONCLUSION: 1. Removal of ventriculostomy tube. Hydrocephalus remains but similar in appearance to November 30. Improving subarachnoid and intraventricular hemorrhage. John Meadows MD Brain MRI 11/28/16 0000 Signed Impressions: Service Date/Time: November 12:53 - CONCLUSION: 1. There are blood products layering within the occipital horns bilaterally and along the sulci in the right temporoparietal region. Possible mild subarachnoid blood products also layer along the left temporal region sulci. 2. Ventricles are prominent but not enlarged. Right frontal ventricular shunt is present. 3. There are no findings to indicate recent ischemia. Tre De Luna MD Cerebral Arteriogram 11/24/16 0000 Signed Impressions: Service Date/Time: Thursday, November 24, 2016 11:39 - CONCLUSION: 1. No evidence of aneurysm Jonnie Schaeffer MD Tubes & Lines: Tenckhoff Catheter (Noemí Lassiter B. ZIGZAG ELASTIC ATTACHER) Physical Exam General Appearance: Well Developed, Well Nourished, Comfortable, Sleeping (Maikol Noemí B. ZIGZAG ELASTIC ATTACHER) Throat Throat Exam: Oral Mucosa Valinda & Moist (MaikolNoemí B. ZIGZAG ELASTIC ATTACHER) Pulmonary Resp Exam: Clear Bilaterally, Breath Sounds Equal (Maikol,Noemí B. ZIGZAG ELASTIC ATTACHER) Cardiology CV Exam: Regular, Normal Sinus Rhythm (MaikolNoemí B. ZIGZAG ELASTIC ATTACHER) Gastrointestinal/Abdomen GI Exam: Soft, Non-Tender, Bowel Sounds Present (MaikolNoemí B. ZIGZAG ELASTIC ATTACHER) Musculoskeletal MS Exam: Joints Intact, Normal Tone, Unable to Ambulate (MaikolNoemí B. ZIGZAG ELASTIC ATTACHER) Integumentary Skin Exam: Warm, Dry (MaikolNoemí B. ZIGZAG ELASTIC ATTACHER) Extremeties Extremities Exam: Pedal Pulses Palpable, Moderate Edema (MaikolNoemí fonseca) Neurologic Neuro Exam: Obtunded (Noemí Lassiter) VTE Prophylaxis Device: SCDs (Noemí Lassiter) Assessment/Plan Assessment Summary: Anemia of CKD, End Stage Renal Disease Problem List: (1) ESRD (end stage renal disease) Plan: a biopsy proved microscopic polyangiitis, P-ANCA positive in 2013 she is ESRD on PD on 2.5% PD solution, edema has improved no electrolyte concerns, on phoslo for metabolic bone disorder PD will likely be stopped today (2) SAH (subarachnoid hemorrhage) Plan: Aneurysm has been ruled out Surgical intervention s/p craniotomy with ICP monitoring; EVD has been removed; transcranial doppler shows no vasospasm It is unclear if she has cerebral vasculitis. On Steroid taper. i am told she will be transferred to hospice today (3) Acute respiratory failure Plan: successfully extubated, on nasal cannula on thickened liquids, pureed diet (4) Uncontrolled hypertension Plan: BP stable (5) GI bleeding Plan: Gastroenterology has evaluated no further bleeding on protonix BID EGD: gastritis (6) Severe sepsis Plan: On rocephin sputum with Klebsiella monitor clinically, she is afebrile (7) Anemia Plan: Hb stable given epogen and venofer follow hemoglobin (Noemí Lassiter) Plan patient was seen and examined. Apparently the family has decided to transfer to hospice. (Georges Shankar MD) Problem Qualifiers (1) Acute respiratory failure: Qualified Code: J96.01 - Acute respiratory failure with hypoxia (2) Anemia: Noemí Lassiter Dec 06, 2016 12:56 Georges Shankar MD Dec 06, 2016 17:35
--- NOTE | 2016-12-06 14:06 | HHI.CCPN ---
Subjective Remarks/Hospital Course 11/24: Patient is a 76-year-old female who was transferred from [facility] with extensive subarachnoid hemorrhage. Unfortunately I do not have any history and physical or discharge summary available neither CT reports. All history I have is from discussion with Dr. Tian. Apparently patient was found unconscious yesterday in a pool of bloody vomitus. She was intubated and admitted to the [facility] ICU. She underwent EGD, again report is not available to me, and was placed on Protonix infusion. After EGD patient underwent a CT of the head which showed extensive subarachnoid hemorrhage, and IVH. Dr. Tian was contacted who recommended a CT angiogram. CT angiogram did not show an aneurysm but showed probable mild obstructive hydrocephalus. Dr. Tian accepted transfer to [facility] for further care, and patient was admitted to critical care medicine. Only medical history available to me is that patient is on peritoneal dialysis, and has history of hypertension Dr. Toledo evaluated the patient in the ICU. Patient is sedated with propofol is on Cardene infusion for blood pressure control. Also on Protonix gtt for GIB On sedation hold patient withdraws all 4 extremities. Pupils are slightly reactive. There was audible cuff leak. Tube exchange attempted by respiratory therapist was unsuccessful. So Dr. Toledo extubated and endotracheally intubated the patient with new ET tube. Dr. Tian from neurosurgery evaluated patient and performed a ventriculostomy. 11/25: Remains sedated, arousable, orally intubated on mechanical ventilation. 11/26: Remains sedated, orally intubated on mechanical ventilation. Withdraws all 4 extremities with painful stimuli. Ventriculostomy in place. 11/27: Tmax 99.5. Tube feeds started take currently 10. Today, tachypneic on the ventilator will try sedation. Was arousable and open eyes but does not follow commands. Currently moving upper extremities spontaneously. 11/28: Currently on sedation vacation. Arousable and did wiggle bilateral feet to command. Tube feeds currently low dose. 11/29: Afebrile. Off Cardene drip. Arousable and does wiggle feet and toes command. Tolerating tube feeding. Positive BM. 11/30: Afebrile. Intermittently follows commands but not consistently. Will squeeze hands and wiggle toes. Tolerating tube feeding at 30 cc an hour. Positive BM. 12/01 still too lethargic to attempt SBT 12/02: Intermittently opens eyes, not really following commands consistently. Occasionally uses consult with the left hand. No fever. I doubt she'll be able to come over ventilator today. 12/03: Sputum 11/29 growing Klebsiella, convert to ceftriaxone. 12/04: Extubated 12/03. Protecting airway. More lethargic today, but wakes up, not following commands. no vasospasm on TCD 12/05: More lethargic and hypoxic today. Possible aspiration. Palliative care consulted. Prognosis appears very poor Subjective 12/06: Currently resting in bed with transmitted upper airway sounds from secretions. Not following commands. Discussed with Dr. Tian/neurosurgery. Recommended placement of shunt since ventriculostomy was removed with worsening mental status. His clinical experience patients in her condition should have a meaningful recovery. Patient is currently under hospice hospice services. Call placed to healthcare proxy to make sure she has all the information to make an informed decision. Objective Vital Signs Date Time Temp Pulse Resp B/P Pulse Ox O2 Delivery O2 Flow Rate FiO2 12/06/16 12:47 95 Partial Rebreather 12.00 12/06/16 10:00 95 12/06/16 08:00 98.1 22 150/68 12/06/16 07:59 100 Intake and Output 12/05/16 12/05/16 12/06/16 08:00 16:00 00:00 Intake Total 318 ml 280 ml 98 ml Output Total 1876 ml 350 ml 1 ml Balance -1558 ml -70 ml 97 ml Result Diagram: 12/05/16 0421 12/05/16 0421 Imaging Last Impressions Transcranial Doppler Study Complete 12/06/16 1415 Signed Impressions: Service Date/Time: Tuesday, December 06, 2016 08:11 - CONCLUSION: Stable evaluation without evidence of vasospasm. Dallas Sánchez MD Chest X-Ray 12/05/16 0600 Signed Impressions: Service Date/Time: November 05:13 - CONCLUSION: Endotracheal tube and nasogastric tube no longer seen. Lung volumes are low. Minimal patchy atelectasis at lung bases. Wili Canales MD Head CT 12/05/16 0000 Signed Impressions: Service Date/Time: Tuesday, December 06, 2016 05:21 - CONCLUSION: 1. Removal of ventriculostomy tube. Hydrocephalus remains but similar in appearance to November 30. Improving subarachnoid and intraventricular hemorrhage. John Meadows MD Brain MRI 11/28/16 0000 Signed Impressions: Service Date/Time: November 12:53 - CONCLUSION: 1. There are blood products layering within the occipital horns bilaterally and along the sulci in the right temporoparietal region. Possible mild subarachnoid blood products also layer along the left temporal region sulci. 2. Ventricles are prominent but not enlarged. Right frontal ventricular shunt is present. 3. There are no findings to indicate recent ischemia. Tre De Luna MD Cerebral Arteriogram 11/24/16 0000 Signed Impressions: Service Date/Time: Thursday, November 24, 2016 11:39 - CONCLUSION: 1. No evidence of aneurysm Jonnie Schaeffer MD Objective Remarks GENERAL: 76-year-old Elderly female critically ill SKIN: Warm and dry. No rash HEAD: Status post right-sided EVD-removed EYES: No scleral icterus. No injection or drainage. Pupils are 3 mm sluggishly reactive ENT mucous membrane pink and moist. On nonrebreather mask. NECK: Supple, trachea midline. No JVD or lymphadenopathy. CARDIOVASCULAR: Regular rate and rhythm S1, S2. No S4. Without murmurs, rubs RESPIRATORY: Breath sounds equal bilaterally, but diminished. Bilateral coarse breath sounds transmitted upper airway sounds. GASTROINTESTINAL: Abdomen soft, non-tender, nondistended. PD catheter in place MUSCULOSKELETAL: No significant peripheral edema. Well perfused. Neuro: Patient is somnolent and lethargic hardly opens eyes today to sternal rub. Very slight withdrawal to painful stimuli. Not following commands A/P Assessment and Plan NEURO: Subarachnoid hemorrhage Intraventricular extension Hydrocephalus Acute encephalopathy Cerebral vasculitis -EVD removed 12/03. TCD 12/04, 12/05 no vasospasm -Keep sodium more than 145 -Monitor for vasospasm, Nimotop 60 mg every 4hr 21 days -Keppra 500 mg twice a day for seizure prophylaxis Discussed with Dr. Aguilar. Will discuss with healthcare proxy information understood DEVELOPMENT DIRECTOR shunt possibly could improve her neurological status. RESP: Acute hypoxemic respiratory failure Left lower lobe pneumonia -Extubated and re intubated with new ETT, on day of admission. Extubated 12/03. -Worsening oxygenation, possible aspiration. patient is a do not reintubate. -DuoNeb every 6 hours and when necessary -Sputum culture 11/25 with Klebsiella pneumonia/pansensitive, on Rocephin CV: Uncontrolled hypertension -Currently in Coreg 12.5 twice a day. Cardene drip discontinued, use as needed -Continue on Nimotop 60 mg every 4 hours 21 days GI: Upper GI bleed -IV Protonix -Colace, senna for bowel regimen -EGD -11/26 revealed some gastritis from NG tube suction otherwise negative Will place NG tube and start tube feeding if indicated : End-stage renal disease on peritoneal dialysis -Monitor renal function closely. Roasles catheter. -Nephrology Dr. Shankar following for peritoneal dialysis management ID: Left lower lobe pneumonia Severe sepsis Leukocytosis Continue Rocephin Pertinent cultures Blood cultures 2 - 11/24 - no growth Peritoneal fluid - 11/24 - no growth Sputum - 11/25 - Klebsiella sputum and blood 12/01 pending HEME: Normocytic anemia Leukocytosis Thrombocytosis -Monitor CBC, CMP, coags -Patient has a history of microscopic polyangiitis per Dr. Shankar which resulted in her renal failure requiring dialysis. -Antimyeloperoxidase Ab positive ENDO: Hypokalemia Hyperphosphatemia -Electrolyte replacement as needed -Continue PhosLo by mouth 3 times a day RHEUM P-ANCA + Pulse prednisone therapy [address] Parrish. PROPH: Bilateral lower extremity SCDs. Pharmacological DVT prophylaxis is contraindicated, until cleared by Dr. Tian. Continue Protonix LINES: -PIV Level [address] Tian. Patient had ventriculostomy removed recently. Would benefit from a shunt. Her chance of recovery is statistically possible per Dr. Aguilar. Discussed with yt. Healthcare proxy. She is aware of these issues but still wished to proceed with palliative care. Hospice has been consulted. We will discharge the floor and likely hospice, 10 AM Raymundo Restrepo MD Dec 06, 2016 14:06
[2016-12-06] MEDS: cefTRIAXone INJ 1,000 MG in SODIUM CHLORIDE 0.9% INJ 100 ML IV SCH (14:10)
[2016-12-06] MEDS: PANTOPRAZOLE SODIUM 40 MG VIAL IV PUSH SCH ×2 (14:20→23:36)
--- NOTE | 2016-12-06 15:44 | HHI.HCPN ---
Reason for visit a. To assist with evaluation and management of symptoms including: dyspnea , encephalopathy, increased secretions b. To assist medical decision maker(s) with: better understanding of current medical conditions; weighing benefits/burdens of medical treatment options; making medical treatment decisions. . (Rebecca Caraballo) Subjective/Interval History Patient seen and assessed in room 1335. Also present patient's sister, Teresa. Patient's respirations are labored on 12L via partial NRB, having increased secretions. Oxygen saturations 95%. Chest x-ray this morning showing minimal patchy atelectasis at lung bases. Patient is increasingly lethargic, encephalopathic. Ventriculostomy has been removed, transcranial Doppler shows no vasospasms. Head CT on 12/06/16 shows persistent hydrocephalus similar in appearance to 11/30/16. Improving SAH and IVH. Blood cultures showing no growth in 5 days. Sputum culture + Klebsiella pneumoniae on 12/01/16. Patient remains on Rocephin. Speech therapy continues to follow as patient, unable to assess patient today secondary to lethargy and encephalopathy. . Family/friend interactions Spoke with patient's sister, Teresa Sandhu, who is also the designated health care surrogate. We discussed the patient's hospital course and current clinical condition. The patient's sister shared stories of her sister's life and experiences they have chaired. 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 Teresa states she and her sister had several conversations related to quality of life and end-of-life decisions, a living will was completed in 2010. . (Rebecca Caraballo) Advance Directives Living Will: Copy in medical record Health Care Surrogate: Copy in medical record (Rebecca Caraballo) Advance Directive Specifics Date completed: 10/12/10 . Health Care Surrogate(s): Patient's sister, Teresa Sandhu, is the designated as health care surrogate. . Documented care wishes: Patient has a living will that was completed on 10/12/10. A copy was placed in the patient's paper chart and faxed to HIM to be scanned in to the patient's EMR. . Significant change in goals: Patient's sister would like to respect the patient's written advanced directives /living, requesting a hospice consult to gather further information. . (Rebecca Caraballo) Objective Vital Signs Date Time Temp Pulse Resp B/P Pulse Ox O2 Delivery O2 Flow Rate FiO2 12/06/16 12:47 95 Partial Rebreather 12.00 12/06/16 10:00 95 12/06/16 08:00 97 Nasal Cannula 3.00 12/06/16 08:00 98 12/06/16 08:00 98.1 98 22 150/68 96 12/06/16 07:59 92 Partial Rebreather 7.00 100 12/06/16 06:00 86 12/06/16 04:00 98 12/06/16 04:00 98.6 98 22 141/61 99 12/06/16 02:00 96 12/06/16 00:00 98.1 104 24 116/60 98 12/06/16 00:00 104 12/05/16 22:00 98 12/05/16 20:11 98 Partial Rebreather 12/05/16 20:00 108 12/05/16 20:00 98.5 108 26 157/76 97 12/05/16 18:00 102 12/05/16 17:14 92 Partial Rebreather 15.00 12/05/16 17:07 92 Venturi Mask 6.00 50 12/05/16 16:00 106 12/05/16 16:00 99.2 106 23 145/63 97 Intake & Output 12/06/16 12/06/16 07:00 19:00 Intake Total 170 ml Output Total 2 ml 828 ml Balance 168 ml -828 ml IV Total 170 ml Output Urine Total 2 ml Peritoneal Fluid 828 ml # Bowel Movements 1 . Physical Exam CONSTITUTIONAL/GENERAL: This is an adequately nourished, elderly female patient , in moderate respiratory distress. TUBES/LINES/DRAINS: PIV x 2, Partial NRB SKIN: No wounds seen anteriorly. Skin temperature appropriate. Not diaphoretic. HEAD: Status post right-sided EVD-removed EYES: Pupils 3mm and round and sluggish. No scleral icterus. No injection or drainage. . ENT: Nose without bleeding or purulent drainage. Mucous membranes moist and pink. NECK: Trachea midline. CARDIOVASCULAR: Regular rate and rhythm without murmurs, gallops, or rubs. No JVD. RESPIRATORY/CHEST: Breath sounds diminished bilaterally. Coarse breath sounds upper airway. On partial NRB. GASTROINTESTINAL: Abdomen soft, non-tender, nondistended. Peritoneal dialysis cath in place. GENITOURINARY: Without palpable bladder distension. Rosales catheter in place. MUSCULOSKELETAL: Extremities without clubbing, cyanosis, or edema. LYMPHATICS: No palpable cervical or supraclavicular adenopathy. NEUROLOGICAL: Lethargic, difficult to arouse. Does not following commands. PSYCHIATRIC: Unable to assess 2/2 clinical condition. . (Rebecca Caraballo) Diagnostic Tests Laboratory Laboratory Tests Test 12/04/16 12/04/16 12/05/16 12/05/16 03:48 11:05 04:21 23:23 White Blood Count 18.1 TH/MM3 18.1 TH/MM3 (4.0-11.0) (4.0-11.0) Red Blood Count 3.26 MIL/MM3 3.40 MIL/MM3 (4.00-5.30) (4.00-5.30) Hemoglobin 10.3 GM/DL 10.8 GM/DL (11.6-15.3) (11.6-15.3) Hematocrit 30.8 % 32.0 % (35.0-46.0) (35.0-46.0) Mean Corpuscular Volume 94.5 FL 94.1 FL (80.0-100.0) (80.0-100.0) Mean Corpuscular Hemoglobin 31.6 PG 31.9 PG (27.0-34.0) (27.0-34.0) Mean Corpuscular Hemoglobin 33.5 % 33.9 % Concent (32.0-36.0) (32.0-36.0) Red Cell Distribution Width 15.5 % 15.4 % (11.6-17.2) (11.6-17.2) Platelet Count 530 TH/MM3 515 TH/MM3 (150-450) (150-450) Mean Platelet Volume 6.6 FL 6.7 FL (7.0-11.0) (7.0-11.0) Neutrophils (%) (Auto) 87.5 % 89.1 % (16.0-70.0) (16.0-70.0) Lymphocytes (%) (Auto) 6.8 % 4.6 % (9.0-44.0) (9.0-44.0) Monocytes (%) (Auto) 5.1 % (0.0-8.0) 6.0 % (0.0-8.0) Eosinophils (%) (Auto) 0.3 % (0.0-4.0) 0.1 % (0.0-4.0) Basophils (%) (Auto) 0.3 % (0.0-2.0) 0.2 % (0.0-2.0) Neutrophils # (Auto) 15.8 TH/MM3 16.1 TH/MM3 (1.8-7.7) (1.8-7.7) Lymphocytes # (Auto) 1.2 TH/MM3 0.8 TH/MM3 (1.0-4.8) (1.0-4.8) Monocytes # (Auto) 0.9 TH/MM3 1.1 TH/MM3 (0-0.9) (0-0.9) Eosinophils # (Auto) 0.0 TH/MM3 0.0 TH/MM3 (0-0.4) (0-0.4) Basophils # (Auto) 0.1 TH/MM3 0.0 TH/MM3 (0-0.2) (0-0.2) CBC Comment AUTO DIFF AUTO DIFF Differential Total Cells 100 100 Counted Neutrophils % (Manual) 86 % (16-70) 93 % (16-70) Lymphocytes % 9 % (9-44) 2 % (9-44) Monocytes % 2 % (0-8) 4 % (0-8) Eosinophils % 1 % (0-4) Basophils % 1 % (0-2) Neutrophils # (Manual) 15.7 TH/MM3 17.0 TH/MM3 (1.8-7.7) (1.8-7.7) Metamyelocytes 1 % (0-1) Nucleated Red Blood Cells 1 /100 WBC 1 /100 WBC (0-0) (0-0) Differential Comment FINAL DIFF FINAL DIFF MANUAL MANUAL Platelet Estimate HIGH (NORMAL) HIGH (NORMAL) Platelet Morphology Comment NORMAL CLUMPED (NORMAL) (NORMAL) Polychromasia 2.0 % (0.0-1.9) Sodium Level 142 MEQ/L 145 MEQ/L (136-145) (136-145) Potassium Level 3.7 MEQ/L 3.9 MEQ/L (3.5-5.1) (3.5-5.1) Chloride Level 102 MEQ/L 104 MEQ/L (98-107) (98-107) Carbon Dioxide Level 19.5 MEQ/L 20.2 MEQ/L (21.0-32.0) (21.0-32.0) Anion Gap 21 MEQ/L (5-15) 21 MEQ/L (5-15) Blood Urea Nitrogen 106 MG/DL 102 MG/DL (7-18) (7-18) Creatinine 9.62 MG/DL 9.39 MG/DL (0.50-1.00) (0.50-1.00) Estimat Glomerular Filtration 4 ML/MIN (>89) 4 ML/MIN (>89) Rate Random Glucose 132 MG/DL 130 MG/DL (74-106) (74-106) Calcium Level 10.2 MG/DL 11.2 MG/DL (8.5-10.1) (8.5-10.1) Phosphorus Level 7.2 MG/DL 6.5 MG/DL (2.5-4.9) (2.5-4.9) Albumin 2.1 GM/DL 2.4 GM/DL (3.4-5.0) (3.4-5.0) Band Neutrophils % 1 % (0-6) Red Cell Morphology Comment NORMAL (NORMAL) Magnesium Level 2.6 MG/DL (1.5-2.5) Total Bilirubin 0.4 MG/DL (0.2-1.0) Aspartate Amino Transf 21 U/L (15-37) (AST/SGOT) Alanine Aminotransferase 30 U/L (10-53) (ALT/SGPT) Alkaline Phosphatase 63 U/L (45-117) Total Protein 6.3 GM/DL (6.4-8.2) Blood Gas Puncture Site LT RADIAL Blood Gas Patient Temperature 98.6 Blood Gas HCO3 19 mmol/L (22-26) Blood Gas Base Excess -4.9 mmol/L (-2-2) Blood Gas Oxygen Saturation 89 % (90-100) Arterial Blood pH 7.37 (7.380-7.420) Arterial Blood Partial 34 mmHg (38-42) Pressure CO2 Arterial Blood Partial 67 mmHg Pressure O2 (61-120) Arterial Blood Oxygen Content 14.6 Vol % (12.0-20.0) Arterial Blood 1.0 % (0-4) Carboxyhemoglobin Arterial Blood Methemoglobin 1.3 % (0-2) Blood Gas Hemoglobin 11.7 G/DL (12.0-16.0) Oxygen Delivery Device Non-Rebreathing Mask Blood Gas Liter Flow 15 L/M Blood Gas Inspired Oxygen 100 % . (Rebecca Caraballo) Result Diagram: 12/05/16 04212/05/16 042 Procedures ===== Left subclavian central line placement DIRECTOR MEDIA 11/24/16: Ventriculostomy placement 11/26/16: EGD 12/03/16: Ventriculostomy removed 12/03/16: Extubation (Rebecca Caraballo) Assessment and Plan Disease Oriented Problem List: (1) Acute respiratory failure (2) SAH (subarachnoid hemorrhage) (3) Peritoneal dialysis catheter in place (4) Acute encephalopathy (5) LLL pneumonia (6) IVH (intraventricular hemorrhage) (7) Leukocytosis (8) Severe sepsis (9) GI bleeding (10) ESRD (end stage renal disease) (11) Anemia Symptom Scale: (1) Encephalopathy 0-10 Scale: Unable to quantify (2) Dyspnea 0-10 Scale: Unable to quantify (3) Increased oropharyngeal secretions Comment: Orders for Levsin 0.125 mg PO/SL PRN . Pertinent Non-Medical Issues Psychosocial:Patient was born and raised in [place], [place]. She had 3 brothers and 3 sisters. The patient's 3 brothers and one sister are . She has one sister that she has not seen and 25 years and another sister (Teresa Sandhu ) who she has designated as her health care surrogate. 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 Spiritual: [employer] Legal: Patient's sister, Teresa Sandhu, is the designated health care surrogate. Ethical issues impacting care: No known ethical issues impacting care at this time. . Important Contacts Teresa Sandhu, sister: [phone] . Prognosis Patient remains encephalopathic status post SAH and IVH with GI bleed. She is moderately dyspneic on partial nonrebreather, having increased secretions. There is concern for possible aspiration secondary to lethargy and encephalopathy. Patient remains nothing by mouth at this time. Peritoneal dialysis catheter in place: BUN: 102, creatinine 9.39, GFR 4. Patient's sister reports patient has experienced an overall decline and was having increased weakness secondary to peritoneal dialysis. She has decided to respect the patient's written advanced directives and is now requesting a hospice consult to transition to comfort focused care. . Code Status: No Code Plan * NO CODEDNR * Decision-making: Patient is currently not capacitated to participate and clarification of medical treatment goals. Patient's sister, Teresa Sandhu, is the designated health care surrogate. * Written advanced directives: Patient completed a health care surrogate form and living will on 10/12/10. Copies were placed in the patient's paper chart and faxed to HIM to be scanned into the patient's EMR. * Goals: Patient's sister would like to respect the patient's written advanced directives and is requesting a hospice consult, would like to transition to comfort focused care. * Palliative care contact information was provided to the patient's sister. * Discussed with patient's nurse. * Discussed with Dr. Restrepo and Dr. Tian * Hospice consult order placeddiscussed with manager case management. * Symptom managementexcessive secretions: Orders place for Levsin 0.125 mg PO/ SL q4 hours PRN assessment secretions. Recommendations for postural drainage. * Palliative care will continue to follow this patient throughout her hospitalization to establish trust, assist with symptom management and clarification of medical treatment goals. . (Rebecca Caraballo) Attestation To help prompt me to consider important information that might be impacting today's encounter and assessment, information from prior notes written by myself or my colleagues may have been "brought forward" into today's note. My signature on this note, however, is an attestation that I personally performed the exam, history, and/or decision-making noted today, and, unless otherwise indicated, the interactions with patient, family, and staff as well as the review of records all occurred today. I also attest that the listed assessment and stated plan reflect my best clinical judgment today based on the combination of historical information, prior notes, and today's exam/ interactions. When time spent is documented, it refers only to time spent today by the signer, or if indicated, combined time spent today by collaborating physician/nurse practitioner. . (Rebecca Caraballo) Collaborating MD Comments Chart reviewed. Cased discussed with palliative care CLINICAL TRIALS ASSISTANT. Above CLINICAL TRIALS ASSISTANT note reviewed and I concur. . (Delonte Nunn MD) Rebecca Caraballo Dec 06, 2016 15:44 Delonet Nunn MD February 17, 2017 13:31
--- NOTE | 2016-12-06 19:11 | HHI.DS ---
Discharge Summary Admission Date Nov 24, 2016 at 02:38 Admitting Diagnosis Subarachnoid hemorrhage (1) Acute respiratory failure ICD Code: J96.00 Diagnosis: Principal (2) SAH (subarachnoid hemorrhage) ICD Code: I60.9 Diagnosis: Principal (3) IVH (intraventricular hemorrhage) ICD Code: I61.5 Diagnosis: Principal (4) Uncontrolled hypertension ICD Code: I10 Diagnosis: Principal (5) Acute encephalopathy ICD Code: G93.40 Diagnosis: Principal (6) LLL pneumonia ICD Code: J18.1 Diagnosis: Principal (7) Leukocytosis ICD Code: D72.829 Diagnosis: Principal (8) Severe sepsis ICD Code: A41.9 Diagnosis: Principal (9) Peritoneal dialysis catheter in place ICD Code: Z99.2 Diagnosis: Secondary Procedures Right frontal twist drill for ventriculostomy placement Brief History Patient is a 76-year-old female who was transferred from [facility] with extensive subarachnoid hemorrhage. Unfortunately I do not have any history and physical or discharge summary available neither CT reports. All history I have is from discussion with Dr. Tian. Apparently patient was found unconscious yesterday in a pool of bloody vomitus. She was intubated and admitted to the [facility] ICU. She underwent EGD, again report is not available to me, and was placed on Protonix infusion. After EGD patient underwent a CT of the head which showed extensive subarachnoid hemorrhage, and IVH. Dr. Tian was contacted who recommended a CT angiogram. CT angiogram did not show an aneurysm but showed probable mild obstructive hydrocephalus. Dr. Tian accepted transfer to [facility] for further care, and patient was admitted to critical care medicine. Only medical history available to me is that patient is on peritoneal dialysis, and has history of hypertension I evaluated the patient in the ICU. Patient is sedated with propofol is on Cardene infusion for blood pressure control. Also on Protonix gtt for GIB On sedation hold patient withdraws all 4 extremities. Pupils are slightly reactive. There was audible cuff leak. Tube exchange attempted by respiratory therapist was unsuccessful. So I extubated and endotracheally intubated the patient with new ET tube. Dr. Tian had been made aware of the patient's arrival and he plans to do an EVD CBC/BMP: 12/05/16 0421 12/05/16 0421 Significant Findings Laboratory Tests Test 3/15/12/04/16 12/05/16 12/05/16 03:48 11:05 04:21 23:23 White Blood Count 18.1 TH/MM3 18.1 TH/MM3 (4.0-11.0) (4.0-11.0) Red Blood Count 3.26 MIL/MM3 3.40 MIL/MM3 (4.00-5.30) (4.00-5.30) Hemoglobin 10.3 GM/DL 10.8 GM/DL (11.6-15.3) (11.6-15.3) Hematocrit 30.8 % 32.0 % (35.0-46.0) (35.0-46.0) Platelet Count 530 TH/MM3 515 TH/MM3 (150-450) (150-450) Mean Platelet Volume 6.6 FL 6.7 FL (7.0-11.0) (7.0-11.0) Neutrophils (%) (Auto) 87.5 % 89.1 % (16.0-70.0) (16.0-70.0) Lymphocytes (%) (Auto) 6.8 % 4.6 % (9.0-44.0) (9.0-44.0) Neutrophils # (Auto) 15.8 TH/MM3 16.1 TH/MM3 (1.8-7.7) (1.8-7.7) Neutrophils % (Manual) 86 % (16-70) 93 % (16-70) Neutrophils # (Manual) 15.7 TH/MM3 17.0 TH/MM3 (1.8-7.7) (1.8-7.7) Nucleated Red Blood Cells 1 /100 WBC 1 /100 WBC (0-0) (0-0) Platelet Estimate HIGH (NORMAL) HIGH (NORMAL) Polychromasia 2.0 % (0.0-1.9) Carbon Dioxide Level 19.5 MEQ/L 20.2 MEQ/L (21.0-32.0) (21.0-32.0) Anion Gap 21 MEQ/L (5-15) 21 MEQ/L (5-15) Blood Urea Nitrogen 106 MG/DL 102 MG/DL (7-18) (7-18) Creatinine 9.62 MG/DL 9.39 MG/DL (0.50-1.00) (0.50-1.00) Estimat Glomerular Filtration 4 ML/MIN (>89) 4 ML/MIN (>89) Rate Random Glucose 132 MG/DL 130 MG/DL (74-106) (74-106) Calcium Level 10.2 MG/DL 11.2 MG/DL (8.5-10.1) (8.5-10.1) Phosphorus Level 7.2 MG/DL 6.5 MG/DL (2.5-4.9) (2.5-4.9) Albumin 2.1 GM/DL 2.4 GM/DL (3.4-5.0) (3.4-5.0) Lymphocytes # (Auto) 0.8 TH/MM3 (1.0-4.8) Monocytes # (Auto) 1.1 TH/MM3 (0-0.9) Lymphocytes % 2 % (9-44) Platelet Morphology Comment CLUMPED (NORMAL) Magnesium Level 2.6 MG/DL (1.5-2.5) Total Protein 6.3 GM/DL (6.4-8.2) Blood Gas HCO3 19 mmol/L (22-26) Blood Gas Base Excess -4.9 mmol/L (-2-2) Blood Gas Oxygen Saturation 89 % (90-100) Arterial Blood pH 7.37 (7.380-7.420) Arterial Blood Partial 34 mmHg (38-42) Pressure CO2 Blood Gas Hemoglobin 11.7 G/DL (12.0-16.0) Imaging Last Impressions Transcranial Doppler Study Complete 12/06/16 1415 Signed Impressions: Service Date/Time: Tuesday, December 06, 2016 08:11 - CONCLUSION: Stable evaluation without evidence of vasospasm. Dallas Sánchez MD Chest X-Ray 12/05/16 0600 Signed Impressions: Service Date/Time: November 05:13 - CONCLUSION: Endotracheal tube and nasogastric tube no longer seen. Lung volumes are low. Minimal patchy atelectasis at lung bases. Wili Canales MD Head CT 12/05/16 0000 Signed Impressions: Service Date/Time: Tuesday, December 06, 2016 05:21 - CONCLUSION: 1. Removal of ventriculostomy tube. Hydrocephalus remains but similar in appearance to November 30. Improving subarachnoid and intraventricular hemorrhage. John Meadows MD Brain MRI 11/28/16 0000 Signed Impressions: Service Date/Time: November 12:53 - CONCLUSION: 1. There are blood products layering within the occipital horns bilaterally and along the sulci in the right temporoparietal region. Possible mild subarachnoid blood products also layer along the left temporal region sulci. 2. Ventricles are prominent but not enlarged. Right frontal ventricular shunt is present. 3. There are no findings to indicate recent ischemia. Tre De Luna MD Cerebral Arteriogram 11/24/16 0000 Signed Impressions: Service Date/Time: Thursday, November 24, 2016 11:39 - CONCLUSION: 1. No evidence of aneurysm Jonnie Schaeffer MD PE at Discharge GENERAL: 76-year-old Elderly female critically ill SKIN: Warm and dry. No rash HEAD: Status post right-sided EVD-removed EYES: No scleral icterus. No injection or drainage. Pupils are 3 mm sluggishly reactive ENT mucous membrane pink and moist. On nonrebreather mask. NECK: Supple, trachea midline. No JVD or lymphadenopathy. CARDIOVASCULAR: Regular rate and rhythm S1, S2. No S4. Without murmurs, rubs RESPIRATORY: Breath sounds equal bilaterally, but diminished. Bilateral coarse breath sounds transmitted upper airway sounds. GASTROINTESTINAL: Abdomen soft, non-tender, nondistended. PD catheter in place MUSCULOSKELETAL: No significant peripheral edema. Well perfused. Neuro: Patient is somnolent and lethargic hardly opens eyes today to sternal rub. Very slight withdrawal to painful stimuli. Not following commands Transfer Summary NEURO: Subarachnoid hemorrhage Intraventricular extension Hydrocephalus Acute encephalopathy Cerebral vasculitis -EVD removed 12/03. TCD 12/04, 12/05 no vasospasm -Keep sodium more than 145 -Monitor for vasospasm, Nimotop 60 mg every 4hr 21 days -Keppra 500 mg twice a day for seizure prophylaxis Discussed with Dr. Aguilar. Will discuss with healthcare proxy information understood COMPENSATION COORDINATOR shunt possibly could improve her neurological status. RESP: Acute hypoxemic respiratory failure Left lower lobe pneumonia -Extubated and re intubated with new ETT, on day of admission. Extubated 12/03. -Worsening oxygenation, possible aspiration. patient is a do not reintubate. -DuoNeb every 6 hours and when necessary -Sputum culture 11/25 with Klebsiella pneumonia/pansensitive, on Rocephin CV: Uncontrolled hypertension -Currently in Coreg 12.5 twice a day. Cardene drip discontinued, use as needed -Continue on Nimotop 60 mg every 4 hours 21 days GI: Upper GI bleed -IV Protonix -Colace, senna for bowel regimen -EGD -11/26 revealed some gastritis from NG tube suction otherwise negative Will place NG tube and start tube feeding if indicated : End-stage renal disease on peritoneal dialysis -Monitor renal function closely. Rosales catheter. -Nephrology Dr. Shankar following for peritoneal dialysis management ID: Left lower lobe pneumonia Severe sepsis Leukocytosis Continue Rocephin Pertinent cultures Blood cultures 2 - 11/24 - no growth Peritoneal fluid - 11/24 - no growth Sputum - 11/25 - Klebsiella sputum and blood 12/01 pending HEME: Normocytic anemia Leukocytosis Thrombocytosis -Monitor CBC, CMP, coags -Patient has a history of microscopic polyangiitis per Dr. Shankar which resulted in her renal failure requiring dialysis. -Antimyeloperoxidase Ab positive ENDO: Hypokalemia Hyperphosphatemia -Electrolyte replacement as needed -Continue PhosLo by mouth 3 times a day RHEUM P-ANCA + Pulse prednisone therapy [address] Parrish. PROPH: Bilateral lower extremity SCDs. Pharmacological DVT prophylaxis is contraindicated, until cleared by Dr. Tian. Continue Protonix LINES: -PIV Level [address] Tian. Patient had ventriculostomy removed recently. Would benefit from a shunt. Her chance of recovery is statistically possible per Dr. Aguilar. Discussed with ty. Healthcare proxy. She is aware of these issues but still wished to proceed with palliative care. Hospice has been consulted. We will discharge the floor and likely hospice, 10 AM Raymundo Restrepo MD Dec 06, 2016 14:06 Hospital Course 11/24: Patient is a 76-year-old female who was transferred from [facility] with extensive subarachnoid hemorrhage. Unfortunately I do not have any history and physical or discharge summary available neither CT reports. All history I have is from discussion with Dr. Tian. Apparently patient was found unconscious yesterday in a pool of bloody vomitus. She was intubated and admitted to the [facility] ICU. She underwent EGD, again report is not available to me, and was placed on Protonix infusion. After EGD patient underwent a CT of the head which showed extensive subarachnoid hemorrhage, and IVH. Dr. Tian was contacted who recommended a CT angiogram. CT angiogram did not show an aneurysm but showed probable mild obstructive hydrocephalus. Dr. Tian accepted transfer to [facility] for further care, and patient was admitted to critical care medicine. Only medical history available to me is that patient is on peritoneal dialysis, and has history of hypertension Dr. Toledo evaluated the patient in the ICU. Patient is sedated with propofol is on Cardene infusion for blood pressure control. Also on Protonix gtt for GIB On sedation hold patient withdraws all 4 extremities. Pupils are slightly reactive. There was audible cuff leak. Tube exchange attempted by respiratory therapist was unsuccessful. So Dr. Toledo extubated and endotracheally intubated the patient with new ET tube. Dr. Tian from neurosurgery evaluated patient and performed a ventriculostomy. 11/25: Remains sedated, arousable, orally intubated on mechanical ventilation. 11/26: Remains sedated, orally intubated on mechanical ventilation. Withdraws all 4 extremities with painful stimuli. Ventriculostomy in place. 11/27: Tmax 99.5. Tube feeds started take currently 10. Today, tachypneic on the ventilator will try sedation. Was arousable and open eyes but does not follow commands. Currently moving upper extremities spontaneously. 11/28: Currently on sedation vacation. Arousable and did wiggle bilateral feet to command. Tube feeds currently low dose. 11/29: Afebrile. Off Cardene drip. Arousable and does wiggle feet and toes command. Tolerating tube feeding. Positive BM. 11/30: Afebrile. Intermittently follows commands but not consistently. Will squeeze hands and wiggle toes. Tolerating tube feeding at 30 cc an hour. Positive BM. 12/01 still too lethargic to attempt SBT 12/02: Intermittently opens eyes, not really following commands consistently. Occasionally uses consult with the left hand. No fever. I doubt she'll be able to come over ventilator today. 12/03: Sputum 11/29 growing Klebsiella, convert to ceftriaxone. 12/04: Extubated 12/03. Protecting airway. More lethargic today, but wakes up, not following commands. no vasospasm on TCD 12/05: More lethargic and hypoxic today. Possible aspiration. Palliative care consulted. Prognosis appears very poor Subjective 12/06: Currently resting in bed with transmitted upper airway sounds from secretions. Not following commands. Discussed with Dr. Tian/neurosurgery. Recommended placement of shunt since ventriculostomy was removed with worsening mental status. His clinical experience patients in her condition should have a meaningful recovery. Patient is currently under hospice hospice services. Call placed to healthcare proxy to make sure she has all the information to make an informed decision. Pt Condition on Discharge: Deteriorating Discharge Disposition: Hospice/Med Facility Discharge Instructions DIET: Follow Instructions for: Nothing By Mouth Activities you can perform: See Additionl Instruction, Continue Bedrest Raymundo Restrepo MD Dec 06, 2016 19:11
[2016-12-06] MEDS ORDERED: BISACODYL 10 MG SUPP PR PRN (20:00)
[2016-12-06] MEDS ORDERED: LORazepam 2 MG/ML VIAL IV PRN (20:00)
[2016-12-06] MEDS ORDERED: ACETAMINOPHEN 650 MG SUPP PR PRN (20:00)
--- NOTE | 2016-12-06 21:48 | HHI.NSPN ---
History Chief Complaint: intubated and sedated Interval History 76-year-old female transferred from [facility] 11/24/16 after being found at home unresponsive with positive bloody emesis. CT scan prior to transfer revealed subarachnoid hemorrhage. Patient intubated prior to transfer. CTA prior to transfer negative for aneurysm 11/24/16 cerebral angiogram negative for aneurysm. 11/24/16 ventriculostomy placed 11/26/16: Remains intubated and sedated. Mild eye opening. Localizes intermittent upper extremities 11/27/16: Weaning sedation and ventilator. Moderate eye opening to voice. She intermittently follows commands 11/28/16: Intubated. IV Sedation decreased. Opens eyes to voice, moves extremities to command 11/30/16: Remains intubated. Off IV sedation. A little less responsive today. 11/30/16 CT scan head with moderate hydrocephalus with ventriculostomy clamped. Ventriculostomy reopened at 5 cm water pressure 12/01/16: Patient on CPAP. Continued off IV sedation. More responsive with EVD at 5 cm water pressure, following commands with upper and lower extremities with moderate eye opening 12/03/16: Extubated. Somewhat more responsive today follows commands with all extremities. ICP 6 12/05/16: More lethargic. Nonrebreather. Not following commands Exam Results Vital Signs Date Time Temp Pulse Resp B/P Pulse Ox O2 Delivery O2 Flow Rate FiO2 12/06/16 20:51 93 Partial Rebreather 12/06/16 20:00 96 12/06/16 20:00 98.3 26 164/75 12/06/16 19:00 3.00 12/06/16 07:59 100 Intake and Output 12/05/16 12/05/16 12/06/16 08:00 16:00 00:00 Intake Total 318 ml 280 ml 98 ml Output Total 1876 ml 350 ml 1 ml Balance -1558 ml -70 ml 97 ml Physical Examination Scalp incision dry and intact Respirations: shallow. Nonrebreather Cardiac regular rate Abdomen: Soft, diminished bowel sounds. Neurologic: Huong lethargic. Mild I opening to voice and sternal rub Not following commands Withdraws UE's mild to deep pain Moderate conjugate extraocular movements Pupils 3 mm reactive Lab, Micro, Other Results Laboratory Tests Test 12/05/16 23:23 Blood Gas Puncture Site LT RADIAL Blood Gas Patient Temperature 98.6 Blood Gas HCO3 19 mmol/L Blood Gas Base Excess -4.9 mmol/L Blood Gas Oxygen Saturation 89 % Arterial Blood pH 7.37 Arterial Blood Partial 34 mmHg Pressure CO2 Arterial Blood Partial 67 mmHg Pressure O2 Arterial Blood Oxygen Content 14.6 Vol % Arterial Blood 1.0 % Carboxyhemoglobin Arterial Blood Methemoglobin 1.3 % Blood Gas Hemoglobin 11.7 G/DL Oxygen Delivery Device Non-Rebreathing Mask Blood Gas Liter Flow 15 L/M Blood Gas Inspired Oxygen 100 % Medical Decision Making Impression and Plan Impression: SAH 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 History of microscopic polyangiitis per renal biopsy 2013. Hypertension Plan Neurologic exam continued worse today Follow-up CT head revealed moderate hydrocephalus discussed with nursing staff Discussed with cigar maker Discussed with palliative care today Although patient would generally have a reasonable prognosis with aggressive treatment including ventriculoperitoneal shunt, her respiratory status is declining, and according to palliative care notes and discussion, the family has had numerous discussions with patient's regarding end-of-life issues, I do not feel that she would wish to have any aggressive treatment at this time. She has been placed in hospice care. No further neurosurgical intervention planned. Donato Tian MD Dec 06, 2016 21:48
[2016-12-07 00:30] VITALS: BP 146/65; PULSE 64; RESP 25; TEMP 97.8; O2SAT 91
[2016-12-07] MEDS: SODIUM CHLOR 0.9% 1000 ML INJ 1,000 ML IV SCH (03:40)
[2016-12-07] MEDS: CHLORHEXIDINE GLUCONATE 2 % 1 PACK (2 CLOTHS) TOP SCH (04:00)
[2016-12-07] MEDS: niMODipine 30 MG CAP PO SCH ×2 (04:31→09:10)
[2016-12-07 07:55] VITALS: BP 148/67; PULSE 108; RESP 18; TEMP 99.4; O2SAT 93
== END 2016-12-07 11:22 | disposition hospice, inpatient (51) | DRG 23 ==
LOC: N03A 02:38 → N05A 12-06 23:57
PROVIDERS: ADMIT Internal Medicine; ATTEND Internal Medicine
PROC: 009630Z Drainage of Cerebral Ventricle with Drainage Device, Percutaneous Approach (ICD-10-PCS; principal; 2016-11-24)
PROC: 5A1955Z Respiratory Ventilation, Greater than 96 Consecutive Hours (ICD-10-PCS; 2016-11-24)
PROC: 0BH17EZ Insertion of Endotracheal Airway into Trachea, Via Natural or Artificial Opening (ICD-10-PCS; 2016-11-24)
PROC: B3181ZZ Fluoroscopy of Bilateral Internal Carotid Arteries using Low Osmolar Contrast (ICD-10-PCS; 2016-11-24)
PROC: B31G1ZZ Fluoroscopy of Bilateral Vertebral Arteries using Low Osmolar Contrast (ICD-10-PCS; 2016-11-24)
PROC: B3151ZZ Fluoroscopy of Bilateral Common Carotid Arteries using Low Osmolar Contrast (ICD-10-PCS; 2016-11-24)
PROC: 3E1M39Z Irrigation of Peritoneal Cavity using Dialysate, Percutaneous Approach (ICD-10-PCS; 2016-11-24)
PROC: 0DJ08ZZ Inspection of Upper Intestinal Tract, Via Natural or Artificial Opening Endoscopic (ICD-10-PCS; 2016-11-26)
DX: I60.9 Nontraumatic subarachnoid hemorrhage, unspecified (principal); N18.6 End stage renal disease; J96.01 Acute respiratory failure with hypoxia; R65.20 Severe sepsis without septic shock; J15.0 Pneumonia due to Klebsiella pneumoniae; N17.9 Acute kidney failure, unspecified; A41.9 Sepsis, unspecified organism; G93.40 Encephalopathy, unspecified; G91.1 Obstructive hydrocephalus; K92.0 Hematemesis; I12.0 Hypertensive chronic kidney disease with stage 5 chronic kidney disease or end stage renal disease; D62 Acute posthemorrhagic anemia; M31.7 Microscopic polyangiitis; I67.7 Cerebral arteritis, not elsewhere classified; I61.5 Nontraumatic intracerebral hemorrhage, intraventricular; Z99.2 Dependence on renal dialysis; E87.6 Hypokalemia; Z51.5 Encounter for palliative care; K20.9 Esophagitis, unspecified; K29.70 Gastritis, unspecified, without bleeding; D63.1 Anemia in chronic kidney disease; E83.39 Other disorders of phosphorus metabolism; E61.1 Iron deficiency; Z66 Do not resuscitate
CPT/HCPCS: 36223; 36226; 36600; 61210; 70450; 70551; 71010; 76937; 80048; 80053; 80069; 82728; 82805; 83540; 83550; 83605; 83735; 84100; 84443; 84484; 85007; 85014; 85018; 85025; 85027; 85384; 85610; 85730; 86021; 86140; 87040; 87070; 87077; 87186; 87205; 87641; 89051; 90935; 93886; 94002; 94003; 94640; 94770; 95819; C1769; C1887; C1894; C9113; J0360; J0696; J1170; J1644; J1756; J1953; J2405; J2543; J2930; J3010; J3370; J3480; J7030; J7040; J7050; J7512; Q4081; Q9967